=== PATIENT | female | born 1940 | race Caucasian/White ===

== ENCOUNTER → 2016-10-09 | Outpatient (CLI) | payer MEDICARE ==
--- NOTE | 2016-10-10 08:38 | BD ---
EXAMINATION TYPE: MG DEXA axial skeleton. DATE OF EXAM: 10/09/2016 9:30 AM COMPARISON: 2010 CLINICAL HISTORY: osteopenia Height: 5'1 Weight: 125 FRAX RISK QUESTIONS: Alcohol (3 or more units per day): no Family History (Parent hip fracture): no Glucocorticoids (More than 3mos): no (Ex: prednisone, prednisolone, methylprednisolone, dexamethasone, and hydrocortisone). History of Fracture in Adulthood: no Secondary Osteoporosis: 1. Type 1 Diabetes: no 2. Hyperthyroidism: no 3. Menopause before 45: no 4. Malnutrition: no 5. Chronic liver disease: no Rheumatoid Arthritis: no Current Tobacco Use: no RISK FACTORS HISTORY OF: Postmenopausal woman: MEDICATIONS: Thyroid Medications: Which medication: Synthroid How Lon years Osteoporosis Medications: Which medication: Fosamax How Long: > 7 years Additional Medications: blood pressure, cholesterol, anxiety depression, Additional History: osteopenia EXAM MEASUREMENTS: Bone mineral densitometry was performed using the [employer] System. Bone mineral density as measured about the Lumbar spine is: ----- L1-L4(G/cm2): 1.150 T Score Values are as follows: ----- L2: -1.6 ----- L3: 0.6 ----- L4: 0.5 ----- L1-L4:-0.6 Bone mineral density has: Decreased -0.9% since study of:06/04/2011 Bone mineral density about the R hip (g/cm2): 0.825 Bone mineral density about the L hip (g/cm2): 0.853 T Score values are as follows: -----R Neck: -1.5 -----L Neck: -1.3 -----R Intertrochanter: -2.0 -----L Intertrochanter: -1.9 Bone mineral density has: Decreased -1.0% since study of: 06/04/2011 IMPRESSION: Osteopenia (T Score between -2.5 and -1 as noted by T score values:L2, Akira Hips There is slightly increased risk of fracture and the patient may be considered for treatment. Re-Screen 1-2 years. NOTE: T-SCORE=SD OF THE YOUNG ADULT MEAN.
== END | disposition home or self-care (01) ==
LOC: RADBDWWP 09:09
PROVIDERS: ATTEND Family Medicine
DX: M85.852 Other specified disorders of bone density and structure, left thigh (principal); M85.851 Other specified disorders of bone density and structure, right thigh
CPT/HCPCS: 77080

== ENCOUNTER 2017-01-24 10:01 | Day surgery (SDC) | payer MEDICARE ==
[2017-01-21 15:02] VITALS: BMI 21.7
[~2017-01-24 10:01] MED LIST: LIDOCAINE 1% 20 ML VIAL (10MG/ML) FOR IV START INTRADERMA PRN
[2017-01-24 10:31] VITALS: TEMP 98.6
[2017-01-24] MEDS: LACTATED RINGERS 1,000 ML IV SCH ×2 (10:41→10:49)
[2017-01-24] MEDS ORDERED: PROPOFOL 10 MG/ML 20 ML VIAL IV ONE (10:51)
[2017-01-24] MEDS ORDERED: LIDOCAINE 1% INJ 10MG/ML (20 ML MDV) ONE (10:51)
--- NOTE | 2017-01-24 11:10 | P.PCN ---
Date of Procedure: 01/24/17 Preoperative Diagnosis: Postoperative Diagnosis: Procedure(s) Performed: BRIEF HISTORY: Patient is a 76-year-old pleasant white female, scheduled for an elective colonoscopy as a part of evaluation of prior history of colon polyps. Her last colonoscopy was in 2010 was noted to have a tubular adenoma. PROCEDURE PERFORMED: Colonoscopy. PREOPERATIVE DIAGNOSIS: History of colon polyps. IV sedation per Anesthesia. PROCEDURE: After informed consent was obtained, the patient, was brought into the endoscopy unit. IV sedation was administered by Anesthesia under continuous monitoring. Digital rectal examination was normal. Initially the Olympus CF- 160 flexible video colonoscope was then inserted in the rectum, gradually advanced into the cecum without any difficulty. Careful examination was performed as the scope was gradually being withdrawn. Ileocecal valve and the appendiceal orifice were visualized and appeared normal. Prep was excellent. Mucosa of the cecum, ascending colon, transverse colon, descending colon, sigmoid colon, and rectum appeared normal. Retroflexion was performed in the rectum and no lesions were seen. The patient tolerated the procedure well. IMPRESSION: Normal-appearing colon from rectum to cecum with no evidence of colorectal neoplasia. RECOMMENDATIONS: Findings of this examination were discussed with the patient as well as a family. She was advised to have a repeat surveillance colonoscopy in 5 years. Implants: Indications for Procedure: Operative Findings: Description of Procedure:
[2017-01-24 11:17] VITALS: BP 108/64; PULSE 66; RESP 16
== END 2017-01-24 11:50 | disposition home or self-care (01) ==
LOC: ORWHC2ENDO 10:01
PROVIDERS: ATTEND Internal Medicine Gastroenterology
DX: Z12.11 Encounter for screening for malignant neoplasm of colon (principal); E78.5 Hyperlipidemia, unspecified; E07.9 Disorder of thyroid, unspecified; M19.90 Unspecified osteoarthritis, unspecified site; F39 Unspecified mood [affective] disorder; Z86.010 Personal history of colon polyps; Z79.82 Long term (current) use of aspirin; Z79.83 Long term (current) use of bisphosphonates; Z79.899 Other long term (current) drug therapy; Z87.891 Personal history of nicotine dependence; Z85.3 Personal history of malignant neoplasm of breast
CPT/HCPCS: G0105; J2001; J2704

== ENCOUNTER → 2017-05-23 | Outpatient (CLI) | payer MEDICARE ==
--- NOTE | 2017-05-23 07:54 | MM ---
Reason for exam: additional evaluation requested from prior study. Last mammogram was performed 1 year and 1 month ago. History: Patient is postmenopausal, has history of breast cancer at age 57, and had previous chest radiation therapy at age 56. Family history of breast cancer in maternal grandmother at age 60 and premenopausal breast cancer in mother at age 50. Excisional biopsy of the right breast, 1997. Lumpectomy of the right breast, 1997. Chemotherapy, 1997. Radiation therapy of the right breast, 1997. Took estrogen for 5 years beginning at age 52. Took tamoxifen for 5 years. Physical Findings: Nurse did not find any significant physical abnormalities on exam. MG 3D Diag Mammo W/Cad KARISHMA Bilateral CC and MLO view(s) were taken. Prior study comparison: May 07, 2016, bilateral MG 3d diag mammo w/cad KARISHMA. April 08, 2015, bilateral MG 3d diag mammo w/cad KARISHMA. There are scattered fibroglandular densities. Post surgical changes in the right breast. No significant new findings when compared with previous films. These results were verbally communicated with the patient and result sheet given to the patient on 05/23/17. ASSESSMENT: Benign, BI-RAD 2 RECOMMENDATION: Follow-up diagnostic mammogram of both breasts in 1 year.
== END | disposition home or self-care (01) ==
LOC: RADMAMWWP 07:00
PROVIDERS: ATTEND Family Medicine
DX: Z08 Encounter for follow-up examination after completed treatment for malignant neoplasm (principal); Z85.3 Personal history of malignant neoplasm of breast
CPT/HCPCS: G0204; G0279

== ENCOUNTER → 2017-07-16 | Outpatient (CLI) | payer MEDICARE ==
--- NOTE | 2017-07-16 07:29 | US ---
EXAMINATION TYPE: US kidneys/renal and bladder DATE OF EXAM: 07/16/2017 COMPARISON: NONE CLINICAL HISTORY: N39.0 FREQUENT URINARY TRACT INFECTIONS. EXAM MEASUREMENTS: Right Kidney: 9.6 x 3.3 x 3.8 cm Left Kidney: 9.6 x 3.3 x 3.8 cm Post Void Residual Volume: 4.4 mL Right Kidney: No hydronephrosis or masses seen Left Kidney: No hydronephrosis or masses seen Bladder: wnl Bilateral Jets seen: Yes Normal Post Void Residual: Yes There is no evidence for hydronephrosis at this point in time. No nephrolithiasis is seen. No sushma s are identified. The urinary bladder is anechoic. Bilateral ureteral jets are seen. IMPRESSION: Unremarkable evaluation.
== END | disposition home or self-care (01) ==
LOC: RADUSWWP 06:52
PROVIDERS: ATTEND Urology
DX: N39.0 Urinary tract infection, site not specified (principal); Z92.21 Personal history of antineoplastic chemotherapy; Z92.3 Personal history of irradiation; Z85.3 Personal history of malignant neoplasm of breast; Z85.89 Personal history of malignant neoplasm of other organs and systems
CPT/HCPCS: 76770

== ENCOUNTER 2017-10-31 20:04 | Emergency (ER) | payer MEDICARE ==
[2017-10-31 20:12] VITALS: TEMP 97.7
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
--- NOTE | 2017-10-31 21:09 | XR ---
EXAMINATION TYPE: XR wrist complete LT DATE OF EXAM: 10/31/2017 CLINICAL HISTORY: Generalized left wrist pain after fall injury today. TECHNIQUE: Frontal, lateral, scaphoid, and oblique images of the left wrist are obtained. COMPARISON: None FINDINGS: Osseous structures are demineralized. There is no acute fracture/dislocation evident in the left wrist. There is moderate to severe joint space loss with moderate spurring at base of first met acarpal. The overlying soft tissue appears unremarkable. IMPRESSION: There is no acute fracture or dislocation in the left wrist.
[2017-10-31 21:29] VITALS: BP 171/84; PULSE 72; RESP 18
== END 2017-10-31 21:46 | disposition home or self-care (01) ==
LOC: EC 20:04
DX: M25.532 Pain in left wrist (principal); E78.5 Hyperlipidemia, unspecified; M19.90 Unspecified osteoarthritis, unspecified site; E07.9 Disorder of thyroid, unspecified; F32.9 Major depressive disorder, single episode, unspecified; F41.9 Anxiety disorder, unspecified; Z85.3 Personal history of malignant neoplasm of breast; Z79.82 Long term (current) use of aspirin; Z79.899 Other long term (current) drug therapy; Z98.890 Other specified postprocedural states; V19.9XXA Pedal cyclist (driver) (passenger) injured in unspecified traffic accident, initial encounter; Y92.410 Unspecified street and highway as the place of occurrence of the external cause
CPT/HCPCS: 99283

== ENCOUNTER → 2018-06-02 | Outpatient (CLI) | payer MEDICARE ==
--- NOTE | 2018-06-02 09:05 | MM ---
Reason for exam: additional evaluation requested from prior study. Last mammogram was performed 1 year ago. History: Patient is postmenopausal, has history of breast cancer at age 57, and had previous chest radiation therapy at age 56. Family history of breast cancer in maternal grandmother at age 60 and premenopausal breast cancer in mother at age 50. Excisional biopsy of the right breast, 1997. Lumpectomy of the right breast, 1997. Chemotherapy, 1997. Radiation therapy of the right breast, 1997. Took estrogen for 5 years beginning at age 52. Took tamoxifen for 5 years. Physical Findings: Nurse did not find any significant physical abnormalities on exam. MG 3D Diag Mammo W/Cad KARISHMA Bilateral CC and MLO view(s) were taken. Prior study comparison: May 23, 2017, bilateral MG 3d diag mammo w/cad KARISHMA. May 07, 2016, bilateral MG 3d diag mammo w/cad KARISHMA. There are scattered fibroglandular densities. Asymmetric breast tissue greater in the left breast. Post surgical changes in the right breast, stable. No significant new findings when compared with previous films. These results were verbally communicated with the patient and result sheet given to the patient on 06/02/18. ASSESSMENT: Benign, BI-RAD 2 RECOMMENDATION: Routine screening mammogram of both breasts in 1 year.
== END ==
LOC: RADMAMWWP 07:32
PROVIDERS: ATTEND Family Medicine
DX: Z08 Encounter for follow-up examination after completed treatment for malignant neoplasm (principal); Z85.3 Personal history of malignant neoplasm of breast
CPT/HCPCS: 77066; G0279; 77062

== ENCOUNTER → 2019-07-15 | Outpatient (CLI) | payer MEDICARE ==
--- NOTE | 2019-07-15 10:11 | BD ---
EXAMINATION TYPE: Axial Bone Density DATE OF EXAM: 07/15/2019 COMPARISON: NONE CLINICAL HISTORY: Height: 5 FT Weight: 117 FRAX RISK QUESTIONS: Alcohol (3 or more units per day): NO Family History (Parent hip fracture): NO Glucocorticoids (More than 3mos): NO (Ex: prednisone, prednisolone, methylprednisolone, dexamethasone, and hydrocortisone). History of Fracture in Adulthood: YES Secondary Osteoporosis: 1. Type 1 Diabetes: NO 2. Hyperthyroidism: NO 3. Menopause before 45: NO 4. Malnutrition: NO 5. Chronic liver disease: NO Rheumatoid Arthritis: NO Current Tobacco Use: NO RISK FACTORS HISTORY OF: History of Wrist Fracture: YES LEFT When: 2018 Active: YES Postmenopausal woman: AGE 52 Take estrogen and/or progesterone medications: DID TAKE FOR ABOUT FIVE YEARS NO LONGER TAKES MEDICATIONS: Thyroid Medications: YES Which medication: LEVOTHYROXINE How Long: APPROX 12 YEARS Osteoporosis Medications: YES Which medication: FOSAMAX How Lon YEARS Additional Medications: FOSAMAX, LEVOTHYROXINE, VIT D3, Additional History: BREAST CANCER AGE 57 CHEMO AND RADIATION EXAM MEASUREMENTS: Bone mineral densitometry was performed using the [employer] System. Bone mineral density as measured about the Lumbar spine is: ----- L1-L4(G/cm2): 1.194 T Score Values are as follows: ----- L2: -0.7 ----- L3: 1.3 ----- L4: 0.4 ----- L1-L4: 0.1 Bone mineral density has: INCREASED 8.3 % since study of: 2017 Bone mineral density about the R hip (g/cm2): 0.862 Bone mineral density about the L hip (g/cm2): 0.887 T Score values are as follows: -----R Neck: -1.3 -----L Neck: -1.1 -----R Total: -1.2 -----L Total: -0.9 Bone mineral density has: INCREASED 1.3 % since study of: 2017 IMPRESSION: Normal (Values between +1 and -1 indicate normal bone mass). Consider repeating this study in 5 year s or sooner if there is some new clinical indication. NOTE: T-SCORE=SD OF THE YOUNG ADULT MEAN.
--- NOTE | 2019-07-16 13:20 | MM ---
Reason for exam: screening (asymptomatic). Last mammogram was performed 1 year and 1 month ago. History: Patient is postmenopausal, has history of breast cancer at age 57, and had previous chest radiation therapy at age 56. Family history of breast cancer in maternal grandmother at age 60 and premenopausal breast cancer in mother at age 50. Excisional biopsy of the right breast, 1997. Lumpectomy of the right breast, 1997. Chemotherapy, 1997. Radiation therapy of the right breast, 1997. Took estrogen for 5 years beginning at age 52. Took tamoxifen for 5 years. Physical Findings: A clinical breast exam by your physician is recommended on an annual basis and results should be correlated with mammographic findings. MG 3D Screening Mammo W/Cad Bilateral CC and MLO view(s) were taken. Prior study comparison: June 02, 2018, bilateral MG 3d diag mammo w/cad KARISHMA. May 23, 2017, bilateral MG 3d diag mammo w/cad KARISHMA. There are scattered fibroglandular densities. No significant changes when compared with prior studies. ASSESSMENT: Benign, BI-RAD 2 RECOMMENDATION: Routine screening mammogram of both breasts in 1 year.
== END | disposition home or self-care (01) ==
LOC: RADMAMWWP 07:28
PROVIDERS: ATTEND Family Medicine
DX: Z12.31 Encounter for screening mammogram for malignant neoplasm of breast (principal); Z78.0 Asymptomatic menopausal state
CPT/HCPCS: 77063; 77067; 77080

== ENCOUNTER 2020-04-28 08:17 | Emergency (ER) | payer MEDICARE ==
[2020-04-28 08:43] VITALS: RESP 18
[2020-04-28] MEDS ORDERED: SODIUM CHLORIDE 0.9% 1,000 ML IV STA (08:54)
[2020-04-28] MEDS ORDERED: ALBUTEROL HFA INHALER INHALATION STA (08:56)
--- NOTE | 2020-04-28 08:58 | ED ---
General Adult HPI - General Chief complaint: Shortness of Breath Stated complaint: Sob Time Seen by Provider: 04/28/20 08:25 Source: patient, RN notes reviewed Mode of arrival: ambulatory Limitations: no limitations - History of Present Illness Initial comments: 79-year-old female presents to the emergency department for a chief complaint of hyperlipidemia, thyroid disorder, remote breast cancer presents to the emergency room for chief complaint of cough. Patient states she has had a cough for about a week now. States she feels she has to cough up phlegm however is unable to do splint. States that she has felt achy and fatigued throughout the week. Patient now feels slightly short of breath as well. 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 Patient states she feels how she did when she previously had pneumonia. She denies any fevers.Patient has no other complaints at this time including chest pain, abdominal pain, nausea or vomiting, headache, or visual changes. - Related Data Home Medications Medication Instructions Recorded Confirmed Alendronate Sodium [Fosamax] 70 mg PO WE 01/21/17 04/28/20 Cholecalciferol [Vitamin D3] 1,000 unit PO DAILY 01/21/17 04/28/20 Glucosam/Angelo-Msm1/C/Sanjiv/Bosw 1 tab PO DAILY 01/21/17 04/28/20 [Glucosamine-Chondroitin Tablet] Levothyroxine Sodium [Synthroid] 50 mcg PO DAILY 01/21/17 04/28/20 Sertraline [Zoloft] 200 mg PO DAILY 01/21/17 04/28/20 clonazePAM [KlonoPIN] 1.5 mg PO HS 01/21/17 04/28/20 Vitamin C (Unknown Strength) 1 tab PO DAILY 04/28/20 04/28/20 Previous Rx's Medication Instructions Recorded Albuterol Inhaler [Ventolin Hfa 2 puff INHALATION RT-QID PRN #1 04/28/20 Inhaler] inhaler Azithromycin [Zithromax Z-pack (6 250 mg PO DIRECTED #6 tab 04/28/20 tabs)] guaiFENesin [Mucinex] 600 mg PO Q12HR #14 tablet.er 04/28/20 methylPREDNISolone Dose Pack 4 mg PO DIRECTED #21 package 04/28/20 [Medrol Dose Pack] Allergies Allergy/AdvReac Type Severity Reaction Status Date / Time No Known Allergies Allergy Verified 04/28/20 10:39 Review of Systems ROS Statement: Those systems with pertinent positive or pertinent negative responses have been documented in the HPI. ROS Other: All systems not noted in ROS Statement are negative. Past Medical History Past Medical History: Cancer, Hyperlipidemia, Osteoarthritis (OA), Thyroid Disorder Additional Past Medical History / Comment(s): HX BREAST CA-1998 History of Any Multi-Drug Resistant Organisms: None Reported Past Surgical History: Adenoidectomy, Breast Surgery, Hysterectomy, Orthopedic Surgery, Tonsillectomy Additional Past Surgical History / Comment(s): PIN TO RT SHOULDER. RT BREAST LUMPECTOMY WITH AXILLARY NODE DISSECTION. BILAT CATARACTS REMOVED. COLONOSCOPY Past Anesthesia/Blood Transfusion Reactions: No Reported Reaction Past Psychological History: Anxiety, Depression Smoking Status: Former smoker Past Alcohol Use History: None Reported Past Drug Use History: None Reported - Past Family History Mother Family Medical History: Cancer General Exam Limitations: no limitations General appearance: alert, in no apparent distress Head exam: Present: atraumatic, normocephalic, normal inspection Eye exam: Present: normal appearance, PERRL, EOMI. Absent: scleral icterus, conjunctival injection, periorbital swelling ENT exam: Present: normal exam, mucous membranes moist Neck exam: Present: normal inspection, full ROM. Absent: tenderness, meningismus, lymphadenopathy Respiratory exam: Present: normal lung sounds bilaterally. Absent: respiratory distress, wheezes, rales, rhonchi, stridor Cardiovascular Exam: Present: regular rate, normal rhythm, normal heart sounds. Absent: systolic murmur, diastolic murmur, rubs, gallop, clicks GI/Abdominal exam: Present: soft, normal bowel sounds. Absent: distended, tenderness, guarding, rebound, rigid Neurological exam: Present: alert Course Vital Signs 04/28/20 04/28/20 08:19 10:18 Temperature 99.0 F Pulse Rate 89 Respiratory 18 Rate Blood Pressure 131/81 O2 Sat by Pulse 94 L 96 Oximetry EKG Findings - EKG Comments: EKG Findings:: Normal sinus rhythm, ventricular rate 83, OR total 150, QTC 472 Medical Decision Making - Medical Decision Making Vitals are stable. Patient initially 94% on room air. Normal heart rate. Afebrile. No worse 3 distress. Patient speaking in full sentences. CBC is unremarkable. Mild lymphocytosis as noted. CMP unremarkable. D-dimer within normal limits of 0.52. Chest x-ray shows a borderline heart with COPD and some strandy atelectasis or scarring. No definite acute process. Patient was ambulated and had a 97% ambulatory O2. At this time patient will be treated for possible acute bronchitis. I did recommend that if she has any worsening symptoms she should return here to the emergency room. Otherwise she will follow-up with primary care. - Lab Data Result diagrams: 04/28/20 08:29 04/28/20 08:29 Lab Results 04/28/20 04/28/20 04/28/20 Range/Units 08:29 08:29 08:29 WBC 6.5 (3.8-10.6) k/uL RBC 4.15 (3.80-5.40) m/uL Hgb 11.9 (11.4-16.0) gm/dL Hct 37.6 (34.0-46.0) % MCV 90.8 (80.0-100.0) fL MCH 28.8 (25.0-35.0) pg MCHC 31.7 (31.0-37.0) g/dL RDW 14.2 (11.5-15.5) % Plt Count 151 (150-450) k/uL Neutrophils % 86 % Lymphocytes % 9 % Monocytes % 3 % Eosinophils % 0 % Basophils % 0 % Neutrophils # 5.6 (1.3-7.7) k/uL Lymphocytes # 0.6 L (1.0-4.8) k/uL Monocytes # 0.2 (0-1.0) k/uL Eosinophils # 0.0 (0-0.7) k/uL Basophils # 0.0 (0-0.2) k/uL PT 9.4 (9.0-12.0) sec INR 0.9 (<1.2) APTT 25.7 (22.0-30.0) sec D-Dimer (<0.60) mg/L FEU Sodium 135 L (137-145) mmol/L Potassium 4.5 (3.5-5.1) mmol/L Chloride 103 (98-107) mmol/L Carbon Dioxide 25 (22-30) mmol/L Anion Gap 7 mmol/L BUN 16 (7-17) mg/dL Creatinine 0.89 (0.52-1.04) mg/dL Est GFR (CKD-EPI)AfAm 72 (>60 ml/min/1.73 sqM) Est GFR (CKD-EPI)NonAf 63 (>60 ml/min/1.73 sqM) Glucose 131 H (74-99) mg/dL Plasma Lactic Acid Del (0.7-2.0) mmol/L Calcium 8.6 (8.4-10.2) mg/dL Total Bilirubin 0.5 (0.2-1.3) mg/dL AST 38 H (14-36) U/L ALT 15 (4-34) U/L Alkaline Phosphatase 92 (38-126) U/L Troponin I (0.000-0.034) ng/mL Total Protein 7.1 (6.3-8.2) g/dL Albumin 4.1 (3.5-5.0) g/dL 04/28/20 04/28/20 04/28/20 Range/Units 08:29 08:29 08:29 WBC (3.8-10.6) k/uL RBC (3.80-5.40) m/uL Hgb (11.4-16.0) gm/dL Hct (34.0-46.0) % MCV (80.0-100.0) fL MCH (25.0-35.0) pg MCHC (31.0-37.0) g/dL RDW (11.5-15.5) % Plt Count (150-450) k/uL Neutrophils % % Lymphocytes % % Monocytes % % Eosinophils % % Basophils % % Neutrophils # (1.3-7.7) k/uL Lymphocytes # (1.0-4.8) k/uL Monocytes # (0-1.0) k/uL Eosinophils # (0-0.7) k/uL Basophils # (0-0.2) k/uL PT (9.0-12.0) sec INR (<1.2) APTT (22.0-30.0) sec D-Dimer 0.52 (<0.60) mg/L FEU Sodium (137-145) mmol/L Potassium (3.5-5.1) mmol/L Chloride (98-107) mmol/L Carbon Dioxide (22-30) mmol/L Anion Gap mmol/L BUN (7-17) mg/dL Creatinine (0.52-1.04) mg/dL Est GFR (CKD-EPI)AfAm (>60 ml/min/1.73 sqM) Est GFR (CKD-EPI)NonAf (>60 ml/min/1.73 sqM) Glucose (74-99) mg/dL Plasma Lactic Acid Del 1.1 (0.7-2.0) mmol/L Calcium (8.4-10.2) mg/dL Total Bilirubin (0.2-1.3) mg/dL AST (14-36) U/L ALT (4-34) U/L Alkaline Phosphatase (38-126) U/L Troponin I <0.012 (0.000-0.034) ng/mL Total Protein (6.3-8.2) g/dL Albumin (3.5-5.0) g/dL Disposition Clinical Impression: Cough Disposition: HOME SELF-CARE Condition: Good Instructions (If sedation given, give patient instructions): Acute Bronchitis (ED) Additional Instructions: please take medications as directed. Follow-up with your doctor in one to 2 days. Return to the emergency room for any worsening symptoms such as increased shortness of breath. Prescriptions: methylPREDNISolone Dose Pack [Medrol Dose Pack] 4 mg PO DIRECTED #21 package guaiFENesin [Mucinex] 600 mg PO Q12HR #14 tablet.er Albuterol Inhaler [Ventolin Hfa Inhaler] 2 puff INHALATION RT-QID PRN #1 inhaler PRN Reason: Shortness Of Breath Azithromycin [Zithromax Z-pack (6 tabs)] 250 mg PO DIRECTED #6 tab Is patient prescribed a controlled substance at d/c from ED?: No Referrals: Ramo Guerrero DO [Primary Care Provider] - 1-2 days Time of Disposition: 11:40
--- NOTE | 2020-04-28 09:35 | XR ---
EXAMINATION TYPE: XR chest 2V DATE OF EXAM: 04/28/2020 COMPARISON: 05/07/2016 HISTORY: 79-year-old female shortness of breath, difficulty breathing TECHNIQUE: PA and lateral views FINDINGS: Heart upper limits of normal in size. Aorta and pulmonary vasculature within normal limits. Mild hype rinflation. Some strandy opacity, likely atelectasis in lower lungs. Mild pectus excavatum. Surgical clips at the right axilla. Surgical katelyn at the right glenoid. IMPRESSION: Borderline heart size. COPD. Some strandy atelectasis or scarring in the lower lungs. No definite acu te process.
[2020-04-28 09:49] LABS: Basophils % (A) 0 %; Eosinophils % (A) 0 %; HCT 37.6 % (34.0-46.0); HGB 11.9 gm/dL (11.4-16.0); Lymphocytes # (A) 0.6 k/uL (1.0-4.8); Lymphocytes % (A) 9 %; MCH 28.8 pg (25.0-35.0); MCHC 31.7 g/dL (31.0-37.0); MCV 90.8 fL (80.0-100.0); Mean Platelet Volume 7.5; Monocytes # (A) 0.2 k/uL (0-1.0); Monocytes % (A) 3 %; Neutrophils # (A) 5.6 k/uL (1.3-7.7); Neutrophils % (A) 86 %; Platelet Count 151 k/uL (150-450); RBC 4.15 m/uL (3.80-5.40); RDW 14.2 % (11.5-15.5); WBC 6.5 k/uL (3.8-10.6)
[2020-04-28 10:02] LABS: Albumin 4.1 g/dL (3.5-5.0); Calcium 8.6 mg/dL (8.4-10.2); INR 0.9 (<1.2); Partial Thromboplastin Time 25.7 sec (22.0-30.0); Potassium 4.5 mmol/L (3.5-5.1); Prothrombin Time 9.4 sec (9.0-12.0); Total Bilirubin 0.5 mg/dL (0.2-1.3); Total Protein 7.1 g/dL (6.3-8.2)
[2020-04-28 11:57] VITALS: BP 132/72; PULSE 69; TEMP 98.4
== END 2020-04-28 11:57 | disposition home or self-care (01) ==
LOC: EC 08:17
DX: U07.1 COVID-19 (principal); D72.820 Lymphocytosis (symptomatic); J44.9 Chronic obstructive pulmonary disease, unspecified; E07.9 Disorder of thyroid, unspecified; F41.9 Anxiety disorder, unspecified; F32.9 Major depressive disorder, single episode, unspecified; Z79.899 Other long term (current) drug therapy; Z79.83 Long term (current) use of bisphosphonates; Z79.890 Hormone replacement therapy; Z87.891 Personal history of nicotine dependence; Z85.3 Personal history of malignant neoplasm of breast
CPT/HCPCS: 99285; 96360; 36415; 93005; 85379; 80053; 83605; 84484; 85025; 85610; 85730; 71046; U0003

== ENCOUNTER 2020-05-02 10:22 | Inpatient (IN) | payer MEDICARE ==
[2020-05-02] MEDS ORDERED: IPRATROPIUM-ALBUTEROL 3 ML NEB INHALATION STA (10:43)
--- NOTE | 2020-05-02 10:46 | ED ---
SOB HPI - General Chief Complaint: Shortness of Breath Stated Complaint: SOB Time Seen by Provider: 05/02/20 10:30 Source: patient, family, RN notes reviewed Mode of arrival: ambulatory Limitations: no limitations - History of Present Illness Initial Comments: this a 79-year-old female presents emergency Department with chief complaint of increasing shortness of breath. Patient was seen in emergency from it for days ago states symptoms have worsened. Patient was at PCPs office today and sent here to rule out pneumonia, possible hospitalization. Patient has been having shortness breath at rest and with exertion denies any leg pain, leg swelling no history of CHF, PE or DVT. Patient that she has a minimally productive cough no reported fever. No significant long history including COPD or asthma. Patient states she was placed on oxygen at her PCPs office because she was having low saturations. Patient denies any abdominal pain. - Related Data Home Medications Medication Instructions Recorded Confirmed Alendronate Sodium [Fosamax] 70 mg PO WE 01/21/17 05/02/20 Cholecalciferol [Vitamin D3] 1,000 unit PO DAILY 01/21/17 05/02/20 Glucosam/Angelo-Msm1/C/Sanjiv/Bosw 1 tab PO DAILY 01/21/17 05/02/20 [Glucosamine-Chondroitin Tablet] Levothyroxine Sodium [Synthroid] 50 mcg PO DAILY 01/21/17 05/02/20 Sertraline [Zoloft] 200 mg PO DAILY 01/21/17 05/02/20 clonazePAM [KlonoPIN] 1.5 mg PO HS 01/21/17 05/02/20 Vitamin C (Unknown Strength) 1 tab PO DAILY 04/28/20 05/02/20 Aspirin EC [Ecotrin Low Dose] 81 mg PO DAILY 05/02/20 05/02/20 Azithromycin [Zithromax Z-pack (6 See Taper PO DIRECTED 05/02/20 05/02/20 tabs)] Cyanocobalamin (Vitamin B-12) 1,000 mcg PO DAILY 05/02/20 05/02/20 [Vitamin B-12] methylPREDNISolone Dose Pack See Taper PO DIRECTED 05/02/20 05/02/20 [Medrol Dose Pack] Previous Rx's Medication Instructions Recorded Albuterol Inhaler [Ventolin Hfa 2 puff INHALATION RT-QID PRN #1 04/28/20 Inhaler] inhaler guaiFENesin [Mucinex] 600 mg PO Q12HR #14 tablet.er 04/28/20 Allergies Allergy/AdvReac Type Severity Reaction Status Date / Time No Known Allergies Allergy Verified 05/02/20 11:12 Review of Systems ROS Statement: Those systems with pertinent positive or pertinent negative responses have been documented in the HPI. ROS Other: All systems not noted in ROS Statement are negative. Past Medical History Past Medical History: Cancer, Hyperlipidemia, Osteoarthritis (OA), Thyroid Disorder Additional Past Medical History / Comment(s): HX BREAST CA-1998 History of Any Multi-Drug Resistant Organisms: None Reported Past Surgical History: Adenoidectomy, Breast Surgery, Hysterectomy, Orthopedic Surgery, Tonsillectomy Additional Past Surgical History / Comment(s): PIN TO RT SHOULDER. RT BREAST LUMPECTOMY WITH AXILLARY NODE DISSECTION. BILAT CATARACTS REMOVED. COLONOSCOPY Past Anesthesia/Blood Transfusion Reactions: No Reported Reaction Past Psychological History: Anxiety, Depression Smoking Status: Former smoker Past Alcohol Use History: None Reported Past Drug Use History: None Reported - Past Family History Mother Family Medical History: Cancer General Exam Limitations: no limitations General appearance: alert, in no apparent distress Head exam: Present: atraumatic, normocephalic, normal inspection Eye exam: Present: normal appearance, PERRL, EOMI. Absent: scleral icterus, conjunctival injection, periorbital swelling ENT exam: Present: normal exam, normal oropharynx, mucous membranes moist Neck exam: Present: normal inspection, full ROM. Absent: tenderness, meningismus, lymphadenopathy Respiratory exam: Present: decreased breath sounds. Absent: normal lung sounds bilaterally, respiratory distress, wheezes, rales, rhonchi, stridor Cardiovascular Exam: Present: regular rate, normal rhythm, normal heart sounds. Absent: systolic murmur, diastolic murmur, rubs, gallop, clicks GI/Abdominal exam: Present: soft, normal bowel sounds. Absent: distended, tenderness, guarding, rebound, rigid Neurological exam: Present: alert, oriented X3 Skin exam: Present: warm, dry, intact, normal color. Absent: rash Course Vital Signs 05/02/20 05/02/20 05/02/20 10:23 10:42 12:18 Temperature 98.8 F 97.9 F Pulse Rate 58 L 85 Respiratory 20 14 16 Rate Blood Pressure 122/69 127/69 O2 Sat by Pulse 92 L 96 Oximetry Medical Decision Making - Medical Decision Making chest x-ray shows evidence of pneumonia related to coronavirus testing. Patient will be admitted secondary to hypoxia. Patient becomes increasingly hypoxic with an ablation even on O2 supplement - Lab Data Result diagrams: 05/02/20 10:49 05/02/20 10:49 Lab Results 05/02/20 05/02/20 05/02/20 Range/Units 10:49 10:49 10:49 WBC 15.9 H (3.8-10.6) k/uL RBC 3.64 L (3.80-5.40) m/uL Hgb 10.8 L (11.4-16.0) gm/dL Hct 32.0 L (34.0-46.0) % MCV 87.9 (80.0-100.0) fL MCH 29.7 (25.0-35.0) pg MCHC 33.7 (31.0-37.0) g/dL RDW 13.9 (11.5-15.5) % Plt Count 206 (150-450) k/uL Neutrophils % 97 % Lymphocytes % 1 % Monocytes % 2 % Eosinophils % 0 % Basophils % 0 % Neutrophils # 15.3 H (1.3-7.7) k/uL Lymphocytes # 0.2 L (1.0-4.8) k/uL Monocytes # 0.3 (0-1.0) k/uL Eosinophils # 0.0 (0-0.7) k/uL Basophils # 0.0 (0-0.2) k/uL PT 9.7 (9.0-12.0) sec INR 0.9 (<1.2) APTT 25.2 (22.0-30.0) sec D-Dimer 0.59 (<0.60) mg/L FEU Sodium 129 L (137-145) mmol/L Potassium 3.8 (3.5-5.1) mmol/L Chloride 98 (98-107) mmol/L Carbon Dioxide 23 (22-30) mmol/L Anion Gap 8 mmol/L BUN 19 H (7-17) mg/dL Creatinine 0.82 (0.52-1.04) mg/dL Est GFR (CKD-EPI)AfAm 80 (>60 ml/min/1.73 sqM) Est GFR (CKD-EPI)NonAf 69 (>60 ml/min/1.73 sqM) Glucose 105 H (74-99) mg/dL Plasma Lactic Acid Del (0.7-2.0) mmol/L Calcium 8.3 L (8.4-10.2) mg/dL Magnesium 2.1 (1.6-2.3) mg/dL Total Bilirubin 0.6 (0.2-1.3) mg/dL AST 34 (14-36) U/L ALT 12 (4-34) U/L Alkaline Phosphatase 76 (38-126) U/L Troponin I (0.000-0.034) ng/mL Total Protein 6.3 (6.3-8.2) g/dL Albumin 3.3 L (3.5-5.0) g/dL Coronavirus (PCR) (Not Detectd) 05/02/20 05/02/20 05/02/20 Range/Units 10:49 10:49 10:49 WBC (3.8-10.6) k/uL RBC (3.80-5.40) m/uL Hgb (11.4-16.0) gm/dL Hct (34.0-46.0) % MCV (80.0-100.0) fL MCH (25.0-35.0) pg MCHC (31.0-37.0) g/dL RDW (11.5-15.5) % Plt Count (150-450) k/uL Neutrophils % % Lymphocytes % % Monocytes % % Eosinophils % % Basophils % % Neutrophils # (1.3-7.7) k/uL Lymphocytes # (1.0-4.8) k/uL Monocytes # (0-1.0) k/uL Eosinophils # (0-0.7) k/uL Basophils # (0-0.2) k/uL PT (9.0-12.0) sec INR (<1.2) APTT (22.0-30.0) sec D-Dimer (<0.60) mg/L FEU Sodium (137-145) mmol/L Potassium (3.5-5.1) mmol/L Chloride (98-107) mmol/L Carbon Dioxide (22-30) mmol/L Anion Gap mmol/L BUN (7-17) mg/dL Creatinine (0.52-1.04) mg/dL Est GFR (CKD-EPI)AfAm (>60 ml/min/1.73 sqM) Est GFR (CKD-EPI)NonAf (>60 ml/min/1.73 sqM) Glucose (74-99) mg/dL Plasma Lactic Acid Del 0.8 (0.7-2.0) mmol/L Calcium (8.4-10.2) mg/dL Magnesium (1.6-2.3) mg/dL Total Bilirubin (0.2-1.3) mg/dL AST (14-36) U/L ALT (4-34) U/L Alkaline Phosphatase (38-126) U/L Troponin I <0.012 (0.000-0.034) ng/mL Total Protein (6.3-8.2) g/dL Albumin (3.5-5.0) g/dL Coronavirus (PCR) Detected A (Not Detectd) - EKG Data -: EKG Interpreted by Tx EKG Comments: EKG performed at 11:05 normal sinus rhythm rate of 82 MO 176 QRS 78 QT/QTC 394/460 Disposition Clinical Impression: Hypoxia, COVID-19 Disposition: ADMITTED IP TO THIS HOSP Condition: Fair Referrals: Ramo Guerrero DO [Primary Care Provider] - 1-2 days
[2020-05-02 11:21] LABS: Basophils % (A) 0 %; Eosinophils % (A) 0 %; HGB 10.8 gm/dL (11.4-16.0); Lymphocytes # (A) 0.2 k/uL (1.0-4.8); Lymphocytes % (A) 1 %; MCH 29.7 pg (25.0-35.0); MCHC 33.7 g/dL (31.0-37.0); MCV 87.9 fL (80.0-100.0); Mean Platelet Volume 7.6; Monocytes # (A) 0.3 k/uL (0-1.0); Monocytes % (A) 2 %; Neutrophils # (A) 15.3 k/uL (1.3-7.7); Neutrophils % (A) 97 %; Platelet Count 206 k/uL (150-450); RBC 3.64 m/uL (3.80-5.40); RDW 13.9 % (11.5-15.5); WBC 15.9 k/uL (3.8-10.6)
[2020-05-02 11:24] LABS: Albumin 3.3 g/dL (3.5-5.0); Calcium 8.3 mg/dL (8.4-10.2); Magnesium 2.1 mg/dL (1.6-2.3); Potassium 3.8 mmol/L (3.5-5.1); Total Bilirubin 0.6 mg/dL (0.2-1.3); Total Protein 6.3 g/dL (6.3-8.2)
--- NOTE | 2020-05-02 11:41 | XR ---
EXAMINATION TYPE: XR chest 2V DATE OF EXAM: 05/02/2020 COMPARISON: 04/28/2020 HISTORY: Shortness of breath TECHNIQUE: Frontal and lateral views of the chest are obtained. FINDINGS: Scattered senescent parenchymal changes noted. Hyperinflation compatible with COPD. Patchy basilar densities may reflect developing pneumonia. Correlate clinically and progress studies are recommended. Heart size is stable. Mediastinal structures are stable and grossly unremarkable. No evidence for hilar prominence. Degenerative changes dorsal spine. IMPRESSION: 1. Patchy basilar densities may reflect developing pneumonia. Correlate clinically and progress studi es are recommended.
[2020-05-02] MEDS ORDERED: ALBUTEROL HFA INHALER INHALATION STA (11:59)
[2020-05-02 12:06] LABS: D-Dimer 0.59 mg/L FEU (<0.60); INR 0.9 (<1.2); Partial Thromboplastin Time 25.2 sec (22.0-30.0); Prothrombin Time 9.7 sec (9.0-12.0)
[2020-05-02] MEDS ORDERED: ACETAMINOPHEN TAB 325 MG TAB PO PRN (12:46)
[2020-05-02] MEDS ORDERED: NALOXONE 0.4 MG/ML 1 ML VIAL IV PRN (12:46)
[2020-05-02] MEDS: dexAMETHasone 2 MG TAB PO SCH ×2 (14:10→22:42)
[2020-05-02] MEDS: ZINC SULFATE 220 MG CAP PO SCH (14:10)
[2020-05-02] MEDS: CHOLECALCIFEROL 1,000 UNIT TAB PO SCH (14:10)
[2020-05-02] MEDS: ENOXAPARIN 40 MG/0.4 ML SYRINGE SQ SCH (14:11)
[2020-05-02] MEDS: ALBUTEROL HFA INHALER INHALATION PRN (17:32)
[2020-05-02] MEDS ORDERED: ALBUTEROL HFA INHALER INHALATION PRN (18:26)
[2020-05-02] MEDS: ASCORBIC ACID 500 MG TAB PO SCH (21:21)
[2020-05-02] MEDS: guaiFENesin 600 MG TABLET.ER PO SCH (21:21)
--- NOTE | 2020-05-02 21:57 | P.HPIM ---
History of Present Illness H&P Date: 05/02/20 Chief Complaint: Covid 19 infection, bilateral pneumonia, hypoxia, fever and chills 79-year-old female one of Dr. John patient with past medical history significant for breast cancer, hypothyroidism, hyperlipidemia and severe osteoarthritis who apparently has been sick for the last 2 and half weeks with mild fever or chills cough productive DrDante along with worsening dyspnea and her. Patient apparently was in demurs department this past and was diagnosed with bronchitis prescribed Z-Riley, Medrol Dosepak and Mucinex she ended up this morning at Dr. Guerrero office complaining of worsening symptom with severe hypoxia significant dyspnea with minimum exertion along with worsening cough fever and nausea with generalized fatigue and achiness and overall not feeling well. Ended up being sent to the emergency department where was seen and evaluated again patient testing today came back positive for Covid 19, white blood cell weren't significantly elevated at 15,000, also patient had mild hyponatremia. Her CK and troponin was negative chest x-ray showed patchy basilar density may reflect developed being pneumonia. Patient was started on IV antibiotics with Rocephin and azithromycin, started on anticoagulation with Lovenox along with zinc vitamin C vitamin E along with Decadron and consult pulmonary for possible needing an antiviral medication for the Covid 19. Review of Systems CONSTITUTIONAL: Well-developed no acute respiratory distress. EYES: No icterus sclerae, no conjunctivitis. EARS, NOSE, MOUTH, THROAT, and FACE: No sore throat, lymphadenopathy, carotid bruits or deformity. RESPIRATORY: Positive dyspnea and shortness of breath cough with mild wheezes. CARDIOVASCULAR: Positive mild tachycardia with PND and orthopnea. GASTROINTESTINAL: No Abd pain, nausea without vomiting no Diarrhea or constipation, No GI Bleed, no distention or masses. GENITOURINARY: Negative for Hematuria or UTI, no kidney stones. INTEGUMENT/BREAST: Negative for any muscular injury with mild osteoarthritis.. HEMATOLOGIC/LYMPHATIC: Negative for bleed or purpura. MUSCULOSKELTAL: Negative for Myalgia or arthralgia. NEURLOGICAL: No LOC, Sz or syncope, blurred vision dizziness or abnormality.. BEHAVIORAL/PSYCH: Negative. ENDOCRINE: Negative. Past Medical History Past Medical History: Cancer, Hyperlipidemia, Osteoarthritis (OA), Thyroid Disorder Additional Past Medical History / Comment(s): HX BREAST CA-1998 History of Any Multi-Drug Resistant Organisms: None Reported Past Surgical History: Adenoidectomy, Breast Surgery, Hysterectomy, Orthopedic Surgery, Tonsillectomy Additional Past Surgical History / Comment(s): PIN TO RT SHOULDER. RT BREAST LUMPECTOMY WITH AXILLARY NODE DISSECTION. BILAT CATARACTS REMOVED. COLONOSCOPY Past Anesthesia/Blood Transfusion Reactions: No Reported Reaction Past Psychological History: Anxiety, Depression Smoking Status: Former smoker Past Alcohol Use History: None Reported Past Drug Use History: None Reported - Past Family History Mother Family Medical History: Cancer Medications and Allergies Home Medications Medication Instructions Recorded Confirmed Type Alendronate Sodium [Fosamax] 70 mg PO WE 01/21/17 05/02/20 History Cholecalciferol [Vitamin D3] 1,000 unit PO DAILY 01/21/17 05/02/20 History Glucosam/Angelo-Msm1/C/Sanjiv/Bosw 1 tab PO DAILY 01/21/17 05/02/20 History [Glucosamine-Chondroitin Tablet] Levothyroxine Sodium [Synthroid] 50 mcg PO DAILY 01/21/17 05/02/20 History Sertraline [Zoloft] 200 mg PO DAILY 01/21/17 05/02/20 History clonazePAM [KlonoPIN] 1.5 mg PO HS 01/21/17 05/02/20 History Albuterol Inhaler [Ventolin Hfa 2 puff INHALATION RT-QID PRN #1 04/28/20 05/02/20 Rx Inhaler] inhaler Vitamin C (Unknown Strength) 1 tab PO DAILY 04/28/20 05/02/20 History guaiFENesin [Mucinex] 600 mg PO Q12HR #14 tablet.er 04/28/20 05/02/20 Rx Aspirin EC [Ecotrin Low Dose] 81 mg PO DAILY 05/02/20 05/02/20 History Azithromycin [Zithromax Z-pack (6 See Taper PO DIRECTED 05/02/20 05/02/20 History tabs)] Cyanocobalamin (Vitamin B-12) 1,000 mcg PO DAILY 05/02/20 05/02/20 History [Vitamin B-12] methylPREDNISolone Dose Pack See Taper PO DIRECTED 05/02/20 05/02/20 History [Medrol Dose Pack] Allergies Allergy/AdvReac Type Severity Reaction Status Date / Time No Known Allergies Allergy Verified 05/02/20 11:12 Physical Exam Vitals: Vital Signs Temp Pulse Resp BP Pulse Ox 05/02/20 18:23 98.5 F 88 95 H 131/73 94 L 05/02/20 15:47 98.3 F 83 14 124/64 96 05/02/20 14:14 98.1 F 86 16 115/62 95 05/02/20 12:18 97.9 F 85 16 127/69 96 05/02/20 10:42 14 05/02/20 10:23 98.8 F 58 L 20 122/69 92 L Intake and Output 05/02/20 05/02/20 05/02/20 06:59 14:59 22:59 Other: Weight 55.792 kg General Appearance: Alert, cooperative, no distress, appears stated age. Neck HEENT: Supple, no lymphadenopathy, no thyroid enlargement, no carotid bruits. Lungs: Decreased breath some bilaterally specially the bases positive rhonchi with crackles in the bases positive mild expiratory wheezes. Chest Wall: Chest wall normal expansion with deep inspiration no tenderness and no deformity was found on exam, no costochondral pain or discomfort. Heart: Regular rate and rhythm, S1, S2 normal, no murmur, rub or gallop. Back: Symmetric, no curvature, ROM normal, no CVA tenderness. Abdomen: Soft, non-tender, bowel sounds active all four quadrants, no masses, no organomegaly. Extremities: Extremities normal, atraumatic, no cyanosis or edema. Pulses: 2+ and symmetric. Skin: Skin color, texture, tugor normal, no rashes or lesions. Neurologic: Alert oriented x3 cranial nerves II through XII intact, no motor deficit, no abnormal balance or gait. Results CBC & Chem 7: 05/02/20 10:49 05/02/20 10:49 Labs: Abnormal Lab Results - Last 24 Hours (Table) 05/02/20 05/02/20 05/02/20 Range/Units 10:49 10:49 10:49 WBC 15.9 H (3.8-10.6) k/uL RBC 3.64 L (3.80-5.40) m/uL Hgb 10.8 L (11.4-16.0) gm/dL Hct 32.0 L (34.0-46.0) % Neutrophils # 15.3 H (1.3-7.7) k/uL Lymphocytes # 0.2 L (1.0-4.8) k/uL Sodium 129 L (137-145) mmol/L BUN 19 H (7-17) mg/dL Glucose 105 H (74-99) mg/dL Calcium 8.3 L (8.4-10.2) mg/dL Albumin 3.3 L (3.5-5.0) g/dL Coronavirus (PCR) Detected A (Not Detectd) Assessment and Plan Assessment: 1 severe dyspnea and shortness of breath: Combination of bilateral pneumonia along with Covid 19, patient was started on Decadron along with DuoNeb Lovenox and zinc with vitamin D. Continue current management for now and if more symptomatic patient can benefit from from Remdesivir. 2 Covid 19 infection: Most likely causing pneumonitis and to management continue supportive care with oxygen if needed high flow will be done as well continue updraft and will consult pulmonary continue Decadron. Continue anticoagulation as well. 3 hypothyroidism: Continue patient on levothyroxine 50 g daily. 4 severe rest like and severe insomnia: Has been on clonazepam 1.5 mg at bedtime. 5 severe osteoporosis: Patient has been on alternate along with calcium and vitamin D. 6 anticoagulation: Patient be on Lovenox 40 mg subcutaneous daily for now. 7 depression: Continue patient on Zoloft 200 mg daily. 8 hyponatremia: Sodium down to 129 which is typical for Covid 19 at this point. 9 DVT prophylaxis: Will continue Lovenox. 10 GI prophylaxis: Patient Benefit from Pepcid 20 mg daily. CODE STATUS: Full code. Admit patient to the inpatient service for more than 2 night stay.
[2020-05-02] MEDS: clonazePAM 0.5 MG TAB PO SCH (22:42)
[2020-05-03] MEDS: LEVOTHYROXINE 50 MCG TAB PO SCH (05:40)
[2020-05-03] MEDS: ALBUTEROL HFA INHALER INHALATION PRN ×4 (08:30→21:32)
[2020-05-03] MEDS ORDERED: NON FORMULARY DRUG (Glucosam/Chon-Msm1/C/Mang/Bosw [Glucosamine-Chondroitin Tablet] 1 EACH PO SCH (09:00)
[2020-05-03] MEDS: ASPIRIN 81 MG PO SCH (09:11)
[2020-05-03] MEDS: guaiFENesin 600 MG TABLET.ER PO SCH ×2 (09:12→21:15)
[2020-05-03] MEDS: ASCORBIC ACID 500 MG TAB PO SCH ×2 (09:12→21:15)
[2020-05-03] MEDS: dexAMETHasone 2 MG TAB PO SCH ×2 (09:12→21:15)
[2020-05-03] MEDS: CHOLECALCIFEROL 1,000 UNIT TAB PO SCH ×2 (09:12)
[2020-05-03] MEDS: CYANOCOBALAMIN 500 MCG TAB PO SCH (09:12)
[2020-05-03] MEDS: SERTRALINE 100 MG TAB PO SCH (09:12)
[2020-05-03] MEDS: ZINC SULFATE 220 MG CAP PO SCH (09:12)
[2020-05-03] MEDS: ENOXAPARIN 40 MG/0.4 ML SYRINGE SQ SCH (13:15)
[2020-05-03] MEDS: MAGNESIUM HYDROXIDE 2,400 MG/10 ML CUP PO PRN (13:15)
--- NOTE | 2020-05-03 13:34 | P.PN ---
Subjective Progress Note Date: 05/03/20 HISTORY OF PRESENT ILLNESS 79-year-old female one of Dr. John patient with past medical history sig nificant for breast cancer, hypothyroidism, hyperlipidemia and severe osteoarthritis who apparently has been sick for the last 2 and half weeks with mild fever or chills cough productive DrDante along with worsening dyspnea and her. Patient apparently was in demurs department this past and was diagnosed with bronchitis prescribed Z-Riley, Medrol Dosepak and Mucinex she ended up this morning at Dr. Guerrero office complaining of worsening symptom with severe hypoxia significant dyspnea with minimum exertion along with worsening cough fever and nausea with generalized fatigue and achiness and overall not feeling well. Ended up being sent to the emergency department where was seen and ev aluated again patient testing today came back positive for Covid 19, white blood cell weren't significantly elevated at 15,000, also patient had mild hyponatremia. Her CK and troponin was negative chest x-ray showed patchy basilar density may reflect developed being pneumonia. Patient was started on IV antibiotics with Rocephin and azithromycin, started on anticoagulation with Lovenox along with zinc vitamin C vitamin E along with Decadron and consult pulmonary for possible needing an antiviral medication for the Covid 19. 05/03: Patient has been afebrile, heart rate 69, blood pressure 137/68, pulse ox 94% on 4 L nasal cannula. Patient is still short of breath. She has bilateral crackles. More so on the right side. She states her is also tested for Covid 19 and report is pending. She is complaining of lack of appetite and insure will be added. Pulmonary consult in place. REVIEW OF SYSTEMS CONSTITUTIONAL: Well-developed no acute respiratory distress. EYES: No icterus sclerae, no conjunctivitis. EARS, NOSE, MOUTH, THROAT, and FACE: No sore throat, lymphadenopathy, carotid bruits or deformity. RESPIRATORY: Positive dyspnea and shortness of breath cough with mild wheezes. CARDIOVASCULAR: Positive mild tachycardia with PND and orthopnea. GASTROINTESTINAL: No Abd pain, nausea without vomiting no Diarrhea or constipation, No GI Bleed, no distention or masses. GENITOURINARY: Negative for Hematuria or UTI, no kidney stones. INTEGUMENT/BREAST: Negative for any muscular injury with mild osteoarthritis.. HEMATOLOGIC/LYMPHATIC: Negative for bleed or purpura. MUSCULOSKELTAL: Negative for Myalgia or arthralgia. NEURLOGICAL: No LOC, Sz or syncope, blurred vision dizziness or abnormality.. BEHAVIORAL/PSYCH: Negative. ENDOCRINE: Negative. PHYSICAL EXAMINATION General Appearance: Alert, cooperative, no distress, appears stated age. Neck HEENT: Supple, no lymphadenopathy, no thyroid enlargement, no carotid bruits. Lungs: Decreased breath bilaterally with bilateral crackles. Chest Wall: Chest wall normal expansion with deep inspiration no tenderness and no deformity was found on exam, no costochondral pain or discomfort. Heart: Regular rate and rhythm, S1, S2 normal, no murmur, rub or gallop. Back: Symmetric, no curvature, ROM normal, no CVA tenderness. Abdomen: Soft, non-tender, bowel sounds active all four quadrants, no masses, no organomegaly. Extremities: Extremities normal, atraumatic, no cyanosis or edema. Pulses: 2+ and symmetric. Skin: Skin color, texture, tugor normal, no rashes or lesions. Neurologic: Alert oriented x3 cranial nerves II through XII intact, no motor deficit, no abnormal balance or gait. Patient appears anxious ASSESSMENT AND PLAN 1 severe dyspnea and shortness of breath: Combination of bilateral pneumonia along with Covid 19, patient was started on Decadron along with DuoNeb Lovenox and zinc with vitamin D. Continue current management for now and if more symptomatic patient can benefit from from Remdesivir. Pulmonary consult in place 2 Covid 19 infection: Most likely causing pneumonitis and to management continue supportive care with oxygen if needed high flow will be done as well continue updraft and will consult pulmonary continue Decadron. Continue anticoagulation as well. 3 hypothyroidism: Continue patient on levothyroxine 50 g daily. 4 severe rest like and severe insomnia: Has been on clonazepam 1.5 mg at bedtime. 5 severe osteoporosis: Patient has been on alternate along with calcium and vitamin D. 6 anticoagulation: Patient be on Lovenox 40 mg subcutaneous daily for now. 7 depression: Continue patient on Zoloft 200 mg daily. 8 hyponatremia. 9 DVT prophylaxis: Will continue Lovenox. 10 GI prophylaxis: Patient Benefit from Pepcid 20 mg daily. CODE STATUS: Full code. DISCHARGE PLAN [ ]. Impression and plan of care have been directed as dictated by the signing physician. Ivone Vizcarra nurse practitioner acting as scribe for signing physician. Objective - Vital Signs Vital signs: Vital Signs Temp 98.3 F 05/03/20 07:00 Pulse 69 05/03/20 07:00 Resp 17 05/03/20 07:00 BP 137/68 05/03/20 07:00 Pulse Ox 94 L 05/03/20 07:00 Intake & Output 05/02/20 05/03/20 05/03/20 18:59 06:59 18:59 Weight 55.792 kg 55.792 kg Other: Voiding Method Toilet # Voids 1 - Labs CBC & Chem 7: 05/02/20 10:49 05/02/20 10:49 Labs: Abnormal Lab Results - Last 24 Hours (Table) 05/02/20 05/02/20 05/02/20 Range/Units 10:49 10:49 10:49 WBC 15.9 H (3.8-10.6) k/uL RBC 3.64 L (3.80-5.40) m/uL Hgb 10.8 L (11.4-16.0) gm/dL Hct 32.0 L (34.0-46.0) % Neutrophils # 15.3 H (1.3-7.7) k/uL Lymphocytes # 0.2 L (1.0-4.8) k/uL Sodium 129 L (137-145) mmol/L BUN 19 H (7-17) mg/dL Glucose 105 H (74-99) mg/dL Calcium 8.3 L (8.4-10.2) mg/dL Ferritin (10.0-291.0) ng/mL Albumin 3.3 L (3.5-5.0) g/dL Procalcitonin (0.02-0.09) ng/mL Coronavirus (PCR) Detected A (Not Detectd) 05/02/20 05/02/20 Range/Units 10:49 10:49 WBC (3.8-10.6) k/uL RBC (3.80-5.40) m/uL Hgb (11.4-16.0) gm/dL Hct (34.0-46.0) % Neutrophils # (1.3-7.7) k/uL Lymphocytes # (1.0-4.8) k/uL Sodium (137-145) mmol/L BUN (7-17) mg/dL Glucose (74-99) mg/dL Calcium (8.4-10.2) mg/dL Ferritin 482.0 H (10.0-291.0) ng/mL Albumin (3.5-5.0) g/dL Procalcitonin 0.32 H (0.02-0.09) ng/mL Coronavirus (PCR) (Not Detectd)
[2020-05-03 14:45] LABS: C Reactive Protein 9.7 mg/dL (0.0-0.8)
[2020-05-03] MEDS: clonazePAM 0.5 MG TAB PO SCH (21:15)
--- NOTE | 2020-05-04 00:01 | CONS ---
CONSULTATION PULMONARY/CRITICAL CARE CONSULTATION: DATE OF CONSULTATION: May 03, 2020 This is a 79-year-old female who sees Dr. Ramo Guerrero. She apparently presents to the emergency room on May 02 at 10:22 complaining of increasing shortness of breath. She apparently was seen in the emergency room a couple days prior. Since that time, her symptoms have actually worsened. She apparently was seen by her primary care physician and told to go to the emergency room. They wanted to rule out pneumonia. The patient's complaints include progressive and worsening shortness of breath, both on exertion and at rest. In addition, the patient has a bit of a productive cough. No fever or chills. No nausea, vomiting, diarrhea, or abdominal pain. No genitourinary complaints. Apparently her saturations were quite low in the primary care doctor's office. Oxygen was prescribed and she was sent to the emergency room to be evaluated. She was tested for COVID-19. She did test positive. In addition, her chest x-ray did show some patchy densities possibly related to developing pneumonia and for that reason, she was admitted. CURRENT MEDICATIONS: Current medications at home include alendronate, vitamin D3, glucosamine/chondroitin, Synthroid, Zoloft, Klonopin, vitamin C, aspirin, Zithromax in the form of a Z-Riley, vitamin B12 and a Medrol Dosepak. She is also on Mucinex and albuterol inhaler. ALLERGIES: Allergies are denied. MEDICAL HISTORY: Her medical history is reviewed. She has a history of breast cancer diagnosed in 1998. She has had breast surgery for that. In addition, she has a history of hypothyroidism, hyperlipidemia, and DJD. She also suffers from osteoporosis. SURGICAL HISTORY: Surgical history includes adenoidectomy, breast surgery, hysterectomy, tonsillectomy, right shoulder pinning, right breast surgery including a lumpectomy with axillary lymph node dissection, bilateral cataract surgery, and colonoscopy. SOCIAL HISTORY: Positive for previous tobacco use. Denies alcohol or illicit drug use. FAMILY HISTORY: Positive for mother with cancer. REVIEW OF SYSTEMS: CONSTITUTIONAL: Weakness. NEUROLOGIC: Negative. HEENT: Negative. CARDIOVASCULAR: Negative. PULMONARY: Shortness of breath, cough with occasional phlegm production. GI: Negative. : Negative. RHEUMATOLOGIC: Negative. IMMUNOLOGIC: Negative. ENDOCRINOLOGIC: Negative. DERMATOLOGIC: Negative. PHYSICAL EXAMINATION: VITAL SIGNS: Current vital signs are reviewed. Temperature is 98.5, heart rate 83, respiratory rate 18, blood pressure 116/66, mean 82 and 4 L saturation 92%. GENERAL: Appears in no acute distress. HEENT: Examination is grossly unremarkable. NECK: Supple. Full range of motion. No adenopathy. Neck veins are flat. CARDIOVASCULAR: Examination is regular rhythm and rate. Heart rate 83 beats per minute. S1, S2 normal. No S3, S4, or murmur. LUNGS: Reveal a few scattered rhonchi. No wheezes or crackles. Breath sounds equal. ABDOMEN: Soft. Bowel sounds are heard. EXTREMITIES: Are intact. No cyanosis, clubbing, or edema. SKIN: Without rash. NEUROLOGIC: Examination is brief but nonfocal. LABS: Labs are reviewed. White count 15.9, hemoglobin 10.8, hematocrit 32.0, platelet count 206,000. PT/INR, PTT and D-dimer are all normal. Sodium 129, potassium 3.8, chloride 98, CO2 of 23. Anion gap is 8. BUN and creatinine were 19 and 0.82. Glucose 105. Calcium 8.3. Ferritin 482. LDH 427. C-reactive protein 9.7. Total protein 6.3. Procalcitonin 0.32. COVID testing was positive. Microbiology is negative. Chest x-ray shows some patchy bibasilar infiltrates. MEDICATIONS: Current medications are reviewed. She is currently on Tylenol, albuterol inhaler, Fosamax, ascorbic acid, aspirin, vitamin D3, Klonopin, B12, Decadron, Lovenox, Mucinex, DuoNeb, Synthroid, milk of magnesia, Narcan, Zoloft, and zinc. ASSESSMENT: 1. COVID-19 pneumonia/pneumonitis with mild/moderate hypoxemia. 2. History of breast cancer, status post right breast lumpectomy with axillary lymph node dissection. 3. Hyperlipidemia. 4. Degenerative joint disease. 5. Hypothyroidism. 6. Multiple orthopedic procedures. PLAN: Currently, the patient appears to be relatively comfortable. We will continue to monitor closely. She is on appropriate medications including albuterol, vitamin C and D, zinc, and Decadron. A repeat chest x-ray will be done in the morning. Additional recommendations and suggestions are forthcoming. Should her condition worsen, consideration would be given to remdesivir. MMODL / IJN: [id number] /
[2020-05-04] MEDS: LEVOTHYROXINE 50 MCG TAB PO SCH (06:09)
[2020-05-04 06:19] LABS: HCT 34.7 % (34.0-46.0); HGB 11.5 gm/dL (11.4-16.0); MCH 29.5 pg (25.0-35.0); MCHC 33.1 g/dL (31.0-37.0); MCV 89.1 fL (80.0-100.0); Mean Platelet Volume 7.1; Platelet Count 328 k/uL (150-450); RBC 3.89 m/uL (3.80-5.40); WBC 15.4 k/uL (3.8-10.6)
--- NOTE | 2020-05-04 07:31 | XR ---
EXAMINATION TYPE: XR chest 1V portable DATE OF EXAM: 05/04/2020 Comparison: 05/02/2020 Clinical History: 79-year-old female COVID pneumonia Findings: Heart mildly enlarged. Fine interstitial density persists in the mid and lower lungs. Surgical clips within the right axilla. Impression: 1. Stable mild cardiomegaly. 2. Persistent fine interstitial densities/infiltrates in the mid and lower lungs.
[2020-05-04] MEDS: SERTRALINE 100 MG TAB PO SCH (08:20)
[2020-05-04] MEDS: CHOLECALCIFEROL 1,000 UNIT TAB PO SCH ×2 (08:20)
[2020-05-04] MEDS: ASPIRIN 81 MG PO SCH (08:20)
[2020-05-04] MEDS: ZINC SULFATE 220 MG CAP PO SCH (08:20)
[2020-05-04] MEDS: CYANOCOBALAMIN 500 MCG TAB PO SCH (08:20)
[2020-05-04] MEDS: ASCORBIC ACID 500 MG TAB PO SCH ×2 (08:20→21:00)
[2020-05-04] MEDS: guaiFENesin 600 MG TABLET.ER PO SCH ×2 (08:20→21:00)
[2020-05-04] MEDS: dexAMETHasone 2 MG TAB PO SCH ×2 (08:20→21:00)
[2020-05-04] MEDS: MAGNESIUM HYDROXIDE 2,400 MG/10 ML CUP PO PRN (08:23)
[2020-05-04] MEDS ORDERED: NON FORMULARY DRUG (Alendronate Sodium [Fosamax] 70 MG Tablet) PO SCH (09:00)
[2020-05-04] MEDS: SENNOSIDES-DOCUSATE SODIUM 1 EACH TAB PO SCH (09:22)
[2020-05-04 09:28] LABS: African American GFR (CKD) 71.5 (60.0-200.0); Albumin 3.5 g/dL (3.80-4.90); Albumin/Globulin Ratio 1.52 (1.60-3.17); Anion Gap 6.4 mmol/L (4.00-12.00); BUN/Creat Ratio 28.89 Ratio (12.00-20.00); Calcium 8.8 mg/dL (8.7-10.3); Carbon Dioxide 28.6 mmol/L (21.6-31.8); Globulin 2.3 g/dL (1.6-3.3); Non-African American GFR(CKD) 61.7 (60.0-200.0); Potassium 4.8 mmol/L (3.5-5.5); Total Bilirubin 0.3 mg/dL (0.2-1.2); Total Protein 5.8 g/dL (6.2-8.2)
[2020-05-04] MEDS: ALBUTEROL HFA INHALER INHALATION PRN ×3 (09:40→20:59)
--- NOTE | 2020-05-04 12:22 | P.PN ---
Subjective Progress Note Date: 05/04/20 HISTORY OF PRESENT ILLNESS 79-year-old female one of Dr. John patient with past medical history sig nificant for breast cancer, hypothyroidism, hyperlipidemia and severe osteoarthritis who apparently has been sick for the last 2 and half weeks with mild fever or chills cough productive Dr. along with worsening dyspnea and her. Patient apparently was in demurs department this past and was diagnosed with bronchitis prescribed Z-Riley, Medrol Dosepak and Mucinex she ended up this morning at Dr. Guerrero office complaining of worsening symptom with severe hypoxia significant dyspnea with minimum exertion along with worsening cough fever and nausea with generalized fatigue and achiness and overall not feeling well. Ended up being sent to the emergency department where was seen and ev aluated again patient testing today came back positive for Covid 19, white blood cell weren't significantly elevated at 15,000, also patient had mild hyponatremia. Her CK and troponin was negative chest x-ray showed patchy basilar density may reflect developed being pneumonia. Patient was started on IV antibiotics with Rocephin and azithromycin, started on anticoagulation with Lovenox along with zinc vitamin C vitamin E along with Decadron and consult pulmonary for possible needing an antiviral medication for the Covid 19. 05/03: Patient has been afebrile, heart rate 69, blood pressure 137/68, pulse ox 94% on 4 L nasal cannula. Patient is still short of breath. She has bilateral crackles. More so on the right side. She states her is also tested for Covid 19 and report is pending. She is complaining of lack of appetite and insure will be added. Pulmonary consult in place. 05/04: Patient continues to have shortness of breath and is on oxygen of 4 1/2 liters pulse ox 92%. Patient most likely will require home oxygen and will be assessed tomorrow. She has been afebrile, heart rate 70, blood pressure 146/84. WBC 15.4. Repeat chest x-ray is stable mild cardiomegaly. Persistent fine interstitial densities infiltrates in the mid and lower lungs. Patient is followed by pulmonary medicine. Patient continues to complain of constipation and no bowel movement in 5 days. She is on milk of magnesia and Senokot. Anticipate possible discharge by tomorrow. REVIEW OF SYSTEMS CONSTITUTIONAL: Well-developed no acute respiratory distress. Denies fever. EYES: No icterus sclerae, no conjunctivitis. EARS, NOSE, MOUTH, THROAT, and FACE: No sore throat, lymphadenopathy, carotid bruits or deformity. RESPIRATORY: Positive dyspnea and shortness of breath cough with mild wheezes. CARDIOVASCULAR: Positive mild tachycardia with PND and orthopnea. GASTROINTESTINAL: No Abd pain, nausea without vomiting no Diarrhea or co nstipation, No GI Bleed, no distention or masses. GENITOURINARY: Negative for Hematuria or UTI, no kidney stones. INTEGUMENT/BREAST: Negative for any muscular injury with mild osteoarthritis.. HEMATOLOGIC/LYMPHATIC: Negative for bleed or purpura. MUSCULOSKELTAL: Negative for Myalgia or arthralgia. NEURLOGICAL: No LOC, Sz or syncope, blurred vision dizziness or abnormality.. BEHAVIORAL/PSYCH: Negative. ENDOCRINE: Negative. PHYSICAL EXAMINATION General Appearance: Alert, cooperative, no distress, appears stated age. No acute distress. Neck HEENT: Supple, no lymphadenopathy, no thyroid enlargement, no carotid bruits. Lungs: Decreased breath bilaterally with bilateral crackles. Chest Wall: Chest wall normal expansion with deep inspiration no tenderness and no deformity was found on exam, no costochondral pain or discomfort. Heart: Regular rate and rhythm, S1, S2 normal, no murmur, rub or gallop. Back: Symmetric, no curvature, ROM normal, no CVA tenderness. Abdomen: Soft, non-tender, bowel sounds active all four quadrants, no masses, no organomegaly. Extremities: Extremities normal, atraumatic, no cyanosis or edema. Pulses: 2+ and symmetric. Skin: Skin color, texture, tugor normal, no rashes or lesions. Neurologic: Alert oriented x3 cranial nerves II through XII intact, no motor d eficit, no abnormal balance or gait. Patient appears anxious ASSESSMENT AND PLAN 1 severe dyspnea and shortness of breath: Combination of bilateral pneumonia along with Covid 19, patient was started on Decadron along with DuoNeb Lovenox and zinc with vitamin D. Continue current management for now and if more symptomatic patient can benefit from from Remdesivir. Pulmonary consult in place 2 Covid 19 infection: Most likely causing pneumonitis and to management continue supportive care with oxygen if needed high flow will be done as well continue updraft and will consult pulmonary continue Decadron. Continue anticoagulation as well. 3 hypothyroidism: Continue patient on levothyroxine 50 g daily. 4 severe rest like and severe insomnia: Has been on clonazepam 1.5 mg at bedtime. 5 severe osteoporosis: Patient has been on alternate along with calcium and vitamin D. 6 anticoagulation: Patient be on Lovenox 40 mg subcutaneous daily for now. 7 depression: Continue patient on Zoloft 200 mg daily. 8 hyponatremia. 9 DVT prophylaxis: Will continue Lovenox. 10 GI prophylaxis: Patient Benefit from Pepcid 20 mg daily. 11 acute hypoxic respiratory failure requiring home oxygen for half liters. Most likely, patient will require home oxygen. CODE STATUS: Full code. DISCHARGE PLAN Most likely return home in next 24 hours. Impression and plan of care have been directed as dictated by the signing physician. Ivone Vizcarra nurse practitioner acting as scribe for signing physician. Objective - Vital Signs Vital signs: Vital Signs Temp 97.4 F L 05/04/20 07:00 Pulse 70 05/04/20 07:00 Resp 18 05/04/20 07:00 BP 146/84 05/04/20 07:00 Pulse Ox 92 L 05/04/20 07:00 Intake & Output 05/03/20 05/04/20 05/04/20 18:59 06:59 18:59 Other: Voiding Method Toilet Toilet # Voids 2 2 - Labs CBC & Chem 7: 05/04/20 06:01 05/04/20 06:01 Labs: Abnormal Lab Results - Last 24 Hours (Table) 05/02/20 05/04/20 Range/Units 10:49 06:01 WBC 15.4 H (3.8-10.6) k/uL Lactate Dehydrogenase 427 H (120-246) U/L C-Reactive Protein 9.7 H (0.0-0.8) mg/dL
[2020-05-04] MEDS: ENOXAPARIN 40 MG/0.4 ML SYRINGE SQ SCH (14:43)
--- NOTE | 2020-05-04 16:00 | P.PN ---
Subjective Progress Note Date: 05/04/20 Principal diagnosis: The patient is seen today 05/04/2020 in follow-up on the regular medical floor. She was admitted 05/02/2020 with complaints of increasing shortness of breath cough and congestion. She was positive for coag 19 pneumonia. Presently she is doing well. She is sitting up in a chair at the bedside. Awake and alert in no acute distress. She is maintaining O2 saturation in the 90s on 4 L/m per nasal cannula. White count 15.4. Hemoglobin 11.5. Sodium 138. Potassium 4.8. Creatinine 0.9. She is continued on vitamin C, vitamin D, dexamethasone, Lovenox, zinc. Objective - Vital Signs Vital signs: Vital Signs Temp 97.9 F 05/04/20 15:00 Pulse 62 05/04/20 15:00 Resp 19 05/04/20 15:00 BP 135/79 05/04/20 15:00 Pulse Ox 90 L 05/04/20 15:00 Intake & Output 05/03/20 05/04/20 05/04/20 18:59 06:59 18:59 Other: Voiding Method Toilet Toilet Toilet # Voids 2 2 - Exam GENERAL EXAM: Alert, pleasant 79-year-old female patient, on 4 L nasal cannula, comfortable in no apparent distress. HEAD: Normocephalic. EYES: Normal reaction of pupils, equal size. NOSE: Clear with pink turbinates. THROAT: No erythema or exudates. NECK: No masses, no JVD. CHEST: No chest wall deformity. LUNGS: Equal air entry with basilar crackles CVS: S1 and S2 normal with no audible murmur, regular rhythm. ABDOMEN: No hepatosplenomegaly, normal bowel sounds, no guarding or rigidity. SPINE: No scoliosis or deformity SKIN: No rashes CENTRAL NERVOUS SYSTEM: No focal deficits, tone is normal in all 4 extremities. EXTREMITIES: There is no peripheral edema. No clubbing, no cyanosis. Peripheral pulses are intact. - Labs CBC & Chem 7: 05/04/20 06:01 05/04/20 06:01 Labs: Abnormal Lab Results - Last 24 Hours (Table) 05/04/20 05/04/20 Range/Units 06:01 06:01 WBC 15.4 H (3.8-10.6) k/uL BUN/Creatinine Ratio 28.89 H (12.00-20.00) Ratio Glucose 128 H (70-110) mg/dL Total Protein 5.8 L (6.2-8.2) g/dL Albumin 3.50 L (3.80-4.90) g/dL Albumin/Globulin Ratio 1.52 L (1.60-3.17) g/dL Assessment and Plan Assessment: 1 Acute hypoxemic respiratory failure secondary to CoVID 19 pneumonitis 2 History of breast cancer status post right lumpectomy with axillary lymph node dissection 3 Hyperlipidemia 4 Degenerative joint disease 5 Hypothyroidism 6 History of multiple orthopedic procedures Plan: The patient was seen and evaluated by Dr. Maxwell Currently stable from the pulmonary standpoint Chest x-ray and labs reviewed Continue the current treatment plan We'll continue to follow I, the cosigning physician, performed a history & physical examination of the patient. Lungs sounds basilar crackles. Maintaining good O2 saturations in the 90s on 4 L/m per nasal cannula. I discussed the assessment and plan of care with my nurse practitioner, Dione Fofana. I attest to the above note as dictated by her.
[2020-05-04] MEDS: clonazePAM 0.5 MG TAB PO SCH (21:00)
[2020-05-05] MEDS: LEVOTHYROXINE 50 MCG TAB PO SCH (05:37)
[2020-05-05] MEDS: ALBUTEROL HFA INHALER INHALATION PRN ×2 (08:01→11:01)
[2020-05-05] MEDS: ASCORBIC ACID 500 MG TAB PO SCH (08:35)
[2020-05-05] MEDS: guaiFENesin 600 MG TABLET.ER PO SCH (08:35)
[2020-05-05] MEDS: CHOLECALCIFEROL 1,000 UNIT TAB PO SCH ×2 (08:35→08:37)
[2020-05-05] MEDS: SENNOSIDES-DOCUSATE SODIUM 1 EACH TAB PO SCH (08:36)
[2020-05-05] MEDS: SERTRALINE 100 MG TAB PO SCH (08:36)
[2020-05-05] MEDS: ASPIRIN 81 MG PO SCH (08:36)
[2020-05-05] MEDS: CYANOCOBALAMIN 500 MCG TAB PO SCH (08:36)
[2020-05-05] MEDS: ZINC SULFATE 220 MG CAP PO SCH (08:37)
[2020-05-05] MEDS: dexAMETHasone 2 MG TAB PO SCH (08:37)
[2020-05-05 08:57] VITALS: BP 121/67; PULSE 69; RESP 17; TEMP 97.6
--- NOTE | 2020-05-05 09:48 | P.DS ---
Providers Date of admission: 05/02/20 13:03 Expected date of discharge: 05/05/20 Attending physician: Kyle Hollingsworth Consults: 05/02/20 13:03 Consult Physician Urgent Consulting Provider: Mitchel Maxwell Consult Reason/Comments: Covid, dyspnea Do you want consulting provider notified?: Yes [facility]: HISTORY OF PRESENT ILLNESS 79-year-old female one of Dr. John patient with past medical history significant for breast cancer, hypothyroidism, hyperlipidemia and severe osteoarthritis who apparently has been sick for the last 2 and half weeks with mild fever or chills cough productive Dr. along with worsening dyspnea and her. Patient apparently was in demurs department this past and was diagnosed with bronchitis prescribed Z-Riley, Medrol Dosepak and Mucinex she ended up this morning at Dr. Guerrero office complaining of worsening symptom with severe hypoxia significant dyspnea with minimum exertion along with worsening cough fever and nausea with generalized fatigue and achiness and overall not feeling well. Ended up being sent to the emergency department where was seen and evaluated again patient testing today came back positive for Covid 19, white blood cell weren't significantly elevated at 15,000, also patient had mild hyponatremia. Her CK and troponin was negative chest x-ray showed patchy basil ar density may reflect developed being pneumonia. Patient was started on IV antibiotics with Rocephin and azithromycin, started on anticoagulation with Lovenox along with zinc vitamin C vitamin E along with Decadron and consult pulmonary for possible needing an antiviral medication for the Covid 19. 05/03: Patient has been afebrile, heart rate 69, blood pressure 137/68, pulse ox 94% on 4 L nasal cannula. Patient is still short of breath. She has bilateral crackles. More so on the right side. She states her is also tested for Covid 19 and report is pending. She is complaining of lack of appetite and insure will be added. Pulmonary consult in place. 05/04: Patient continues to have shortness of breath and is on oxygen of 4 1/2 liters pulse ox 92%. Patient most likely will require home oxygen and will be assessed tomorrow. She has been afebrile, heart rate 70, blood pressure 146/84. WBC 15.4. Repeat chest x-ray is stable mild cardiomegaly. Persistent fine interstitial densities infiltrates in the mid and lower lungs. Patient is followed by pulmonary medicine. Patient continues to complain of constipation and no bowel movement in 5 days. She is on milk of magnesia and Senokot. Anticipate possible discharge by tomorrow. 05/05: Patient's breathing status continues in to improve. She is requiring oxygen with pulse ox of 87% on room air. Home oxygen will be arranged by the disease case manager rn. She has been afebrile, heart rate 69, blood pressure 121/97. Pulse ox 93% on 3 L nasal cannula. Patient will be discharged home today in stable condition. ASSESSMENT AND PLAN 1 severe dyspnea and shortness of breath: Combination of bilateral pneumonia along with Covid 19 pneumonia 2 Covid 19 infection causing pneumonitis 3 hypothyroidism 4 severe restless leg syndrome and severe insomnia 5 severe osteoporosis 6 anticoagulation 7 recurrent depression 8 hyponatremia. 9 chronic hypoxic respiratory failure requiring home oxygen. DISCHARGE PLAN home Impression and plan of care have been directed as dictated by the signing physician. Ivone Vizcarra nurse practitioner acting as scribe for signing physician. Patient Condition at Discharge: Good Plan - Discharge Summary Discharge Rx Participant: No New Discharge Prescriptions: New Dexamethasone [Decadron] 6 mg PO DAILY #5 tablet Zinc Sulfate [Orazinc] 220 mg PO DAILY cap Ascorbic Acid [Vitamin C] 500 mg PO BID tab Cholecalciferol [Vitamin D3 (25 Mcg = 1000 Iu)] 2,000 unit PO DAILY tab Continue Sertraline [Zoloft] 200 mg PO DAILY Cholecalciferol [Vitamin D3 (25 Mcg = 1000 Iu)] 1,000 unit PO DAILY clonazePAM [KlonoPIN] 1.5 mg PO HS Levothyroxine Sodium [Synthroid] 50 mcg PO DAILY Glucosam/Angelo-Msm1/C/Sanjiv/Bosw [Glucosamine-Chondroitin Tablet] 1 tab PO DAILY Alendronate Sodium [Fosamax] 70 mg PO WE Vitamin C (Unknown Strength) 1 tab PO DAILY guaiFENesin [Mucinex] 600 mg PO Q12HR #14 tablet.er Albuterol Inhaler [Ventolin Hfa Inhaler] 2 puff INHALATION RT-QID PRN #1 inhaler PRN Reason: Shortness Of Breath Cyanocobalamin (Vitamin B-12) [Vitamin B-12] 1,000 mcg PO DAILY Azithromycin [Zithromax Z-pack (6 tabs)] See Taper PO DIRECTED Aspirin EC [Ecotrin Low Dose] 81 mg PO DAILY Discontinued methylPREDNISolone Dose Pack [Medrol Dose Pack] See Taper PO DIRECTED Discharge Medication List Alendronate Sodium [Fosamax] 70 mg PO WE 01/21/17 [History] Cholecalciferol [Vitamin D3 (25 Mcg = 1000 Iu)] 1,000 unit PO DAILY 01/21/17 [History] Glucosam/Angelo-Msm1/C/Sanjiv/Bosw [Glucosamine-Chondroitin Tablet] 1 tab PO DAILY 01/21/17 [History] Levothyroxine Sodium [Synthroid] 50 mcg PO DAILY 01/21/17 [History] Sertraline [Zoloft] 200 mg PO DAILY 01/21/17 [History] clonazePAM [KlonoPIN] 1.5 mg PO HS 01/21/17 [History] Albuterol Inhaler [Ventolin Hfa Inhaler] 2 puff INHALATION RT-QID PRN #1 inhaler 04/28/20 [Rx] Vitamin C (Unknown Strength) 1 tab PO DAILY 04/28/20 [History] guaiFENesin [Mucinex] 600 mg PO Q12HR #14 tablet.er 04/28/20 [Rx] Aspirin EC [Ecotrin Low Dose] 81 mg PO DAILY 05/02/20 [History] Azithromycin [Zithromax Z-pack (6 tabs)] See Taper PO DIRECTED 05/02/20 [History] Cyanocobalamin (Vitamin B-12) [Vitamin B-12] 1,000 mcg PO DAILY 05/02/20 [History] Ascorbic Acid [Vitamin C] 500 mg PO BID tab 05/05/20 [Rx] Cholecalciferol [Vitamin D3 (25 Mcg = 1000 Iu)] 2,000 unit PO DAILY tab 05/05/20 [Rx] Dexamethasone [Decadron] 6 mg PO DAILY #5 tablet 05/05/20 [Rx] Zinc Sulfate [Orazinc] 220 mg PO DAILY cap 05/05/20 [Rx] Follow up Appointment(s)/Referral(s): Ramo Guerrero DO [Primary Care Provider] - 1 Week (Office will call you with available televisit options. Thank you.) Patient Instructions/Handouts: Pneumonia (DC) Discharge Disposition: HOME SELF-CARE
--- NOTE | 2020-05-05 15:21 | P.PN ---
Subjective Progress Note Date: 05/05/20 Principal diagnosis: The patient is seen today 05/04/2020 in follow-up on the regular medical floor. She was admitted 05/02/2020 with complaints of increasing shortness of breath cough and congestion. She was positive for coag 19 pneumonia. Presently she is doing well. She is sitting up in a chair at the bedside. Awake and alert in no acute distress. She is maintaining O2 saturation in the 90s on 4 L/m per nasal cannula. White count 15.4. Hemoglobin 11.5. Sodium 138. Potassium 4.8. Creatinine 0.9. She is continued on vitamin C, vitamin D, dexamethasone, Lovenox, zinc. The patient is seen today 05/05/2020 in follow-up on the regular medical floor. She sitting up in a chair at the bedside. Awake and alert in no acute distress. Currently maintaining O2 saturations in the 90s on 3 L/m per nasal cannula. She's been afebrile. Hemodynamically stable. She is continued on vitamin C, vitamin D, dexamethasone Lovenox and zinc. Objective - Vital Signs Vital signs: Vital Signs Temp 97.6 F 05/05/20 07:52 Pulse 69 05/05/20 07:52 Resp 17 05/05/20 07:52 BP 121/67 05/05/20 07:52 Pulse Ox 93 L 05/05/20 09:52 Intake & Output 05/04/20 05/05/20 05/05/20 18:59 06:59 18:59 Intake Total 1080 100 Balance 1080 100 Intake: Oral 1080 100 Other: Voiding Method Toilet Toilet # Voids 3 1 2 - Exam GENERAL EXAM: Alert, pleasant 79-year-old female patient, on 3 L nasal cannula, comfortable in no apparent distress. HEAD: Normocephalic. EYES: Normal reaction of pupils, equal size. NOSE: Clear with pink turbinates. THROAT: No erythema or exudates. NECK: No masses, no JVD. CHEST: No chest wall deformity. LUNGS: Equal air entry with basilar crackles CVS: S1 and S2 normal with no audible murmur, regular rhythm. ABDOMEN: No hepatosplenomegaly, normal bowel sounds, no guarding or rigidity. SPINE: No scoliosis or deformity SKIN: No rashes CENTRAL NERVOUS SYSTEM: No focal deficits, tone is normal in all 4 extremities. EXTREMITIES: There is no peripheral edema. No clubbing, no cyanosis. Peripheral pulses are intact. - Labs CBC & Chem 7: 05/04/20 06:01 05/04/20 06:01 Assessment and Plan Assessment: 1 Acute hypoxemic respiratory failure secondary to CoVID 19 pneumonitis, improved 2 History of breast cancer status post right lumpectomy with axillary lymph node dissection 3 Hyperlipidemia 4 Degenerative joint disease 5 Hypothyroidism 6 History of multiple orthopedic procedures Plan: The patient was seen and evaluated by Dr. Maxwell Currently stable from the pulmonary standpoint Cleared for discharge once cleared medically I, the cosigning physician, performed a history & physical examination of the patient. Lungs sounds basilar crackles. Maintaining good O2 saturations in the 90s on 3 L/m per nasal cannula. I discussed the assessment and plan of care with my nurse practitioner, Dione Fofana. I attest to the above note as dictated by her.
== END 2020-05-05 14:34 | disposition home or self-care (01) | DRG 177 ==
LOC: EC 10:22 → 6NMEDSUR 13:03 → 4SSUR 20:44
PROVIDERS: ADMIT Internal Medicine Geriatric Medicine; ATTEND Internal Medicine Geriatric Medicine
DX: U07.1 COVID-19 (principal); J12.89 Other viral pneumonia; J96.21 Acute and chronic respiratory failure with hypoxia; F33.9 Major depressive disorder, recurrent, unspecified; E87.1 Hypo-osmolality and hyponatremia; E03.9 Hypothyroidism, unspecified; E78.5 Hyperlipidemia, unspecified; F41.9 Anxiety disorder, unspecified; G25.81 Restless legs syndrome; G47.00 Insomnia, unspecified; M19.90 Unspecified osteoarthritis, unspecified site; K59.00 Constipation, unspecified; M81.0 Age-related osteoporosis without current pathological fracture; Z79.01 Long term (current) use of anticoagulants; Z79.82 Long term (current) use of aspirin; Z79.83 Long term (current) use of bisphosphonates; Z79.890 Hormone replacement therapy; Z79.899 Other long term (current) drug therapy; Z80.9 Family history of malignant neoplasm, unspecified; Z85.3 Personal history of malignant neoplasm of breast; Z87.891 Personal history of nicotine dependence; Z90.710 Acquired absence of both cervix and uterus; Z90.89 Acquired absence of other organs; Z98.42 Cataract extraction status, left eye; Z98.41 Cataract extraction status, right eye; Z98.890 Other specified postprocedural states
CPT/HCPCS: 36415; 71045; 71046; 80053; 82728; 83605; 83615; 83735; 84145; 84484; 85025; 85027; 85379; 85610; 85730; 86140; 87635; 93005; 94640; 99285

== ENCOUNTER 2020-05-09 05:48 | Inpatient (IN) | payer MEDICARE ==
[2020-05-09] MEDS ORDERED: ACETAMINOPHEN TAB 325 MG TAB PO STA (05:53)
--- NOTE | 2020-05-09 05:53 | ED ---
SOB HPI - General Stated Complaint: MAURO Time Seen by Provider: 05/09/20 05:52 - History of Present Illness Initial Comments: Luiza is a 79-year-old female who was admitted to our hospital 1 week ago for COVID 19, she was treated with steroids and azithromycin, she was discharged home with supplemental oxygen steroids, azithromycin, zinc, vitamin C. She's been compliant with her home medication regimen. She's been wearing her oxygen. She states that despite this she's felt progressively worsened throughout the night and couldn't sleep due to shortness of breath. Patient states that this morning she initially she couldn't get her breath despite wearing her oxygen mask at 4 L. EMS was called. EMS reports that upon their arrival to her home she was ashen nazario diaphoretic with an oxygen saturation of 71% - Related Data Home Medications Medication Instructions Recorded Confirmed Alendronate Sodium [Fosamax] 70 mg PO WE 01/21/17 05/09/20 Glucosam/Angelo-Msm1/C/Sanjiv/Bosw 1 tab PO DAILY 01/21/17 05/09/20 [Glucosamine-Chondroitin Tablet] Levothyroxine Sodium [Synthroid] 50 mcg PO DAILY 01/21/17 05/09/20 Sertraline [Zoloft] 200 mg PO DAILY 01/21/17 05/09/20 clonazePAM [KlonoPIN] 1.5 mg PO HS 01/21/17 05/09/20 Aspirin EC [Ecotrin Low Dose] 81 mg PO DAILY 05/02/20 05/09/20 Cyanocobalamin (Vitamin B-12) 1,000 mcg PO DAILY 05/02/20 05/09/20 [Vitamin B-12] Previous Rx's Medication Instructions Recorded Albuterol Inhaler [Ventolin Hfa 2 puff INHALATION RT-QID PRN #1 04/28/20 Inhaler] inhaler guaiFENesin [Mucinex] 600 mg PO Q12HR #14 tablet.er 04/28/20 Ascorbic Acid [Vitamin C] 500 mg PO BID tab 05/05/20 Cholecalciferol [Vitamin D3 (25 2,000 unit PO DAILY tab 05/05/20 Mcg = 1000 Iu)] Dexamethasone [Decadron] 6 mg PO DAILY #5 tablet 05/05/20 Zinc Sulfate [Orazinc] 220 mg PO DAILY cap 05/05/20 Allergies Allergy/AdvReac Type Severity Reaction Status Date / Time No Known Allergies Allergy Verified 05/09/20 06:55 Review of Systems ROS Statement: Those systems with pertinent positive or pertinent negative responses have been documented in the HPI. ROS Other: All systems not noted in ROS Statement are negative. Past Medical History Past Medical History: Cancer, Hyperlipidemia, Osteoarthritis (OA), Thyroid Disorder Additional Past Medical History / Comment(s): Breast cancer 1998, pacemaker?? Patient states her HR was in the 200s a long time ago and had a procedure done but cannot remember what it was History of Any Multi-Drug Resistant Organisms: None Reported Past Surgical History: Adenoidectomy, Breast Surgery, Hysterectomy, Orthopedic Surgery, Tonsillectomy Additional Past Surgical History / Comment(s): Right breast lumpectomy with axillary node dissection, bilateral cataracts removed, colonoscopy, pin to right shoulder Past Anesthesia/Blood Transfusion Reactions: No Reported Reaction Past Psychological History: Anxiety, Depression Smoking Status: Former smoker Past Alcohol Use History: None Reported Additional Past Alcohol Use History / Comment(s): Quit smoking 1979 Past Drug Use History: None Reported - Past Family History Mother Family Medical History: Cancer General Exam - General Exam Comments Initial Comments: Physical Exam GENERAL: Chronically ill appearing elderly female HENT: Normocephalic, Atraumatic. EYES: PERRL, EOMI PULMONARY: Tachypnea with increased work of breathing CARDIOVASCULAR: Tachycardic ABDOMEN: Soft, non-tender SKIN: Pale : Deferred NEUROLOGIC: Patient is alert and oriented x3. Moving all extremities spontaneously MUSCULOSKELETAL: No obvious injury PSYCHIATRIC: Appropriate situational anxiety Course Vital Signs 05/09/20 05/09/20 05/09/20 05:50 05:52 05:53 Temperature 99.2 F Pulse Rate 105 H 97 Respiratory 18 20 Rate Blood Pressure 168/89 O2 Sat by Pulse 97 Oximetry 05/09/20 05/09/20 05/09/20 06:08 06:50 07:01 Temperature Pulse Rate 98 108 H 110 H Respiratory 18 22 22 Rate Blood Pressure 147/95 124/80 124/71 O2 Sat by Pulse 98 97 97 Oximetry Medical Decision Making - Medical Decision Making the patient was seen and evaluated immediately upon arrival to the emergency department Patient's oxygenation has improved with a nonrebreather mask is now in the 90s Patient still has tachypnea and tachycardia A repeat COVID workup was initiated in the patient's deteriorating condition Reviewed the patient's medical record, during her previous admission she was not a candidate for Remdesivir, however considering her condition I do feel she is likely now a candidate and will require admission to the hospital oxygenation is improved on nonrebreather mask however I do feel she would benefit from BiPAP given her x-ray findings. Patient care was discussed with admitting physician Dr. Hollingsworth who agrees with plan for admission, continued supportive care with supplements, Decadron, BiPAP, consult pulmonology to discuss Remdesivir - Lab Data Result diagrams: 05/09/20 06:09 05/09/20 06:09 Lab Results 05/09/20 05/09/20 05/09/20 Range/Units 06:09 06:09 06:09 WBC 19.5 H (3.8-10.6) k/uL RBC 3.80 (3.80-5.40) m/uL Hgb 11.0 L (11.4-16.0) gm/dL Hct 33.0 L (34.0-46.0) % MCV 86.9 (80.0-100.0) fL MCH 28.9 (25.0-35.0) pg MCHC 33.3 (31.0-37.0) g/dL RDW 13.6 (11.5-15.5) % Plt Count 343 (150-450) k/uL MPV 6.8 Neutrophils % 96 % Lymphocytes % 1 % Monocytes % 2 % Eosinophils % 1 % Basophils % 1 % Neutrophils # 18.6 H (1.3-7.7) k/uL Lymphocytes # 0.3 L (1.0-4.8) k/uL Monocytes # 0.3 (0-1.0) k/uL Eosinophils # 0.1 (0-0.7) k/uL Basophils # 0.1 (0-0.2) k/uL Sodium 133 L (137-145) mmol/L Potassium 4.1 (3.5-5.1) mmol/L Chloride 101 (98-107) mmol/L Carbon Dioxide 26 (22-30) mmol/L Anion Gap 6 mmol/L BUN 23 H (7-17) mg/dL Creatinine 0.65 (0.52-1.04) mg/dL Est GFR (CKD-EPI)AfAm >90 (>60 ml/min/1.73 sqM) Est GFR (CKD-EPI)NonAf 86 (>60 ml/min/1.73 sqM) Glucose 100 H (74-99) mg/dL Plasma Lactic Acid Del 1.1 (0.7-2.0) mmol/L Calcium 8.7 (8.4-10.2) mg/dL Magnesium 2.1 (1.6-2.3) mg/dL Total Bilirubin 0.5 (0.2-1.3) mg/dL AST 36 (14-36) U/L ALT 14 (4-34) U/L Alkaline Phosphatase 80 (38-126) U/L Lactate Dehydrogenase 1116 H (313-618) U/L C-Reactive Protein 63.7 H (<10.0) mg/L Total Protein 5.9 L (6.3-8.2) g/dL Albumin 3.0 L (3.5-5.0) g/dL Coronavirus (PCR) (Not Detectd) 05/09/20 Range/Units 06:09 WBC (3.8-10.6) k/uL RBC (3.80-5.40) m/uL Hgb (11.4-16.0) gm/dL Hct (34.0-46.0) % MCV (80.0-100.0) fL MCH (25.0-35.0) pg MCHC (31.0-37.0) g/dL RDW (11.5-15.5) % Plt Count (150-450) k/uL MPV Neutrophils % % Lymphocytes % % Monocytes % % Eosinophils % % Basophils % % Neutrophils # (1.3-7.7) k/uL Lymphocytes # (1.0-4.8) k/uL Monocytes # (0-1.0) k/uL Eosinophils # (0-0.7) k/uL Basophils # (0-0.2) k/uL Sodium (137-145) mmol/L Potassium (3.5-5.1) mmol/L Chloride (98-107) mmol/L Carbon Dioxide (22-30) mmol/L Anion Gap mmol/L BUN (7-17) mg/dL Creatinine (0.52-1.04) mg/dL Est GFR (CKD-EPI)AfAm (>60 ml/min/1.73 sqM) Est GFR (CKD-EPI)NonAf (>60 ml/min/1.73 sqM) Glucose (74-99) mg/dL Plasma Lactic Acid Del (0.7-2.0) mmol/L Calcium (8.4-10.2) mg/dL Magnesium (1.6-2.3) mg/dL Total Bilirubin (0.2-1.3) mg/dL AST (14-36) U/L ALT (4-34) U/L Alkaline Phosphatase (38-126) U/L Lactate Dehydrogenase (313-618) U/L C-Reactive Protein (<10.0) mg/L Total Protein (6.3-8.2) g/dL Albumin (3.5-5.0) g/dL Coronavirus (PCR) Not Detected (Not Detectd) - EKG Data -: EKG Interpreted by Me EKG Comments: EKG was obtained due to complaint of shortness of breath, EKG was obtained at 5:52 AM, rate is 103 rhythm is sinus, [place] is 150, QRS [address] elevations or depressions no evidence of acute ischemia or infarction. Disposition Clinical Impression: COVID-19, Hypoxia Disposition: ADMITTED IP TO THIS HOSP Condition: Serious Referrals: Ramo Guerrero DO [Primary Care Provider] - 1-2 days
[2020-05-09] MEDS ORDERED: ALBUTEROL HFA INHALER INHALATION ONE (06:00)
[2020-05-09 06:30] LABS: Basophils # (A) 0.1 k/uL (0-0.2); Basophils % (A) 1 %; Eosinophils # (A) 0.1 k/uL (0-0.7); Eosinophils % (A) 1 %; Lymphocytes # (A) 0.3 k/uL (1.0-4.8); Lymphocytes % (A) 1 %; MCH 28.9 pg (25.0-35.0); MCHC 33.3 g/dL (31.0-37.0); MCV 86.9 fL (80.0-100.0); Mean Platelet Volume 6.8; Monocytes # (A) 0.3 k/uL (0-1.0); Monocytes % (A) 2 %; Neutrophils # (A) 18.6 k/uL (1.3-7.7); Neutrophils % (A) 96 %; Platelet Count 343 k/uL (150-450); RDW 13.6 % (11.5-15.5); WBC 19.5 k/uL (3.8-10.6)
[2020-05-09 06:42] LABS: ALT 14 U/L (4-34); AST 36 U/L (14-36); African American GFR (CKD) >90 (>60 ml/min/1.73 sqM); Alkaline Phosphatase 80 U/L (38-126); Anion Gap 6 mmol/L; Blood Urea Nitrogen 23 mg/dL (7-17); C Reactive Protein 63.7 mg/L (<10.0); Calcium 8.7 mg/dL (8.4-10.2); Carbon Dioxide 26 mmol/L (22-30); Chloride 101 mmol/L (98-107); Glucose 100 mg/dL (74-99); LDH 1116 U/L (313-618); Magnesium 2.1 mg/dL (1.6-2.3); Non-African American GFR(CKD) 86 (>60 ml/min/1.73 sqM); Potassium 4.1 mmol/L (3.5-5.1); Sodium 133 mmol/L (137-145); Total Bilirubin 0.5 mg/dL (0.2-1.3); Total Protein 5.9 g/dL (6.3-8.2)
[2020-05-09 06:57] LABS: SARS-CoV-2 RNA Rapid Abbott Not Detected (Not Detectd)
[2020-05-09] MEDS ORDERED: IBUPROFEN 400 MG TAB PO PRN (06:58)
[2020-05-09] MEDS ORDERED: NALOXONE 0.4 MG/ML 1 ML VIAL IV PRN (06:58)
[2020-05-09 07:01] LABS: INR 0.9 (<1.2); Partial Thromboplastin Time 20.2 sec (22.0-30.0); Prothrombin Time 9.9 sec (9.0-12.0)
--- NOTE | 2020-05-09 07:06 | XR ---
EXAMINATION TYPE: XR chest 1V portable DATE OF EXAM: 05/09/2020 COMPARISON: 05/04/2020 HISTORY: Cough TECHNIQUE: Single frontal view of the chest is obtained. FINDINGS: Heart is enlarged. Interstitial changes are again noted with subsegmental consolidation of both lung bases. Postsurgical change right axilla. No pneumothorax. Underlying COPD suspected. IMPRESSION: 1. Stable patchy bilateral infiltrates.
[2020-05-09 07:57] LABS: D-Dimer 34.33 mg/L FEU (<0.60)
[2020-05-09] MEDS: ASCORBIC ACID 500 MG TAB PO SCH ×2 (08:39→19:56)
[2020-05-09] MEDS: LEVOTHYROXINE 50 MCG TAB PO SCH ×2 (08:40→08:44)
[2020-05-09] MEDS: SERTRALINE 100 MG TAB PO SCH (08:40)
[2020-05-09] MEDS: ZINC SULFATE 220 MG CAP PO SCH (08:40)
[2020-05-09] MEDS: dexAMETHasone 2 MG TAB PO SCH (08:40)
[2020-05-09] MEDS: CHOLECALCIFEROL 1,000 UNIT TAB PO SCH (08:43)
[2020-05-09] MEDS: CYANOCOBALAMIN 500 MCG TAB PO SCH (08:44)
[2020-05-09] MEDS: ASPIRIN 81 MG PO SCH (08:45)
[2020-05-09] MEDS ORDERED: ENOXAPARIN 30 MG/0.3 ML SYRINGE SQ SCH (09:00)
[2020-05-09] MEDS ORDERED: AZITHROMYCIN 500 MG in SODIUM CHLORIDE 0.9% 250 ML IVPB SCH (11:45)
--- NOTE | 2020-05-09 11:49 | P.HPIM ---
History of Present Illness H&P Date: 05/09/20 HISTORY OF PRESENT ILLNESS This is a 79-year-old female patient of Dr. Guerrero with past medical history of breast cancer, hypothyroidism, hyperlipidemia, generalized osteoarthritis. She was recently hospitalized May 12 for fever, chills, cough with sputum production with worsening dyspnea was diagnosed with COVID-19 pneumonia. Patient was stabilized and discharged home on May 05 with azithromycin, steroids, home oxygen and vitamin supplements. Patient had significant shortness of breath when she woke up this morning and was wearing oxygen at 4 L. EMS was called and reported that she was ashen nazario, diaphoretic with a pulse ox of 71% upon arrival. Patient was brought into [facility] emergency center and found to be afebrile, heart rate 105, blood pressure 168/89, pulse ox 97% with nonrebreather. She continued tachypneic and tachycardic and patient was placed on BiPAP. Chest x-ray reveals stable patchy bilateral infiltrates. WBC 19.5, hemoglobin 11. Sodium 133, potassium 4.1, CO2 26, BUN 23 and creatinine 0.65. Blood sugar 100. Lactic acid 1.1. LDH 1116, C-reactive protein 63.7. Covid 19 not detected. Influenza B positive. Patient was continued on vitamin supplements, dexamethasone and started on Lovenox, admitted to the cardiac stepdown unit and consult requested with infectious disease and pulmonary medicine. DDimer elevated at 33 and CTA of the chest positive for tiny filling defect left lower lobe pulmonary artery. REVIEW OF SYSTEMS Constitutional: No fever, no chills, Reports sweats. No weight change. Reports weakness, Reports fatigue Reports lethargy. No daytime sleepiness. EENT: No headache. No blurred vision or double vision, no loss of vision. No loss of Hearing, no ringing in the ears, no dizziness. No nasal drainage or congestion. No epistaxis. No sore throat. Lungs: Reports shortness of breath, Reportscough, Reports sputum production. Reports wheezing. Cardiovascular: No chest pain, no lower extremity edema. No palpitations. No paroxysmal nocturnal dyspnea. No orthopnea. No lightheadedness or dizziness. No syncopal episodes. Abdominal: No abdominal pain. No nausea, vomiting. No diarrhea. No constipation. No bloody or tarry stools.. No loss of appetite. Genitourinary: No dysuria, increased frequency, urgency. No urinary retention. Musculoskeletal: No myalgias. No muscle weakness, no gait dysfunction, no frequent falls. No back pain. No neck pain. Integumentary: No wounds, no lesions. No rash or pruritus. No unusual bru ising. No change in hair or nails. Neurologic: No aphasia. No facial droop. No change in mentation. No head injury. No headache. No paralysis. No paresthesia. Psychiatric: No depression. No anxiety. No mood swings. Endocrine: No abnormal blood sugars. No weight change. No excessive sweating or thirst. No cold intolerance. PHYSICAL EXAMINATION Gen: This is a 79-year-old female. She is resting on the ears stretcher in mild distress. HEENT: Head is atraumatic, normocephalic. Pupils equal, round. Sclerae is anicteric. NECK: Supple. No JVD. No lymphadenopathy. No thyromegaly. LUNGS: Minimal bilateral crackles. No intercostal retractions. HEART: Regular rate and rhythm. No murmur. ABDOMEN: Soft. Bowel sounds are present. No masses. No tenderness. EXTREMITIES: No pedal edema. No calf tenderness. Dorsalis pedis +2 bilaterally. NEUROLOGICAL: Patient is awake, alert and oriented x3. Cranial nerves 2 through 12 are grossly intact. ASSESSMENT AND PLAN 1. Acute on chronic hypoxic respiratory failure secondary to COVID pneumonia, Influenza B and small left lower pulmonary embolism. Patient will be started on azithromycin and Rocephin until seen by pulmonary medicine and infectious disease. Continue oxygen therapy with BiPAP. Patient started on dexamethasone 6 mg daily, Lovenox 60 mg subcu twice daily, vitamin supplements with vitamin C, vitamin D, zinc, Tamifllu. Patient may require antiviral medication. 2. Hypothyroidism. Continue levothyroxine. 3. Severe osteoporosis. Fosamax on hold. 4. Anticoagulation with Lovenox. 5. GI prophylaxis. Pepcid. 6. Recurrent depression. Continue Zoloft 200 mg daily. Patient will be admitted to the hospital for a minimum of 2 night stay. DISCHARGE PLAN To be determined. Impression and plan of care have been directed as dictated by the signing physician. Ivone Vizcarra nurse practitioner acting as scribe for signing physician. Past Medical History Past Medical History: Cancer, Hyperlipidemia, Osteoarthritis (OA), Thyroid Disorder Additional Past Medical History / Comment(s): Breast cancer 1998, pacemaker?? Patient states her HR was in the 200s a long time ago and had a procedure done but cannot remember what it was History of Any Multi-Drug Resistant Organisms: None Reported Past Surgical History: Adenoidectomy, Breast Surgery, Hysterectomy, Orthopedic Surgery, Tonsillectomy Additional Past Surgical History / Comment(s): Right breast lumpectomy with axillary node dissection, bilateral cataracts removed, colonoscopy, pin to right shoulder Past Anesthesia/Blood Transfusion Reactions: No Reported Reaction Past Psychological History: Anxiety, Depression Smoking Status: Former smoker Past Alcohol Use History: None Reported Additional Past Alcohol Use History / Comment(s): Quit smoking 1979 Past Drug Use History: None Reported - Past Family History Mother Family Medical History: Cancer Medications and Allergies Home Medications Medication Instructions Recorded Confirmed Type Alendronate Sodium [Fosamax] 70 mg PO WE 01/21/17 05/09/20 History Glucosam/Angelo-Msm1/C/Sanjiv/Bosw 1 tab PO DAILY 01/21/17 05/09/20 History [Glucosamine-Chondroitin Tablet] Levothyroxine Sodium [Synthroid] 50 mcg PO DAILY 01/21/17 05/09/20 History Sertraline [Zoloft] 200 mg PO DAILY 01/21/17 05/09/20 History clonazePAM [KlonoPIN] 1.5 mg PO HS 01/21/17 05/09/20 History Albuterol Inhaler [Ventolin Hfa 2 puff INHALATION RT-QID PRN #1 04/28/2005/09 Rx Inhaler] inhaler guaiFENesin [Mucinex] 600 mg PO Q12HR #14 tablet.er 04/28/20 05/09/20 Rx Aspirin EC [Ecotrin Low Dose] 81 mg PO DAILY 05/02/20 05/09/20 History Cyanocobalamin (Vitamin B-12) 1,000 mcg PO DAILY 05/02/20 05/09/20 History [Vitamin B-12] Ascorbic Acid [Vitamin C] 500 mg PO BID tab 05/05/20 05/09/20 Rx Cholecalciferol [Vitamin D3 (25 2,000 unit PO DAILY tab 05/05/20 05/09/20 Rx Mcg = 1000 Iu)] Dexamethasone [Decadron] 6 mg PO DAILY #5 tablet 05/05/20 05/09/20 Rx Zinc Sulfate [Orazinc] 220 mg PO DAILY cap 05/05/20 05/09/20 Rx Allergies Allergy/AdvReac Type Severity Reaction Status Date / Time No Known Allergies Allergy Verified 05/09/20 06:55 Physical Exam Vitals: Vital Signs Temp Pulse Resp BP Pulse Ox 05/09/20 07:52 88 16 130/67 99 05/09/20 07:01 110 H 22 124/71 97 05/09/20 06:50 108 H 22 124/80 97 05/09/20 06:08 98 18 147/95 98 05/09/20 05:53 97 05/09/20 05:52 20 05/09/20 05:50 99.2 F 105 H 18 168/89 97 Intake and Output 05/08/20 05/09/20 05/09/20 22:59 06:59 14:59 Other: Weight 55.792 kg Results CBC & Chem 7: 05/09/20 06:09 05/09/20 06:09 Labs: Abnormal Lab Results - Last 24 Hours (Table) 05/09/20 05/09/20 05/09/20 Range/Units 06:09 06:09 06:09 WBC 19.5 H (3.8-10.6) k/uL Hgb 11.0 L (11.4-16.0) gm/dL Hct 33.0 L (34.0-46.0) % Neutrophils # 18.6 H (1.3-7.7) k/uL Lymphocytes # 0.3 L (1.0-4.8) k/uL APTT 20.2 L (22.0-30.0) sec D-Dimer 34.33 H (<0.60) mg/L FEU Sodium 133 L (137-145) mmol/L BUN 23 H (7-17) mg/dL Glucose 100 H (74-99) mg/dL Lactate Dehydrogenase 1116 H (313-618) U/L C-Reactive Protein 63.7 H (<10.0) mg/L Total Protein 5.9 L (6.3-8.2) g/dL Albumin 3.0 L (3.5-5.0) g/dL Influenza Type B (PCR) (Not Detectd) 05/09/20 Range/Units 06:09 WBC (3.8-10.6) k/uL Hgb (11.4-16.0) gm/dL Hct (34.0-46.0) % Neutrophils # (1.3-7.7) k/uL Lymphocytes # (1.0-4.8) k/uL APTT (22.0-30.0) sec D-Dimer (<0.60) mg/L FEU Sodium (137-145) mmol/L BUN (7-17) mg/dL Glucose (74-99) mg/dL Lactate Dehydrogenase (313-618) U/L C-Reactive Protein (<10.0) mg/L Total Protein (6.3-8.2) g/dL Albumin (3.5-5.0) g/dL Influenza Type B (PCR) Detected H (Not Detectd)
--- NOTE | 2020-05-09 15:30 | CT ---
EXAMINATION TYPE: CT angio chest DATE OF EXAM: 05/09/2020 COMPARISON: None HISTORY: Dyspnea, hypoxia, elevated d-dimer CONTRAST: CT chest with contrast and 3D reconstruction with MIP imaging is performed with IV Contrast, patient injected with 100 mL of Isovue 370. Contrast-enhanced CT of the chest was performed through the course of the pulmonary arteries with amara g and mediastinal window settings submitted. 3D reconstruction with MIP imaging was also performed. PULMONARY ARTERIES: There is a tiny filling defect noted within a left lower lobe pulmonary arterial branch seen best on image 76 of 153. No additional filling defects are seen. The findings are felt to reflect tiny pulmonary embolism. LUNGS: Diffuse bilateral left greater than right mixed alveolar and groundglass infiltrates felt to r eflect Covid 19 pneumonia until proven otherwise. No evidence for atelectasis. No pulmonary nodule or mass is detected. No pleural effusion. MEDIASTINUM: Thoracic aorta is of normal caliber,however, evaluation is limited given timing of the contrast bolus. If there is concern for thoracic aortic pathology consider PARISH. Correlate clinicall y . The heart is not enlarged. No evidence for mediastinal mass. No mediastinal lymph nodes greater than 1cm. HILAR STRUCTURES: No evidence for mass. No hilar lymph nodes greater than 1 cm. UPPER ABDOMEN: No significant abnormality is seen. IMPRESSION: 1. Tiny filling defect left lower lobe pulmonary artery compatible with small pulmonary embolism. 2.Diffuse bilateral left greater than right mixed alveolar and groundglass infiltrates felt to reflec t Covid 19 pneumonia until proven otherwise.
[2020-05-09] MEDS ORDERED: ENOXAPARIN 30 MG/0.3 ML SYRINGE SQ STA (16:11)
[2020-05-09 18:01] LABS: Ferritin 484.4 ng/mL (10.0-291.0)
[2020-05-09] MEDS: OSELTAMIVIR 75 MG CAP PO SCH (19:56)
[2020-05-09] MEDS: clonazePAM 0.5 MG TAB PO SCH (19:56)
[2020-05-09] MEDS: ENOXAPARIN 60 MG/0.6 ML SYRINGE SQ SCH (19:57)
--- NOTE | 2020-05-09 20:18 | P.CNPUL ---
History of Present Illness Consult date: 05/09/20 Reason for consult: dyspnea, hypoxemia, pneumonia History of present illness: Luiza is a 79-year-old female who was admitted to our hospital 1 week ago for COVID 19, she was treated with steroids and azithromycin, she was discharged home with supplemental oxygen steroids, azithromycin, zinc, vitamin C. She's been compliant with her home medication regimen. She's been wearing her oxygen. She states that despite this she's felt progressively worsened throughout the night and couldn't sleep due to shortness of breath. Patient states that this morning she initially she couldn't get her breath despite wearing her oxygen mask at 4 L. EMS was called. EMS reports that upon their arrival to her home she was ashen nazario diaphoretic with an oxygen saturation of 71%the patient was initially placed on on the percent nonrebreather facemask. Subsequently she was switched to a BiPAP and the current pressures are 10/5 with an FiO2 of 70%. Chest x-ray showed diffuse bilateral pulmonary infiltrates. Repeat coronavirus 19 testing came back negative. Nevertheless the patient 2 positive tests that were done on 06/28/2019 and 05/02/2020 and both of them were positive. Furthermore, the patient checked positive for influenza B.a CAT scan of the chest was done in the emergency department and it showed diffuse bilateral groundglass pulmonary infiltrates left more than right. There was also a tiny subsegmental pulmonaryembolism and the left lower lobe pulmonary artery branch. The patient was started on Lovenox therapeutic dose 1 mg per KG twice a day. Currently she is BiPAP dependent. FiO2 has been drop down to 70%. The patient will be started on treatment COVID 19 pneumonia and influenza. The patient was given empiric antibiotic coverage with a combination of Rocephin and Zithromax. She is quite lethargic and weak. She easily saturates once off the BiPAP. Review of Systems All systems: negative Constitutional: Reports fatigue, Reports lethargy, Reports weakness Eyes: denies as per HPI, denies blurred vision, denies bulging eye, denies decreased vision, denies diplopia, denies discharge, denies dry eye, denies irritation, denies itching, denies pain, denies photophobia, denies loss of peripheral vision, denies loss of vision, denies tunnel vision/blind spots Ears: deny: decreased hearing, ear discharge, earache, tinnitus Ears, nose, mouth and throat: Reports ant. neck pain Breasts: absent: as per HPI, change in shape, gynecomastia, masses, nipple discharge, pain, skin changes, swelling Cardiovascular: Reports decreased exercise tolerance, Reports dyspnea on exertion Respiratory: Reports cough, Reports dyspnea Gastrointestinal: Reports as per HPI Genitourinary: Reports as per HPI Menstruation: Reports as per HPI Musculoskeletal: Reports as per HPI Musculoskeletal: absent: ankle pain, ankle stiffness, ankle swelling, as per HPI, elbow pain, elbow stiffness, elbow swelling, foot pain, foot stiffness, foot swelling, hand pain, hand stiffness, hand swelling, hip pain, hip stiffness, hip swelling, knee pain, knee stiffness, knee swelling, shoulder pain, shoulder stiffness, shoulder swelling, wrist pain, wrist stiffness, wrist swelling Integumentary: Reports as per HPI Psychiatric: Reports as per HPI Endocrine: Reports as per HPI, Reports fatigue Hematologic/Lymphatic: Reports as per HPI Allergic/Immunologic: Reports as per HPI Past Medical History Past Medical History: Cancer, Hyperlipidemia, Osteoarthritis (OA), Thyroid Disorder Additional Past Medical History / Comment(s): Breast cancer 1998, COVID 19 infection on 04/28/2020 History of Any Multi-Drug Resistant Organisms: None Reported Past Surgical History: Adenoidectomy, Breast Surgery, Hysterectomy, Orthopedic Surgery, Tonsillectomy Additional Past Surgical History / Comment(s): Right breast lumpectomy with axillary node dissection, bilateral cataracts removed, colonoscopy, pin to right shoulder Past Anesthesia/Blood Transfusion Reactions: No Reported Reaction Past Psychological History: Anxiety, Depression Smoking Status: Former smoker Past Alcohol Use History: None Reported Additional Past Alcohol Use History / Comment(s): Quit smoking 1979 Past Drug Use History: None Reported - Past Family History Mother Family Medical History: Cancer Medications and Allergies Home Medications Medication Instructions Recorded Confirmed Type Alendronate Sodium [Fosamax] 70 mg PO WE 01/21/17 05/09/20 History Glucosam/Angelo-Msm1/C/Sanjiv/Bosw 1 tab PO DAILY 01/21/17 05/09/20 History [Glucosamine-Chondroitin Tablet] Levothyroxine Sodium [Synthroid] 50 mcg PO DAILY 01/21/17 05/09/20 History Sertraline [Zoloft] 200 mg PO DAILY 01/21/17 05/09/20 History clonazePAM [KlonoPIN] 1.5 mg PO HS 01/21/17 05/09/20 History Albuterol Inhaler [Ventolin Hfa 2 puff INHALATION RT-QID PRN #1 04/28/20 05/09/20 Rx Inhaler] inhaler guaiFENesin [Mucinex] 600 mg PO Q12HR #14 tablet.er 04/28/20 05/09/20 Rx Aspirin EC [Ecotrin Low Dose] 81 mg PO DAILY 05/02/20 05/09/20 History Cyanocobalamin (Vitamin B-12) 1,000 mcg PO DAILY 05/02/20 05/09/20 History [Vitamin B-12] Ascorbic Acid [Vitamin C] 500 mg PO BID tab 05/05/20 05/09/20 Rx Cholecalciferol [Vitamin D3 (25 2,000 unit PO DAILY tab 05/05/20 05/09/20 Rx Mcg = 1000 Iu)] Dexamethasone [Decadron] 6 mg PO DAILY #5 tablet 05/05/20 05/09/20 Rx Zinc Sulfate [Orazinc] 220 mg PO DAILY cap 05/05/20 05/09/20 Rx Allergies Allergy/AdvReac Type Severity Reaction Status Date / Time No Known Allergies Allergy Verified 05/09/20 06:55 Physical Exam Vitals: Vital Signs Temp Pulse Resp BP Pulse Ox 05/09/20 10:58 75 16 110/71 100 05/09/20 08:52 85 16 110/67 99 05/09/20 07:52 88 16 130/67 99 05/09/20 07:01 110 H 22 124/71 97 05/09/20 06:50 108 H 22 124/80 97 05/09/20 06:08 98 18 147/95 98 05/09/20 05:53 97 05/09/20 05:52 20 05/09/20 05:50 99.2 F 105 H 18 168/89 97 Intake and Output 05/08/20 05/09/20 05/09/20 22:59 06:59 14:59 Other: Weight 55.792 kg the patient is somnolent and sleepy yet BiPAP dependent and she is in [id number]-sa-rebsuvek degree of respiratory distress, successful the BiPAP machine with a full facemask. Not using his muscles of breathing. Head exam was generally normal. There was no scleral icterus or corneal arcus. Mucous membranes were moist. Neck was supple and without jugular venous distension, thyromegaly, or carotid bruits. Carotids were easily palpable bilaterally. There was no adenopathy. Lungs sounds are diminished and the patient is crackles bilaterally worse on the left Cardiac exam revealed the PMI to be normally situated and sized. The rhythm was regular and no extrasystoles were noted during several minutes of auscultation. The first and second heart sounds were normal and physiologic splitting of the second heart sound was noted. There were no murmurs, rubs, clicks, or gallops. Abdominal exam revealed normal bowel sounds. The abdomen was soft, non-tender, and without masses, organomegaly, or appreciable enlargement of the abdominal aorta. Examination of the extremities revealed easily palpable radial, femoral and pedal pulses. There was no cyanosis, clubbing or edema. Examination of the skin revealed no evidence of significant rashes, suspicious appearing nevi or other concerning lesions. Results - Laboratory Findings CBC and BMP: 05/09/20 06:09 05/09/20 06:09 PT/INR, D-dimer PT 9.9 sec (9.0-12.0) 05/09/20 06:09 INR 0.9 (<1.2) 05/09/20 06:09 D-Dimer 34.33 mg/L FEU (<0.60) H 05/09/20 06:09 Abnormal lab findings: Abnormal Labs 05/09/20 05/09/20 05/09/20 06:09 06:09 06:09 WBC 19.5 H Hgb 11.0 L Hct 33.0 L Neutrophils # 18.6 H Lymphocytes # 0.3 L APTT 20.2 L D-Dimer 34.33 H Sodium 133 L BUN 23 H Glucose 100 H Lactate Dehydrogenase 1116 H C-Reactive Protein 63.7 H Total Protein 5.9 L Albumin 3.0 L Influenza Type B (PCR) 05/09/20 06:09 WBC Hgb Hct Neutrophils # Lymphocytes # APTT D-Dimer Sodium BUN Glucose Lactate Dehydrogenase C-Reactive Protein Total Protein Albumin Influenza Type B (PCR) Detected H - Diagnostic Findings Chest x-ray: image reviewed CT scan - chest: image reviewed Assessment and Plan Plan: 1 acute bilateral viral pneumonia initially with Covid 19 and subsequently the patient was diagnosed having influenza B. The chest x-ray findings are typical of interstitial pneumonia suggestive of bilateral pneumonia. I think there may be a component of Covid 19 infection despite the fact that the patient has been infected back in 04/28/2020. The patient also checked positive for influenza B. 2 pulmonary embolism, very tiny, subsegmental in the left lower lobe pulmonary artery branch 3 acute hypoxic respiratory failure. Acute hypoxic respiratory failure is attributed to the bilateral pneumonia rather than the pulmonary embolism. 4 history of breast cancer 5 hypothyroidism 6 osteoporosis 7 chronic anxiety/depression Plan Continue BiPAP for respiratory support and alternate with high flow oxygen Keep the patient on Decadron 6 mg by mouth daily I think she is out of the window for Remdesivir treatment. I'm going to discuss this further with pharmacy and consider treating her with Remdesivir Continue the supplements for coronavirus Covid 19 infection including vitamin C, vitamin D, melatonin Pepcid and oral zinc Started patient on Tamiflu 75 mg by mouth twice a day Lovenox therapeutic doses for left lower lobe pulmonary artery branch pulmonary embolism Monitor inflammatory markers We' empiric antibiotic coverage with Rocephin and Zithromax will there is no clear indication for any bacterial pneumonia Check a Legionella urine antigen I will continue to follow
[2020-05-09] MEDS ORDERED: REMDESIVIR 200 MG in SODIUM CHLORIDE 0.9% 250 ML IVPB ONE (21:00)
--- NOTE | 2020-05-10 00:23 | CONS ---
CONSULTATION DATE OF SERVICE: 05/09/2020 REASON FOR CONSULTATION: COVID-19 pneumonia. HISTORY OF PRESENT ILLNESS: The patient is a 79-year-old female who was recently admitted to this facility from May 02 to where the patient was treated for COVID-19 pneumonia. She was treated with Lovenox, dexamethasone and zinc. Subsequently, discharged home on supplemental oxygen, steroid and Zithromax. The patient has been taking her medications regularly. However, for the last day or two, the patient is progressively getting worse mostly with increasing shortness of breath and unable to take a deep breath. The patient also has a cough which is moderate intensity but not bringing up any sputum. Denies having any nausea, no vomiting. No abdominal pain or any worsening diarrhea. The patient called EMS. On arrival of the EMS, the patient was noticed to be diaphoretic with sats of 71%. Subsequently the patient has been brought into the ER. On arrival to the ER, the patient did have a low-grade fever of 99.2. The patient was hypoxic, has been placed on a BiPAP. The patient did have white count of 19.5 with mild lymphopenia with a D-dimer of 34.33. LDH 1116, CRP 63.7. Procalcitonin is normal. Influenza B came back positive. The patient did have a chest x-ray, stable patchy bilateral infiltrate. The patient also had a CT angiogram of the chest, which shows evidence of filling defect left lower lobe and diffuse bilateral left greater than right ground glass infiltrate. The patient has been admitted to the hospital. The patient was started on Tamiflu, remdesivir, Rocephin, Zithromax. Infectious Disease was consulted for further management. REVIEW OF SYSTEMS: Positive points have been mentioned in HPI. Rest of systems are negative. PAST MEDICAL HISTORY: Breast cancer, hypertension, osteoarthritis, hypothyroidism. PAST SURGICAL HISTORY: Adenoidectomy, hysterectomy, tonsillectomy and right breast lumpectomy. SOCIAL HISTORY: Remote history of smoking, quit back in 1979. No drinking or drug use. FAMILY HISTORY: Mother history of cancer. ALLERGIES: No known drug allergies. MEDICATIONS: Medications include the patient is currently on Tylenol, vitamin C, aspirin, Klonopin, dexamethasone, Lovenox, Pepcid, Motrin, Synthroid, remdesivir, zinc sulfate, Tamiflu, Rocephin and Zithromax. PHYSICAL EXAMINATION: Blood pressure 167/76, pulse of 71, temperature is 98.4. She is 95% on BiPAP. General description is an elderly female lying in bed in no distress. No tachypnea or accessory muscle respiration use. HEENT: Examination shows slight pallor. No scleral icterus. Oral mucous membranes dry. NECK: Trachea central. No thyromegaly. LUNGS: Unlabored breathing, decreased intensity of breath sounds. No wheeze. HEART: S1, S2. Regular rate and rhythm. ABDOMEN: Soft, no tenderness. No guarding or rigidity. EXTREMITIES: No edema of feet. SKIN EXAMINATION: No rash or mass palpable. NEUROLOGIC: The patient is awake, alert, oriented x3. Mood and affect normal. LABS: Hemoglobin 11, white count 19.5. D-dimer 34.33. Ferritin, LDH, CRP elevated. Procalcitonin is normal. DIAGNOSTIC IMPRESSION AND PLAN: Patient admitted to the hospital with hypoxemia, worsening shortness of breath and cough which is likely multifactorial in this patient who did have acute COVID-19 pneumonia with concern for underlying influenza type B clinically not behaving as a secondary bacterial pneumonia, especially for the normal procalcitonin and complicated factor of pulmonary embolism left lower lobe. PLAN: 1. The patient to continue with remdesivir, Lovenox, dexamethasone, zinc sulfate. 2. Tamiflu 75 mg p.o. twice a day for 5 days. 3. Discontinue Rocephin and Zithromax as no evidence of secondary bacterial pneumonia. 4. Droplet isolation and respiratory support. 5. We will follow on clinical condition and culture to further adjust medication if needed. Thank you for this consultation. Will follow this patient along with you. MMODL / IJN: [id number] /
[2020-05-10] MEDS: ENOXAPARIN 60 MG/0.6 ML SYRINGE SQ SCH ×2 (08:49→20:25)
[2020-05-10] MEDS: ZINC SULFATE 220 MG CAP PO SCH (08:49)
[2020-05-10] MEDS: SERTRALINE 100 MG TAB PO SCH (08:49)
[2020-05-10] MEDS: ASCORBIC ACID 500 MG TAB PO SCH ×2 (08:49→20:25)
[2020-05-10] MEDS: OSELTAMIVIR 75 MG CAP PO SCH (08:49)
[2020-05-10] MEDS: CHOLECALCIFEROL 1,000 UNIT TAB PO SCH (08:49)
[2020-05-10] MEDS: ASPIRIN 81 MG PO SCH (08:49)
[2020-05-10] MEDS: dexAMETHasone 2 MG TAB PO SCH (08:50)
[2020-05-10] MEDS: FAMOTIDINE 20 MG TAB PO SCH (08:50)
[2020-05-10] MEDS: CYANOCOBALAMIN 500 MCG TAB PO SCH (08:50)
--- NOTE | 2020-05-10 09:56 | P.PN ---
Subjective Progress Note Date: 05/10/20 HISTORY OF PRESENT ILLNESS This is a 79-year-old female patient of Dr. Guerrero with past medical history of breast cancer, hypothyroidism, hyperlipidemia, generalized osteoarthritis. She was recently hospitalized May 12 for fever, chills, cough with sputum production with worsening dyspnea was diagnosed with COVID-19 pneumonia. Patient was stabilized and discharged home on May 05 with azithromycin, steroids, home oxygen and vitamin supplements. Patient had significant shortness of breath when she woke up this morning and was wearing oxygen at 4 L. EMS was called and reported that she was ashen nazario, diaphoretic with a pulse ox of 71% upon arrival. Patient was brought into [facility] emergency center and found to be afebrile, heart rate 105, blood pressure 168/89, pulse ox 97% with nonrebreather. She continued tachypneic and tachycardic and patient was placed on BiPAP. Chest x-ray reveals stable patchy bilateral infiltrates. WBC 19.5, hemoglobin 11. Sodium 133, potassium 4.1, CO2 26, BUN 23 and creatinine 0.65. Blood sugar 100. Lactic acid 1.1. LDH 1116, C-reactive protein 63.7. Covid 19 not detected. Influenza B positive. Patient was continued on vitamin supplements, dexamethasone and started on Lovenox, Kati flu, admitted to the cardiac stepdown unit and consult requested with infectious disease and pulmonary medicine. DDimer elevated at 33 and CTA of the chest positive for tiny filling defect left lower lobe pulmonary artery. 05/10: Patient continues to have significant shortness of breath cough and chest tightness. She is on BiPAP and unable to eat or drink. She continues to feel weak and tired. Temperature max 100.0, heart rate 95, blood pressure 125/68, pulse ox 91% on BiPAP with FiO2 of 80. Patient has been seen by pulmonary medicine and started on Remdesivir. The patient's has been contacted via phone and updated regarding patient's current condition and treatment plan. REVIEW OF SYSTEMS Constitutional: No fever, no chills, no sweats. No weight change. Reports weakness, Reports fatigue Reports lethargy. No daytime sleepiness. EENT: No headache. No blurred vision or double vision, no loss of vision. No loss of Hearing, no ringing in the ears, no dizziness. No nasal drainage or congestion. No epistaxis. No sore throat. Lungs: Reports shortness of breath, Reports cough, Reports sputum production. Reports wheezing. Cardiovascular: No chest pain, no lower extremity edema. No palpitations. No paroxysmal nocturnal dyspnea. No orthopnea. No lightheadedness or dizziness. No syncopal episodes. Abdominal: No abdominal pain. No nausea, vomiting. No diarrhea. No constipation. No bloody or tarry stools.. No loss of appetite. Genitourinary: No dysuria, increased frequency, urgency. No urinary retention. Musculoskeletal: No myalgias. No muscle weakness, no gait dysfunction, no frequent falls. No back pain. No neck pain. Integumentary: No wounds, no lesions. No rash or pruritus. No unusual bruising. No change in hair or nails. Neurologic: No aphasia. No facial droop. No change in mentation. No head injury. No headache. No paralysis. No paresthesia. Psychiatric: No depression. No anxiety. No mood swings. Endocrine: No abnormal blood sugars. No weight change. No excessive sweating or thirst. No cold intolerance. PHYSICAL EXAMINATION Gen: This is a 79-year-old female. She is resting in bed in mild distress on BiPAP. HEENT: Head is atraumatic, normocephalic. Pupils equal, round. Sclerae is anicteric. NECK: Supple. No JVD. No lymphadenopathy. No thyromegaly. LUNGS: Bilateral crackles with decreased air exchange. Mild intercostal retractions. HEART: Regular rate and rhythm. No murmur. ABDOMEN: Soft. Bowel sounds are present. No masses. No tenderness. EXTREMITIES: No pedal edema. No calf tenderness. Dorsalis pedis +2 bilaterally. NEUROLOGICAL: Patient is awake, alert and oriented x3. Cranial nerves 2 through 12 are grossly intact. ASSESSMENT AND PLAN 1. Acute on chronic hypoxic respiratory failure secondary to COVID pneumonia, Influenza B and small left lower pulmonary embolism. Patient will be started on azithromycin and Rocephin. Continue oxygen therapy with BiPAP. Patient started on dexamethasone 6 mg daily, Lovenox 60 mg subcu twice daily, vitamin supplements with vitamin C, vitamin D, zinc, Tamifllu. Patient started on Remdesivir 2/5 doses. Consults with pulmonary medicine and infectious disease appreciated. 2. Hypothyroidism. Continue levothyroxine. 3. Severe osteoporosis. Fosamax on hold. 4. Anticoagulation with Lovenox. 5. GI prophylaxis. Pepcid. 6. Recurrent depression. Continue Zoloft 200 mg daily. DISCHARGE PLAN May require subacute rehab Impression and plan of care have been directed as dictated by the signing physician. Ivone Vizcarra nurse practitioner acting as scribe for signing physician. Objective - Vital Signs Vital signs: Vital Signs Temp 97.2 F L 05/10/20 00:00 Pulse 71 05/10/20 04:10 Resp 24 05/10/20 04:10 BP 178/86 05/10/20 04:10 Pulse Ox 93 L 05/10/20 05:18 Intake & Output 05/09/20 05/10/20 05/10/20 18:59 06:59 18:59 Intake Total 250 Output Total 570 300 Balance -320 -300 Weight 55.792 kg 55.5 kg Intake: Intake, IV Titration 250 Amount Remdesivir (Eua) 200 mg 250 In Sodium Chloride 0.9% 250 ml @ 250 mls/hr IVPB ONCE ONE Rx#:[id number] Output: Urine 570 300 Other: # Voids 1 - Labs CBC & Chem 7: 05/09/20 06:09 05/09/20 06:09 Labs: Abnormal Lab Results - Last 24 Hours (Table) 05/09/20 Range/Units 06:09 Ferritin 484.4 H (10.0-291.0) ng/mL Microbiology - Last 24 Hours (Table) 05/09/20 06:09 Blood Culture - Preliminary Blood No Growth after 24 hours
[2020-05-10 15:47] LABS: Ferritin 650.6 ng/mL (10.0-291.0)
--- NOTE | 2020-05-10 18:47 | P.PN ---
Subjective Progress Note Date: 05/10/20 Principal diagnosis: Dyspnea, hypoxemia, pneumonia Luiza is a 79-year-old female who was admitted to our hospital 1 week ago for COVID 19, she was treated with steroids and azithromycin, she was discharged home with supplemental oxygen steroids, azithromycin, zinc, vitamin C. She's been compliant with her home medication regimen. She's been wearing her oxygen. She states that despite this she's felt progressively worsened throughout the night and couldn't sleep due to shortness of breath. Patient states that this morning she initially she couldn't get her breath despite wearing her oxygen mask at 4 L. EMS was called. EMS reports that upon their arrival to her home she was ashen nazario diaphoretic with an oxygen saturation of 71%the patient was initially placed on on the percent nonrebreather facemask. Subsequently she was switched to a BiPAP and the current pressures are 10/5 with an FiO2 of 70%. Chest x-ray showed diffuse bilateral pulmonary infiltrates. Repeat coronavirus 19 testing came back negative. Nevertheless the patient 2 positive tests that were done on 06/28/2019 and 05/02/2020 and both of them were positive. Furthermore, the patient checked positive for influenza B.a CAT scan of the chest was done in the emergency department and it showed diffuse bilateral groundglass pulmonary infiltrates left more than right. There was also a tiny subsegmental pulmonaryembolism and the left lower lobe pulmonary artery branch. The patient was started on Lovenox therapeutic dose 1 mg per KG twice a day. Currently she is BiPAP dependent. FiO2 has been drop down to 70%. The patient will be started on treatment COVID 19 pneumonia and influenza. The patient was given empiric antibiotic coverage with a combination of Rocephin and Zithromax. She is quite lethargic and weak. She easily saturates once off the BiPAP. On 05/10/2020 patient seen in follow-up on selective care unit, she remains on BiPAP, FiO2 is at 80%, short of breath, tachypnea, pulse ox is 91%, low-grade fever this morning, with a temp of 100F. No complaints of chest discomfort or palpitations. Still requiring high FiO2. she was started on Remdesivir, Tamiflu for coronavirus and influenza B. Follow-up inflammatory markers have increased, with LDH up to 1763, CRP is relatively stable, down slightly to 55, Legionella urine antigen came back negative. Follow-up coronavirus PCR came back negative, and of note patient tested positive twice on 04/28 2020 and 05/02/2020 for coronavirus. Her chest x-ray on admission showed stable patchy bilateral infiltrates. And her CTA chest showed tiny left lower lobe pulmonary artery pulmonary embolism, and diffuse bilateral left greater than right mixed alveolar groundglass infiltrates reflective of Covid 19 pneumonitis Objective - Vital Signs Vital signs: Vital Signs Temp 97.8 F 05/10/20 15:37 Pulse 94 05/10/20 15:37 Resp 18 05/10/20 15:38 BP 133/68 05/10/20 15:37 Pulse Ox 91 L 05/10/20 15:37 Intake & Output 05/09/20 05/10/20 05/10/20 18:59 06:59 18:59 Intake Total 250 450 Output Total 570 300 Balance -320 150 Weight 55.792 kg 55.5 kg Intake: Intake, IV Titration 250 Amount Remdesivir (Eua) 200 mg 250 In Sodium Chloride 0.9% 250 ml @ 250 mls/hr IVPB ONCE ONE Rx#:[id number] Oral 450 Output: Urine 570 300 Other: # Voids 1 - Exam GENERAL EXAM: Alert, very pleasant, 79-year-old white female on BiPAP support, with pressures of 10 and 5, and FiO2 of 80%, with a pulse ox of 91% comfortable in no apparent distress. HEAD: Normocephalic/atraumatic. EYES: Normal reaction of pupils, equal size. Conjunctiva pink, sclera white. NOSE: Clear with pink turbinates. THROAT: No erythema or exudates. NECK: No masses, no JVD, no thyroid enlargement, no adenopathy. CHEST: No chest wall deformity. Symmetrical expansion. LUNGS: Equal air entry with diffuse crackles, but no wheeze, rhonchi or dullness. CVS: Regular rate and rhythm, normal S1 and S2, no gallops, no murmurs, no rubs ABDOMEN: Soft, nontender. No hepatosplenomegaly, normal bowel sounds, no guarding or rigidity. EXTREMITIES: No clubbing, no edema, no cyanosis, 2+ pulses and upper and lower extremities. MUSCULOSKELETAL: Muscle strength and tone normal. SPINE: No scoliosis or deformity SKIN: No rashes CENTRAL NERVOUS SYSTEM: Alert and oriented -3. No focal deficits, tone is normal in all 4 extremities. PSYCHIATRIC: Alert and oriented -3. Appropriate affect. Intact judgment and insight. - Labs CBC & Chem 7: 05/09/20 06:09 05/09/20 06:09 Labs: Abnormal Lab Results - Last 24 Hours (Table) 05/10/20 05/10/20 Range/Units 11:14 11:14 Fibrinogen 613 H (200-500) mg/dL Ferritin 650.6 H (10.0-291.0) ng/mL Lactate Dehydrogenase 1763 H (313-618) U/L C-Reactive Protein 55.0 H (<10.0) mg/L Microbiology - Last 24 Hours (Table) 05/09/20 06:09 Blood Culture - Preliminary Blood No Growth after 24 hours Assessment and Plan Plan: Assessment: 1 acute bilateral viral pneumonia initially with Covid 19 and subsequently the patient was diagnosed having influenza B. The chest x-ray findings are typical of interstitial pneumonia suggestive of bilateral pneumonia. I think there may be a component of Covid 19 infection despite the fact that the patient has been infected back in 04/28/2020. The patient also checked positive for influenza B. 2 pulmonary embolism, very tiny, subsegmental in the left lower lobe pulmonary artery branch 3 acute hypoxic respiratory failure. Acute hypoxic respiratory failure is attributed to the bilateral pneumonia rather than the pulmonary embolism. 4 history of breast cancer 5 hypothyroidism 6 osteoporosis 7 chronic anxiety/depression 8 acute hypoxic respiratory failure related to 19 pneumonitis in addition to influenza B infection, requiring BiPAP support, and high FiO2 Plan: Continue current medical treatments including Remdesivir, Tamiflu, Decadron, continue Lovenox, vitamin C, vitamin D, melatonin, Pepcid and oral zinc. Inflammatory markers for today have been noted. Antibiotics have been d iscontinued, Legionella urine antigen came back negative, and monitoring febrile pattern, oxygenation pattern, continue monitoring vital signs. Follow-up chest x-ray in the morning I performed a history & physical examination of the patient and discussed their management with my nurse practitioner, Mallory Wayne. I reviewed the nurse practitioner's note and agree with the documented findings and plan of care. Lung sounds are positive for diminished breath sounds The findings and the impression was discussed with the patient. I attest to the documentation by the nurse practitioner. Time with Patient: Less than 30
[2020-05-10] MEDS: clonazePAM 0.5 MG TAB PO SCH (20:25)
[2020-05-10] MEDS: OSELTAMIVIR 60 MG/10 ML ORAL SYRINGE PO SCH (20:25)
[2020-05-10] MEDS: REMDESIVIR 100 MG in SODIUM CHLORIDE 0.9% 250 ML IVPB SCH (20:32)
--- NOTE | 2020-05-10 22:27 | PN ---
PROGRESS NOTE DATE OF SERVICE: 05/10/2020 REASON FOR FOLLOWUP: Pneumonia. INTERVAL HISTORY: Patient is currently afebrile. Still complaining of shortness of breath and BiPAP dependent. The patient denies having any chest pain. Minimal cough. No nausea, no vomiting. No abdominal pain or diarrhea. PHYSICAL EXAMINATION: Blood pressure 133/68 with a pulse of 94, temperature 97.8. She is 91% on BiPAP. General description is an elderly female lying in bed in no distress. Respiratory system: Unlabored breathing, decreased intensity of the breath sounds. No wheeze. Heart S1, S2. Regular rate and rhythm. ABDOMEN: Soft, no tenderness. LAB: LDH is elevated as well ferritin and CRP. Though salazar PCR came back negative. DIAGNOSTIC IMPRESSION/PLAN: The patient admitted to the hospital with shortness of breath, hypoxemia in this patient who did have a CT angiogram of the chest with evidence of pulmonary embolism and diffuse bilateral high clinical suspicious for Covid 19 but the test came back negative. The patient is currently on Remdesivir, dexamethasone, Lovenox to continue along with Tamiflu and we will monitor clinical course closely. Continue supportive care. MMODL / IJN: [id number] /
[2020-05-11 02:01] LABS: Calcium 8.6 mg/dL (8.4-10.2); Magnesium 2.3 mg/dL (1.6-2.3)
[2020-05-11] MEDS: LEVOTHYROXINE 50 MCG TAB PO SCH (06:20)
--- NOTE | 2020-05-11 07:21 | XR ---
EXAMINATION TYPE: XR chest 1V portable DATE OF EXAM: 05/11/2020 HISTORY: Shortness of breath. COMPARISON: 05/09/2020 TECHNIQUE: Single view of the chest is submitted. FINDINGS: Demonstrated are scattered senescent parenchymal change. Right perihilar and basilar pneumonia and mild interval progression is suggested. The heart is stable. Hilar and mediastinal structures are within normal limits. Degenerative changes are seen of the dorsal spine. IMPRESSION: 1. Right perihilar and basilar pneumonia and mild interval progression is suggested.
[2020-05-11 08:17] LABS: HCT 31.7 % (34.0-46.0); HGB 10.2 gm/dL (11.4-16.0); MCH 29.1 pg (25.0-35.0); MCHC 32.3 g/dL (31.0-37.0); MCV 90.2 fL (80.0-100.0); Mean Platelet Volume 6.9; Platelet Count 332 k/uL (150-450); RBC 3.51 m/uL (3.80-5.40); RDW 13.8 % (11.5-15.5); WBC 19.4 k/uL (3.8-10.6)
[2020-05-11 08:35] LABS: ALT 12 U/L (4-34); AST 39 U/L (14-36); African American GFR (CKD) >90 (>60 ml/min/1.73 sqM); Albumin 2.6 g/dL (3.5-5.0); Alkaline Phosphatase 86 U/L (38-126); Anion Gap 9 mmol/L; Blood Urea Nitrogen 29 mg/dL (7-17); Calcium 8.3 mg/dL (8.4-10.2); Carbon Dioxide 21 mmol/L (22-30); Chloride 106 mmol/L (98-107); Glucose 80 mg/dL (74-99); Non-African American GFR(CKD) 85 (>60 ml/min/1.73 sqM); Potassium 3.7 mmol/L (3.5-5.1); Sodium 136 mmol/L (137-145); Total Bilirubin 0.6 mg/dL (0.2-1.3); Total Protein 5.4 g/dL (6.3-8.2)
[2020-05-11] MEDS: FAMOTIDINE 20 MG TAB PO SCH (08:37)
[2020-05-11] MEDS: CHOLECALCIFEROL 1,000 UNIT TAB PO SCH (08:38)
[2020-05-11] MEDS: CYANOCOBALAMIN 500 MCG TAB PO SCH (08:38)
[2020-05-11] MEDS: ACETAMINOPHEN TAB 325 MG TAB PO PRN (08:38)
[2020-05-11] MEDS: ASCORBIC ACID 500 MG TAB PO SCH ×2 (08:38→22:30)
[2020-05-11] MEDS: SERTRALINE 100 MG TAB PO SCH (08:38)
[2020-05-11] MEDS: ASPIRIN 81 MG PO SCH (08:38)
[2020-05-11] MEDS: ZINC SULFATE 220 MG CAP PO SCH (08:39)
[2020-05-11] MEDS: dexAMETHasone 2 MG TAB PO SCH (08:39)
[2020-05-11] MEDS: OSELTAMIVIR 60 MG/10 ML ORAL SYRINGE PO SCH ×2 (08:39→22:30)
[2020-05-11] MEDS: ENOXAPARIN 60 MG/0.6 ML SYRINGE SQ SCH ×2 (08:40→22:30)
--- NOTE | 2020-05-11 10:21 | P.PN ---
Subjective Progress Note Date: 05/11/20 HISTORY OF PRESENT ILLNESS This is a 79-year-old female patient of Dr. Guerrero with past medical history of breast cancer, hypothyroidism, hyperlipidemia, generalized osteoarthritis. She was recently hospitalized May 12 for fever, chills, cough with sputum production with worsening dyspnea was diagnosed with COVID-19 pneumonia. Patient was stabilized and discharged home on May 05 with azithromycin, steroids, home oxygen and vitamin supplements. Patient had significant shortness of breath when she woke up this morning and was wearing oxygen at 4 L. EMS was called and reported that she was ashen nazario, diaphoretic with a pulse ox of 71% upon arrival. Patient was brought into [facility] emergency center and found to be afebrile, heart rate 105, blood pressure 168/89, pulse ox 97% with nonrebreather. She continued tachypneic and tachycardic and patient was placed on BiPAP. Chest x-ray reveals stable patchy bilateral infiltrates. WBC 19.5, hemoglobin 11. Sodium 133, potassium 4.1, CO2 26, BUN 23 and creatinine 0.65. Blood sugar 100. Lactic acid 1.1. LDH 1116, C-reactive protein 63.7. Covid 19 not detected. Influenza B positive. Patient was continued on vitamin supplements, dexamethasone and started on Lovenox, Kati flu, admitted to the cardiac stepdown unit and consult requested with infectious disease and pulmonary medicine. DDimer elevated at 33 and CTA of the chest positive for tiny filling defect left lower lobe pulmonary artery. 05/10: Patient continues to have significant shortness of breath cough and chest tightness. She is on BiPAP and unable to eat or drink. She continues to feel weak and tired. Temperature max 100.0, heart rate 95, blood pressure 125/68, pulse ox 91% on BiPAP with FiO2 of 80. Patient has been seen by pulmonary medicine and started on Remdesivir. The patient's has been contacted via phone and updated regarding patient's current condition and treatment plan. 05/11: Patient is currently on day 3/5 of Remdesivir. Her pulse ox is running about 89% on BiPAP of 85% FiO2. Legionella was negative. She has been afebrile, heart rate 86, blood pressure 150/68. Navarro catheter will be placed as patient is too dyspneic to use bedpan or commode. Repeat blood work reveals WBC 19.4, hemoglobin 10.2. Sodium 136, potassium 3.7, creatinine 0.68. Patient is followed by infectious disease and pulmonary medicine. REVIEW OF SYSTEMS Constitutional: No fever, no chills, no sweats. No weight change. Reports weakness, Reports fatigue Reports lethargy. No daytime sleepiness. EENT: No headache. No blurred vision or double vision, no loss of vision. No loss of Hearing, no ringing in the ears, no dizziness. No nasal drainage or congestion. No epistaxis. No sore throat. Lungs: Reports shortness of breath, Reports cough, Reports sputum production. Reports wheezing. Reports dyspnea with exertion. Cardiovascular: No chest pain, no lower extremity edema. No palpitations. No paroxysmal nocturnal dyspnea. No orthopnea. No lightheadedness or dizziness. No syncopal episodes. Abdominal: No abdominal pain. No nausea, vomiting. No diarrhea. No constipation. No bloody or tarry stools.. No loss of appetite. Genitourinary: No dysuria, increased frequency, urgency. No urinary retention. Musculoskeletal: No myalgias. No muscle weakness, no gait dysfunction, no frequent falls. No back pain. No neck pain. Integumentary: No wounds, no lesions. No rash or pruritus. No unusual bruising. No change in hair or nails. Neurologic: No aphasia. No facial droop. No change in mentation. No head injury. No headache. No paralysis. No paresthesia. Psychiatric: No depression. No anxiety. No mood swings. Endocrine: No abnormal blood sugars. No weight change. No excessive sweating or thirst. No cold intolerance. PHYSICAL EXAMINATION Gen: This is a 79-year-old female. She is resting in bed in mild to moderate distress on BiPAP. HEENT: Head is atraumatic, normocephalic. Pupils equal, round. Sclerae is anicteric. NECK: Supple. No JVD. No lymphadenopathy. No thyromegaly. LUNGS: Bilateral crackles with decreased air exchange. Mild to moderate intercostal retractions. HEART: Regular rate and rhythm. No murmur. ABDOMEN: Soft. Bowel sounds are present. No masses. No tenderness. EXTREMITIES: No pedal edema. No calf tenderness. Dorsalis pedis +2 bilaterally . NEUROLOGICAL: Patient is awake, alert and oriented x3. Cranial nerves 2 through 12 are grossly intact. ASSESSMENT AND PLAN 1. Acute on chronic hypoxic respiratory failure secondary to COVID pneumonia, Influenza B and small left lower pulmonary embolism. Patient will be started on azithromycin and Rocephin. Continue oxygen therapy with BiPAP. Patient started on dexamethasone 6 mg daily, Lovenox 60 mg subcu twice daily, vitamin supplements with vitamin C, vitamin D, zinc, Tamifllu. Patient started on Remdesivir 3/5 doses. Consults with pulmonary medicine and infectious disease appreciated. Continue isolation. 2. Hypothyroidism. Continue levothyroxine. 3. Severe osteoporosis. Fosamax on hold. 4. Anticoagulation with Lovenox. 5. GI prophylaxis. Pepcid. 6. Recurrent depression. Continue Zoloft 200 mg daily. DISCHARGE PLAN May require subacute rehab Impression and plan of care have been directed as dictated by the signing physician. Ivone Vizcarra nurse practitioner acting as scribe for signing physician. Objective - Vital Signs Vital signs: Vital Signs Temp 98 F 05/10/20 19:45 Pulse 86 05/11/20 03:40 Resp 24 05/11/20 03:40 BP 150/68 05/11/20 03:40 Pulse Ox 92 L 05/11/20 03:40 Intake & Output 05/10/20 05/11/20 05/11/20 18:59 06:59 18:59 Intake Total 450 50 Output Total 300 Balance 150 50 Weight 54 kg Intake: Oral 450 50 Output: Urine 300 Other: Voiding Method Bedside Commode # Voids 1 - Labs CBC & Chem 7: 05/11/20 07:50 05/11/20 07:50 Labs: Abnormal Lab Results - Last 24 Hours (Table) 05/10/20 05/10/20 05/11/20 Range/Units 11:14 11:14 01:17 WBC (3.8-10.6) k/uL RBC (3.80-5.40) m/uL Hgb (11.4-16.0) gm/dL Hct (34.0-46.0) % Fibrinogen 613 H (200-500) mg/dL Sodium 136 L (137-145) mmol/L Carbon Dioxide (22-30) mmol/L BUN 29 H (7-17) mg/dL Calcium (8.4-10.2) mg/dL Ferritin 650.6 H (10.0-291.0) ng/mL AST (14-36) U/L Lactate Dehydrogenase 1763 H (313-618) U/L C-Reactive Protein 55.0 H (<10.0) mg/L Total Protein (6.3-8.2) g/dL Albumin (3.5-5.0) g/dL 05/11/20 05/11/20 Range/Units 07:50 07:50 WBC 19.4 H (3.8-10.6) k/uL RBC 3.51 L (3.80-5.40) m/uL Hgb 10.2 L (11.4-16.0) gm/dL Hct 31.7 L (34.0-46.0) % Fibrinogen (200-500) mg/dL Sodium 136 L (137-145) mmol/L Carbon Dioxide 21 L (22-30) mmol/L BUN 29 H (7-17) mg/dL Calcium 8.3 L (8.4-10.2) mg/dL Ferritin (10.0-291.0) ng/mL AST 39 H (14-36) U/L Lactate Dehydrogenase (313-618) U/L C-Reactive Protein (<10.0) mg/L Total Protein 5.4 L (6.3-8.2) g/dL Albumin 2.6 L (3.5-5.0) g/dL Microbiology - Last 24 Hours (Table) 05/09/20 06:09 Blood Culture - Preliminary Blood No Growth after 48 hours
[2020-05-11] MEDS: SODIUM CHLORIDE 0.9% 1,000 ML IV SCH (12:07)
--- NOTE | 2020-05-11 16:11 | P.PN ---
Subjective Progress Note Date: 05/11/20 Principal diagnosis: Acute bilateral viral pneumonia Luiza is a 79-year-old female who was admitted to our hospital 1 week ago for COVID 19, she was treated with steroids and azithromycin, she was discharged home with supplemental oxygen steroids, azithromycin, zinc, vitamin C. She's been compliant with her home medication regimen. She's been wearing her oxygen. She states that despite this she's felt progressively worsened throughout the night and couldn't sleep due to shortness of breath. Patient states that this morning she initially she couldn't get her breath despite wearing her oxygen mask at 4 L. EMS was called. EMS reports that upon their arrival to her home she was ashen nazario diaphoretic with an oxygen saturation of 71%the patient was initially placed on on the percent nonrebreather facemask. Subsequently she was switched to a BiPAP and the current pressures are 10/5 with an FiO2 of 70%. Chest x-ray showed diffuse bilateral pulmonary infiltrates. Repeat coronavirus 19 testing came back negative. Nevertheless the patient 2 positive tests that were done on 06/28/2019 and 05/02/2020 and both of them were positive. Furthermore, the patient checked positive for influenza B.a CAT scan of the chest was done in the emergency department and it showed diffuse bilateral groundglass pulmonary infiltrates left more than right. There was also a tiny subsegmental pulmonaryembolism and the left lower lobe pulmonary artery branch. The patient was started on Lovenox therapeutic dose 1 mg per KG twice a day. Currently she is BiPAP dependent. FiO2 has been drop down to 70%. The patient will be started on treatment COVID 19 pneumonia and influenza. The patient was given empiric antibiotic coverage with a combination of Rocephin and Zithromax. She is quite lethargic and weak. She easily saturates once off the BiPAP. On 05/10/2020 patient seen in follow-up on selective care unit, she remains on BiPAP, FiO2 is at 80%, short of breath, tachypnea, pulse ox is 91%, low-grade fever this morning, with a temp of 100F. No complaints of chest discomfort or palpitations. Still requiring high FiO2. she was started on Remdesivir, Tamiflu for coronavirus and influenza B. Follow-up inflammatory markers have increased, with LDH up to 1763, CRP is relatively stable, down slightly to 55, Legionella urine antigen came back negative. Follow-up coronavirus PCR came back negative, and of note patient tested positive twice on 04/28 2020 and 05/02/2020 for coronavirus. Her chest x-ray on admission showed stable patchy bilateral infiltrates. And her CTA chest showed tiny left lower lobe pulmonary artery pulmonary embolism, and diffuse bilateral left greater than right mixed alveolar groundglass infiltrates reflective of Covid 19 pneumonitis The patient is seen today 05/11/2020 in follow-up on the selective care unit. She is currently resting fairly comfortably in bed. She has been on BiPAP 03/29 at 85% FiO2 alternating with 15 L high flow nasal cannula. Chest x-ray reveals right perihilar and basilar pneumonia with mild interval progression. She is on day #3 of Remdesivir. She is also on Tamiflu. Continued on Lovenox, dexametha sone, vitamin C, vitamin D, zinc, melatonin, Pepcid. Objective - Vital Signs Vital signs: Vital Signs Temp 98.7 F 05/11/20 11:35 Pulse 89 05/11/20 11:35 Resp 20 05/11/20 11:35 BP 137/67 05/11/20 11:35 Pulse Ox 92 L 05/11/20 11:35 Intake & Output 05/10/20 05/11/20 05/11/20 18:59 06:59 18:59 Intake Total 450 175 Output Total 300 130 Balance 150 45 Weight 54 kg Intake: Oral 450 175 Output: Urine 300 130 Other: Voiding Method Bedside Commode Indwelling Catheter # Voids 1 - Exam GENERAL EXAM: Alert, very pleasant, 79-year-old white female on BiPAP support, with pressures of 10 and 6, and FiO2 of 85%, with a pulse ox of 92% comfortable in no apparent distress. HEAD: Normocephalic/atraumatic. EYES: Normal reaction of pupils, equal size. Conjunctiva pink, sclera white. NOSE: Clear with pink turbinates. THROAT: No erythema or exudates. NECK: No masses, no JVD, no thyroid enlargement, no adenopathy. CHEST: No chest wall deformity. Symmetrical expansion. LUNGS: Equal air entry with diffuse crackles, but no wheeze, rhonchi or dullness. CVS: Regular rate and rhythm, normal S1 and S2, no gallops, no murmurs, no rubs ABDOMEN: Soft, nontender. No hepatosplenomegaly, normal bowel sounds, no guarding or rigidity. EXTREMITIES: No clubbing, no edema, no cyanosis, 2+ pulses and upper and lower extremities. MUSCULOSKELETAL: Muscle strength and tone normal. SPINE: No scoliosis or deformity SKIN: No rashes CENTRAL NERVOUS SYSTEM: No focal deficits, tone is normal in all 4 extremities. PSYCHIATRIC: Alert and oriented -3. Appropriate affect. Intact judgment and insight. - Labs CBC & Chem 7: 05/11/20 07:50 05/11/20 07:50 Labs: Abnormal Lab Results - Last 24 Hours (Table) 05/10/20 05/11/20 05/11/20 Range/Units 11:14 01:17 07:50 WBC 19.4 H (3.8-10.6) k/uL RBC 3.51 L (3.80-5.40) m/uL Hgb 10.2 L (11.4-16.0) gm/dL Hct 31.7 L (34.0-46.0) % Sodium 136 L (137-145) mmol/L Carbon Dioxide (22-30) mmol/L BUN 29 H (7-17) mg/dL Calcium (8.4-10.2) mg/dL Ferritin 650.6 H (10.0-291.0) ng/mL AST (14-36) U/L Total Protein (6.3-8.2) g/dL Albumin (3.5-5.0) g/dL 05/11/20 Range/Units 07:50 WBC (3.8-10.6) k/uL RBC (3.80-5.40) m/uL Hgb (11.4-16.0) gm/dL Hct (34.0-46.0) % Sodium 136 L (137-145) mmol/L Carbon Dioxide 21 L (22-30) mmol/L BUN 29 H (7-17) mg/dL Calcium 8.3 L (8.4-10.2) mg/dL Ferritin (10.0-291.0) ng/mL AST 39 H (14-36) U/L Total Protein 5.4 L (6.3-8.2) g/dL Albumin 2.6 L (3.5-5.0) g/dL Microbiology - Last 24 Hours (Table) 05/09/20 06:09 Blood Culture - Preliminary Blood No Growth after 48 hours Assessment and Plan Assessment: 1 acute bilateral viral pneumonia initially with Covid 19 and subsequently the patient was diagnosed having influenza B. The chest x-ray findings are typical of interstitial pneumonia suggestive of bilateral pneumonia. There may be a component of Covid 19 infection despite the fact that the patient has been infected back in 04/28/2020. The patient also checked positive for influenza B. 2 pulmonary embolism, very tiny, subsegmental in the left lower lobe pulmonary artery branch 3 acute hypoxic respiratory failure. Acute hypoxic respiratory failure is a ttributed to the bilateral pneumonia rather than the pulmonary embolism. 4 history of breast cancer 5 hypothyroidism 6 osteoporosis 7 chronic anxiety/depression 8 acute hypoxic respiratory failure related to CoVID 19 pneumonitis in addition to influenza B infection, requiring BiPAP support, and high FiO2 Plan: The patient was seen and evaluated by Dr. Crowe Chest x-ray and labs reviewed Day 3 of Remdesivir Dose 2 of 8 of Tamiflu Continued on Lovenox, Decadron, Pepcid, vitamin C, vitamin D, zinc, melatonin Repeat chest x-ray, inflammatory markers in the a.m. We will continue to follow I, the cosigning physician, performed a history & physical examination of the pa tient. Lungs sounds with bilateral scattered rhonchi. Maintaining good O2 saturations in the 90s on 15 L high flow nasal cannula. I discussed the assessment and plan of care with my nurse practitioner, Dione Fofana. I attest to the above note as dictated by her.
[2020-05-11] MEDS: REMDESIVIR 100 MG in SODIUM CHLORIDE 0.9% 250 ML IVPB SCH (22:30)
[2020-05-11] MEDS: clonazePAM 0.5 MG TAB PO SCH (22:30)
--- NOTE | 2020-05-11 22:53 | PN ---
PROGRESS NOTE DATE OF SERVICE: 05/11/2020 REASON FOR FOLLOWUP: 1. Acute influenza B. 2. Possible COVID. INTERVAL HISTORY: The patient is currently afebrile. The patient is BiPAP dependent. The patient denies having any chest pain. Complaining of shortness of breath. No cough, no sputum production. No nausea, no vomiting. No abdominal pain. No diarrhea. PHYSICAL EXAMINATION: Blood pressure 122/66, with a pulse of 87, temperature 98.6. She is 95% on BiPAP. General description is an elderly female lying in bed in no distress. RESPIRATORY SYSTEM: Unlabored breathing, decreased breath sounds in the base, with no wheeze. HEART: S1, S2. Regular rate and rhythm. ABDOMEN: Soft, no tenderness. LABS: Hemoglobin is 10.8, white count 19.4, BUN of 29, creatinine 0.68. DIAGNOSTIC IMPRESSION AND PLAN: Patient admitted to the hospital with shortness of breath, hypoxemia, in this patient who did have influenza B positive. CT angiogram shows ground-glass opacity though salazar virus has been negative. The patient did have mild progression on chest x-ray. Covered with Tamiflu, Remdesivir, steroids, Lovenox, to continue along with respiratory support. Monitor clinical course closely. MMODL / IJN: [id number] /
[2020-05-12] MEDS: SODIUM CHLORIDE 0.9% 1,000 ML IV SCH ×2 (07:12→17:59)
[2020-05-12] MEDS: LEVOTHYROXINE 50 MCG TAB PO SCH (07:12)
[2020-05-12] MEDS: ACETAMINOPHEN TAB 325 MG TAB PO PRN (08:27)
[2020-05-12] MEDS: CHOLECALCIFEROL 1,000 UNIT TAB PO SCH (08:27)
[2020-05-12] MEDS: FAMOTIDINE 20 MG TAB PO SCH (08:27)
[2020-05-12] MEDS: OSELTAMIVIR 60 MG/10 ML ORAL SYRINGE PO SCH ×2 (08:27→22:05)
[2020-05-12] MEDS: SERTRALINE 100 MG TAB PO SCH (08:27)
[2020-05-12] MEDS: ASPIRIN 81 MG PO SCH (08:27)
[2020-05-12] MEDS: ZINC SULFATE 220 MG CAP PO SCH (08:28)
[2020-05-12] MEDS: ASCORBIC ACID 500 MG TAB PO SCH ×2 (08:28→22:05)
[2020-05-12] MEDS: CYANOCOBALAMIN 500 MCG TAB PO SCH (08:28)
[2020-05-12] MEDS: dexAMETHasone 2 MG TAB PO SCH (08:33)
[2020-05-12] MEDS: ALPRAZolam 0.25 MG TAB PO PRN ×2 (09:48→22:05)
--- NOTE | 2020-05-12 10:00 | P.PN ---
Subjective Progress Note Date: 05/12/20 HISTORY OF PRESENT ILLNESS This is a 79-year-old female patient of Dr. Guerrero with past medical history of breast cancer, hypothyroidism, hyperlipidemia, generalized osteoarthritis. She was recently hospitalized May 12 for fever, chills, cough with sputum production with worsening dyspnea was diagnosed with COVID-19 pneumonia. Patient was stabilized and discharged home on May 05 with azithromycin, steroids, home oxygen and vitamin supplements. Patient had significant shortness of breath when she woke up this morning and was wearing oxygen at 4 L. EMS was called and reported that she was ashen nazario, diaphoretic with a pulse ox of 71% upon arrival. Patient was brought into [facility] emergency center and found to be afebrile, heart rate 105, blood pressure 168/89, pulse ox 97% with nonrebreather. She continued tachypneic and tachycardic and patient was placed on BiPAP. Chest x-ray reveals stable patchy bilateral infiltrates. WBC 19.5, hemoglobin 11. Sodium 133, potassium 4.1, CO2 26, BUN 23 and creatinine 0.65. Blood sugar 100. Lactic acid 1.1. LDH 1116, C-reactive protein 63.7. Covid 19 not detected. Influenza B positive. Patient was continued on vitamin supplements, dexamethasone and started on Lovenox, Kati flu, admitted to the cardiac stepdown unit and consult requested with infectious disease and pulmonary medicine. DDimer elevated at 33 and CTA of the chest positive for tiny filling defect left lower lobe pulmonary artery. 05/10: Patient continues to have significant shortness of breath cough and chest tightness. She is on BiPAP and unable to eat or drink. She continues to feel weak and tired. Temperature max 100.0, heart rate 95, blood pressure 125/68, pulse ox 91% on BiPAP with FiO2 of 80. Patient has been seen by pulmonary medicine and started on Remdesivir. The patient's has been contacted via phone and updated regarding patient's current condition and treatment plan. 05/11: Patient is currently on day 3/5 of Remdesivir. Her pulse ox is running about 89% on BiPAP of 85% FiO2. Legionella was negative. Temperature max 101, heart rate 86, blood pressure 150/68. Navarro catheter will be placed as patient is too dyspneic to use bedpan or commode. Repeat blood work reveals WBC 19.4, hemoglobin 10.2. Sodium 136, potassium 3.7, creatinine 0.68. Patient is followed by infectious disease and pulmonary medicine. 05/12: Patient is currently on day 4/ of Remdesivir. She continues to have significant shortness of breath which is worse from yesterday. She is on 85% FiO2 BiPAP pulse ox a 90%. When she moved over to 15 L, pulse ox dropped down to 78%. She continues complaining of shortness of breath. She has been anxious during the night and Xanax ordered. Patient is unable to take any new oral nutrition at this point. Navarro catheter was placed yesterday. Patient has been afebrile for 24 hour period. Heart rate 104, respiratory rate 26, blood pressure 175/81. Updated pulmonary medicine regarding possible need for intubation. REVIEW OF SYSTEMS Constitutional: No fever, no chills, no sweats. No weight change. Reports weakness, Reports fatigue Reports lethargy. Reports daytime sleepiness. EENT: No headache. No blurred vision or double vision, no loss of vision. No loss of Hearing, no ringing in the ears, no dizziness. No nasal drainage or congestion. No epistaxis. No sore throat. Lungs: Reports worsening shortness of breath, Reports cough, Reports sputum production. Reports wheezing. Reports dyspnea with exertion. Cardiovascular: No chest pain, no lower extremity edema. No palpitations. No paroxysmal nocturnal dyspnea. No orthopnea. No lightheadedness or dizziness. No syncopal episodes. Abdominal: No abdominal pain. No nausea, vomiting. No diarrhea. No constipation. No bloody or tarry stools.. No loss of appetite. Genitourinary: No dysuria, increased frequency, urgency. No urinary retention. Musculoskeletal: No myalgias. No muscle weakness, no gait dysfunction, no frequent falls. No back pain. No neck pain. Integumentary: No wounds, no lesions. No rash or pruritus. No unusual bruising. No change in hair or nails. Neurologic: No aphasia. No facial droop. No change in mentation. No head injury. No headache. No paralysis. No paresthesia. Psychiatric: No depression. No anxiety. No mood swings. Endocrine: No abnormal blood sugars. No weight change. No excessive sweating or thirst. No cold intolerance. PHYSICAL EXAMINATION Gen: This is a 79-year-old female. She is resting in bed in moderate distress on BiPAP. HEENT: Head is atraumatic, normocephalic. Pupils equal, round. Sclerae is anicteric. NECK: Supple. No JVD. No lymphadenopathy. No thyromegaly. LUNGS: Bilateral crackles with decreased air exchange. Moderate intercostal retractions. HEART: Regular rate and rhythm. No murmur. ABDOMEN: Soft. Bowel sounds are present. No masses. No tenderness. EXTREMITIES: No pedal edema. No calf tenderness. Dorsalis pedis +2 bilaterally. NEUROLOGICAL: Patient is awake, alert and oriented x3. Cranial nerves 2 through 12 are grossly intact. ASSESSMENT AND PLAN 1. Acute on chronic hypoxic respiratory failure secondary to COVID pneumonia, Influenza B and small left lower pulmonary embolism. Patient will be started on azithromycin and Rocephin. Continue oxygen therapy with BiPAP. Patient started on dexamethasone 6 mg daily, Lovenox 60 mg subcu twice daily, vitamin supplements with vitamin C, vitamin D, zinc, Tamifllu. Patient started on Remdesivir 4/5 doses. Consults with pulmonary medicine and infectious disease appreciated. Continue isolation. Patient may require intubation. 2. Hypothyroidism. Continue levothyroxine. 3. Severe osteoporosis. Fosamax on hold. 4. Anticoagulation with Lovenox. 5. GI prophylaxis. Pepcid. 6. Recurrent depression. Continue Zoloft 200 mg daily. 7. Situational anxiety. Xanax 0.5 mg twice daily as needed added. DISCHARGE PLAN May require subacute rehab Impression and plan of care have been directed as dictated by the signing physician. Ivone Vizcarra nurse practitioner acting as scribe for signing physician. Objective - Vital Signs Vital signs: Vital Signs Temp 99.6 F 05/12/20 08:00 Pulse 104 H 05/12/20 08:00 Resp 26 H 05/12/20 08:00 BP 175/81 05/12/20 08:00 Pulse Ox 90 L 05/12/20 08:00 Intake & Output 05/11/20 05/12/20 05/12/20 18:59 06:59 18:59 Intake Total 225 Output Total 130 0 Balance 95 0 Weight 40 kg Intake: Oral 225 Output: Urine 130 0 Other: Voiding Method Indwelling Catheter Indwelling Catheter - Labs CBC & Chem 7: 05/11/20 07:50 05/11/20 07:50 Labs: Abnormal Lab Results - Last 24 Hours (Table) 05/11/20 Range/Units 07:50 Sodium 136 L (137-145) mmol/L Carbon Dioxide 21 L (22-30) mmol/L BUN 29 H (7-17) mg/dL Calcium 8.3 L (8.4-10.2) mg/dL AST 39 H (14-36) U/L Total Protein 5.4 L (6.3-8.2) g/dL Albumin 2.6 L (3.5-5.0) g/dL Microbiology - Last 24 Hours (Table) 05/09/20 06:09 Blood Culture - Preliminary Blood No Growth after 72 hours
[2020-05-12] MEDS ORDERED: FLUTICASONE 50MCG/SPRAY NASAL 16GM EA NOSTRIL PRN (10:18)
[2020-05-12] MEDS: ENOXAPARIN 60 MG/0.6 ML SYRINGE SQ SCH ×2 (11:05→22:06)
[2020-05-12] MEDS: methylPREDNISolone SOD SUCCI 125 MG/2 ML VIAL IV SCH ×2 (12:14→18:00)
[2020-05-12 12:32] LABS: ABG Base Excess -1.5 mmol/L; ABG HCO3 23 mmol/L (21-25); ABG Oxygen Saturation 93.3 % (94-97); ABG PCO2 36 mmHg (35-45); ABG PH 7.42 (7.35-7.45); ABG PO2 71 mmHg (83-108); ABG TCO2 24 mmol/L (19-24); Allen Test Performed? Yes
--- NOTE | 2020-05-12 14:19 | XR ---
EXAMINATION TYPE: XR chest 1V portable DATE OF EXAM: 05/12/2020 COMPARISON: Chest x-ray 05/11/2020 HISTORY: Covid pneumonia shortness of breath TECHNIQUE: Single frontal view of the chest is obtained. FINDINGS: Bilateral airspace disease persists. Surgical clips present in the right axilla, postop ch lili noted to the right glenoid. No pneumothorax or sizable effusion. Cardiac mediastinal silhouette is stable. IMPRESSION: Findings consistent with bilateral pneumonia.
--- NOTE | 2020-05-12 15:46 | P.PN ---
Subjective Progress Note Date: 05/12/20 Principal diagnosis: Acute bilateral viral pneumonia Luiza is a 79-year-old female who was admitted to our hospital 1 week ago for COVID 19, she was treated with steroids and azithromycin, she was discharged home with supplemental oxygen steroids, azithromycin, zinc, vitamin C. She's been compliant with her home medication regimen. She's been wearing her oxygen. She states that despite this she's felt progressively worsened throughout the night and couldn't sleep due to shortness of breath. Patient states that this morning she initially she couldn't get her breath despite wearing her oxygen mask at 4 L. EMS was called. EMS reports that upon their arrival to her home she was ashen nazario diaphoretic with an oxygen saturation of 71%the patient was initially placed on on the percent nonrebreather facemask. Subsequently she was switched to a BiPAP and the current pressures are 10/5 with an FiO2 of 70%. Chest x-ray showed diffuse bilateral pulmonary infiltrates. Repeat coronavirus 19 testing came back negative. Nevertheless the patient 2 positive tests that were done on 06/28/2019 and 05/02/2020 and both of them were positive. Furthermore, the patient checked positive for influenza B.a CAT scan of the chest was done in the emergency department and it showed diffuse bilateral groundglass pulmonary infiltrates left more than right. There was also a tiny subsegmental pulmonaryembolism and the left lower lobe pulmonary artery branch. The patient was started on Lovenox therapeutic dose 1 mg per KG twice a day. Currently she is BiPAP dependent. FiO2 has been drop down to 70%. The patient will be started on treatment COVID 19 pneumonia and influenza. The patient was given empiric antibiotic coverage with a combination of Rocephin and Zithromax. She is quite lethargic and weak. She easily saturates once off the BiPAP. On 05/10/2020 patient seen in follow-up on selective care unit, she remains on BiPAP, FiO2 is at 80%, short of breath, tachypnea, pulse ox is 91%, low-grade fever this morning, with a temp of 100F. No complaints of chest discomfort or palpitations. Still requiring high FiO2. she was started on Remdesivir, Tamiflu for coronavirus and influenza B. Follow-up inflammatory markers have increased, with LDH up to 1763, CRP is relatively stable, down slightly to 55, Legionella urine antigen came back negative. Follow-up coronavirus PCR came back negative, and of note patient tested positive twice on 04/28 2020 and 05/02/2020 for coronavirus. Her chest x-ray on admission showed stable patchy bilateral infiltrates. And her CTA chest showed tiny left lower lobe pulmonary artery pulmonary embolism, and diffuse bilateral left greater than right mixed alveolar groundglass infiltrates reflective of Covid 19 pneumonitis The patient is seen today 05/11/2020 in follow-up on the selective care unit. She is currently resting fairly comfortably in bed. She has been on BiPAP 10/6 at 85% FiO2 alternating with 15 L high flow nasal cannula. Chest x-ray reveals right perihilar and basilar pneumonia with mild interval progression. She is on day #3 of Remdesivir. She is also on Tamiflu. Continued on Lovenox, dexametha sone, vitamin C, vitamin D, zinc, melatonin, Pepcid. The patient is seen today 05/12/2020 in follow-up on the selective care unit. She remains on BiPAP 10/6 and 85% FiO2. She is alert and answering questions appropriately. She is still maintaining O2 saturations in the 90s. Chest x-ray reveals findings consistent with bilateral pneumonia. Arterial blood gases on 85% FiO2 revealed a PaO2 of 71, pCO2 36, pH 7.42. This is day #4 of Remdesivir. She remains on Tamiflu. Initiated on IV Solu-Medrol. Continue vitamin C, vitamin D, Lovenox 60 mg every 12 hours, Pepcid, zinc. 0.9 normal saline at 75 ML's per hour. Objective - Vital Signs Vital signs: Vital Signs Temp 100.3 F H 05/12/20 11:06 Pulse 91 05/12/20 11:06 Resp 26 H 05/12/20 11:06 BP 132/66 05/12/20 11:06 Pulse Ox 91 L 05/12/20 11:06 Intake & Output 05/11/20 05/12/20 05/12/20 18:59 06:59 18:59 Intake Total 225 125 Output Total 130 0 850 Balance 95 0 -725 Weight 40 kg 38.5 kg Intake: Oral 225 125 Output: Urine 130 0 850 Other: Voiding Method Indwelling Catheter Indwelling Catheter Indwelling Catheter # Voids 1 # Bowel Movements 1 - Exam GENERAL EXAM: Alert, very pleasant, 79-year-old female patient on BiPAP support, with pressures of 10 and 6, and FiO2 of 85%, remains in mild respiratory distress. HEAD: Normocephalic/atraumatic. EYES: Normal reaction of pupils, equal size. Conjunctiva pink, sclera white. NOSE: Clear with pink turbinates. THROAT: No erythema or exudates. NECK: No masses, no JVD, no thyroid enlargement, no adenopathy. CHEST: No chest wall deformity. Symmetrical expansion. LUNGS: Equal air entry with diffuse rhonchi. CVS: Regular rate and rhythm, normal S1 and S2, no gallops, no murmurs, no rubs ABDOMEN: Soft, nontender. No hepatosplenomegaly, normal bowel sounds, no guarding or rigidity. EXTREMITIES: No clubbing, no edema, no cyanosis, 2+ pulses and upper and lower extremities. MUSCULOSKELETAL: Muscle strength and tone normal. SPINE: No scoliosis or deformity SKIN: No rashes CENTRAL NERVOUS SYSTEM: No focal deficits, tone is normal in all 4 extremities. PSYCHIATRIC: Alert and oriented -3. Appropriate affect. Intact judgment and insight. - Labs CBC & Chem 7: 05/11/20 07:50 05/11/20 07:50 Labs: Abnormal Lab Results - Last 24 Hours (Table) 05/12/20 Range/Units 12:30 ABG pO2 71 L (83-108) mmHg ABG O2 Saturation 93.3 L (94-97) % Microbiology - Last 24 Hours (Table) 05/09/20 06:09 Blood Culture - Preliminary Blood No Growth after 72 hours Assessment and Plan Assessment: 1 acute bilateral viral pneumonia initially with Covid 19 and subsequently the patient was diagnosed having influenza B. The chest x-ray findings are typical of interstitial pneumonia suggestive of bilateral pneumonia. There may be a component of Covid 19 infection despite the fact that the patient has been infected back in 04/28/2020. The patient also checked positive for influenza B. 2 pulmonary embolism, very tiny, subsegmental in the left lower lobe pulmonary artery branch 3 acute hypoxic respiratory failure. Acute hypoxic respiratory failure is attributed to the bilateral pneumonia rather than the pulmonary embolism. 4 history of breast cancer 5 hypothyroidism 6 osteoporosis 7 chronic anxiety/depression 8 acute hypoxic respiratory failure related to CoVID 19 pneumonitis in addition to influenza B infection, requiring BiPAP support, and high FiO2 Plan: The patient was seen and evaluated by Dr. Crowe Chest x-ray, ABGs and labs reviewed Plan to transfer the patient to the intensive care unit for closer monitoring No plans for intubation at this time. Continue BiPAP support Day 4 of Remdesivir Dose 4 of 8 of Tamiflu Continued on Lovenox, Decadron, Pepcid, vitamin C, vitamin D, zinc, melatonin We will continue to follow I, the cosigning physician, performed a history & physical examination of the patient. Lungs sounds with bilateral scattered rhonchi. Maintaining good O2 saturations in the 90s on BiPAP 10/6 and 85% FiO2. I discussed the assessment and plan of care with my nurse practitioner, Dione Fofana. I attest to the above note as dictated by her.
[2020-05-12] MEDS: FAMOTIDINE 20 MG/2 ML VIAL IV SCH (22:05)
[2020-05-12] MEDS: clonazePAM 0.5 MG TAB PO SCH (22:05)
[2020-05-12] MEDS: REMDESIVIR 100 MG in SODIUM CHLORIDE 0.9% 250 ML IVPB SCH (22:06)
--- NOTE | 2020-05-12 22:53 | PN ---
PROGRESS NOTE DATE OF SERVICE: 05/12/2020 REASON FOR FOLLOWUP: Influenza B and possible COVID infection. INTERVAL HISTORY: The patient did have a low-grade fever of 100.2 this morning. The patient has been afebrile since then. The patient remains BiPAP-dependent. The patient denies having any chest pain or cough. No vomiting. No abdominal pain or diarrhea. PHYSICAL EXAMINATION: Blood pressure 133/68 with a pulse 89, temperature 98.4. She is 94% on BiPAP. General description is an elderly female up in the bed in no distress. RESPIRATORY SYSTEM: Unlabored breathing with decreased intensity of breath sounds. No wheeze. HEART: S1, S2. Regular rate and rhythm. ABDOMEN: Soft. No tenderness. LABS: No new labs have been obtained today except ABG. Blood culture has been negative. The patient did have a chest x-ray with findings consistent with pneumonia. DIAGNOSTIC IMPRESSION AND PLAN: Patient admitted to hospital with acute respiratory failure with evidence of pneumonia. is positive for likely influenza negative. Urine negative. The patient is currently on along with respiratory support; to continue while monitoring clinical course closely. MMODL / IJN: [id number] /
[2020-05-13] MEDS: methylPREDNISolone SOD SUCCI 125 MG/2 ML VIAL IV SCH ×4 (00:03→18:06)
[2020-05-13] MEDS: SODIUM CHLORIDE 0.9% 1,000 ML IV SCH ×2 (03:54→06:48)
[2020-05-13] MEDS: LEVOTHYROXINE 50 MCG TAB PO SCH (06:42)
[2020-05-13] MEDS: CYANOCOBALAMIN 500 MCG TAB PO SCH (09:12)
[2020-05-13] MEDS: CHOLECALCIFEROL 1,000 UNIT TAB PO SCH (09:12)
[2020-05-13] MEDS: ASCORBIC ACID 500 MG TAB PO SCH ×2 (09:12→21:56)
[2020-05-13] MEDS: ALPRAZolam 0.25 MG TAB PO PRN (09:12)
[2020-05-13] MEDS: ASPIRIN 81 MG PO SCH (09:12)
[2020-05-13] MEDS: SERTRALINE 100 MG TAB PO SCH (09:13)
[2020-05-13] MEDS: ENOXAPARIN 60 MG/0.6 ML SYRINGE SQ SCH (09:13)
[2020-05-13] MEDS: OSELTAMIVIR 60 MG/10 ML ORAL SYRINGE PO SCH ×2 (09:15→22:08)
[2020-05-13] MEDS: FAMOTIDINE 20 MG/2 ML VIAL IV SCH ×2 (09:15→21:57)
[2020-05-13] MEDS: ZINC SULFATE 220 MG CAP PO SCH (09:16)
[2020-05-13 09:22] LABS: HCT 34.2 % (34.0-46.0); MCH 28.8 pg (25.0-35.0); MCHC 32.1 g/dL (31.0-37.0); MCV 89.7 fL (80.0-100.0); Mean Platelet Volume 7.6; Platelet Count 404 k/uL (150-450); RBC 3.81 m/uL (3.80-5.40); WBC 20.5 k/uL (3.8-10.6)
[2020-05-13 09:38] LABS: ALT 12 U/L (4-34); AST 30 U/L (14-36); African American GFR (CKD) >90 (>60 ml/min/1.73 sqM); Albumin 2.8 g/dL (3.5-5.0); Alkaline Phosphatase 129 U/L (38-126); Anion Gap 1 mmol/L; Blood Urea Nitrogen 33 mg/dL (7-17); Calcium 8.5 mg/dL (8.4-10.2); Carbon Dioxide 28 mmol/L (22-30); Chloride 112 mmol/L (98-107); Glucose 146 mg/dL (74-99); Non-African American GFR(CKD) 88 (>60 ml/min/1.73 sqM); Potassium 4.1 mmol/L (3.5-5.1); Sodium 141 mmol/L (137-145); Total Bilirubin 0.4 mg/dL (0.2-1.3); Total Protein 5.8 g/dL (6.3-8.2)
--- NOTE | 2020-05-13 11:13 | P.PN ---
Subjective Progress Note Date: 05/13/20 HISTORY OF PRESENT ILLNESS This is a 79-year-old female patient of Dr. Guerrero with past medical history of breast cancer, hypothyroidism, hyperlipidemia, generalized osteoarthritis. She was recently hospitalized May 12 for fever, chills, cough with sputum production with worsening dyspnea was diagnosed with COVID-19 pneumonia. Patient was stabilized and discharged home on May 05 with azithromycin, steroids, home oxygen and vitamin supplements. Patient had significant shortness of breath when she woke up this morning and was wearing oxygen at 4 L. EMS was called and reported that she was ashen nazario, diaphoretic with a pulse ox of 71% upon arrival. Patient was brought into [facility] emergency center and found to be afebrile, heart rate 105, blood pressure 168/89, pulse ox 97% with nonrebreather. She continued tachypneic and tachycardic and patient was placed on BiPAP. Chest x-ray reveals stable patchy bilateral infiltrates. WBC 19.5, hemoglobin 11. Sodium 133, potassium 4.1, CO2 26, BUN 23 and creatinine 0.65. Blood sugar 100. Lactic acid 1.1. LDH 1116, C-reactive protein 63.7. Covid 19 not detected. Influenza B positive. Patient was continued on vitamin supplements, dexamethasone and started on Lovenox, Kati flu, admitted to the cardiac stepdown unit and consult requested with infectious disease and pulmonary medicine. DDimer elevated at 33 and CTA of the chest positive for tiny filling defect left lower lobe pulmonary artery. 05/10: Patient continues to have significant shortness of breath cough and chest tightness. She is on BiPAP and unable to eat or drink. She continues to feel weak and tired. Temperature max 100.0, heart rate 95, blood pressure 125/68, pulse ox 91% on BiPAP with FiO2 of 80. Patient has been seen by pulmonary medicine and started on Remdesivir. The patient's has been contacted via phone and updated regarding patient's current condition and treatment plan. 05/11: Patient is currently on day 3/5 of Remdesivir. Her pulse ox is running about 89% on BiPAP of 85% FiO2. Legionella was negative. Temperature max 101, heart rate 86, blood pressure 150/68. Navarro catheter will be placed as patient is too dyspneic to use bedpan or commode. Repeat blood work reveals WBC 19.4, hemoglobin 10.2. Sodium 136, potassium 3.7, creatinine 0.68. Patient is followed by infectious disease and pulmonary medicine. 05/12: Patient is currently on day 4/5 of Remdesivir. She continues to have significant shortness of breath which is worse from yesterday. She is on 85% FiO2 BiPAP pulse ox a 90%. When she moved over to 15 L, pulse ox dropped down to 78%. She continues complaining of shortness of breath. She has been anxious during the night and Xanax ordered. Patient is unable to take any new oral nutrition at this point. Navarro catheter was placed yesterday. Patient has been afebrile for 24 hour period. Heart rate 104, respiratory rate 26, blood pressure 175/81. Updated pulmonary medicine regarding possible need for intubation. 05/13: Patient's respiratory status did improve yesterday afternoon and she did not require transfer to the intensive care unit. Patient may be slightly better today from yesterday morning but did decline from yesterday afternoon. She is currently pulse ox seen in the 80s with BiPAP of 85% FiO2. She has been off onto 15 L high flow nasal cannula to eat and has been able to take in a small amount of food yesterday and Ensure. She will complete her course of Remdesivir this evening. Tamiflu course will also be completed this evening. Temperature max 100.3 yesterday at noon. Heart rate 91, blood pressure 174/85. Repeat blood work reveals WBC 20.5, hemoglobin 11. Chloride 112, BUN 33 and creatinine 0.61. Blood sugar 146. Alkaline phosphatase 129. REVIEW OF SYSTEMS Constitutional: No fever, no chills, no sweats. No weight change. Reports weakness, Reports fatigue Reports lethargy. Reports daytime sleepiness. EENT: No headache. No blurred vision or double vision, no loss of vision. No loss of Hearing, no ringing in the ears, no dizziness. No nasal drainage or congestion. No epistaxis. No sore throat. Lungs: Reports worsening shortness of breath, Reports cough, Reports sputum production. Reports wheezing. Reports dyspnea with exertion. Cardiovascular: No chest pain, no lower extremity edema. No palpitations. No paroxysmal nocturnal dyspnea. No orthopnea. No lightheadedness or dizziness. No syncopal episodes. Abdominal: No abdominal pain. No nausea, vomiting. No diarrhea. No con stipation. No bloody or tarry stools.. No loss of appetite. Genitourinary: No dysuria, increased frequency, urgency. No urinary retention. Musculoskeletal: No myalgias. No muscle weakness, no gait dysfunction, no frequent falls. No back pain. No neck pain. Integumentary: No wounds, no lesions. No rash or pruritus. No unusual bruising. No change in hair or nails. Neurologic: No aphasia. No facial droop. No change in mentation. No head injury. No headache. No paralysis. No paresthesia. Psychiatric: No depression. No anxiety. No mood swings. Endocrine: No abnormal blood sugars. PHYSICAL EXAMINATION Gen: This is a 79-year-old female. She is resting in bed in moderate distress on BiPAP. HEENT: Head is atraumatic, normocephalic. Pupils equal, round. Sclerae is anicteric. Oral mucous membranes are dry. NECK: Supple. No JVD. No lymphadenopathy. No thyromegaly. LUNGS: Bilateral crackles with decreased air exchange. Moderate intercostal retractions. HEART: Regular rate and rhythm. No murmur. ABDOMEN: Soft. Bowel sounds are present. No masses. No tenderness. EXTREMITIES: No pedal edema. No calf tenderness. Dorsalis pedis +2 bilaterally. NEUROLOGICAL: Patient is awake, alert and oriented x3. Cranial nerves 2 through 12 are grossly intact. ASSESSMENT AND PLAN 1. Acute on chronic hypoxic respiratory failure secondary to COVID pneumonia, Influenza B and small left lower pulmonary embolism. Patient will be started on azithromycin and Rocephin. Continue oxygen therapy with BiPAP. Patient started on dexamethasone 6 mg daily transitioned to Solu-Medrol, Lovenox 60 mg subcu twice daily, vitamin supplements with vitamin C, vitamin D, zinc, Tamifllu will be completed today. Patient on Remdesivir 5/5 doses. Consults with pulmonary medicine and infectious disease appreciated. Continue isolation. Patient may require intubation. 2. Hypothyroidism. Continue levothyroxine. 3. Severe osteoporosis. Fosamax on hold. 4. Anticoagulation with Lovenox. 5. GI prophylaxis. Pepcid. 6. Recurrent depression. Continue Zoloft 200 mg daily. 7. Situational anxiety. Xanax 0.5 mg twice daily as needed added. DISCHARGE PLAN May require subacute rehab Impression and plan of care have been directed as dictated by the signing physician. Ivone Vizcarra nurse practitioner acting as scribe for signing physician. Objective - Vital Signs Vital signs: Vital Signs Temp 98.4 F 05/13/20 08:00 Pulse 91 05/13/20 08:00 Resp 20 05/13/20 08:00 BP 174/85 05/13/20 08:00 Pulse Ox 85 L 05/13/20 08:00 Intake & Output 05/12/20 05/13/20 05/13/20 18:59 06:59 18:59 Intake Total 125 Output Total 850 150 Balance -725 -150 Weight 38.5 kg 43.5 kg Intake: Oral 125 Output: Urine 850 150 Other: Voiding Method Indwelling Catheter Indwelling Catheter # Voids 1 # Bowel Movements 1 - Labs CBC & Chem 7: 05/13/20 08:22 05/13/20 08:22 Labs: Abnormal Lab Results - Last 24 Hours (Table) 05/12/20 Range/Units 12:30 ABG pO2 71 L (83-108) mmHg ABG O2 Saturation 93.3 L (94-97) % Microbiology - Last 24 Hours (Table) 05/09/20 06:09 Blood Culture - Preliminary Blood No Growth after 96 hours
[2020-05-13 13:44] LABS: Glucose,Whole Blood 141 mg/dL (75-99)
--- NOTE | 2020-05-13 15:15 | P.PN ---
Subjective Progress Note Date: 05/13/20 On 05/13/2020, the patient is still quite hypoxic and she is on a BiPAP at a pressure of 10/6 cm of water with an FiO2 of 100%. The blood gases that was done yesterday on an 85% FiO2 showed a pH of 7.42 with a pCO2 of 36 and pO2 of 71. The chest x-ray from today bilateral pulmonary infiltrates consistent with pneumonia. This is consistent with viral pneumonia. On today's evaluation, based on limitation and oxygenation, I increased the BiPAP to a pressure of 14/8 cm of water and FiO2 at 100% and the patient will be transferred to the intensive care unit. I contacted the . The patient is not sure if she wants intubation yet. She was a bit hesitant in her decisions. At one point she said she did not want any intubation mechanical ventilation. This is to be confirmed again at a later stage. Meanwhile, the patient was cycles of 20.5. Renal function is stable. The patient on Tamiflu. The patient is on IV Solu- Medrol 60 mg every 6 hours. The patient was also started on Remdesivir per protocol treating the salazar virus COVID related pneumonia. She is also on Lovenox 60 mg subcu every 12 hours, as the patient's d-dimer was quite elevated at 34.3. This is a therapeutic dose of Lovenox. Objective - Vital Signs Vital signs: Vital Signs Temp 98.5 F 05/13/20 12:00 Pulse 85 05/13/20 12:00 Resp 20 05/13/20 12:00 BP 165/81 05/13/20 12:00 Pulse Ox 93 L 05/13/20 12:00 Intake & Output 05/12/20 05/13/20 05/13/20 18:59 06:59 18:59 Intake Total 125 450 Output Total 850 150 Balance -725 -150 450 Weight 38.5 kg 43.5 kg Intake: Intake, IV Titration 450 Amount Sodium Chloride 0.9% 1, 450 000 ml @ 75 mls/hr IV . [id number] [facility] Rx#:[id number] Oral 125 Output: Urine 850 150 Other: Voiding Method Indwelling Catheter Indwelling Catheter Indwelling Catheter # Voids 1 # Bowel Movements 1 1 - Exam GENERAL EXAM: Alert, very pleasant, 79-year-old female patient on BiPAP support, with pressures of 14/8 cm of water with an FiO2 of 100%. The patient is having difficulties with her speech. She is tachypneic. She is very much BiPAP dependent and she is unable to come off the BiPAP due to worsening respiratory distress and oxygen desaturation. HEAD: Normocephalic/atraumatic. EYES: Normal reaction of pupils, equal size. Conjunctiva pink, sclera white. NOSE: Clear with pink turbinates. THROAT: No erythema or exudates. NECK: No masses, no JVD, no thyroid enlargement, no adenopathy. CHEST: No chest wall deformity. Symmetrical expansion. LUNGS: Equal air entry with diffuse rhonchi. And the patient has faint crackles in lung bases bilaterally. CVS: Regular rate and rhythm, normal S1 and S2, no gallops, no murmurs, no rubs ABDOMEN: Soft, nontender. No hepatosplenomegaly, normal bowel sounds, no guarding or rigidity. EXTREMITIES: No clubbing, no edema, no cyanosis, 2+ pulses and upper and lower extremities. MUSCULOSKELETAL: Muscle strength and tone normal. SPINE: No scoliosis or deformity SKIN: No rashes CENTRAL NERVOUS SYSTEM: No focal deficits, tone is normal in all 4 extremities. Patient follows simple commands without any major limitation and she is moving all 4 extremities. PSYCHIATRIC: The patient is lethargic yet arousable and she is awake and alert. She is communicating.. Appropriate affect. Intact judgment and insight. - Labs CBC & Chem 7: 05/13/20 08:22 05/13/20 08:22 Labs: Abnormal Lab Results - Last 24 Hours (Table) 05/13/20 05/13/20 05/13/20 Range/Units 08:22 08:22 13:42 WBC 20.5 H (3.8-10.6) k/uL Hgb 11.0 L (11.4-16.0) gm/dL Chloride 112 H (98-107) mmol/L BUN 33 H (7-17) mg/dL Glucose 146 H (74-99) mg/dL POC Glucose (mg/dL) 141 H (75-99) mg/dL Alkaline Phosphatase 129 H (38-126) U/L Total Protein 5.8 L (6.3-8.2) g/dL Albumin 2.8 L (3.5-5.0) g/dL Microbiology - Last 24 Hours (Table) 05/09/20 06:09 Blood Culture - Preliminary Blood No Growth after 96 hours Assessment and Plan Plan: 1 acute bilateral viral pneumonia initially with Covid 19 and subsequently the patient was diagnosed having influenza B. The chest x-ray findings are typical of interstitial pneumonia suggestive of bilateral pneumonia. There may be a component of Covid 19 infection despite the fact that the patient has been infected back in 04/28/2020. The patient also checked positive for influenza B. For now, the patient is being treated for both. The patient is on Tamiflu. The patient is also on IV Solu Medrol and Remdesivir and she is on her day 5 of treatment. She is also on a combination of zinc, melatonin, and Pepcid. The patient is receiving therapeutic dose of Lovenox 1 mg subcu every 12 hours. The dose needs to be modified as the patient currently carries a body weight of 43 kg. 2 pulmonary embolism, very tiny, subsegmental in the left lower lobe pulmonary artery branch 3 acute hypoxic respiratory failure. Acute hypoxic respiratory failure is attributed to the bilateral pneumonia 4 history of breast cancer 5 hypothyroidism 6 osteoporosis 7 chronic anxiety/depression 8 acute hypoxic respiratory failure related to CoVID 19 pneumonitis in addition to influenza B infection, requiring BiPAP suppor 9 elevated d-dimer secondary to above Plan The patient is already [place] to the intensive care unit Continue BiPAP and attempt weaning of FiO2. Keep the current settings of 14/8 cm of water Continued IV Solu-Medrol and Remdesivir Continue Tamiflu. Continue rest of the supportive care. I discussed the possibility of intubation mechanical ventilation with the patient. During my discussion, she always that she did not want any form of intubation mechanical ventilation. Later on, she would've changed her mind as reported by nursing staff. I'm going to confirm her CODE STATUS again and establish a CODE STATUS with the patient. Her condition is critical. High likelihood that the patient will failed BiPAP treatment as the patient is still short of breath hypoxic and tachypneic and has a high work of breathing even while in the BiPAP. Chest x-ray was reviewed. Adjust the Lovenox dose to 40 mg subcu every 12 hours. We'll continue to follow . Condition is critical. Outcome is poor based on the above-mentioned comorbidities.
[2020-05-13] MEDS: cloNIDine HCL 0.2 MG TAB PO PRN (21:57)
[2020-05-13] MEDS: clonazePAM 0.5 MG TAB PO SCH (21:57)
[2020-05-13] MEDS: REMDESIVIR 100 MG in SODIUM CHLORIDE 0.9% 250 ML IVPB SCH (21:58)
[2020-05-13] MEDS: ENOXAPARIN 40 MG/0.4 ML SYRINGE SQ SCH (21:58)
--- NOTE | 2020-05-13 22:54 | PN ---
PROGRESS NOTE DATE OF SERVICE: 05/13/2020 REASON FOR FOLLOWUP: 1. Influenza B. 2. Possible COVID-19 infection. INTERVAL HISTORY: The patient has been transferred down to ICU as the patient is requiring more FiO2. The patient has had no fever in the last 24 hours the patient denies having any worsening shortness of breath or chest pain. No abdominal pain or diarrhea. PHYSICAL EXAMINATION: Blood pressure 169/93 with a pulse of 72, temperature 98.5. She is 94% on BiPAP. General description is an elderly female lying in bed in no distress. RESPIRATORY SYSTEM: Unlabored breathing with decreased intensity of breath sounds. No wheeze. HEART: S1, S2. Regular rate and rhythm. ABDOMEN: Soft. No tenderness. LABS: Hemoglobin is 11, white count 20.5, BUN of , creatinine 0.61. Blood culture negative. No sputum collected. Chest x-ray last done yesterday with evidence of bilateral pneumonia; no change. DIAGNOSTIC IMPRESSION AND PLAN: Patient with acute respiratory failure which is multifactorial in this patient who did have a component of pneumonia. She did have influenza B positive and also concern about COVID. The patient is covered with remdesivir, dexamethasone and Lovenox in addition to the Tamiflu; to continue along with respiratory support. Monitor clinical course closely. MMODL / IJN: [id number] /
[2020-05-14] MEDS: methylPREDNISolone SOD SUCCI 125 MG/2 ML VIAL IV SCH ×5 (00:12→23:59)
[2020-05-14 04:50] LABS: Basophils % (A) 0 %; Eosinophils % (A) 0 %; HCT 30.8 % (34.0-46.0); Lymphocytes # (A) 0.2 k/uL (1.0-4.8); Lymphocytes % (A) 2 %; MCH 29.1 pg (25.0-35.0); MCHC 32.4 g/dL (31.0-37.0); MCV 89.7 fL (80.0-100.0); Mean Platelet Volume 7.2; Monocytes # (A) 0.4 k/uL (0-1.0); Monocytes % (A) 3 %; Neutrophils # (A) 12.3 k/uL (1.3-7.7); Neutrophils % (A) 95 %; Platelet Count 357 k/uL (150-450); RBC 3.44 m/uL (3.80-5.40); RDW 13.9 % (11.5-15.5); WBC 12.9 k/uL (3.8-10.6)
[2020-05-14 05:07] LABS: ALT 12 U/L (4-34); AST 24 U/L (14-36); African American GFR (CKD) >90 (>60 ml/min/1.73 sqM); Albumin 2.3 g/dL (3.5-5.0); Alkaline Phosphatase 88 U/L (38-126); Anion Gap 2 mmol/L; Blood Urea Nitrogen 35 mg/dL (7-17); Calcium 8.1 mg/dL (8.4-10.2); Carbon Dioxide 27 mmol/L (22-30); Chloride 111 mmol/L (98-107); Glucose 155 mg/dL (74-99); Non-African American GFR(CKD) >90 (>60 ml/min/1.73 sqM); Sodium 140 mmol/L (137-145); Total Bilirubin 0.2 mg/dL (0.2-1.3); Total Protein 5.1 g/dL (6.3-8.2)
[2020-05-14] MEDS: SODIUM CHLORIDE 0.9% 1,000 ML IV SCH ×2 (05:55→18:47)
[2020-05-14] MEDS: LEVOTHYROXINE 50 MCG TAB PO SCH (05:57)
--- NOTE | 2020-05-14 07:39 | XR ---
EXAMINATION TYPE: XR chest 1V DATE OF EXAM: 05/14/2020 HISTORY: Shortness of breath. COMPARISON: None. TECHNIQUE: Single view of the chest is submitted. FINDINGS: Demonstrated are scattered senescent parenchymal change. Persistent airspace infiltrates throughout both lung lee. Density overlies the right upper lung fi eld with lucency at the periphery. This may be external to the patient pneumothorax is difficult to e xclude. Repeat examination is recommended as the patient is quite rotated. The heart is stable. Hilar and mediastinal structures are within normal limits. Degenerative changes are seen of the dorsal spine. IMPRESSION: 1. Persistent airspace infiltrates throughout both lung lee. Density overlies the right upper amara g field with lucency at the periphery. While this may be external to the patient pneumothorax is diff icult to exclude. Repeat examination is recommended as a patient is quite rotated. A Red level critical message alert has been initiated for Kyle Hollingsworth MD via the [facility] System on 05/14/2020 7:37 AM. This message alert has been sent to Kyle Hollingsworth MD via the preferences provided by the clinician for the receipt of Radiology Critical Findings. Message ID [id number].
[2020-05-14 09:31] LABS: C Reactive Protein 36.8 mg/L (<10.0)
[2020-05-14] MEDS: FAMOTIDINE 20 MG/2 ML VIAL IV SCH ×2 (09:38→21:36)
[2020-05-14] MEDS: ASCORBIC ACID 500 MG TAB PO SCH ×2 (09:38→21:36)
[2020-05-14] MEDS: CHOLECALCIFEROL 1,000 UNIT TAB PO SCH (09:38)
[2020-05-14] MEDS: ASPIRIN 81 MG PO SCH (09:38)
[2020-05-14] MEDS: SERTRALINE 100 MG TAB PO SCH (09:38)
[2020-05-14] MEDS: ENOXAPARIN 40 MG/0.4 ML SYRINGE SQ SCH (09:38)
[2020-05-14] MEDS: CYANOCOBALAMIN 500 MCG TAB PO SCH (09:39)
[2020-05-14] MEDS: ZINC SULFATE 220 MG CAP PO SCH (09:43)
[2020-05-14] MEDS: ALPRAZolam 0.25 MG TAB PO PRN ×2 (10:10→21:36)
[2020-05-14] MEDS: OSELTAMIVIR 60 MG/10 ML ORAL SYRINGE PO SCH (10:16)
--- NOTE | 2020-05-14 10:37 | P.PN ---
Subjective Progress Note Date: 05/14/20 HISTORY OF PRESENT ILLNESS This is a 79-year-old female patient of Dr. Guerrero with past medical history of breast cancer, hypothyroidism, hyperlipidemia, generalized osteoarthritis. She was recently hospitalized May 12 for fever, chills, cough with sputum production with worsening dyspnea was diagnosed with COVID-19 pneumonia. Patient was stabilized and discharged home on May 05 with azithromycin, steroids, home oxygen and vitamin supplements. Patient had significant shortness of breath when she woke up this morning and was wearing oxygen at 4 L. EMS was called and reported that she was ashen nazario, diaphoretic with a pulse ox of 71% upon arrival. Patient was brought into [facility] emergency center and found to be afebrile, heart rate 105, blood pressure 168/89, pulse ox 97% with nonrebreather. She continued tachypneic and tachycardic and patient was placed on BiPAP. Chest x-ray reveals stable patchy bilateral infiltrates. WBC 19.5, hemoglobin 11. Sodium 133, potassium 4.1, CO2 26, BUN 23 and creatinine 0.65. Blood sugar 100. Lactic acid 1.1. LDH 1116, C-reactive protein 63.7. Covid 19 not detected. Influenza B positive. Patient was continued on vitamin supplements, dexamethasone and started on Lovenox, Kati flu, admitted to the cardiac stepdown unit and consult requested with infectious disease and pulmonary medicine. DDimer elevated at 33 and CTA of the chest positive for tiny filling defect left lower lobe pulmonary artery. 05/10: Patient continues to have significant shortness of breath cough and chest tightness. She is on BiPAP and unable to eat or drink. She continues to feel weak and tired. Temperature max 100.0, heart rate 95, blood pressure 125/68, pulse ox 91% on BiPAP with FiO2 of 80. Patient has been seen by pulmonary medicine and started on Remdesivir. The patient's has been contacted via phone and updated regarding patient's current condition and treatment plan. 05/11: Patient is currently on day 3/5 of Remdesivir. Her pulse ox is running about 89% on BiPAP of 85% FiO2. Legionella was negative. Temperature max 101, heart rate 86, blood pressure 150/68. Navarro catheter will be placed as patient is too dyspneic to use bedpan or commode. Repeat blood work reveals WBC 19.4, hemoglobin 10.2. Sodium 136, potassium 3.7, creatinine 0.68. Patient is followed by infectious disease and pulmonary medicine. 05/12: Patient is currently on day 4/5 of Remdesivir. She continues to have significant shortness of breath which is worse from yesterday. She is on 85% FiO2 BiPAP pulse ox a 90%. When she moved over to 15 L, pulse ox dropped down to 78%. She continues complaining of shortness of breath. She has been anxious during the night and Xanax ordered. Patient is unable to take any new oral nutrition at this point. Navarro catheter was placed yesterday. Patient has been afebrile for 24 hour period. Heart rate 104, respiratory rate 26, blood pressure 175/81. Updated pulmonary medicine regarding possible need for intubation. 05/13: Patient's respiratory status did improve yesterday afternoon and she did not require transfer to the intensive care unit. Patient may be slightly better today from yesterday morning but did decline from yesterday afternoon. She is currently pulse ox seen in the 80s with BiPAP of 85% FiO2. She has been off onto 15 L high flow nasal cannula to eat and has been able to take in a small amount of food yesterday and Ensure. She will complete her course of Remdesivir this evening. Tamiflu course will also be completed this evening. Temperature max 100.3 yesterday at noon. Heart rate 91, blood pressure 174/85. Repeat blood work reveals WBC 20.5, hemoglobin 11. Chloride 112, BUN 33 and creatinine 0.61. Blood sugar 146. Alkaline phosphatase 129. 05/14: Yesterday afternoon, patient was transferred to the intensive care unit and is agreeable to short-term intubation if necessary. She has not required vasopressors. Patient has been afebrile. Heart rate 64, blood pressure 132/69, pulse ox 93% on 80% BiPAP. Leukocytosis is down to 12.9, hemoglobin 10. D- dimer isn't improved at 2.83. Creatinine 0.53. Other inflammatory markers have shown improvement with LDH at 1416, C-reactive protein 36.8. Patient has completed course of Remdesivir and Tamiflu. She remains on Lovenox, Solu-Medrol and vitamin supplementations. REVIEW OF SYSTEMS Unable to obtain PHYSICAL EXAMINATION Limited contact with patient due to ICU Covid restrictions. Gen: This is a 79-year-old female. She is resting in bed in moderate distress on BiPAP in the intensive care unit. HEENT: Head is atraumatic, normocephalic. NEUROLOGICAL: Patient is awake. ASSESSMENT AND PLAN 1. Acute on chronic hypoxic respiratory failure secondary to COVID pneumonia, Influenza B and small left lower pulmonary embolism. Continue oxygen therapy with BiPAP and patient is willing to be intubated for short period if necessary. Solu-Medrol, Lovenox 40 mg subcu twice daily, vitamin supplements with vitamin C, vitamin D, zinc, Tamifllu completed. Remdesivir completed. Consults with pulmonary medicine and infectious disease appreciated. Continue isolation. Patient may require intubation. 2. Hypothyroidism. Continue levothyroxine. 3. Severe osteoporosis. Fosamax on hold. 4. Anticoagulation with Lovenox. 5. GI prophylaxis. Pepcid. 6. Recurrent depression. Continue Zoloft 200 mg daily. 7. Situational anxiety. Xanax 0.5 mg twice daily as needed added. DISCHARGE PLAN May require subacute rehab Impression and plan of care have been directed as dictated by the signing physician. Ivone Vizcarra nurse practitioner acting as scribe for signing physician. Objective - Vital Signs Vital signs: Vital Signs Temp 97.6 F 05/14/20 08:00 Pulse 64 05/14/20 08:00 Resp 18 05/14/20 08:00 BP 132/69 05/14/20 08:00 Pulse Ox 93 L 05/14/20 08:00 Intake & Output 05/13/20 05/14/20 05/14/20 18:59 06:59 18:59 Intake Total 675 1150 150 Output Total 425 745 55 Balance 250 405 95 Weight 56.8 kg Intake: IV 225 1150 150 Remdesivir (Eua) 100 mg 250 In Sodium Chloride 0.9% 250 ml @ 250 mls/hr IVPB Q24H [facility] Rx#:[id number] Sodium Chloride 0.9% 1, 225 900 150 000 ml @ 75 mls/hr IV . [id number] [facility] Rx#:[id number] Intake, IV Titration 450 Amount Sodium Chloride 0.9% 1, 450 000 ml @ 75 mls/hr IV . [id number] [facility] Rx#:[id number] Output: Urine 425 745 55 Other: Voiding Method Indwelling Catheter Indwelling Catheter # Bowel Movements 1 - Labs CBC & Chem 7: 05/14/20 04:22 05/14/20 04:22 Labs: Abnormal Lab Results - Last 24 Hours (Table) 05/13/20 05/14/20 05/14/20 Range/Units 13:42 04:22 04:22 WBC 12.9 H (3.8-10.6) k/uL RBC 3.44 L (3.80-5.40) m/uL Hgb 10.0 L (11.4-16.0) gm/dL Hct 30.8 L (34.0-46.0) % Neutrophils # 12.3 H (1.3-7.7) k/uL Lymphocytes # 0.2 L (1.0-4.8) k/uL D-Dimer (<0.60) mg/L FEU Chloride 111 H (98-107) mmol/L BUN 35 H (7-17) mg/dL Glucose 155 H (74-99) mg/dL POC Glucose (mg/dL) 141 H (75-99) mg/dL Calcium 8.1 L (8.4-10.2) mg/dL Lactate Dehydrogenase (313-618) U/L C-Reactive Protein (<10.0) mg/L Total Protein 5.1 L (6.3-8.2) g/dL Albumin 2.3 L (3.5-5.0) g/dL 05/14/20 05/14/20 Range/Units 08:50 08:50 WBC (3.8-10.6) k/uL RBC (3.80-5.40) m/uL Hgb (11.4-16.0) gm/dL Hct (34.0-46.0) % Neutrophils # (1.3-7.7) k/uL Lymphocytes # (1.0-4.8) k/uL D-Dimer 2.83 H (<0.60) mg/L FEU Chloride (98-107) mmol/L BUN (7-17) mg/dL Glucose (74-99) mg/dL POC Glucose (mg/dL) (75-99) mg/dL Calcium (8.4-10.2) mg/dL Lactate Dehydrogenase 1416 H (313-618) U/L C-Reactive Protein 36.8 H (<10.0) mg/L Total Protein (6.3-8.2) g/dL Albumin (3.5-5.0) g/dL Microbiology - Last 24 Hours (Table) 05/09/20 06:09 Blood Culture - Preliminary Blood No Growth after 120 hours
--- NOTE | 2020-05-14 15:21 | P.PN ---
Subjective Progress Note Date: 05/14/20 On 05/14/2020, the patient is being seen in the intensive care unit. The patient has been transferred to the intensive care unit yesterday because of acute hypoxic respiratory failure with progressive worsening shortness of breath and progressive worsening in her oxygenation. Note that the patient missed on a BiPAP and currently things of 14/8 cm of water with an FiO2 of 100%. Note that this patient initially had an acute Covid 19 related pneumonia that was diagnosed on 04/28/2020 and the patient was hospitalized and subsequently discharged home after being treated. At the time of discharge was given oral Decadron. She came back to the hospital on 05/09/2020 with worsening shortness of breath and hypoxemia and the patient tested negative for Covid 19 and the patient tested positive for influenza B. Despite all this, I give the patient the benefit of the doubt and treated the patient with Decadron and Remdesivir and I also had a Tamiflu. Subsequently, switched this patient to IV Solu- Medrol. At this point in time, the patient is in the intensive care unit. On today's evaluation her white cell count is at 12.9 with a hemoglobin of 10.0. D-dimer is at 2.83 and the patient remains on therapeutic dose of Lovenox 60 mg subcu every 12 hours. Note that the Electrodes are being utilized at the patient also showed a subsegmental pulmonary embolism in the left lower lobe pulmonary artery branch. As mentioned earlier, the subsegmental pulmonary embolism is not the culprit is not contributing to her respiratory failure and respiratory failure essentially related to the viral pneumonia. Most recent LDH is 1416 with a CRP level of 36 anti-inflammatory markers improved compared to earlier values. Legionella urine antigen was negative. She is afebrile. A repeat chest x-ray was done todayAntegrade the suspicion for a right-sided pneumothorax. I thought this was a skin fold and I repeated the chest x-ray which essentially showed diffuse bilateral pulmonary infiltrates worse on the left without evidence of any pneumothorax. I had a lengthy discussion with the patient. Based on our discussion today, the patient consented for a short-term intubation. She is not on any form of long-term mechanical ventilation in the event her breathing further decompensates. As such, overall CODE STATUS is full at this point in time. Objective - Vital Signs Vital signs: Vital Signs Temp 97.6 F 05/14/20 15:00 Pulse 61 05/14/20 15:00 Resp 17 05/14/20 15:00 BP 164/86 05/14/20 15:00 Pulse Ox 92 L 05/14/20 15:00 Intake & Output 05/13/20 05/14/20 05/14/20 18:59 06:59 18:59 Intake Total 675 1150 1071 Output Total 425 745 545 Balance 250 405 526 Weight 56.8 kg Intake: IV 225 1150 675 Remdesivir (Eua) 100 mg 250 In Sodium Chloride 0.9% 250 ml @ 250 mls/hr IVPB Q24H [facility] Rx#:[id number] Sodium Chloride 0.9% 1, 225 900 675 000 ml @ 75 mls/hr IV . [id number] [facility] Rx#:[id number] Intake, IV Titration 450 Amount Sodium Chloride 0.9% 1, 450 000 ml @ 75 mls/hr IV . [id number] [facility] Rx#:[id number] Blood Product 396 Ffp Pher Conval Covid19 198 Acda 1 Unit [id number] Output: Urine 425 745 545 Other: Voiding Method Indwelling Catheter Indwelling Catheter Indwelling Catheter # Bowel Movements 1 - Exam GENERAL EXAM: Alert, very pleasant, 79-year-old female patient on BiPAP support, with pressures of 14/8 cm of water with an FiO2 of 100%. The patient is having difficulties with her speech. She is less short of breath and tachypnea compared to yesterday.. She is very much BiPAP dependent and she is unable to wean off the BiPAP at this point in time HEAD: Normocephalic/atraumatic. EYES: Normal reaction of pupils, equal size. Conjunctiva pink, sclera white. NOSE: Clear with pink turbinates. THROAT: No erythema or exudates. NECK: No masses, no JVD, no thyroid enlargement, no adenopathy. CHEST: No chest wall deformity. Symmetrical expansion. LUNGS: Equal air entry with diffuse rhonchi. And the patient has faint crackles in lung bases bilaterally. CVS: Regular rate and rhythm, normal S1 and S2, no gallops, no murmurs, no rubs ABDOMEN: Soft, nontender. No hepatosplenomegaly, normal bowel sounds, no guarding or rigidity. EXTREMITIES: No clubbing, no edema, no cyanosis, 2+ pulses and upper and lower extremities. MUSCULOSKELETAL: Muscle strength and tone normal. SPINE: No scoliosis or deformity SKIN: No rashes CENTRAL NERVOUS SYSTEM: No focal deficits, tone is normal in all 4 extremities. Patient follows simple commands without any major limitation and she is moving all 4 extremities. PSYCHIATRIC: The patient is lethargic yet arousable and she is awake and alert. She is communicating.. Appropriate affect. Intact judgment and insight. - Labs CBC & Chem 7: 05/14/20 04:22 05/14/20 04:22 Labs: Abnormal Lab Results - Last 24 Hours (Table) 05/14/20 05/14/20 05/14/20 Range/Units 04:22 04:22 08:50 WBC 12.9 H (3.8-10.6) k/uL RBC 3.44 L (3.80-5.40) m/uL Hgb 10.0 L (11.4-16.0) gm/dL Hct 30.8 L (34.0-46.0) % Neutrophils # 12.3 H (1.3-7.7) k/uL Lymphocytes # 0.2 L (1.0-4.8) k/uL D-Dimer (<0.60) mg/L FEU Chloride 111 H (98-107) mmol/L BUN 35 H (7-17) mg/dL Glucose 155 H (74-99) mg/dL Calcium 8.1 L (8.4-10.2) mg/dL Lactate Dehydrogenase 1416 H (313-618) U/L C-Reactive Protein 36.8 H (<10.0) mg/L Total Protein 5.1 L (6.3-8.2) g/dL Albumin 2.3 L (3.5-5.0) g/dL 05/14/20 Range/Units 08:50 WBC (3.8-10.6) k/uL RBC (3.80-5.40) m/uL Hgb (11.4-16.0) gm/dL Hct (34.0-46.0) % Neutrophils # (1.3-7.7) k/uL Lymphocytes # (1.0-4.8) k/uL D-Dimer 2.83 H (<0.60) mg/L FEU Chloride (98-107) mmol/L BUN (7-17) mg/dL Glucose (74-99) mg/dL Calcium (8.4-10.2) mg/dL Lactate Dehydrogenase (313-618) U/L C-Reactive Protein (<10.0) mg/L Total Protein (6.3-8.2) g/dL Albumin (3.5-5.0) g/dL Microbiology - Last 24 Hours (Table) 05/09/20 06:09 Blood Culture - Preliminary Blood No Growth after 120 hours Assessment and Plan Plan: 1 acute bilateral viral pneumonia initially with Covid 19 and subsequently the patient was diagnosed having influenza B. The chest x-ray findings are typical of interstitial pneumonia suggestive of bilateral pneumonia. There may be a component of Covid 19 infection despite the fact that the patient has been infected back in 04/28/2020. The patient also checked positive for influenza B. For now, the patient is being treated for both. The patient is on Tamiflu. The patient was on Decadron and subsequently switched to IV Solu Medrol and completed Remdesivir . The patient was also given a dose of convalescent plasma. She is also on a combination of zinc, melatonin, and Pepcid. The patient is receiving therapeutic dose of Lovenox 1 mg subcu every 12 hours. The dose needs to be modified as the patient currently carries a body weight of 43 kg. 2 pulmonary embolism, very tiny, subsegmental in the left lower lobe pulmonary artery branch, not a significant contribution factor to respiratory failure. The patient is being treated with Lovenox. D-dimer remains elevated. 3 acute hypoxic respiratory failure. Acute hypoxic respiratory failure is attributed to the bilateral pneumonia , currently on BiPAP for respiratory support 4 history of breast cancer 5 hypothyroidism 6 osteoporosis 7 chronic anxiety/depression 8 acute hypoxic respiratory failure related to CoVID 19 pneumonitis in addition to influenza B infection, requiring BiPAP support 9 elevated d-dimer secondary to above Plan The patient is currently in the intensive care unit. The patient continues to be on BiPAP for respiratory support. Continue BiPAP and attempt weaning of FiO2. On today's evaluation weaning the FiO2 down to 80% and I instructed the respiratory therapist to further wean it down along his saturation remains above 90%. Keep the current settings of 14/8 cm of water Continued IV Solu-Medrol and Remdesivir treatment has been completed Complete a total of 5 day course of Tamiflu. Continue rest of the supportive care. I discussed the possibility of intubation mechanical ventilation with the patient. Basim now discussion, the patient was consenting for intubation mechanical ventilation as long as this was a short- term treatment. For now, CODE STATUS is full. I'm going to give her another dose of convalescent plasma. We'll try to wean down the FiO2 further treatment and a saturation above 90%. Condition is critical. We'll continue to follow make further recommendations based on her progress. Otherwise the contacted the and informed him on the above-mentioned changes. We'll continue to follow. Condition is critical at this point in time.
[2020-05-14] MEDS: hydrALAZINE HCL 20 MG/ML 1 ML VIAL IVP PRN (17:35)
--- NOTE | 2020-05-14 17:47 | XR ---
EXAMINATION TYPE: XR chest 1V portable DATE OF EXAM: 05/14/2020 COMPARISON: Earlier same day. HISTORY: Follow-up shortness of breath. TECHNIQUE: Single frontal view of the chest is obtained. FINDINGS: There is unchanged moderate left greater than right patchy opacities predominantly in the mid to lower lungs. No significant pleural effusion, or pneumothorax seen. The cardiac silhouette si ze is within normal limits. The osseous structures are intact. IMPRESSION: No significant interval change. No pneumothorax.
[2020-05-14] MEDS: cloNIDine HCL 0.2 MG TAB PO PRN (18:46)
[2020-05-14] MEDS: clonazePAM 0.5 MG TAB PO SCH (21:36)
[2020-05-14] MEDS: MELATONIN 3 MG TABLET PO PRN (21:36)
[2020-05-14] MEDS: ENOXAPARIN 60 MG/0.6 ML SYRINGE SQ SCH (21:41)
[2020-05-14] MEDS ORDERED: SODIUM CHLORIDE 0.65% NASAL SPRAY 44 ML BTL NASAL PRN (21:59)
--- NOTE | 2020-05-14 23:00 | PN ---
PROGRESS NOTE DATE OF SERVICE: 05/14/2020 REASON FOR FOLLOW UP: 1. Influenza B. 2. Covid 19 infection. INTERVAL HISTORY: Patient is currently afebrile. The patient is still BiPAP dependent and . The patient denies any worsening shortness of breath. Minimal cough. No nausea, vomiting, abdominal pain or diarrhea. PHYSICAL EXAMINATION: Blood pressure 165/89 with a pulse of 80, temperature 98.8. She is 98% on 90% BiPAP. General description is an elderly female lying in bed in no distress. Respiratory system: Unlabored breathing, decreased intensity of breath sounds. No wheeze. HEART: S1, S2. Regular rate and rhythm. Abdomen: Soft. No tenderness. LABS: Hemoglobin is 10 with white count down to 12.29, D-dimer down to 2.83, LDH down to 1416, CRP down to 36.8. DIAGNOSTIC IMPRESSION AND PLAN: Patient with acute respiratory failure which is multifactorial in this patient who did have evidence of influenza B and concern for Covid 19. Patient completed Remdesivir, Tamiflu. Currently on Solu-Medrol, Lovenox and zinc sulfate to continue along with respiratory support and monitor clinical course closely. MMODL / IJN: [id number] /
[2020-05-15 05:00] LABS: Basophils % (A) 0 %; Eosinophils # (A) 0.1 k/uL (0-0.7); Eosinophils % (A) 0 %; HCT 31.4 % (34.0-46.0); HGB 10.1 gm/dL (11.4-16.0); Lymphocytes # (A) 0.2 k/uL (1.0-4.8); Lymphocytes % (A) 1 %; MCH 28.6 pg (25.0-35.0); MCHC 32.2 g/dL (31.0-37.0); MCV 88.7 fL (80.0-100.0); Monocytes # (A) 0.5 k/uL (0-1.0); Monocytes % (A) 3 %; Neutrophils # (A) 13.8 k/uL (1.3-7.7); Neutrophils % (A) 95 %; Platelet Count 375 k/uL (150-450); RBC 3.54 m/uL (3.80-5.40); RDW 13.9 % (11.5-15.5); WBC 14.6 k/uL (3.8-10.6)
[2020-05-15 05:06] LABS: ALT 16 U/L (4-34); AST 32 U/L (14-36); African American GFR (CKD) >90 (>60 ml/min/1.73 sqM); Albumin 2.5 g/dL (3.5-5.0); Alkaline Phosphatase 91 U/L (38-126); Anion Gap 3 mmol/L; Blood Urea Nitrogen 32 mg/dL (7-17); Carbon Dioxide 28 mmol/L (22-30); Chloride 108 mmol/L (98-107); Glucose 136 mg/dL (74-99); Non-African American GFR(CKD) >90 (>60 ml/min/1.73 sqM); Potassium 3.7 mmol/L (3.5-5.1); Sodium 139 mmol/L (137-145); Total Bilirubin 0.4 mg/dL (0.2-1.3); Total Protein 5.3 g/dL (6.3-8.2)
[2020-05-15] MEDS: methylPREDNISolone SOD SUCCI 125 MG/2 ML VIAL IV SCH ×3 (05:35→18:00)
[2020-05-15] MEDS: POTASSIUM CHLORIDE 10 MEQ in WATER FOR INJECTION 1 100ML.BAG IVPB SCH ×2 (05:35→06:45)
[2020-05-15] MEDS: LEVOTHYROXINE 50 MCG TAB PO SCH (05:35)
[2020-05-15] MEDS: cloNIDine HCL 0.2 MG TAB PO PRN (06:59)
[2020-05-15] MEDS: ALPRAZolam 0.25 MG TAB PO PRN (07:04)
--- NOTE | 2020-05-15 07:18 | XR ---
EXAMINATION TYPE: XR chest 1V DATE OF EXAM: 05/15/2020 COMPARISON: 05/14/2020 HISTORY: Shortness of breath TECHNIQUE: Single frontal view of the chest is obtained. FINDINGS: Bilateral patchy airspace disease is stable. Underlying COPD suspected with no sizable tho rax. Diffuse osteopenia. Surgical clips in the axilla. Heart size stable. Atherosclerotic change aort a. IMPRESSION: Stable bilateral patchy infiltrate
[2020-05-15] MEDS: FAMOTIDINE 20 MG/2 ML VIAL IV SCH ×2 (08:26→20:43)
[2020-05-15] MEDS: ASPIRIN 81 MG PO SCH (08:26)
[2020-05-15] MEDS: CYANOCOBALAMIN 500 MCG TAB PO SCH (08:26)
[2020-05-15] MEDS: SODIUM CHLORIDE 0.9% 1,000 ML IV SCH ×2 (08:27→21:41)
[2020-05-15] MEDS: SERTRALINE 100 MG TAB PO SCH (08:27)
[2020-05-15] MEDS: ASCORBIC ACID 500 MG TAB PO SCH ×2 (08:27→20:43)
[2020-05-15] MEDS: ZINC SULFATE 220 MG CAP PO SCH (08:27)
[2020-05-15] MEDS: CHOLECALCIFEROL 1,000 UNIT TAB PO SCH (08:27)
[2020-05-15] MEDS: ENOXAPARIN 60 MG/0.6 ML SYRINGE SQ SCH ×2 (08:27→20:44)
--- NOTE | 2020-05-15 11:01 | P.PN ---
Subjective Progress Note Date: 05/15/20 HISTORY OF PRESENT ILLNESS This is a 79-year-old female patient of Dr. Guerrero with past medical history of breast cancer, hypothyroidism, hyperlipidemia, generalized osteoarthritis. She was recently hospitalized May 12 for fever, chills, cough with sputum production with worsening dyspnea was diagnosed with COVID-19 pneumonia. Patient was stabilized and discharged home on May 05 with azithromycin, steroids, home oxygen and vitamin supplements. Patient had significant shortness of breath when she woke up this morning and was wearing oxygen at 4 L. EMS was called and reported that she was ashen nazario, diaphoretic with a pulse ox of 71% upon arrival. Patient was brought into [facility] and found to be afebrile, heart rate 105, blood pressure 168/89, pulse ox 97% with nonrebreather. She continued tachypneic and tachycardic and patient was placed on BiPAP. Chest x-ray reveals stable patchy bilateral infiltrates. WBC 19.5, hemoglobin 11. Sodium 133, potassium 4.1, CO2 26, BUN 23 and creatinine 0.65. Blood sugar 100. Lactic acid 1.1. LDH 1116, C-reactive protein 63.7. Covid 19 not detected. Influenza B positive. Patient was continued on vitamin supplements, dexamethasone and started on Lovenox, Kati flu, admitted to the cardiac stepdown unit and consult requested with infectious disease and pulmonary medicine. DDimer elevated at 33 and CTA of the chest positive for tiny filling defect left lower lobe pulmonary artery. 05/10: Patient continues to have significant shortness of breath cough and chest tightness. She is on BiPAP and unable to eat or drink. She continues to feel weak and tired. Temperature max 100.0, heart rate 95, blood pressure 125/68, pulse ox 91% on BiPAP with FiO2 of 80. Patient has been seen by pulmonary medicine and started on Remdesivir. The patient's has been contacted via phone and updated regarding patient's current condition and treatment plan. 05/11: Patient is currently on day 3/5 of Remdesivir. Her pulse ox is running about 89% on BiPAP of 85% FiO2. Legionella was negative. Temperature max 101, heart rate 86, blood pressure 150/68. Navarro catheter will be placed as patient is too dyspneic to use bedpan or commode. Repeat blood work reveals WBC 19.4, hemoglobin 10.2. Sodium 136, potassium 3.7, creatinine 0.68. Patient is followed by infectious disease and pulmonary medicine. 05/12: Patient is currently on day 4/5 of Remdesivir. She continues to have significant shortness of breath which is worse from yesterday. She is on 85% FiO2 BiPAP pulse ox a 90%. When she moved over to 15 L, pulse ox dropped down to 78%. She continues complaining of shortness of breath. She has been anxious during the night and Xanax ordered. Patient is unable to take any new oral nutrition at this point. Navarro catheter was placed yesterday. Patient has been afebrile for 24 hour period. Heart rate 104, respiratory rate 26, blood pressure 175/81. Updated pulmonary medicine regarding possible need for intubation. 05/13: Patient's respiratory status did improve yesterday afternoon and she did not require transfer to the intensive care unit. Patient may be slightly better today from yesterday morning but did decline from yesterday afternoon. She is currently pulse ox seen in the 80s with BiPAP of 85% FiO2. She has been off onto 15 L high flow nasal cannula to eat and has been able to take in a small amount of food yesterday and Ensure. She will complete her course of Remdesivir this evening. Tamiflu course will also be completed this evening. Temperature max 100.3 yesterday at noon. Heart rate 91, blood pressure 174/85. Repeat blood work reveals WBC 20.5, hemoglobin 11. Chloride 112, BUN 33 and creatinine 0.61. Blood sugar 146. Alkaline phosphatase 129. 05/14: Yesterday afternoon, patient was transferred to the intensive care unit and is agreeable to short-term intubation if necessary. She has not required vasopressors. Patient has been afebrile. Heart rate 64, blood pressure 132/69, pulse ox 93% on 80% BiPAP. Leukocytosis is down to 12.9, hemoglobin 10. D- dimer isn't improved at 2.83. Creatinine 0.53. Other inflammatory markers have shown improvement with LDH at 1416, C-reactive protein 36.8. Patient has completed course of Remdesivir and Tamiflu. She remains on Lovenox, Solu-Medrol and vitamin supplementations. 05/15: Patient remains in the intensive care unit on BiPAP pulse ox seen 89-90% on 80% FiO2. Repeat chest x-ray reveals stable bilateral patchy infiltrate. She has completed course of Remdesivir and course of Tamiflu. She has been afebrile, heart rate 64, blood pressure 151/79. WBC 14.6, hemoglobin 10.1. Creatinine 0.51. Blood sugar 136. Albumin 2.5. Patient has been without food for greater than 6 days. Discussed nutrition options with Dr. Crowe he will address with rounds today. Physical exam deferred to Dr. Crowe. REVIEW OF SYSTEMS Unable to obtain PHYSICAL EXAMINATION Limited contact with patient due to ICU Covid restrictions. Gen: This is a 79-year-old female. She is resting in bed in mild distress on BiPAP in the intensive care unit. HEENT: Head is atraumatic, normocephalic. NEUROLOGICAL: Patient is awake. ASSESSMENT AND PLAN 1. Acute on chronic hypoxic respiratory failure secondary to COVID pneumonia, Influenza B and small left lower pulmonary embolism. Continue oxygen therapy with BiPAP and patient is willing to be intubated for short period if necessary. Solu-Medrol, Lovenox 60 mg subcu twice daily, vitamin supplements with vitamin C, vitamin D, zinc, Tamifllu completed. Remdesivir completed. Consults with pulmonary medicine and infectious disease appreciated. Continue isolation. Patient may require intubation. 2. Hypothyroidism. Continue levothyroxine. 3. Severe osteoporosis. Fosamax on hold. 4. Anticoagulation with Lovenox. 5. GI prophylaxis. Pepcid. 6. Recurrent depression. Continue Zoloft 200 mg daily. 7. Situational anxiety. Xanax 0.5 mg twice daily as needed added. 8. History of breast cancer. DISCHARGE PLAN May require subacute rehab Impression and plan of care have been directed as dictated by the signing physician. Ivone Vizcarra nurse practitioner acting as scribe for signing physician. Objective - Vital Signs Vital signs: Vital Signs Temp 98.1 F 05/15/20 04:00 Pulse 90 05/15/20 07:00 Resp 22 05/15/20 07:00 BP 174/100 05/15/20 07:00 Pulse Ox 88 L 05/15/20 07:00 Intake & Output 05/14/20 05/15/20 05/15/20 18:59 06:59 18:59 Intake Total 1296 900 75 Output Total 815 844 55 Balance 481 56 20 Weight 56.8 kg Intake: IV 900 900 75 Sodium Chloride 0.9% 1, 900 900 75 000 ml @ 75 mls/hr IV . [id number] [facility] Rx#:[id number] Blood Product 396 Ffp Pher Conval Covid19 198 Acda 1 Unit [id number] Output: Urine 815 844 55 Other: Voiding Method Indwelling Catheter Indwelling Catheter - Labs CBC & Chem 7: 05/15/20 04:21 05/15/20 04:21 Labs: Abnormal Lab Results - Last 24 Hours (Table) 05/14/20 05/14/20 05/15/20 Range/Units 08:50 08:50 04:21 WBC 14.6 H (3.8-10.6) k/uL RBC 3.54 L (3.80-5.40) m/uL Hgb 10.1 L (11.4-16.0) gm/dL Hct 31.4 L (34.0-46.0) % Neutrophils # 13.8 H (1.3-7.7) k/uL Lymphocytes # 0.2 L (1.0-4.8) k/uL D-Dimer 2.83 H (<0.60) mg/L FEU Chloride (98-107) mmol/L BUN (7-17) mg/dL Creatinine (0.52-1.04) mg/dL Glucose (74-99) mg/dL Calcium (8.4-10.2) mg/dL Lactate Dehydrogenase 1416 H (313-618) U/L C-Reactive Protein 36.8 H (<10.0) mg/L Total Protein (6.3-8.2) g/dL Albumin (3.5-5.0) g/dL 05/15/20 Range/Units 04:21 WBC (3.8-10.6) k/uL RBC (3.80-5.40) m/uL Hgb (11.4-16.0) gm/dL Hct (34.0-46.0) % Neutrophils # (1.3-7.7) k/uL Lymphocytes # (1.0-4.8) k/uL D-Dimer (<0.60) mg/L FEU Chloride 108 H (98-107) mmol/L BUN 32 H (7-17) mg/dL Creatinine 0.51 L (0.52-1.04) mg/dL Glucose 136 H (74-99) mg/dL Calcium 8.0 L (8.4-10.2) mg/dL Lactate Dehydrogenase (313-618) U/L C-Reactive Protein (<10.0) mg/L Total Protein 5.3 L (6.3-8.2) g/dL Albumin 2.5 L (3.5-5.0) g/dL Microbiology - Last 24 Hours (Table) 05/09/20 06:09 Blood Culture - Final Blood No Growth after 144 hours
[2020-05-15] MEDS: hydrALAZINE HCL 20 MG/ML 1 ML VIAL IVP PRN ×2 (11:26→21:41)
[2020-05-15] MEDS: ALPRAZolam 0.25 MG TAB PO SCH ×3 (12:25→20:43)
--- NOTE | 2020-05-15 14:57 | P.PN ---
Subjective Progress Note Date: 05/15/20 On 05/14/2020, the patient is being seen in the intensive care unit. The patient has been transferred to the intensive care unit yesterday because of acute hypoxic respiratory failure with progressive worsening shortness of breath and progressive worsening in her oxygenation. Note that the patient missed on a BiPAP and currently things of 14/8 cm of water with an FiO2 of 100%. Note that this patient initially had an acute Covid 19 related pneumonia that was diagnosed on 04/28/2020 and the patient was hospitalized and subsequently discharged home after being treated. At the time of discharge was given oral Decadron. She came back to the hospital on 05/09/2020 with worsening shortness of breath and hypoxemia and the patient tested negative for Covid 19 and the patient tested positive for influenza B. Despite all this, I give the patient the benefit of the doubt and treated the patient with Decadron and Remdesivir and I also had a Tamiflu. Subsequently, switched this patient to IV Solu- Medrol. At this point in time, the patient is in the intensive care unit. On today's evaluation her white cell count is at 12.9 with a hemoglobin of 10.0. D-dimer is at 2.83 and the patient remains on therapeutic dose of Lovenox 60 mg subcu every 12 hours. Note that the Electrodes are being utilized at the patient also showed a subsegmental pulmonary embolism in the left lower lobe pulmonary artery branch. As mentioned earlier, the subsegmental pulmonary embolism is not the culprit is not contributing to her respiratory failure and respiratory failure essentially related to the viral pneumonia. Most recent LDH is 1416 with a CRP level of 36 anti-inflammatory markers improved compared to earlier values. Legionella urine antigen was negative. She is afebrile. A repeat chest x-ray was done todayAntegrade the suspicion for a right-sided pneumothorax. I thought this was a skin fold and I repeated the chest x-ray which essentially showed diffuse bilateral pulmonary infiltrates worse on the left without evidence of any pneumothorax. I had a lengthy discussion with the patient. Based on our discussion today, the patient consented for a short-term intubation. She is not on any form of long-term mechanical ventilation in the event her breathing further decompensates. As such, overall CODE STATUS is full at this point in time. 05/15/2020, the patient remains in the intensive care unit in regards to her acute respiratory failure. The patient remains very much BiPAP dependent. She remains on a pressure of 14/8 cm of water. FiO2 has been weaned down to 80%. Despite unchanged BiPAP setting, the patient claims that she is breathing slightly better compared to yesterday. She is urinating a tidal volume of about 500 on a mechanical ventilator. Her minute ventilation is in the order of 10 L per minute. Note that she is on IV fluids and the site of 75 mL an hour. She has received IV Solu-Medrol, completed Remdesivir, completed Tamiflu, and she also received 2 units of convalescent plasma. Chest x-ray from today is showing stable bilateral patchy pulmonary infiltrates, unchanged compared to yesterday. Her white cell count is at 14.6 with a hemoglobin of 10.1. She continues to have lymphopenia. The patient's LDH level is at 1416 from yesterday. Her CRP was 36.8 this will be repeated tomorrow. In function is stable. The rest of the electrodes are all stable. She is weak. She is able to take some sips of juice and shakes while being on the BiPAP. Unable to go to regular feeding at this point in time. As mentioned earlier, she has a full CODE STATUS. The patient made it clear to me that she did not want any form of long-term mechanical ventilation should she go into respiratory failure requiring intubation mechanical ventilation. She is still on anticoagulation the patient is on Lovenox therapeutic dose of 60 mg subcu every 12 hours. IV fluids are running at rate of 75 mL an hour. Objective - Vital Signs Vital signs: Vital Signs Temp 98.2 F 05/15/20 12:00 Pulse 77 05/15/20 14:00 Resp 23 05/15/20 14:00 BP 141/80 05/15/20 14:00 Pulse Ox 88 L 05/15/20 14:00 Intake & Output 05/14/20 05/15/20 05/15/20 18:59 06:59 18:59 Intake Total 1296 900 700 Output Total 815 844 575 Balance 481 56 125 Weight 56.8 kg Intake: IV 900 900 600 Sodium Chloride 0.9% 1, 900 900 600 000 ml @ 75 mls/hr IV . [id number] [facility] Rx#:[id number] Oral 100 Blood Product 396 Ffp Pher Conval Covid19 198 Acda 1 Unit [id number] Output: Urine 815 844 575 Other: Voiding Method Indwelling Catheter Indwelling Catheter Indwelling Catheter - Exam GENERAL EXAM: Alert, very pleasant, 79-year-old female patient on BiPAP support, with pressures of 14/8 cm of water with an FiO2 of 80 %. The patient is having difficulties with her speech. She is less short of breath and tachypnea compared to yesterday.. She is very much BiPAP dependent and she is unable to wean off the BiPAP at this point in time HEAD: Normocephalic/atraumatic. EYES: Normal reaction of pupils, equal size. Conjunctiva pink, sclera white. NOSE: Clear with pink turbinates. THROAT: No erythema or exudates. NECK: No masses, no JVD, no thyroid enlargement, no adenopathy. CHEST: No chest wall deformity. Symmetrical expansion. LUNGS: Equal air entry with diffuse rhonchi. And the patient has faint crackles in lung bases bilaterally. CVS: Regular rate and rhythm, normal S1 and S2, no gallops, no murmurs, no rubs ABDOMEN: Soft, nontender. No hepatosplenomegaly, normal bowel sounds, no guarding or rigidity. EXTREMITIES: No clubbing, no edema, no cyanosis, 2+ pulses and upper and lower extremities. MUSCULOSKELETAL: Muscle strength and tone normal. SPINE: No scoliosis or deformity SKIN: No rashes CENTRAL NERVOUS SYSTEM: No focal deficits, tone is normal in all 4 extremities. Patient follows simple commands without any major limitation and she is moving all 4 extremities. PSYCHIATRIC: The patient is lethargic yet arousable and she is awake and alert. She is communicating.. Appropriate affect. Intact judgment and insight. - Labs CBC & Chem 7: 05/15/20 04:21 05/15/20 04:21 Labs: Abnormal Lab Results - Last 24 Hours (Table) 05/15/20 05/15/20 Range/Units 04:21 04:21 WBC 14.6 H (3.8-10.6) k/uL RBC 3.54 L (3.80-5.40) m/uL Hgb 10.1 L (11.4-16.0) gm/dL Hct 31.4 L (34.0-46.0) % Neutrophils # 13.8 H (1.3-7.7) k/uL Lymphocytes # 0.2 L (1.0-4.8) k/uL Chloride 108 H (98-107) mmol/L BUN 32 H (7-17) mg/dL Creatinine 0.51 L (0.52-1.04) mg/dL Glucose 136 H (74-99) mg/dL Calcium 8.0 L (8.4-10.2) mg/dL Total Protein 5.3 L (6.3-8.2) g/dL Albumin 2.5 L (3.5-5.0) g/dL Microbiology - Last 24 Hours (Table) 05/09/20 06:09 Blood Culture - Final Blood No Growth after 144 hours Assessment and Plan Plan: 1 acute bilateral viral pneumonia initially with Covid 19 and subsequently the patient was diagnosed having influenza B. The chest x-ray findings are typical of interstitial pneumonia suggestive of bilateral pneumonia. There may be a component of Covid 19 infection despite the fact that the patient has been infected back in 04/28/2020. The patient also checked positive for influenza B. For now, the patient is being treated for both. The patient is on Tamiflu. The patient was on Decadron and subsequently switched to IV Solu Medrol and completed Remdesivir . The patient was also given a dose of convalescent plasma. She is also on a combination of zinc, melatonin, and Pepcid. [facility] is receiving therapeutic dose of Lovenox 1 mg subcu every 12 hours. The dose needs to be modified as the patient currently carries a body weight of 43 kg. On today's evaluation on 05/15/2020, the patient's condition essentially unchanged. She continues to BiPAP dependent. We were contemplating of intubating this patient. Nevertheless, the patient stated that she was feeling better compared to yesterday. She was on FiO2 of 80% while being on a BiPAP at a pressure of 14/8 cm of water with a stable chest x-ray findings. 2 pulmonary embolism, very tiny, subsegmental in the left lower lobe pulmonary artery branch, not a significant contribution factor to respiratory failure. The patient is being treated with Lovenox. D-dimer remains elevated. 3 acute hypoxic respiratory failure. Acute hypoxic respiratory failure is attributed to the bilateral pneumonia , currently on BiPAP for respiratory support 4 history of breast cancer 5 hypothyroidism 6 osteoporosis 7 chronic anxiety/depression 8 acute hypoxic respiratory failure related to CoVID 19 pneumonitis in addition to influenza B infection, requiring BiPAP support 9 elevated d-dimer secondary to above, and I'm going to repeat the acute inflammatory markers in a.m. Plan The patient is currently in the intensive care unit. The patient continues to be on BiPAP for respiratory support. We'll try to wean down the FiO2 as long as saturation remains above 90%. Continue BiPAP and attempt weaning of FiO2. Continued IV Solu-Medrol and Remdesivir treatment has been completed Complete a total of 5 day course of Tamiflu. The patient received a unit of convalescent plasma. Continue rest of the supportive care. Possible intubation. Condition decompensates. Otherwise we'll continue supportive care with the BiPAP at this point in time pH is awake and alert. She tells me that she is clinically feeling better compared to yesterday. We'll monitor her progress here in the ICU. Condition is critical for now. This evaluation was done and more than 30 minutes. The family will be updated on her condition. Time with Patient: Greater than 30
[2020-05-15] MEDS: MELATONIN 3 MG TABLET PO PRN (20:43)
[2020-05-15] MEDS: clonazePAM 0.5 MG TAB PO SCH (20:43)
--- NOTE | 2020-05-15 23:48 | PN ---
PROGRESS NOTE DATE OF SERVICE: 05/15/2020 REASON FOR FOLLOWUP: 1. Acute influenza B. 2. Possible COVID. INTERVAL HISTORY: The patient is currently afebrile. The patient remains to be BiPAP dependent. The patient denies having any chest pain. Minimal cough. No nausea, no vomiting. No abdominal pain or diarrhea. PHYSICAL EXAMINATION: Blood pressure is 147/75with a pulse of 66, temperature 97.8. She is 91% on 100% BiPAP. General description is an elderly female lying in bed in no distress. RESPIRATORY SYSTEM: Unlabored breathing, decreased breath sounds at the bases. No wheeze. HEART: S1, S2. Regular rate and rhythm. ABDOMEN: Soft, no tenderness. LABS: Hemoglobin is 10.1, white count 14.6, BUN of 32, creatinine 0.51. DIAGNOSTIC IMPRESSION AND PLAN: The patient with acute influenza B and also concern for COVID in this patient who remains to be BiPAP dependent. The patient has completed her Tamiflu and remdesivir therapy. Currently being treated with Lovenox, Solu-Medrol and zinc sulfate. Clinically no evidence of any secondary bacterial infection has systemic antibiotic and continue supportive care. MMODL / IJN: [id number] /
[2020-05-16] MEDS: methylPREDNISolone SOD SUCCI 125 MG/2 ML VIAL IV SCH ×4 (00:24→17:12)
[2020-05-16] MEDS: ALPRAZolam 0.5 MG TAB PO PRN ×3 (00:58→08:52)
[2020-05-16] MEDS: LEVOTHYROXINE 50 MCG TAB PO SCH (06:01)
[2020-05-16 06:10] LABS: Basophils % (A) 0 %; Eosinophils # (A) 0.3 k/uL (0-0.7); Eosinophils % (A) 2 %; HCT 33.8 % (34.0-46.0); HGB 10.8 gm/dL (11.4-16.0); Lymphocytes # (A) 0.2 k/uL (1.0-4.8); Lymphocytes % (A) 1 %; MCH 28.3 pg (25.0-35.0); MCHC 31.8 g/dL (31.0-37.0); MCV 88.9 fL (80.0-100.0); Mean Platelet Volume 6.8; Monocytes # (A) 0.2 k/uL (0-1.0); Monocytes % (A) 1 %; Neutrophils # (A) 15.4 k/uL (1.3-7.7); Neutrophils % (A) 96 %; Platelet Count 351 k/uL (150-450); RBC 3.81 m/uL (3.80-5.40); RDW 14.3 % (11.5-15.5); WBC 16.1 k/uL (3.8-10.6)
[2020-05-16 06:20] LABS: ALT 20 U/L (4-34); AST 35 U/L (14-36); African American GFR (CKD) >90 (>60 ml/min/1.73 sqM); Albumin 2.4 g/dL (3.5-5.0); Alkaline Phosphatase 101 U/L (38-126); Anion Gap 2 mmol/L; Blood Urea Nitrogen 28 mg/dL (7-17); C Reactive Protein 37.3 mg/L (<10.0); Calcium 7.9 mg/dL (8.4-10.2); Carbon Dioxide 25 mmol/L (22-30); Chloride 108 mmol/L (98-107); Glucose 127 mg/dL (74-99); Non-African American GFR(CKD) >90 (>60 ml/min/1.73 sqM); Sodium 135 mmol/L (137-145); Total Bilirubin 0.4 mg/dL (0.2-1.3); Total Protein 5.1 g/dL (6.3-8.2)
[2020-05-16 06:38] LABS: Potassium 3.7 mmol/L (3.5-5.1)
[2020-05-16] MEDS ORDERED: PROPOFOL 10 MG/ML 20 ML VIAL IV ONE (06:46)
[2020-05-16] MEDS ORDERED: MIDAZOLAM 1 MG/ML 5 ML VIAL ONE (06:46)
[2020-05-16] MEDS ORDERED: SUCCINYLCHOLINE CHLORIDE VIAL 200 MG/10 ML VIAL IV ONE (06:46)
[2020-05-16] MEDS ORDERED: POTASSIUM BICARBONATE/CIT AC 20 MEQ TABLET.EFF PO ONE (08:00)
[2020-05-16] MEDS: SODIUM CHLORIDE 0.9% 1,000 ML IV SCH (08:50)
[2020-05-16] MEDS: hydrALAZINE HCL 20 MG/ML 1 ML VIAL IVP PRN (08:50)
[2020-05-16] MEDS: CHOLECALCIFEROL 1,000 UNIT TAB PO SCH (08:52)
[2020-05-16] MEDS: ASCORBIC ACID 500 MG TAB PO SCH ×2 (08:52→20:09)
[2020-05-16] MEDS: ASPIRIN 81 MG PO SCH (08:52)
[2020-05-16] MEDS: ENOXAPARIN 60 MG/0.6 ML SYRINGE SQ SCH ×2 (08:52→20:09)
[2020-05-16] MEDS: CYANOCOBALAMIN 500 MCG TAB PO SCH (08:53)
[2020-05-16] MEDS: ZINC SULFATE 220 MG CAP PO SCH (08:53)
[2020-05-16] MEDS: FAMOTIDINE 20 MG/2 ML VIAL IV SCH (08:58)
[2020-05-16] MEDS: SERTRALINE 100 MG TAB PO SCH (08:58)
--- NOTE | 2020-05-16 09:05 | XR ---
EXAMINATION TYPE: XR chest 1V portable DATE OF EXAM: 05/16/2020 COMPARISON: 05/15/2020 INDICATION: Shortness of breath TECHNIQUE: Single frontal view of the chest is obtained. FINDINGS: The heart size is probably prominent. The pulmonary vasculature is normal. Patchy infiltrates are present through the left lung and at the right base. Correlate for atypical pn eumonia. Multiple surgical clips are in the right axillary region. Em are within the right gleno id. IMPRESSION: 1. Patchy bilateral lung infiltrates. Continued follow-up is recommended.
[2020-05-16] MEDS: LORazepam 2 MG/ML INJ IV PRN ×2 (09:52→16:54)
[2020-05-16] MEDS: METOPROLOL TARTRATE 25 MG TAB PO SCH ×2 (11:19→20:09)
--- NOTE | 2020-05-16 13:23 | P.PN ---
Subjective Progress Note Date: 05/16/20 HISTORY OF PRESENT ILLNESS This is a 79-year-old female patient of Dr. Guerrero with past medical history of breast cancer, hypothyroidism, hyperlipidemia, generalized osteoarthritis. She was recently hospitalized May 12 for fever, chills, cough with sputum production with worsening dyspnea was diagnosed with COVID-19 pneumonia. Patient was stabilized and discharged home on May 05 with azithromycin, steroids, home oxygen and vitamin supplements. Patient had significant shortness of breath when she woke up this morning and was wearing oxygen at 4 L. EMS was called and reported that she was ashen nazario, diaphoretic with a pulse ox of 71% upon arrival. Patient was brought into [facility] emergency center and found to be afebrile, heart rate 105, blood pressure 168/89, pulse ox 97% with nonrebreather. She continued tachypneic and tachycardic and patient was placed on BiPAP. Chest x-ray reveals stable patchy bilateral infiltrates. WBC 19.5, hemoglobin 11. Sodium 133, potassium 4.1, CO2 26, BUN 23 and creatinine 0.65. Blood sugar 100. Lactic acid 1.1. LDH 1116, C-reactive protein 63.7. Covid 19 not detected. Influenza B positive. Patient was continued on vitamin supplements, dexamethasone and started on Lovenox, Kati flu, admitted to the cardiac stepdown unit and consult requested with infectious disease and pulmonary medicine. DDimer elevated at 33 and CTA of the chest positive for tiny filling defect left lower lobe pulmonary artery. 05/10: Patient continues to have significant shortness of breath cough and chest tightness. She is on BiPAP and unable to eat or drink. She continues to feel weak and tired. Temperature max 100.0, heart rate 95, blood pressure 125/68, pulse ox 91% on BiPAP with FiO2 of 80. Patient has been seen by pulmonary medicine and started on Remdesivir. The patient's has been contacted via phone and updated regarding patient's current condition and treatment plan. 05/11: Patient is currently on day 3/5 of Remdesivir. Her pulse ox is running about 89% on BiPAP of 85% FiO2. Legionella was negative. Temperature max 101, heart rate 86, blood pressure 150/68. Navarro catheter will be placed as patient is too dyspneic to use bedpan or commode. Repeat blood work reveals WBC 19.4, hemoglobin 10.2. Sodium 136, potassium 3.7, creatinine 0.68. Patient is followed by infectious disease and pulmonary medicine. 05/12: Patient is currently on day 4/5 of Remdesivir. She continues to have significant shortness of breath which is worse from yesterday. She is on 85% FiO2 BiPAP pulse ox a 90%. When she moved over to 15 L, pulse ox dropped down to 78%. She continues complaining of shortness of breath. She has been anxious during the night and Xanax ordered. Patient is unable to take any new oral nutrition at this point. Navarro catheter was placed yesterday. Patient has been afebrile for 24 hour period. Heart rate 104, respiratory rate 26, blood pressure 175/81. Updated pulmonary medicine regarding possible need for intubation. 05/13: Patient's respiratory status did improve yesterday afternoon and she did not require transfer to the intensive care unit. Patient may be slightly better today from yesterday morning but did decline from yesterday afternoon. She is currently pulse ox seen in the 80s with BiPAP of 85% FiO2. She has been off onto 15 L high flow nasal cannula to eat and has been able to take in a small amount of food yesterday and Ensure. She will complete her course of Remdesivir this evening. Tamiflu course will also be completed this evening. Temperature max 100.3 yesterday at noon. Heart rate 91, blood pressure 174/85. Repeat blood work reveals WBC 20.5, hemoglobin 11. Chloride 112, BUN 33 and creatinine 0.61. Blood sugar 146. Alkaline phosphatase 129. 05/14: Yesterday afternoon, patient was transferred to the intensive care unit and is agreeable to short-term intubation if necessary. She has not required vasopressors. Patient has been afebrile. Heart rate 64, blood pressure 132/69, pulse ox 93% on 80% BiPAP. Leukocytosis is down to 12.9, hemoglobin 10. D- dimer isn't improved at 2.83. Creatinine 0.53. Other inflammatory markers have shown improvement with LDH at 1416, C-reactive protein 36.8. Patient has completed course of Remdesivir and Tamiflu. She remains on Lovenox, Solu-Medrol and vitamin supplementations. 05/15: Patient remains in the intensive care unit on BiPAP pulse ox seen 89-90% on 80% FiO2. Repeat chest x-ray reveals stable bilateral patchy infiltrate. She has completed course of Remdesivir and course of Tamiflu. She has been afebrile, heart rate 64, blood pressure 151/79. WBC 14.6, hemoglobin 10.1. Creatinine 0.51. Blood sugar 136. Albumin 2.5. Patient has been without food for greater than 6 days. Discussed nutrition options with Dr. Crowe he will address with rounds today. Physical exam deferred to Dr. Crowe. 05/16: Patient remains in the intensive care unit. She remains on 100% BiPAP pulse oxing 91%. She's been afebrile, heart rate in the low 100s, blood pressure 162/88. Repeat blood work reveals WBC 16.1, hemoglobin 10.8. D-dimer is 2.88. Sodium 135, potassium 3.7, chloride 108, CO2 25, BUN 28 and creatinine 0.47. CRP 37.3. Repeat chest x-ray reveals patchy bilateral lung infiltrates. Patient continues to be followed by [facility] and infectious disease. Patient is eating only about 25% of her meals. She is followed by case management for discharge planning. Patient states that Xanax is not helping and will be changed to lorazepam 0.5 mg IV every 6 hours as needed. REVIEW OF SYSTEMS Constitutional: No fever, no chills, no sweats. No weight change. Reports weakness, Reports fatigue Reports lethargy. Reports daytime sleepiness. EENT: No headache. No blurred vision or double vision, no loss of vision. No loss of Hearing, no ringing in the ears, no dizziness. No nasal drainage or co ngestion. No epistaxis. No sore throat. Lungs: Reports continued shortness of breath, Reports cough, Reports sputum production. Reports wheezing. Reports dyspnea with exertion. Cardiovascular: No chest pain, no lower extremity edema. No palpitations. No paroxysmal nocturnal dyspnea. No orthopnea. No lightheadedness or dizziness. No syncopal episodes. Abdominal: No abdominal pain. No nausea, vomiting. No diarrhea. No constipation. No bloody or tarry stools.. No loss of appetite. Genitourinary: No dysuria, increased frequency, urgency. No urinary retention. Musculoskeletal: No myalgias. No muscle weakness, no gait dysfunction, no frequent falls. No back pain. No neck pain. Integumentary: No wounds, no lesions. No rash or pruritus. No unusual bruising. No change in hair or nails. Neurologic: No aphasia. No facial droop. No change in mentation. No head injury. No headache. No paralysis. No paresthesia. Psychiatric: No depression. No anxiety. No mood swings. Endocrine: No abnormal blood sugars. PHYSICAL EXAMINATION Gen: This is a 79-year-old female. She is resting in bed in minimal distress on BiPAP. HEENT: Head is atraumatic, normocephalic. Pupils equal, round. Sclerae is anicteric. Oral mucous membranes are dry. NECK: Supple. No JVD. No lymphadenopathy. No thyromegaly. LUNGS: Bilateral crackles with decreased air exchange. Minimal intercostal retractions. HEART: Regular rate and rhythm. No murmur. ABDOMEN: Soft. Bowel sounds are present. No masses. No tenderness. EXTREMITIES: No pedal edema. No calf tenderness. Dorsalis pedis +2 bilaterally. NEUROLOGICAL: Patient is awake, alert and oriented x3. Cranial nerves 2 through 12 are grossly intact. ASSESSMENT AND PLAN 1. Acute on chronic hypoxic respiratory failure secondary to COVID pneumonia, Influenza B and small left lower pulmonary embolism. Continue oxygen therapy with BiPAP and patient is willing to be intubated for short period if necessary. Solu-Medrol 60 mg IV every 6 hours, Lovenox 60 mg subcu twice daily, vitamin supplements with vitamin C, vitamin D, zinc, Tamifllu completed. Remdesivir completed. Consults with pulmonary medicine and infectious disease appreciated. Patient may require intubation. 2. Hypothyroidism. Continue levothyroxine 50 g daily. 3. Severe osteoporosis. Fosamax on hold. 4. Anticoagulation with Lovenox. 5. GI prophylaxis. Pepcid. 6. Recurrent depression. Continue Zoloft 200 mg daily. 7. Situational anxiety. Xanax 0.5 mg twice daily as needed added. 8. History of breast cancer. DISCHARGE PLAN May require subacute rehab. Patient is followed by case management. Impression and plan of care have been directed as dictated by the signing physician. Ivone Vizcarra nurse practitioner acting as scribe for signing physician. Objective - Vital Signs Vital signs: Vital Signs Temp 97.8 F 05/16/20 04:00 Pulse 92 05/16/20 07:00 Resp 24 05/16/20 07:00 BP 140/74 05/16/20 07:00 Pulse Ox 92 L 05/16/20 07:00 Intake & Output 05/15/20 05/16/20 05/16/20 18:59 06:59 18:59 Intake Total 1050 900 75 Output Total 880 515 30 Balance 170 385 45 Weight 59.1 kg Intake: IV 900 900 75 Sodium Chloride 0.9% 1, 900 900 75 000 ml @ 75 mls/hr IV . [id number] [facility] Rx#:[id number] Oral 150 Output: Urine 880 515 30 Other: Voiding Method Indwelling Catheter Indwelling Catheter - Labs CBC & Chem 7: 05/16/20 05:44 05/16/20 05:44 Labs: Abnormal Lab Results - Last 24 Hours (Table) 05/16/20 05/16/20 05/16/20 Range/Units 05:44 05:44 05:44 WBC 16.1 H (3.8-10.6) k/uL Hgb 10.8 L (11.4-16.0) gm/dL Hct 33.8 L (34.0-46.0) % Neutrophils # 15.4 H (1.3-7.7) k/uL Lymphocytes # 0.2 L (1.0-4.8) k/uL D-Dimer 2.88 H (<0.60) mg/L FEU Sodium 135 L (137-145) mmol/L Chloride 108 H (98-107) mmol/L BUN 28 H (7-17) mg/dL Creatinine 0.47 L (0.52-1.04) mg/dL Glucose 127 H (74-99) mg/dL Calcium 7.9 L (8.4-10.2) mg/dL CK-MB (CK-2) (0.0-2.4) ng/mL C-Reactive Protein 37.3 H (<10.0) mg/L Total Protein 5.1 L (6.3-8.2) g/dL Albumin 2.4 L (3.5-5.0) g/dL 05/16/20 Range/Units 05:44 WBC (3.8-10.6) k/uL Hgb (11.4-16.0) gm/dL Hct (34.0-46.0) % Neutrophils # (1.3-7.7) k/uL Lymphocytes # (1.0-4.8) k/uL D-Dimer (<0.60) mg/L FEU Sodium (137-145) mmol/L Chloride (98-107) mmol/L BUN (7-17) mg/dL Creatinine (0.52-1.04) mg/dL Glucose (74-99) mg/dL Calcium (8.4-10.2) mg/dL CK-MB (CK-2) 3.1 H (0.0-2.4) ng/mL C-Reactive Protein (<10.0) mg/L Total Protein (6.3-8.2) g/dL Albumin (3.5-5.0) g/dL Microbiology - Last 24 Hours (Table) 05/09/20 06:09 Blood Culture - Final Blood No Growth after 144 hours
--- NOTE | 2020-05-16 15:43 | P.PN ---
Subjective Progress Note Date: 05/16/20 Principal diagnosis: Acute hypoxic respiratory failure secondary to covid 19 pneumonitis. On 05/14/2020, the patient is being seen in the intensive care unit. The patient has been transferred to the intensive care unit yesterday because of acute hypoxic respiratory failure with progressive worsening shortness of breath and progressive worsening in her oxygenation. Note that the patient missed on a BiPAP and currently things of 14/8 cm of water with an FiO2 of 100%. Note that this patient initially had an acute Covid 19 related pneumonia that was diagnosed on 04/28/2020 and the patient was hospitalized and subsequently discharged home after being treated. At the time of discharge was given oral Decadron. She came back to the hospital on 05/09/2020 with worsening shortness of breath and hypoxemia and the patient tested negative for Covid 19 and the patient tested positive for influenza B. Despite all this, I give the patient the benefit of the doubt and treated the patient with Decadron and Remdesivir and I also had a Tamiflu. Subsequently, switched this patient to IV Solu- Medrol. At this point in time, the patient is in the intensive care unit. On today's evaluation her white cell count is at 12.9 with a hemoglobin of 10.0. D-dimer is at 2.83 and the patient remains on therapeutic dose of Lovenox 60 mg subcu every 12 hours. Note that the Electrodes are being utilized at the patient also showed a subsegmental pulmonary embolism in the left lower lobe pulmonary artery branch. As mentioned earlier, the subsegmental pulmonary embolism is not the culprit is not contributing to her respiratory failure and respiratory failure essentially related to the viral pneumonia. Most recent LDH is 1416 with a CRP level of 36 anti-inflammatory markers improved compared to earlier values. Legionella urine antigen was negative. She is afebrile. A repeat chest x-ray was done todayAntegrade the suspicion for a right-sided pneumothorax. I thought this was a skin fold and I repeated the chest x-ray which essentially showed diffuse bilateral pulmonary infiltrates worse on the left without evidence of any pneumothorax. I had a lengthy discussion with the patient. Based on our discussion today, the patient consented for a short-term intubation. She is not on any form of long-term mechanical ventilation in the event her breathing further decompensates. As such, overall CODE STATUS is full at this point in time. 05/15/2020, the patient remains in the intensive care unit in regards to her acute respiratory failure. The patient remains very much BiPAP dependent. She remains on a pressure of 14/8 cm of water. FiO2 has been weaned down to 80%. Despite unchanged BiPAP setting, the patient claims that she is breathing slightly better compared to yesterday. She is urinating a tidal volume of about 500 on a mechanical ventilator. Her minute ventilation is in the order of 10 L per minute. Note that she is on IV fluids and the site of 75 mL an hour. She has received IV Solu-Medrol, completed Remdesivir, completed Tamiflu, and she al so received 2 units of convalescent plasma. Chest x-ray from today is showing stable bilateral patchy pulmonary infiltrates, unchanged compared to yesterday. Her white cell count is at 14.6 with a hemoglobin of 10.1. She continues to have lymphopenia. The patient's LDH level is at 1416 from yesterday. Her CRP was 36.8 this will be repeated tomorrow. In function is stable. The rest of the electrodes are all stable. She is weak. She is able to take some sips of juice and shakes while being on the BiPAP. Unable to go to regular feeding at this point in time. As mentioned earlier, she has a full CODE STATUS. The patient made it clear to me that she did not want any form of long-term mechanical ventilation should she go into respiratory failure requiring intubation mechanical ventilation. She is still on anticoagulation the patient is on Lovenox therapeutic dose of 60 mg subcu every 12 hours. IV fluids are running at rate of 75 mL an hour. Reevaluated today on 05/16/20, patient remains in the ICU, presently on BiPAP with IPAP of 14 EPAP of 8 she is on the percent FiO2, and O2 saturation is very marginal at best, 90%. Patient did receive convalescent plasma, remdesivir and received Solu-Medrol. Patient was admitted initially on 05/09 and has been in the ICU since 05/13. Her pulmonary status is marginal at best. Patient also completed a course of Tamiflu. Chest x-ray continues to show bilateral interstitial infiltrates. WBC count is 16.1 hemoglobin is 10.8. D-dimer is 2.88 left lites are normal renal profile is normal Objective - Vital Signs Vital signs: Vital Signs Temp 97.4 F L 05/16/20 12:00 Pulse 77 05/16/20 14:00 Resp 17 05/16/20 14:00 BP 131/73 05/16/20 14:00 Pulse Ox 95 05/16/20 14:00 Intake & Output 05/15/20 05/16/20 05/16/20 18:59 06:59 18:59 Intake Total 1050 900 450 Output Total 880 515 205 Balance 170 385 245 Weight 59.1 kg 59.1 kg Intake: IV 900 900 450 Sodium Chloride 0.9% 1, 900 900 450 000 ml @ 75 mls/hr IV . [id number] NI Rx#:[id number] Oral 150 Output: Urine 880 515 205 Other: Voiding Method Indwelling Catheter Indwelling Catheter Indwelling Catheter - Exam GENERAL EXAM: Revealed a 79-year-old female on BiPAP, slightly anxious, tachypn eic and tachycardic. HEAD: Normocephalic/atraumatic. ENT: PERRLA, EOMI, neck is, no neck masses, no JVD, no stridor.. CHEST: No chest wall deformity. Symmetrical expansion. LUNGS: Crackles and rhonchi noted bilaterally. CVS: Regular rate and rhythm, normal S1 and S2, no gallops, no murmurs, no rubs ABDOMEN: Soft, nontender. No hepatosplenomegaly, normal bowel sounds, no guarding or rigidity. EXTREMITIES: No clubbing, no edema, no cyanosis, 2+ pulses and upper and lower extremities. MUSCULOSKELETAL: Muscle strength and tone normal. SPINE: No scoliosis or deformity SKIN: No rashes CENTRAL NERVOUS SYSTEM: Alert and oriented 3, no gross focal deficits. PSYCHIATRIC: Anxious mood, normal affect, normal mental status exam - Labs CBC & Chem 7: 05/16/20 05:44 05/16/20 05:44 Labs: Abnormal Lab Results - Last 24 Hours (Table) 05/16/20 05/16/20 05/16/20 Range/Units 05:44 05:44 05:44 WBC 16.1 H (3.8-10.6) k/uL Hgb 10.8 L (11.4-16.0) gm/dL Hct 33.8 L (34.0-46.0) % Neutrophils # 15.4 H (1.3-7.7) k/uL Lymphocytes # 0.2 L (1.0-4.8) k/uL D-Dimer 2.88 H (<0.60) mg/L FEU Sodium 135 L (137-145) mmol/L Chloride 108 H (98-107) mmol/L BUN 28 H (7-17) mg/dL Creatinine 0.47 L (0.52-1.04) mg/dL Glucose 127 H (74-99) mg/dL Calcium 7.9 L (8.4-10.2) mg/dL CK-MB (CK-2) (0.0-2.4) ng/mL C-Reactive Protein 37.3 H (<10.0) mg/L Total Protein 5.1 L (6.3-8.2) g/dL Albumin 2.4 L (3.5-5.0) g/dL 05/16/20 Range/Units 05:44 WBC (3.8-10.6) k/uL Hgb (11.4-16.0) gm/dL Hct (34.0-46.0) % Neutrophils # (1.3-7.7) k/uL Lymphocytes # (1.0-4.8) k/uL D-Dimer (<0.60) mg/L FEU Sodium (137-145) mmol/L Chloride (98-107) mmol/L BUN (7-17) mg/dL Creatinine (0.52-1.04) mg/dL Glucose (74-99) mg/dL Calcium (8.4-10.2) mg/dL CK-MB (CK-2) 3.1 H (0.0-2.4) ng/mL C-Reactive Protein (<10.0) mg/L Total Protein (6.3-8.2) g/dL Albumin (3.5-5.0) g/dL Assessment and Plan Assessment: Impression: Acute hypoxic respiratory failure. Secondary to Covid 19 pneumonitis. Acute pulmonary embolism, subsegmental in the left lower lobe with elevated d- dimer History of breast cancer. Generalized anxiety disorder. Influenza B infection Elevated d-dimer Recommendation: Continue to monitor in the ICU. Continue BiPAP, however I have a feeling that the patient may require eventually intubation and mechanical ventilation. Continue IV Solu-Medrol. Completed treatment with remdesivir Continue anticoagulation therapy. Continue supportive care measures. Patient may require intubation if her condition gets bit worse than this. Patient remains critically ill, Critical care time is over 30 minutes. We'll continue to follow. Time with Patient: Greater than 30
[2020-05-16] MEDS: clonazePAM 0.5 MG TAB PO SCH (20:09)
[2020-05-16] MEDS ORDERED: FAMOTIDINE 20 MG TAB PO SCH (21:00)
[2020-05-16 21:49] LABS: ABG Base Excess 0.7 mmol/L; ABG HCO3 24 mmol/L (21-25); ABG PCO2 34 mmHg (35-45); ABG PH 7.47 (7.35-7.45); ABG TCO2 26 mmol/L (19-24)
[2020-05-16 21:52] LABS: ABG PO2 52 mmHg (83-108); Allen Test Performed? no
[2020-05-16] MEDS ORDERED: propofoL 100 ML IV ONE (22:06)
[2020-05-16] MEDS ORDERED: ATROPINE SULFATE 0.1 MG/ML 10ML SYRINGE ONE (22:28)
--- NOTE | 2020-05-16 22:29 | PN ---
PROGRESS NOTE DATE OF SERVICE: 05/16/2020 REASON FOR FOLLOWUP: Influenza B and COVID-19 infection. INTERVAL HISTORY: The patient is currently afebrile. The patient remains BiPAP-dependent, currently on 100%. She mentioned feeling slightly better. No chest pain. Minimal cough. No abdominal pain or diarrhea. PHYSICAL EXAMINATION: Blood pressure 152/89 with a pulse of 70, temperature 96.3. She is 93% on 100% FiO2. General description is an elderly female lying in bed in no distress. RESPIRATORY SYSTEM: Unlabored breathing with decreased intensity of breath sounds. No wheeze. HEART: S1, S2. Regular rate and rhythm. ABDOMEN: Soft. No tenderness. LABS: Hemoglobin is 10.8, white count 16.1. BUN of 28, creatinine 0.47. Blood culture has been negative. Sputum obtained. Chest x-ray with patchy bilateral lung infiltrate. DIAGNOSTIC IMPRESSION AND PLAN: Patient with acute respiratory failure which is multifactorial in this patient who did have influenza B positive. There is also concern about COVID. This patient completed Tamiflu and remdesivir therapy. Patient is currently on Lovenox, Solu-Medrol; will have to continue. Mild elevated white count is more likely steroid effect. No evidence of any secondary bacterial infection. Continue with supportive care. MMODL / IJN: [id number] /
--- NOTE | 2020-05-16 22:54 | XR ---
EXAMINATION TYPE: XR chest 1V portable DATE OF EXAM: 05/16/2020 COMPARISON: Today HISTORY: Respiratory failure TECHNIQUE: Single view FINDINGS: Endotracheal tube is 4 cm from the alanna. There is diffuse pulmonary edema. There is some coalescent density left lower lobe. There is nasogastric tube in the stomach. There are chest leads. IMPRESSION: There is pulmonary edema. Cardiomegaly. This could relate to RDS or congestive heart fail ure. Chest appears slightly improved in the right lower lobe and unchanged in the left lung compared to the exam this morning.
[2020-05-16 23:30] LABS: ABG Base Excess -0.9 mmol/L; ABG HCO3 23 mmol/L (21-25); ABG Oxygen Saturation 93.9 % (94-97); ABG PCO2 35 mmHg (35-45); ABG PH 7.43 (7.35-7.45); ABG PO2 69 mmHg (83-108); ABG TCO2 25 mmol/L (19-24); Allen Test Performed? Yes
[2020-05-16] MEDS ORDERED: FUROSEMIDE 10 MG/ML 2 ML VIAL IV ONE (23:37)
[2020-05-17] MEDS: CHLORHEXIDINE GLUCONATE 15 ML CUP MUCOUS MEM SCH ×3 (00:01→20:23)
[2020-05-17] MEDS: SODIUM CHLORIDE 0.9% 1,000 ML IV SCH ×2 (03:58→16:15)
[2020-05-17 04:32] LABS: Basophils % (A) 0 %; Eosinophils # (A) 0.1 k/uL (0-0.7); Eosinophils % (A) 1 %; HCT 31.5 % (34.0-46.0); Lymphocytes # (A) 0.1 k/uL (1.0-4.8); Lymphocytes % (A) 1 %; MCH 28.1 pg (25.0-35.0); MCHC 31.6 g/dL (31.0-37.0); MCV 88.9 fL (80.0-100.0); Monocytes # (A) 0.3 k/uL (0-1.0); Monocytes % (A) 2 %; Neutrophils # (A) 14.3 k/uL (1.3-7.7); Neutrophils % (A) 96 %; Platelet Count 302 k/uL (150-450); RBC 3.55 m/uL (3.80-5.40); RDW 14.2 % (11.5-15.5)
[2020-05-17 04:52] LABS: ALT 18 U/L (4-34); AST 33 U/L (14-36); African American GFR (CKD) >90 (>60 ml/min/1.73 sqM); Albumin 2.3 g/dL (3.5-5.0); Alkaline Phosphatase 96 U/L (38-126); Anion Gap 4 mmol/L; Blood Urea Nitrogen 27 mg/dL (7-17); C Reactive Protein 45.5 mg/L (<10.0); Calcium 7.6 mg/dL (8.4-10.2); Carbon Dioxide 24 mmol/L (22-30); Chloride 108 mmol/L (98-107); Glucose 118 mg/dL (74-99); Non-African American GFR(CKD) >90 (>60 ml/min/1.73 sqM); Potassium 3.5 mmol/L (3.5-5.1); Sodium 136 mmol/L (137-145); Total Bilirubin 0.4 mg/dL (0.2-1.3)
[2020-05-17 05:36] LABS: ABG Base Excess 1.9 mmol/L; ABG HCO3 26 mmol/L (21-25); ABG Oxygen Saturation 89.1 % (94-97); ABG PCO2 40 mmHg (35-45); ABG PH 7.43 (7.35-7.45); ABG TCO2 27 mmol/L (19-24); Allen Test Performed? Yes
[2020-05-17 05:38] LABS: ABG PO2 58 mmHg (83-108)
[2020-05-17] MEDS: methylPREDNISolone SOD SUCCI 125 MG/2 ML VIAL IV SCH ×5 (05:50→23:28)
[2020-05-17] MEDS: POTASSIUM CHLORIDE 10 MEQ in WATER FOR INJECTION 1 100ML.BAG IVPB SCH ×4 (05:50→11:19)
[2020-05-17] MEDS: LEVOTHYROXINE 50 MCG TAB PO SCH (05:50)
[2020-05-17] MEDS: CHOLECALCIFEROL 1,000 UNIT TAB PO SCH (08:51)
[2020-05-17] MEDS: SERTRALINE 100 MG TAB PO SCH (08:51)
[2020-05-17] MEDS: CYANOCOBALAMIN 500 MCG TAB PO SCH (08:51)
[2020-05-17] MEDS: ASPIRIN 81 MG PO SCH (08:51)
[2020-05-17] MEDS: METOPROLOL TARTRATE 25 MG TAB PO SCH ×2 (08:52→20:23)
[2020-05-17] MEDS: ZINC SULFATE 220 MG CAP PO SCH (08:52)
[2020-05-17] MEDS: ENOXAPARIN 60 MG/0.6 ML SYRINGE SQ SCH ×2 (08:52→20:24)
[2020-05-17] MEDS: PANTOPRAZOLE 40 MG/10 ML VIAL IVP SCH ×2 (08:52→20:23)
[2020-05-17] MEDS: ASCORBIC ACID 500 MG TAB PO SCH ×2 (08:52→20:24)
--- NOTE | 2020-05-17 09:16 | XR ---
EXAMINATION TYPE: XR chest 1V portable DATE OF EXAM: 05/17/2020 Comparison: 05/16/2020 Clinical History: 79-year-old female Shortness of breath Findings: ET tube is satisfactory. NG tube courses below the diaphragm. Heart mildly enlarged. Interstitial and patchy confluent airspace opacity mid and lower lungs. Small effusion suggested. Overall unchanged. Surgical clips right axilla. Impression: Mild cardiomegaly and diffuse interstitial opacities mid and lower lungs. Small effusions. Correlate for interstitial pulmonary edema, overall unchanged.
--- NOTE | 2020-05-17 10:06 | P.PN ---
Subjective Progress Note Date: 05/17/20 HISTORY OF PRESENT ILLNESS This is a 79-year-old female patient of Dr. Guerrero with past medical history of breast cancer, hypothyroidism, hyperlipidemia, generalized osteoarthritis. She was recently hospitalized May 12 for fever, chills, cough with sputum production with worsening dyspnea was diagnosed with COVID-19 pneumonia. Patient was stabilized and discharged home on May 05 with azithromycin, steroids, home oxygen and vitamin supplements. Patient had significant shortness of breath when she woke up this morning and was wearing oxygen at 4 L. EMS was called and reported that she was ashen nazario, diaphoretic with a pulse ox of 71% upon arrival. Patient was brought into [facility] emergency center and found to be afebrile, heart rate 105, blood pressure 168/89, pulse ox 97% with nonrebreather. She continued tachypneic and tachycardic and patient was placed on BiPAP. Chest x-ray reveals stable patchy bilateral infiltrates. WBC 19.5, hemoglobin 11. Sodium 133, potassium 4.1, CO2 26, BUN 23 and creatinine 0.65. Blood sugar 100. Lactic acid 1.1. LDH 1116, C-reactive protein 63.7. Covid 19 not detected. Influenza B positive. Patient was continued on vitamin supplements, dexamethasone and started on Lovenox, Kati flu, admitted to the cardiac stepdown unit and consult requested with infectious disease and pulmonary medicine. DDimer elevated at 33 and CTA of the chest positive for tiny filling defect left lower lobe pulmonary artery. 05/10: Patient continues to have significant shortness of breath cough and chest tightness. She is on BiPAP and unable to eat or drink. She continues to feel weak and tired. Temperature max 100.0, heart rate 95, blood pressure 125/68, pulse ox 91% on BiPAP with FiO2 of 80. Patient has been seen by pulmonary medicine and started on Remdesivir. The patient's has been contacted via phone and updated regarding patient's current condition and treatment plan. 05/11: Patient is currently on day 3/5 of Remdesivir. Her pulse ox is running about 89% on BiPAP of 85% FiO2. Legionella was negative. Temperature max 101, heart rate 86, blood pressure 150/68. Navarro catheter will be placed as patient is too dyspneic to use bedpan or commode. Repeat blood work reveals WBC 19.4, hemoglobin 10.2. Sodium 136, potassium 3.7, creatinine 0.68. Patient is followed by infectious disease and pulmonary medicine. 05/12: Patient is currently on day 4/5 of Remdesivir. She continues to have significant shortness of breath which is worse from yesterday. She is on 85% FiO2 BiPAP pulse ox a 90%. When she moved over to 15 L, pulse ox dropped down to 78%. She continues complaining of shortness of breath. She has been anxious during the night and Xanax ordered. Patient is unable to take any new oral nutrition at this point. Navarro catheter was placed yesterday. Patient has been afebrile for 24 hour period. Heart rate 104, respiratory rate 26, blood pressure 175/81. Updated pulmonary medicine regarding possible need for intubation. 05/13: Patient's respiratory status did improve yesterday afternoon and she did not require transfer to the intensive care unit. Patient may be slightly better today from yesterday morning but did decline from yesterday afternoon. She is currently pulse ox seen in the 80s with BiPAP of 85% FiO2. She has been off onto 15 L high flow nasal cannula to eat and has been able to take in a small amount of food yesterday and Ensure. She will complete her course of Remdesivir this evening. Tamiflu course will also be completed this evening. Temperature max 100.3 yesterday at noon. Heart rate 91, blood pressure 174/85. Repeat blood work reveals WBC 20.5, hemoglobin 11. Chloride 112, BUN 33 and creatinine 0.61. Blood sugar 146. Alkaline phosphatase 129. 05/14: Yesterday afternoon, patient was transferred to the intensive care unit and is agreeable to short-term intubation if necessary. She has not required vasopressors. Patient has been afebrile. Heart rate 64, blood pressure 132/69, pulse ox 93% on 80% BiPAP. Leukocytosis is down to 12.9, hemoglobin 10. D- dimer isn't improved at 2.83. Creatinine 0.53. Other inflammatory markers have shown improvement with LDH at 1416, C-reactive protein 36.8. Patient has completed course of Remdesivir and Tamiflu. She remains on Lovenox, Solu-Medrol and vitamin supplementations. 05/15: Patient remains in the intensive care unit on BiPAP pulse ox seen 89-90% on 80% FiO2. Repeat chest x-ray reveals stable bilateral patchy infiltrate. She has completed course of Remdesivir and course of Tamiflu. She has been afebrile, heart rate 64, blood pressure 151/79. WBC 14.6, hemoglobin 10.1. Creatinine 0.51. Blood sugar 136. Albumin 2.5. Patient has been without food for greater than 6 days. Discussed nutrition options with Dr. Crowe he will address with rounds today. Physical exam deferred to Dr. Crowe. 05/16: Patient remains in the intensive care unit. She remains on 100% BiPAP pulse oxing 91%. She's been afebrile, heart rate in the low 100s, blood pressure 162/88. Repeat blood work reveals WBC 16.1, hemoglobin 10.8. D-dimer is 2.88. Sodium 135, potassium 3.7, chloride 108, CO2 25, BUN 28 and creatinine 0.47. CRP 37.3. Repeat chest x-ray reveals patchy bilateral lung infiltrates. Patient continues to be followed by [facility] and infectious disease. Patient is eating only about 25% of her meals. She is followed by case management for discharge planning. Patient states that Xanax is not helping and will be changed to lorazepam 0.5 mg IV every 6 hours as needed. 05/17: Patient was intubated last night currently on mechanical ventilation with tidal volume 400, FiO2 100, PEEP of 14. Pulse ox is 90-91%. Chest x-ray this morning reveals mild cardiomegaly and diffuse interstitial opacities mid and lower lungs. Small effusions. Correlate for interstitial pulmonary edema. She has been afebrile, heart rate 76, blood pressure 132/68. Patient has not required vasopressors. Patient is on max propofol. Oral tube feeding to be started today. Repeat lab work reveals WBC 15, hemoglobin 10. Sodium 136, potassium 3.5, chloride 108, CO2 24, BUN 27 and creatinine 0.51. Stool for occult blood positive. REVIEW OF SYSTEMS Unable to obtain due to intubation. PHYSICAL EXAMINATION Gen: This is a 79-year-old female. She is resting in bed in no distr ess, intubated and on mechanical ventilation. Patient is opening eyes and moving fingers. HEENT: Head is atraumatic, normocephalic. Pupils equal, round. Sclerae is anicteric. Oral mucous membranes are dry. NECK: Supple. No JVD. No lymphadenopathy. No thyromegaly. LUNGS: Bilateral crackles with decreased air exchange. Minimal intercostal retractions. HEART: Regular rate and rhythm. No murmur. ABDOMEN: Soft. Bowel sounds are present. No masses. No tenderness. EXTREMITIES: No pedal edema. No calf tenderness. Dorsalis pedis +2 bilaterally. NEUROLOGICAL: Patient is awake, but on sedation. ASSESSMENT AND PLAN 1. Acute on chronic hypoxic respiratory failure secondary to COVID pneumonia, Influenza B and small left lower pulmonary embolism. Patient required int ubation and mechanical ventilation. Solu-Medrol 60 mg IV every 6 hours, Lovenox 60 mg subcu twice daily, vitamin supplements with vitamin C, vitamin D, zinc, Tamifllu completed. Remdesivir completed. Consults with pulmonary medicine and infectious disease appreciated. 2. Hypothyroidism. Continue levothyroxine 50 g daily. 3. Severe osteoporosis. Fosamax on hold. 4. Anticoagulation with Lovenox. 5. GI prophylaxis. Pepcid. 6. Recurrent depression. Continue Zoloft 200 mg daily. 7. Situational anxiety. Xanax 0.5 mg twice daily as needed added. 8. History of breast cancer. 9. Stool positive for occult blood. Monitor hemoglobin and patient status closely. Prognosis guarded. DISCHARGE PLAN May require subacute rehab. Patient is followed by case management. Impression and plan of care have been directed as dictated by the signing physician. Ivone Vizcarra nurse practitioner acting as scribe for signing physician. Objective - Vital Signs Vital signs: Vital Signs Temp 97.6 F 05/17/20 04:00 Pulse 76 05/17/20 07:00 Resp 25 H 05/17/20 07:00 BP 132/68 05/17/20 07:00 Pulse Ox 92 L 05/17/20 07:00 Intake & Output 05/16/20 05/17/20 05/17/20 18:59 06:59 18:59 Intake Total 975 880.880 75 Output Total 455 1025 30 Balance 520 -144.120 45 Weight 59.1 kg 55 kg Intake: IV 975 825 75 Sodium Chloride 0.9% 1, 975 825 75 000 ml @ 75 mls/hr IV . [id number] NI Rx#:[id number] Intake, IV Titration 55.880 Amount propofoL 1,000 mg In 55.880 Empty Bag 1 bag @ Titrate IV .Q0M NI Rx#: [id number] Output: Gastric Drainage 50 Urine 455 975 30 Other: Voiding Method Indwelling Catheter Indwelling Catheter # Bowel Movements 1 - Labs CBC & Chem 7: 05/17/20 03:51 05/17/20 03:51 Labs: Abnormal Lab Results - Last 24 Hours (Table) 05/16/20 05/16/20 05/17/20 Range/Units 21:41 23:24 03:51 WBC 15.0 H (3.8-10.6) k/uL RBC 3.55 L (3.80-5.40) m/uL Hgb 10.0 L (11.4-16.0) gm/dL Hct 31.5 L (34.0-46.0) % Neutrophils # 14.3 H (1.3-7.7) k/uL Lymphocytes # 0.1 L (1.0-4.8) k/uL ABG pH 7.47 H (7.35-7.45) ABG pCO2 34 L (35-45) mmHg ABG pO2 52 L* 69 L (83-108) mmHg ABG HCO3 (21-25) mmol/L ABG Total CO2 26 H 25 H (19-24) mmol/L ABG O2 Saturation 87.0 L 93.9 L (94-97) % Sodium (137-145) mmol/L Chloride (98-107) mmol/L BUN (7-17) mg/dL Creatinine (0.52-1.04) mg/dL Glucose (74-99) mg/dL Calcium (8.4-10.2) mg/dL CK-MB (CK-2) (0.0-2.4) ng/mL C-Reactive Protein (<10.0) mg/L Total Protein (6.3-8.2) g/dL Albumin (3.5-5.0) g/dL 05/17/20 05/17/20 05/17/20 Range/Units 03:51 03:51 05:17 WBC (3.8-10.6) k/uL RBC (3.80-5.40) m/uL Hgb (11.4-16.0) gm/dL Hct (34.0-46.0) % Neutrophils # (1.3-7.7) k/uL Lymphocytes # (1.0-4.8) k/uL ABG pH (7.35-7.45) ABG pCO2 (35-45) mmHg ABG pO2 58 L* (83-108) mmHg ABG HCO3 26 H (21-25) mmol/L ABG Total CO2 27 H (19-24) mmol/L ABG O2 Saturation 89.1 L (94-97) % Sodium 136 L (137-145) mmol/L Chloride 108 H (98-107) mmol/L BUN 27 H (7-17) mg/dL Creatinine 0.51 L (0.52-1.04) mg/dL Glucose 118 H (74-99) mg/dL Calcium 7.6 L (8.4-10.2) mg/dL CK-MB (CK-2) 4.4 H (0.0-2.4) ng/mL C-Reactive Protein 45.5 H (<10.0) mg/L Total Protein 5.0 L (6.3-8.2) g/dL Albumin 2.3 L (3.5-5.0) g/dL
[2020-05-17] MEDS ORDERED: CISATRACURIUM 2 MG/ML 5 ML VIAL IV ONE (10:28)
--- NOTE | 2020-05-17 11:36 | XR ---
EXAMINATION TYPE: XR chest 1V portable DATE OF EXAM: 05/17/2020 Comparison: Earlier today Clinical History: 79-year-old female central line placement Findings: ET tube is satisfactory. NG tube courses below the diaphragm. Heart borderline enlarged. Patchy airsp ric opacities mid and lower lungs relatively similar. Possible trace left effusion. Right IJ CVC with tip in the upper right atrium. Impression: 1. Right IJ CVC tip in the upper atrium. 2. Patchy mid and lower lung airspace disease relatively similar.
--- NOTE | 2020-05-17 11:39 | XR ---
EXAMINATION TYPE: XR chest 1V portable DATE OF EXAM: 05/17/2020 Comparison: Earlier today Clinical History: 79-year-old female with high peak airway pressure Findings: ET tube is satisfactory. NG tube courses below the diaphragm but the sidehole is at the level of the GE junction. Right IJ CVC tip in the upper right atrium. Surgical clips in the right axilla. Heart quynh rderline enlarged. Patchy infiltrates mid and lower lungs, left greater than right, relatively simila r. No sizable effusion. No pneumothorax. Impression: Exam remains stable. Note the NG tube sidehole at the GE junction. Advance into the stomach.
--- NOTE | 2020-05-17 12:09 | PCN ---
PROCEDURE NOTE PLACEMENT OF THE LEFT RADIAL ARTERIAL LINE: PREOPERATIVE DIAGNOSIS: Acute hypoxic respiratory failure. POSTOPERATIVE DIAGNOSIS: Acute hypoxic respiratory failure. ANESTHESIA USED: None deployed. PROCEDURE: Patient was placed in a supine position, the left wrist was prepared in a sterile fashion. The drapes were applied. The left radial artery was palpated, cannulated, and a guidewire was placed. A Cook catheter was inserted over the guidewire, the guidewire was removed. Good blood flow, good waveform noted. No evidence of any immediate complication. Line was secured using 3.0 silk sutures. MMODL / IJN: [id number] /
--- NOTE | 2020-05-17 12:09 | PCN ---
PROCEDURE NOTE PLACEMENT OF THE RIGHT IJ TRIPLE-LUMEN CATHETER: PREOPERATIVE DIAGNOSIS: Acute hypoxic respiratory failure. POSTOPERATIVE DIAGNOSIS: Acute hypoxic respiratory failure. ANESTHESIA USED: 2 mL of 1% lidocaine. PROCEDURE: The patient was placed in the supine position, the area of the right cervical region was prepared in a sterile fashion and drapes were applied. The area behind the posterior belly of the sternocleidomastoid was locally anesthetized. Then using the posterior approach, the right internal jugular vein was easily cannulated, a guidewire was placed, the area around the guidewire was dilated. Then a triple-lumen catheter was inserted over the guidewire, and the guidewire was removed. Good blood flow was noted. There was no evidence of any immediate complications, line was secured with 3.0 silk sutures. Chest x-ray showed adequate placement of the line. MMALLIE / FRANSISCON: [id number] /
--- NOTE | 2020-05-17 13:02 | P.PN ---
Subjective Progress Note Date: 05/17/20 Principal diagnosis: Acute hypoxic respiratory failure secondary to covid 19 pneumonitis. On 05/14/2020, the patient is being seen in the intensive care unit. The patient has been transferred to the intensive care unit yesterday because of acute hypoxic respiratory failure with progressive worsening shortness of breath and progressive worsening in her oxygenation. Note that the patient missed on a BiPAP and currently things of 14/8 cm of water with an FiO2 of 100%. Note that this patient initially had an acute Covid 19 related pneumonia that was diagnosed on 04/28/2020 and the patient was hospitalized and subsequently discharged home after being treated. At the time of discharge was given oral Decadron. She came back to the hospital on 05/09/2020 with worsening shortness of breath and hypoxemia and the patient tested negative for Covid 19 and the patient tested positive for influenza B. Despite all this, I give the patient the benefit of the doubt and treated the patient with Decadron and Remdesivir and I also had a Tamiflu. Subsequently, switched this patient to IV Solu- Medrol. At this point in time, the patient is in the intensive care unit. On today's evaluation her white cell count is at 12.9 with a hemoglobin of 10.0. D-dimer is at 2.83 and the patient remains on therapeutic dose of Lovenox 60 mg subcu every 12 hours. Note that the Electrodes are being utilized at the patient also showed a subsegmental pulmonary embolism in the left lower lobe pulmonary artery branch. As mentioned earlier, the subsegmental pulmonary embolism is not the culprit is not contributing to her respiratory failure and respiratory failure essentially related to the viral pneumonia. Most recent LDH is 1416 with a CRP level of 36 anti-inflammatory markers improved compared to earlier values. Legionella urine antigen was negative. She is afebrile. A repeat chest x-ray was done todayAntegrade the suspicion for a right-sided pneumothorax. I thought this was a skin fold and I repeated the chest x-ray which essentially showed diffuse bilateral pulmonary infiltrates worse on the left without evidence of any pneumothorax. I had a lengthy discussion with the patient. Based on our discussion today, the patient consented for a short-term intubation. She is not on any form of long-term mechanical ventilation in the event her breathing further decompensates. As such, overall CODE STATUS is full at this point in time. 05/15/2020, the patient remains in the intensive care unit in regards to her acute respiratory failure. The patient remains very much BiPAP dependent. She remains on a pressure of 14/8 cm of water. FiO2 has been weaned down to 80%. Despite unchanged BiPAP setting, the patient claims that she is breathing slightly better compared to yesterday. She is urinating a tidal volume of about 500 on a mechanical ventilator. Her minute ventilation is in the order of 10 L per minute. Note that she is on IV fluids and the site of 75 mL an hour. She has received IV Solu-Medrol, completed Remdesivir, completed Tamiflu, and she al so received 2 units of convalescent plasma. Chest x-ray from today is showing stable bilateral patchy pulmonary infiltrates, unchanged compared to yesterday. Her white cell count is at 14.6 with a hemoglobin of 10.1. She continues to have lymphopenia. The patient's LDH level is at 1416 from yesterday. Her CRP was 36.8 this will be repeated tomorrow. In function is stable. The rest of the electrodes are all stable. She is weak. She is able to take some sips of juice and shakes while being on the BiPAP. Unable to go to regular feeding at this point in time. As mentioned earlier, she has a full CODE STATUS. The patient made it clear to me that she did not want any form of long-term mechanical ventilation should she go into respiratory failure requiring intubation mechanical ventilation. She is still on anticoagulation the patient is on Lovenox therapeutic dose of 60 mg subcu every 12 hours. IV fluids are running at rate of 75 mL an hour. Reevaluated today on 05/16/20, patient remains in the ICU, presently on BiPAP with IPAP of 14 EPAP of 8 she is on the percent FiO2, and O2 saturation is very marginal at best, 90%. Patient did receive convalescent plasma, remdesivir and received Solu-Medrol. Patient was admitted initially on 05/09 and has been in the ICU since 05/13. Her pulmonary status is marginal at best. Patient also completed a course of Tamiflu. Chest x-ray continues to show bilateral interstitial infiltrates. WBC count is 16.1 hemoglobin is 10.8. D-dimer is 2.88 left lites are normal renal profile is normal Reevaluated today on 05/17/20. Patient had a deterioration in her clinical status last night, and she was barely oxygenating. ABG on high FiO2 of 100% on BiPAP, showed a pO2 of only 62 pCO2 of 34 pH of 7.47, and the patient was noted to be more tachypneic. Hence I recommended intubating the patient. And she had a follow-up ABG this morning on 100% FiO2 with of PEEP 12, showed a pO2 of 58 pCO2 of 40 0 pH of 7.43. patient is now on mechanical ventilation, and her ventilator settings are assist control rate of 26, tidal volume is 350, PEEP was cut down to 10 from 16 as the patient could not tolerate high PEEP, noted to do worse, with significantly elevated peak airway pressure and significantly elevated plateau pressures. Hence the to using lower tidal volumes, higher rates, and was able to cut down on her peak airway pressure, and her plateau pressures. ABG is pending. This morning ABG showed a pO2 of 58 pCO2 of 40 pH of 7.43. Patient is now on propofol at 60 g per acute per minute IV fluid at 75 mL per hour, enteral feeding to be started today. Lines including a right IJ central line placed, and left radial arterial line was also placed. Chest x-ray continues to show patchy infiltrates mid and lower lungs left greater than right. Electrolytes are normal renal profile is normal. WBC count is 15 hemoglobin is 10. Objective - Vital Signs Vital signs: Vital Signs Temp 98.5 F 05/17/20 08:00 Pulse 79 05/17/20 11:00 Resp 23 05/17/20 11:00 BP 121/66 05/17/20 11:00 Pulse Ox 95 05/17/20 11:00 Intake & Output 05/16/20 05/17/20 05/17/20 18:59 06:59 18:59 Intake Total 975 880.880 723.05 Output Total 455 1025 175 Balance 520 -144.120 548.05 Weight 59.1 kg 55 kg 55 kg Intake: IV 975 825 650 Potassium Chloride 10 meq 200 In Water For Injection 1 100ml.bag @ 100 mls/hr IVPB Q1HR [facility] Rx#: [id number] Sodium Chloride 0.9% 1, 975 825 450 000 ml @ 75 mls/hr IV . [id number] [facility] Rx#:[id number] Intake, IV Titration 55.880 73.05 Amount propofoL 1,000 mg In 55.880 73.05 Empty Bag 1 bag @ Titrate IV .Q0M [facility] Rx#: [id number] Output: Gastric Drainage 50 Urine 455 975 175 Other: Voiding Method Indwelling Catheter Indwelling Catheter # Bowel Movements 1 ABP, PAP, CO, CI - Last Documented Arterial Blood Pressure 118/56 - Exam GENERAL EXAM: Revealed a 79-year-old female on mechanical ventilation, sedated, comfortable, in no distress. HEAD: Normocephalic/atraumatic. ENT: PERRLA, EOMI, neck is, no neck masses, no JVD, no stridor.. CHEST: No chest wall deformity. Symmetrical expansion. LUNGS: Crackles and rhonchi noted bilaterally. CVS: Regular rate and rhythm, normal S1 and S2, no gallops, no murmurs, no rubs ABDOMEN: Soft, nontender. No hepatosplenomegaly, normal bowel sounds, no guarding or rigidity. EXTREMITIES: No clubbing, no edema, no cyanosis, 2+ pulses and upper and lower extremities SKIN: No rashes CENTRAL NERVOUS SYSTEM: Sedated, could not be assessed, patient is on propofol. PSYCHIATRIC: Unable to assess - Labs CBC & Chem 7: 05/17/20 03:51 05/17/20 03:51 Labs: Abnormal Lab Results - Last 24 Hours (Table) 05/16/20 05/16/20 05/17/20 Range/Units 21:41 23:24 03:51 WBC 15.0 H (3.8-10.6) k/uL RBC 3.55 L (3.80-5.40) m/uL Hgb 10.0 L (11.4-16.0) gm/dL Hct 31.5 L (34.0-46.0) % Neutrophils # 14.3 H (1.3-7.7) k/uL Lymphocytes # 0.1 L (1.0-4.8) k/uL ABG pH 7.47 H (7.35-7.45) ABG pCO2 34 L (35-45) mmHg ABG pO2 52 L* 69 L (83-108) mmHg ABG HCO3 (21-25) mmol/L ABG Total CO2 26 H 25 H (19-24) mmol/L ABG O2 Saturation 87.0 L 93.9 L (94-97) % Sodium (137-145) mmol/L Chloride (98-107) mmol/L BUN (7-17) mg/dL Creatinine (0.52-1.04) mg/dL Glucose (74-99) mg/dL Calcium (8.4-10.2) mg/dL CK-MB (CK-2) (0.0-2.4) ng/mL C-Reactive Protein (<10.0) mg/L Total Protein (6.3-8.2) g/dL Albumin (3.5-5.0) g/dL 05/17/20 05/17/20 05/17/20 Range/Units 03:51 03:51 05:17 WBC (3.8-10.6) k/uL RBC (3.80-5.40) m/uL Hgb (11.4-16.0) gm/dL Hct (34.0-46.0) % Neutrophils # (1.3-7.7) k/uL Lymphocytes # (1.0-4.8) k/uL ABG pH (7.35-7.45) ABG pCO2 (35-45) mmHg ABG pO2 58 L* (83-108) mmHg ABG HCO3 26 H (21-25) mmol/L ABG Total CO2 27 H (19-24) mmol/L ABG O2 Saturation 89.1 L (94-97) % Sodium 136 L (137-145) mmol/L Chloride 108 H (98-107) mmol/L BUN 27 H (7-17) mg/dL Creatinine 0.51 L (0.52-1.04) mg/dL Glucose 118 H (74-99) mg/dL Calcium 7.6 L (8.4-10.2) mg/dL CK-MB (CK-2) 4.4 H (0.0-2.4) ng/mL C-Reactive Protein 45.5 H (<10.0) mg/L Total Protein 5.0 L (6.3-8.2) g/dL Albumin 2.3 L (3.5-5.0) g/dL Assessment and Plan Assessment: Impression: Acute hypoxic respiratory failure. Secondary to Covid 19 pneumonitis. Patient required intubation on 05/16/20, and she remains now on mechanical ventilation. Acute pulmonary embolism, subsegmental in the left lower lobe with elevated d- dimer History of breast cancer. Generalized anxiety disorder. Influenza B infection Elevated d-dimer Recommendation: Continue to monitor in the ICU. Continue ventilatory support. Continue IV Solu-Medrol. Completed treatment with remdesivir , and received convalescent plasma times one. Continue anticoagulation therapy. Continue supportive care measures. Updated her today on her condition, and explained to him that the [place] ent is critically ill, and mortality is rather high in someone her age on mechanical ventilation with Covid 19 pneumonitis.. Patient remains critically ill, Critical care time is over 34 minutes. Not including the time spent on procedures. We'll continue to follow. Time with Patient: Greater than 30
[2020-05-17] MEDS ORDERED: SODIUM CHLORIDE 0.9% 1,000 ML IV ONE ×2 (13:30→21:28)
[2020-05-17] MEDS: clonazePAM 0.5 MG TAB PO SCH (20:23)
--- NOTE | 2020-05-17 22:00 | PN ---
PROGRESS NOTE DATE OF SERVICE: 05/17/2020 REASON FOR FOLLOWUP: Pneumonia. INTERVAL HISTORY: The patient is currently afebrile. The patient did go into respiratory distress and ended up getting intubated. The patient is currently hemodynamically stable. FiO2 is currently 90%. No significant purulent secretions through the ET or any diarrhea reported. PHYSICAL EXAMINATION: Blood pressure 100/50 with a pulse of 64, temperature 98. She is 97% on 90% FiO2. General description is an elderly female intubated on the vent. RESPIRATORY SYSTEM: Unlabored breathing with decreased breath sounds at the base. No wheeze. HEART: S1, S2. Regular rate and rhythm. ABDOMEN: Soft. No tenderness. LABS: Hemoglobin is 10, white count 15. BUN of 27, creatinine 0.51. DIAGNOSTIC IMPRESSION AND PLAN: Patient with acute respiratory failure which is multifactorial in this patient treated with influenza and COVID-19, now with worsening respiratory status, ended up getting intubated. We will obtain sputum cultures, empirically add Zosyn while waiting for the cultures to finalize. Continue to stabilize and continue supportive care. MMODL / IJN: [id number] /
[2020-05-17] MEDS: PIPERACILLIN-TAZOBACTAM 3.375 GM in SODIUM CHLORIDE 0.9% 100 ML IVPB SCH (23:27)
[2020-05-17] MEDS: LORazepam 2 MG/ML INJ IV PRN (23:28)
[2020-05-17 23:39] LABS: Glucose,Whole Blood 112 mg/dL (75-99)
[2020-05-18] MEDS: INSULIN ASPART (NovoLOG) 100 UNIT/ML VIAL SQ SCH ×4 (03:31→18:05)
[2020-05-18] MEDS: SODIUM CHLORIDE 0.9% 1,000 ML IV SCH ×2 (03:41→16:09)
[2020-05-18 05:31] LABS: D-Dimer 1.17 mg/L FEU (<0.60)
[2020-05-18 05:41] LABS: C Reactive Protein 27.9 mg/L (<10.0)
[2020-05-18 05:41] LABS: ABG Base Excess -4.3 mmol/L; ABG HCO3 21 mmol/L (21-25); ABG Oxygen Saturation 92.2 % (94-97); ABG PCO2 39 mmHg (35-45); ABG PH 7.35 (7.35-7.45); ABG PO2 70 mmHg (83-108); ABG TCO2 23 mmol/L (19-24)
[2020-05-18] MEDS: LEVOTHYROXINE 50 MCG TAB PO SCH (05:45)
[2020-05-18] MEDS: methylPREDNISolone SOD SUCCI 125 MG/2 ML VIAL IV SCH ×3 (05:45→17:58)
[2020-05-18 05:59] LABS: Basophils # (A) 0.1 k/uL (0-0.2); Basophils % (A) 0 %; Eosinophils % (A) 0 %; HCT 31.7 % (34.0-46.0); HGB 10.1 gm/dL (11.4-16.0); Lymphocytes # (A) 0.1 k/uL (1.0-4.8); Lymphocytes % (A) 1 %; MCH 28.7 pg (25.0-35.0); MCHC 31.9 g/dL (31.0-37.0); MCV 89.9 fL (80.0-100.0); Mean Platelet Volume 7.1; Monocytes # (A) 0.4 k/uL (0-1.0); Monocytes % (A) 3 %; Neutrophils # (A) 15.3 k/uL (1.3-7.7); Neutrophils % (A) 96 %; Platelet Count 303 k/uL (150-450); RBC 3.53 m/uL (3.80-5.40); RDW 14.5 % (11.5-15.5); WBC 15.9 k/uL (3.8-10.6)
[2020-05-18 06:03] LABS: Glucose,Whole Blood 123 mg/dL (75-99)
[2020-05-18 06:04] LABS: ALT 15 U/L (4-34); AST 23 U/L (14-36); African American GFR (CKD) >90 (>60 ml/min/1.73 sqM); Alkaline Phosphatase 86 U/L (38-126); Anion Gap 1 mmol/L; Blood Urea Nitrogen 29 mg/dL (7-17); Calcium 7.3 mg/dL (8.4-10.2); Carbon Dioxide 23 mmol/L (22-30); Chloride 112 mmol/L (98-107); Glucose 122 mg/dL (74-99); Non-African American GFR(CKD) 89 (>60 ml/min/1.73 sqM); Potassium 3.7 mmol/L (3.5-5.1); Sodium 136 mmol/L (137-145); Total Bilirubin 0.3 mg/dL (0.2-1.3); Total Protein 4.5 g/dL (6.3-8.2)
[2020-05-18] MEDS ORDERED: Potassium Replacement Protocol 1 EACH MISC MISCELLANE PRN (06:37)
[2020-05-18] MEDS ORDERED: POTASSIUM BICARBONATE/CIT AC 20 MEQ TABLET.EFF NG-TUBE SCH (07:00)
--- NOTE | 2020-05-18 07:00 | XR ---
EXAMINATION TYPE: XR chest 1V portable DATE OF EXAM: 05/18/2020 COMPARISON: 05/17/2020 HISTORY: SOB, Follow Up FINDINGS: Indwelling tubes and catheters are unchanged. Perihilar and basilar infiltrates remain unchanged. Stable appearance of the cardio-mediastinal structures at this time. IMPRESSION: 1. Stable portable chest. Clinical correlation and follow up until resolution is recommended.
[2020-05-18] MEDS: PIPERACILLIN-TAZOBACTAM 3.375 GM in SODIUM CHLORIDE 0.9% 100 ML IVPB SCH ×2 (07:24→16:08)
[2020-05-18] MEDS: PANTOPRAZOLE 40 MG/10 ML VIAL IVP SCH ×2 (08:02→20:05)
[2020-05-18] MEDS: CHOLECALCIFEROL 1,000 UNIT TAB PO SCH (08:03)
[2020-05-18] MEDS: METOPROLOL TARTRATE 25 MG TAB PO SCH ×2 (08:03→20:06)
[2020-05-18] MEDS: CYANOCOBALAMIN 500 MCG TAB PO SCH (08:03)
[2020-05-18] MEDS: ASCORBIC ACID 500 MG TAB PO SCH ×2 (08:03→20:06)
[2020-05-18] MEDS: ZINC SULFATE 220 MG CAP PO SCH (08:03)
[2020-05-18] MEDS: ASPIRIN 81 MG PO SCH (08:03)
[2020-05-18] MEDS: CHLORHEXIDINE GLUCONATE 15 ML CUP MUCOUS MEM SCH ×2 (08:03→20:06)
[2020-05-18] MEDS: SERTRALINE 100 MG TAB PO SCH (08:19)
[2020-05-18] MEDS: ENOXAPARIN 60 MG/0.6 ML SYRINGE SQ SCH ×2 (08:19→20:35)
[2020-05-18] MEDS ORDERED: SODIUM CHLORIDE 0.9% 1,000 ML IV ONE ×2 (10:29→21:44)
[2020-05-18 11:45] LABS: Glucose,Whole Blood 124 mg/dL (75-99)
--- NOTE | 2020-05-18 14:32 | P.PN ---
Subjective Progress Note Date: 05/18/20 HISTORY OF PRESENT ILLNESS This is a 79-year-old female patient of Dr. Guerrero with past medical history of breast cancer, hypothyroidism, hyperlipidemia, generalized osteoarthritis. She was recently hospitalized May 12 for fever, chills, cough with sputum production with worsening dyspnea was diagnosed with COVID-19 pneumonia. Patient was stabilized and discharged home on May 05 with azithromycin, steroids, home oxygen and vitamin supplements. Patient had significant shortness of breath when she woke up this morning and was wearing oxygen at 4 L. EMS was called and reported that she was ashen nazario, diaphoretic with a pulse ox of 71% upon arrival. Patient was brought into [facility] emergency center and found to be afebrile, heart rate 105, blood pressure 168/89, pulse ox 97% with nonrebreather. She continued tachypneic and tachycardic and patient was placed on BiPAP. Chest x-ray reveals stable patchy bilateral infiltrates. WBC 19.5, hemoglobin 11. Sodium 133, potassium 4.1, CO2 26, BUN 23 and creatinine 0.65. Blood sugar 100. Lactic acid 1.1. LDH 1116, C-reactive protein 63.7. Covid 19 not detected. Influenza B positive. Patient was continued on vitamin supplements, dexamethasone and started on Lovenox, Kati flu, admitted to the cardiac stepdown unit and consult requested with infectious disease and pulmonary medicine. DDimer elevated at 33 and CTA of the chest positive for tiny filling defect left lower lobe pulmonary artery. 05/10: Patient continues to have significant shortness of breath cough and chest tightness. She is on BiPAP and unable to eat or drink. She continues to feel weak and tired. Temperature max 100.0, heart rate 95, blood pressure 125/68, pulse ox 91% on BiPAP with FiO2 of 80. Patient has been seen by pulmonary medicine and started on Remdesivir. The patient's has been contacted via phone and updated regarding patient's current condition and treatment plan. 05/11: Patient is currently on day 3/5 of Remdesivir. Her pulse ox is running about 89% on BiPAP of 85% FiO2. Legionella was negative. Temperature max 101, heart rate 86, blood pressure 150/68. Navarro catheter will be placed as patient is too dyspneic to use bedpan or commode. Repeat blood work reveals WBC 19.4, hemoglobin 10.2. Sodium 136, potassium 3.7, creatinine 0.68. Patient is followed by infectious disease and pulmonary medicine. 05/12: Patient is currently on day 4/5 of Remdesivir. She continues to have significant shortness of breath which is worse from yesterday. She is on 85% FiO2 BiPAP pulse ox a 90%. When she moved over to 15 L, pulse ox dropped down to 78%. She continues complaining of shortness of breath. She has been anxious during the night and Xanax ordered. Patient is unable to take any new oral nutrition at this point. Navarro catheter was placed yesterday. Patient has been afebrile for 24 hour period. Heart rate 104, respiratory rate 26, blood pressure 175/81. Updated pulmonary medicine regarding possible need for intubation. 05/13: Patient's respiratory status did improve yesterday afternoon and she did not require transfer to the intensive care unit. Patient may be slightly better today from yesterday morning but did decline from yesterday afternoon. She is currently pulse ox seen in the 80s with BiPAP of 85% FiO2. She has been off onto 15 L high flow nasal cannula to eat and has been able to take in a small amount of food yesterday and Ensure. She will complete her course of Remdesivir this evening. Tamiflu course will also be completed this evening. Temperature max 100.3 yesterday at noon. Heart rate 91, blood pressure 174/85. Repeat blood work reveals WBC 20.5, hemoglobin 11. Chloride 112, BUN 33 and creatinine 0.61. Blood sugar 146. Alkaline phosphatase 129. 05/14: Yesterday afternoon, patient was transferred to the intensive care unit and is agreeable to short-term intubation if necessary. She has not required vasopressors. Patient has been afebrile. Heart rate 64, blood pressure 132/69, pulse ox 93% on 80% BiPAP. Leukocytosis is down to 12.9, hemoglobin 10. D- dimer isn't improved at 2.83. Creatinine 0.53. Other inflammatory markers have shown improvement with LDH at 1416, C-reactive protein 36.8. Patient has completed course of Remdesivir and Tamiflu. She remains on Lovenox, Solu-Medrol and vitamin supplementations. 05/15: Patient remains in the intensive care unit on BiPAP pulse ox seen 89-90% on 80% FiO2. Repeat chest x-ray reveals stable bilateral patchy infiltrate. She has completed course of Remdesivir and course of Tamiflu. She has been afebrile, heart rate 64, blood pressure 151/79. WBC 14.6, hemoglobin 10.1. Creatinine 0.51. Blood sugar 136. Albumin 2.5. Patient has been without food for greater than 6 days. Discussed nutrition options with Dr. Crowe he will address with rounds today. Physical exam deferred to Dr. Crowe. 05/16: Patient remains in the intensive care unit. She remains on 100% BiPAP pulse oxing 91%. She's been afebrile, heart rate in the low 100s, blood pressure 162/88. Repeat blood work reveals WBC 16.1, hemoglobin 10.8. D-dimer is 2.88. Sodium 135, potassium 3.7, chloride 108, CO2 25, BUN 28 and creatinine 0.47. CRP 37.3. Repeat chest x-ray reveals patchy bilateral lung infiltrates. Patient continues to be followed by [facility] and infectious disease. Patient is eating only about 25% of her meals. She is followed by case management for discharge planning. Patient states that Xanax is not helping and will be changed to lorazepam 0.5 mg IV every 6 hours as needed. 05/17: Patient was intubated last night currently on mechanical ventilation with tidal volume 400, FiO2 100, PEEP of 14. Pulse ox is 90-91%. Chest x-ray this morning reveals mild cardiomegaly and diffuse interstitial opacities mid and lower lungs. Small effusions. Correlate for interstitial pulmonary edema. She has been afebrile, heart rate 76, blood pressure 132/68. Patient has not required vasopressors. Patient is on max propofol. Oral tube feeding to be started today. Repeat lab work reveals WBC 15, hemoglobin 10. Sodium 136, potassium 3.5, chloride 108, CO2 24, BUN 27 and creatinine 0.51. Stool for occult blood positive. 05/18: Patient remains in the intensive care unit with pulse ox in the low 90s, remains intubated and on mechanical ventilation with tidal volume 350, FiO2 65, PEEP 12. She has been afebrile, heart rate 64, blood pressure 105/59. Patient has been starting on tube feedings currently at goal. Repeat lab work reveals Mattie BC 15.9, hemoglobin 10.1. Fibrinogen 504, d-dimer 1.17. Sodium 136, potassium 3.7, chloride 112, CO2 23, BUN 29 and creatinine 0.59. Blood sugars in the low 100s. Ferritin 570. C-reactive protein 27.9. REVIEW OF SYSTEMS Unable to obtain due to intubation. PHYSICAL EXAMINATION Gen: This is a 79-year-old female. She is resting in bed in no distress, intubated and on mechanical ventilation. HEENT: Head is atraumatic, normocephalic. Pupils equal, round. Sclerae is anicteric. Oral ET and gastric tube. NECK: Supple. No JVD. No lymphadenopathy. No thyromegaly. LUNGS: Bilateral crackles with decreased air exchange. No intercostal retractions. HEART: Regular rate and rhythm. No murmur. ABDOMEN: Soft. Bowel sounds are present. No masses. No tenderness. EXTREMITIES: No pedal edema. No calf tenderness. Dorsalis pedis +2 bilaterally. NEUROLOGICAL: Patient is on sedation. ASSESSMENT AND PLAN 1. Acute on chronic hypoxic respiratory failure secondary to COVID pneumonia, Influenza B and small left lower pulmonary embolism. Patient required intubation and mechanical ventilation. Solu-Medrol 60 mg IV every 6 hours, Lovenox 60 mg subcu twice daily, vitamin supplements with vitamin C, vitamin D, zinc, Tamifllu completed. Remdesivir completed. Consults with pulmonary medi cine and infectious disease appreciated. 2. Hypothyroidism. Continue levothyroxine 50 g daily. 3. Severe osteoporosis. Fosamax on hold. 4. Anticoagulation with Lovenox. 5. GI prophylaxis. Pepcid. 6. Recurrent depression. Continue Zoloft 200 mg daily. 7. Situational anxiety. Xanax 0.5 mg twice daily as needed added. 8. History of breast cancer. 9. Stool positive for occult blood. Monitor hemoglobin and patient status closely. Prognosis guarded. DISCHARGE PLAN May require subacute rehab. Patient is followed by case management. Impression and plan of care have been directed as dictated by the signing physician. Ivone Vizcarra nurse practitioner acting as scribe for signing physician. Objective - Vital Signs Vital signs: Vital Signs Temp 98.6 F 05/18/20 08:00 Pulse 74 05/18/20 09:00 Resp 26 H 05/18/20 09:00 BP 121/64 05/18/20 09:00 Pulse Ox 92 L 05/18/20 09:00 Intake & Output 05/17/20 05/18/20 05/18/20 18:59 06:59 18:59 Intake Total 2269.55 2427.997 554 Output Total 610 397 96 Balance 1659.55 2030.997 458 Weight 55 kg 59.1 kg Intake: IV 2091.5 2072 343 Piperacillin-Tazobactam 3 100 100 .375 gm In Sodium Chloride 0.9% 100 ml @ 25 mls/hr IVPB Q8HR [facility] Rx# :[id number] Potassium Chloride 10 meq 330 In Water For Injection 1 100ml.bag @ 100 mls/hr IVPB Q1HR [facility] Rx#: [id number] Pressure Bags 0.9 sodium 31.5 72 18 chloride Sodium Chloride 0.9% 1, 730 900 225 000 ml @ 75 mls/hr IV . [id number] [facility] Rx#:[id number] Sodium Chloride 0.9% 1, 1000 1000 000 ml @ 999 mls/hr IV . Q1H1M [facility] Rx#:[id number] Intake, IV Titration 173.05 141.997 Amount propofoL 1,000 mg In 173.05 141.997 Empty Bag 1 bag @ Titrate IV .Q0M [facility] Rx#: [id number] Oral 60 Tube Feeding 5 124 51 Other 90 100 Output: Gastric Drainage 150 Urine 460 397 96 Other: Voiding Method Indwelling Catheter Indwelling Catheter Indwelling Catheter # Voids 1 # Bowel Movements 0 ABP, PAP, CO, CI - Last Documented Arterial Blood Pressure 125/74 - Labs CBC & Chem 7: 05/18/20 04:48 05/18/20 09:00 Labs: Abnormal Lab Results - Last 24 Hours (Table) 05/17/20 05/18/20 05/18/20 Range/Units 23:36 04:48 04:48 WBC (3.8-10.6) k/uL RBC (3.80-5.40) m/uL Hgb (11.4-16.0) gm/dL Hct (34.0-46.0) % Neutrophils # (1.3-7.7) k/uL Lymphocytes # (1.0-4.8) k/uL Fibrinogen 504 H (200-500) mg/dL D-Dimer 1.17 H (<0.60) mg/L FEU ABG pO2 (83-108) mmHg ABG O2 Saturation (94-97) % Sodium (137-145) mmol/L Chloride (98-107) mmol/L BUN (7-17) mg/dL Glucose (74-99) mg/dL POC Glucose (mg/dL) 112 H (75-99) mg/dL Calcium (8.4-10.2) mg/dL Ferritin 570.0 H (10.0-291.0) ng/mL C-Reactive Protein 27.9 H (<10.0) mg/L Total Protein (6.3-8.2) g/dL Albumin (3.5-5.0) g/dL 05/18/20 05/18/20 05/18/20 Range/Units 04:48 04:48 05:35 WBC 15.9 H (3.8-10.6) k/uL RBC 3.53 L (3.80-5.40) m/uL Hgb 10.1 L (11.4-16.0) gm/dL Hct 31.7 L (34.0-46.0) % Neutrophils # 15.3 H (1.3-7.7) k/uL Lymphocytes # 0.1 L (1.0-4.8) k/uL Fibrinogen (200-500) mg/dL D-Dimer (<0.60) mg/L FEU ABG pO2 70 L (83-108) mmHg ABG O2 Saturation 92.2 L (94-97) % Sodium 136 L (137-145) mmol/L Chloride 112 H (98-107) mmol/L BUN 29 H (7-17) mg/dL Glucose 122 H (74-99) mg/dL POC Glucose (mg/dL) (75-99) mg/dL Calcium 7.3 L (8.4-10.2) mg/dL Ferritin (10.0-291.0) ng/mL C-Reactive Protein (<10.0) mg/L Total Protein 4.5 L (6.3-8.2) g/dL Albumin 2.0 L (3.5-5.0) g/dL 11/25/20 Range/Units 06:01 WBC (3.8-10.6) k/uL RBC (3.80-5.40) m/uL Hgb (11.4-16.0) gm/dL Hct (34.0-46.0) % Neutrophils # (1.3-7.7) k/uL Lymphocytes # (1.0-4.8) k/uL Fibrinogen (200-500) mg/dL D-Dimer (<0.60) mg/L FEU ABG pO2 (83-108) mmHg ABG O2 Saturation (94-97) % Sodium (137-145) mmol/L Chloride (98-107) mmol/L BUN (7-17) mg/dL Glucose (74-99) mg/dL POC Glucose (mg/dL) 123 H (75-99) mg/dL Calcium (8.4-10.2) mg/dL Ferritin (10.0-291.0) ng/mL C-Reactive Protein (<10.0) mg/L Total Protein (6.3-8.2) g/dL Albumin (3.5-5.0) g/dL
--- NOTE | 2020-05-18 15:31 | P.PN ---
Subjective Progress Note Date: 05/18/20 Principal diagnosis: Acute hypoxic respiratory failure secondary to covid 19 pneumonitis. On 05/14/2020, the patient is being seen in the intensive care unit. The patient has been transferred to the intensive care unit yesterday because of acute hypoxic respiratory failure with progressive worsening shortness of breath and progressive worsening in her oxygenation. Note that the patient missed on a BiPAP and currently things of 14/8 cm of water with an FiO2 of 100%. Note that this patient initially had an acute Covid 19 related pneumonia that was diagnosed on 04/28/2020 and the patient was hospitalized and subsequently discharged home after being treated. At the time of discharge was given oral Decadron. She came back to the hospital on 05/09/2020 with worsening shortness of breath and hypoxemia and the patient tested negative for Covid 19 and the patient tested positive for influenza B. Despite all this, I give the patient the benefit of the doubt and treated the patient with Decadron and Remdesivir and I also had a Tamiflu. Subsequently, switched this patient to IV Solu- Medrol. At this point in time, the patient is in the intensive care unit. On today's evaluation her white cell count is at 12.9 with a hemoglobin of 10.0. D-dimer is at 2.83 and the patient remains on therapeutic dose of Lovenox 60 mg subcu every 12 hours. Note that the Electrodes are being utilized at the patient also showed a subsegmental pulmonary embolism in the left lower lobe pulmonary artery branch. As mentioned earlier, the subsegmental pulmonary embolism is not the culprit is not contributing to her respiratory failure and respiratory failure essentially related to the viral pneumonia. Most recent LDH is 1416 with a CRP level of 36 anti-inflammatory markers improved compared to earlier values. Legionella urine antigen was negative. She is afebrile. A repeat chest x-ray was done todayAntegrade the suspicion for a right-sided pneumothorax. I thought this was a skin fold and I repeated the chest x-ray which essentially showed diffuse bilateral pulmonary infiltrates worse on the left without evidence of any pneumothorax. I had a lengthy discussion with the patient. Based on our discussion today, the patient consented for a short-term intubation. She is not on any form of long-term mechanical ventilation in the event her breathing further decompensates. As such, overall CODE STATUS is full at this point in time. 05/15/2020, the patient remains in the intensive care unit in regards to her acute respiratory failure. The patient remains very much BiPAP dependent. She remains on a pressure of 14/8 cm of water. FiO2 has been weaned down to 80%. Despite unchanged BiPAP setting, the patient claims that she is breathing slightly better compared to yesterday. She is urinating a tidal volume of about 500 on a mechanical ventilator. Her minute ventilation is in the order of 10 L per minute. Note that she is on IV fluids and the site of 75 mL an hour. She has received IV Solu-Medrol, completed Remdesivir, completed Tamiflu, and she al so received 2 units of convalescent plasma. Chest x-ray from today is showing stable bilateral patchy pulmonary infiltrates, unchanged compared to yesterday. Her white cell count is at 14.6 with a hemoglobin of 10.1. She continues to have lymphopenia. The patient's LDH level is at 1416 from yesterday. Her CRP was 36.8 this will be repeated tomorrow. In function is stable. The rest of the electrodes are all stable. She is weak. She is able to take some sips of juice and shakes while being on the BiPAP. Unable to go to regular feeding at this point in time. As mentioned earlier, she has a full CODE STATUS. The patient made it clear to me that she did not want any form of long-term mechanical ventilation should she go into respiratory failure requiring intubation mechanical ventilation. She is still on anticoagulation the patient is on Lovenox therapeutic dose of 60 mg subcu every 12 hours. IV fluids are running at rate of 75 mL an hour. Reevaluated today on 05/16/20, patient remains in the ICU, presently on BiPAP with IPAP of 14 EPAP of 8 she is on the percent FiO2, and O2 saturation is very marginal at best, 90%. Patient did receive convalescent plasma, remdesivir and received Solu-Medrol. Patient was admitted initially on 05/09 and has been in the ICU since 05/13. Her pulmonary status is marginal at best. Patient also completed a course of Tamiflu. Chest x-ray continues to show bilateral interstitial infiltrates. WBC count is 16.1 hemoglobin is 10.8. D-dimer is 2.88 left lites are normal renal profile is normal Reevaluated today on 05/17/20. Patient had a deterioration in her clinical status last night, and she was barely oxygenating. ABG on high FiO2 of 100% on BiPAP, showed a pO2 of only 62 pCO2 of 34 pH of 7.47, and the patient was noted to be more tachypneic. Hence I recommended intubating the patient. And she had a follow-up ABG this morning on 100% FiO2 with of PEEP 12, showed a pO2 of 58 pCO2 of 40 0 pH of 7.43. patient is now on mechanical ventilation, and her ventilator settings are assist control rate of 26, tidal volume is 350, PEEP was cut down to 10 from 16 as the patient could not tolerate high PEEP, noted to do worse, with significantly elevated peak airway pressure and significantly elevated plateau pressures. Hence the to using lower tidal volumes, higher rates, and was able to cut down on her peak airway pressure, and her plateau pressures. ABG is pending. This morning ABG showed a pO2 of 58 pCO2 of 40 pH of 7.43. Patient is now on propofol at 60 g per acute per minute IV fluid at 75 mL per hour, enteral feeding to be started today. Lines including a right IJ central line placed, and left radial arterial line was also placed. Chest x-ray continues to show patchy infiltrates mid and lower lungs left greater than right. Electrolytes are normal renal profile is normal. WBC count is 15 hemoglobin is 10. Reevaluated today on 05/18/20, patient remains in the ICU, intubated and mechanically ventilated. Her ventilator settings are assist control rate of 30 tidal volume of 350 FiO2 is 70%. PEEP of 10. ABG showed a pO2 of 70 pCO2 of 39 pH of 7.35. Patient is on propofol at 48 mcg/kg/m, IV fluid at 75 mL/h, patient is on enteral feeding, I did increase the PEEP up to 12, hoping to cut down on the FiO2 from 70% to 60% if possible. Patient had very poor tolerance to high PEEP, we will address that accordingly. Zosyn was added mostly because of elevated pro calcitonin level. Electrolytes and renal profile are normal. D- dimer is 1.17. C-reactive protein is 27.9. Seems to be trending down. Objective - Vital Signs Vital signs: Vital Signs Temp 97.9 F 05/18/20 12:00 Pulse 65 05/18/20 14:00 Resp 26 H 05/18/20 14:00 BP 97/56 05/18/20 13:00 Pulse Ox 92 L 05/18/20 14:00 Intake & Output 05/17/20 05/18/20 05/18/20 18:59 06:59 18:59 Intake Total 2269.55 2427.997 2098.673 Output Total 610 397 381 Balance 1659.55 2030.997 1717.673 Weight 55 kg 59.1 kg Intake: IV 2091.5 2072 1670 Piperacillin-Tazobactam 3 100 100 .375 gm In Sodium Chloride 0.9% 100 ml @ 25 mls/hr IVPB Q8HR NI Rx# :[id number] Potassium Chloride 10 meq 330 In Water For Injection 1 100ml.bag @ 100 mls/hr IVPB Q1HR [facility] Rx#: [id number] Pressure Bags 0.9 sodium 31.5 72 45 chloride Sodium Chloride 0.9% 1, 730 900 525 000 ml @ 75 mls/hr IV . [id number] NI Rx#:[id number] Sodium Chloride 0.9% 1, 1000 1000 000 ml @ 999 mls/hr IV . Q1H1M ONE Rx#:[id number] Sodium Chloride 0.9% 1, 1000 000 ml @ 999 mls/hr IV . Q1H1M ONE Rx#:[id number] Intake, IV Titration 173.05 141.997 85.673 Amount propofoL 1,000 mg In 173.05 141.997 85.673 Empty Bag 1 bag @ Titrate IV .Q0M [facility] Rx#: [id number] Oral 60 Tube Feeding 5 124 153 Other 90 130 Output: Gastric Drainage 150 Urine 460 397 381 Other: Voiding Method Indwelling Catheter Indwelling Catheter Indwelling Catheter # Voids 1 # Bowel Movements 0 ABP, PAP, CO, CI - Last Documented Arterial Blood Pressure 95/44 - Exam GENERAL EXAM: Revealed a 79-year-old female on mechanical ventilation, sedated, comfortable, in no distress. HEAD: Normocephalic/atraumatic. ENT: PERRLA, EOMI, neck is, no neck masses, no JVD, no stridor.. CHEST: No chest wall deformity. Symmetrical expansion. LUNGS: Crackles and rhonchi noted bilaterally. CVS: Regular rate and rhythm, normal S1 and S2, no gallops, no murmurs, no rubs ABDOMEN: Soft, nontender. No hepatosplenomegaly, normal bowel sounds, no guarding or rigidity. EXTREMITIES: No clubbing, no edema, no cyanosis, 2+ pulses and upper and lower extremities SKIN: No rashes CENTRAL NERVOUS SYSTEM: Sedated, could not be assessed, patient is on propofol. PSYCHIATRIC: Unable to assess - Labs CBC & Chem 7: 05/18/20 04:48 05/18/20 09:00 Labs: Abnormal Lab Results - Last 24 Hours (Table) 05/17/20 05/18/20 05/18/20 Range/Units 23:36 04:48 04:48 WBC (3.8-10.6) k/uL RBC (3.80-5.40) m/uL Hgb (11.4-16.0) gm/dL Hct (34.0-46.0) % Neutrophils # (1.3-7.7) k/uL Lymphocytes # (1.0-4.8) k/uL Fibrinogen 504 H (200-500) mg/dL D-Dimer 1.17 H (<0.60) mg/L FEU ABG pO2 (83-108) mmHg ABG O2 Saturation (94-97) % Sodium (137-145) mmol/L Chloride (98-107) mmol/L BUN (7-17) mg/dL Glucose (74-99) mg/dL POC Glucose (mg/dL) 112 H (75-99) mg/dL Calcium (8.4-10.2) mg/dL Ferritin 570.0 H (10.0-291.0) ng/mL C-Reactive Protein 27.9 H (<10.0) mg/L Total Protein (6.3-8.2) g/dL Albumin (3.5-5.0) g/dL 05/18/20 05/18/20 05/18/20 Range/Units 04:48 04:48 05:35 WBC 15.9 H (3.8-10.6) k/uL RBC 3.53 L (3.80-5.40) m/uL Hgb 10.1 L (11.4-16.0) gm/dL Hct 31.7 L (34.0-46.0) % Neutrophils # 15.3 H (1.3-7.7) k/uL Lymphocytes # 0.1 L (1.0-4.8) k/uL Fibrinogen (200-500) mg/dL D-Dimer (<0.60) mg/L FEU ABG pO2 70 L (83-108) mmHg ABG O2 Saturation 92.2 L (94-97) % Sodium 136 L (137-145) mmol/L Chloride 112 H (98-107) mmol/L BUN 29 H (7-17) mg/dL Glucose 122 H (74-99) mg/dL POC Glucose (mg/dL) (75-99) mg/dL Calcium 7.3 L (8.4-10.2) mg/dL Ferritin (10.0-291.0) ng/mL C-Reactive Protein (<10.0) mg/L Total Protein 4.5 L (6.3-8.2) g/dL Albumin 2.0 L (3.5-5.0) g/dL 05/18/20 05/18/20 Range/Units 06:01 11:43 WBC (3.8-10.6) k/uL RBC (3.80-5.40) m/uL Hgb (11.4-16.0) gm/dL Hct (34.0-46.0) % Neutrophils # (1.3-7.7) k/uL Lymphocytes # (1.0-4.8) k/uL Fibrinogen (200-500) mg/dL D-Dimer (<0.60) mg/L FEU ABG pO2 (83-108) mmHg ABG O2 Saturation (94-97) % Sodium (137-145) mmol/L Chloride (98-107) mmol/L BUN (7-17) mg/dL Glucose (74-99) mg/dL POC Glucose (mg/dL) 123 H 124 H (75-99) mg/dL Calcium (8.4-10.2) mg/dL Ferritin (10.0-291.0) ng/mL C-Reactive Protein (<10.0) mg/L Total Protein (6.3-8.2) g/dL Albumin (3.5-5.0) g/dL Assessment and Plan Assessment: Impression: Acute hypoxic respiratory failure. Secondary to Covid 19 pneumonitis. Patient required intubation on 05/16/20, and she remains now on mechanical ventilation. Presently on FiO2 of 70%, and PEEP remains at 12. Acute pulmonary embolism, subsegmental in the left lower lobe with elevated d- dimer History of breast cancer. Generalized anxiety disorder. Influenza B infection Elevated d-dimer Recommendation: Continue ventilatory support. Added Zosyn empirically. Continue nutritional support. Continue GI and DVT prophylaxis. Continue IV Solu-Medrol. Completed treatment with remdesivir , and received convalescent plasma times one. Continue anticoagulation therapy. Continue supportive care measures. Continue the Covid 19 cocktail. We'll continue to follow. Critical care time is over 30 minutes. Time with Patient: Greater than 30
[2020-05-18 18:04] LABS: Glucose,Whole Blood 152 mg/dL (75-99)
[2020-05-18] MEDS: clonazePAM 0.5 MG TAB PO SCH (20:06)
[2020-05-18] MEDS: NOREPINEPHRINE 8 MG in SODIUM CHLORIDE 0.9% 250 ML IV SCH (22:55)
--- NOTE | 2020-05-18 23:51 | PN ---
PROGRESS NOTE DATE OF SERVICE: 05/18/2020 REASON FOR FOLLOWUP: Pneumonia. INTERVAL HISTORY: The patient is currently afebrile. The patient is hemodynamically stable, not on pressor support. FiO2 is currently 55%. No significant purulent secretions through the ET or any diarrhea per the nursing staff. PHYSICAL EXAMINATION: Blood pressure is 110/57, pulse of 71, temperature 98. She is 95% on 95% FiO2. General description is an elderly female intubated on the vent. Respiratory system: Unlabored breathing. Diminished breath sounds per the nursing staff. Heart S1, S2. Regular rate and rhythm. EXTREMITIES: No edema of the feet. LABS: Hemoglobin is 10, white count 15.9, BUN of 29, creatinine 0.59. Blood culture has been negative. The patient's chest x-ray with stable portable chest. DIAGNOSTIC IMPRESSION AND PLAN: Patient with acute respiratory failure which is multifactorial in this patient who had treatment for influenza and Covid. However with worsening respiratory status, concern for possible nosocomial pneumonia. Patient is covered with Zosyn. We will treat her on antibiotics and continue supportive care. MMODL / IJN: [id number] /
[2020-05-19 00:18] LABS: Glucose,Whole Blood 142 mg/dL (75-99)
[2020-05-19] MEDS: PIPERACILLIN-TAZOBACTAM 3.375 GM in SODIUM CHLORIDE 0.9% 100 ML IVPB SCH ×4 (00:25→23:57)
[2020-05-19] MEDS: methylPREDNISolone SOD SUCCI 125 MG/2 ML VIAL IV SCH ×5 (00:25→23:56)
[2020-05-19] MEDS: INSULIN ASPART (NovoLOG) 100 UNIT/ML VIAL SQ SCH ×4 (00:25→18:54)
[2020-05-19 05:03] LABS: Basophils % (A) 0 %; Eosinophils # (A) 0.1 k/uL (0-0.7); Eosinophils % (A) 0 %; HCT 29.5 % (34.0-46.0); HGB 9.3 gm/dL (11.4-16.0); Hypochromasia Slight; Lymphocytes # (A) 0.2 k/uL (1.0-4.8); Lymphocytes % (A) 1 %; MCH 28.7 pg (25.0-35.0); MCHC 31.6 g/dL (31.0-37.0); MCV 90.9 fL (80.0-100.0); Mean Platelet Volume 7.2; Monocytes # (A) 0.6 k/uL (0-1.0); Monocytes % (A) 3 %; Neutrophils # (A) 19.7 k/uL (1.3-7.7); Neutrophils % (A) 95 %; Platelet Count 357 k/uL (150-450); RBC 3.25 m/uL (3.80-5.40); WBC 20.6 k/uL (3.8-10.6)
[2020-05-19 05:12] LABS: ABG Base Excess -4.4 mmol/L; ABG HCO3 22 mmol/L (21-25); ABG Oxygen Saturation 91.7 % (94-97); ABG PCO2 43 mmHg (35-45); ABG PH 7.32 (7.35-7.45); ABG PO2 67 mmHg (83-108); ABG TCO2 23 mmol/L (19-24)
[2020-05-19 05:26] LABS: D-Dimer 0.99 mg/L FEU (<0.60)
[2020-05-19 05:29] LABS: Allen Test Performed? no
[2020-05-19] MEDS: SODIUM CHLORIDE 0.9% 1,000 ML IV SCH ×2 (05:34→18:46)
[2020-05-19 05:36] LABS: ALT 11 U/L (4-34); AST 19 U/L (14-36); African American GFR (CKD) >90 (>60 ml/min/1.73 sqM); Albumin 1.9 g/dL (3.5-5.0); Alkaline Phosphatase 83 U/L (38-126); Anion Gap 1 mmol/L; Blood Urea Nitrogen 27 mg/dL (7-17); C Reactive Protein 24.8 mg/L (<10.0); Calcium 7.4 mg/dL (8.4-10.2); Carbon Dioxide 23 mmol/L (22-30); Chloride 114 mmol/L (98-107); Creatine Kinase <20 U/L (30-135); Glucose 123 mg/dL (74-99); Non-African American GFR(CKD) 86 (>60 ml/min/1.73 sqM); Sodium 138 mmol/L (137-145); Total Bilirubin 0.2 mg/dL (0.2-1.3); Total Protein 4.2 g/dL (6.3-8.2)
[2020-05-19 06:24] LABS: Glucose,Whole Blood 142 mg/dL (75-99)
[2020-05-19] MEDS: LEVOTHYROXINE 50 MCG TAB PO SCH (06:31)
--- NOTE | 2020-05-19 07:19 | XR ---
EXAMINATION TYPE: XR chest 1V portable DATE OF EXAM: 05/19/2020 COMPARISON: NONE HISTORY: SOB, Follow Up FINDINGS: Indwelling tubes and catheters are unchanged. No change in perihilar and basilar infiltrates. Stable appearance of the cardio-mediastinal structures at this time. Pleural effusion unchanged. IMPRESSION: 1. Stable portable chest. Clinical correlation and follow up until resolution is recommended.
[2020-05-19 10:00] LABS: Ferritin 440.8 ng/mL (10.0-291.0)
[2020-05-19] MEDS: METOPROLOL TARTRATE 25 MG TAB PO SCH ×2 (10:16→20:21)
[2020-05-19] MEDS: ZINC SULFATE 220 MG CAP PO SCH (10:29)
[2020-05-19] MEDS: SERTRALINE 100 MG TAB PO SCH (10:29)
[2020-05-19] MEDS: ASCORBIC ACID 500 MG TAB PO SCH ×2 (10:30→20:21)
[2020-05-19] MEDS: CHOLECALCIFEROL 1,000 UNIT TAB PO SCH (10:30)
[2020-05-19] MEDS: ASPIRIN 81 MG PO SCH (10:30)
[2020-05-19] MEDS: CHLORHEXIDINE GLUCONATE 15 ML CUP MUCOUS MEM SCH ×2 (10:30→20:21)
[2020-05-19] MEDS: ENOXAPARIN 60 MG/0.6 ML SYRINGE SQ SCH ×2 (10:30→20:34)
[2020-05-19] MEDS: PANTOPRAZOLE 40 MG/10 ML VIAL IVP SCH ×2 (10:30→20:21)
[2020-05-19] MEDS: CYANOCOBALAMIN 500 MCG TAB PO SCH (10:31)
[2020-05-19 13:00] LABS: Glucose,Whole Blood 124 mg/dL (75-99)
--- NOTE | 2020-05-19 15:05 | P.PN ---
Subjective Progress Note Date: 05/19/20 Principal diagnosis: Acute hypoxic respiratory failure secondary to covid 19 pneumonitis. On 05/14/2020, the patient is being seen in the intensive care unit. The patient has been transferred to the intensive care unit yesterday because of acute hypoxic respiratory failure with progressive worsening shortness of breath and progressive worsening in her oxygenation. Note that the patient missed on a BiPAP and currently things of 14/8 cm of water with an FiO2 of 100%. Note that this patient initially had an acute Covid 19 related pneumonia that was diagnosed on 04/28/2020 and the patient was hospitalized and subsequently discharged home after being treated. At the time of discharge was given oral Decadron. She came back to the hospital on 05/09/2020 with worsening shortness of breath and hypoxemia and the patient tested negative for Covid 19 and the patient tested positive for influenza B. Despite all this, I give the patient the benefit of the doubt and treated the patient with Decadron and Remdesivir and I also had a Tamiflu. Subsequently, switched this patient to IV Solu- Medrol. At this point in time, the patient is in the intensive care unit. On today's evaluation her white cell count is at 12.9 with a hemoglobin of 10.0. D-dimer is at 2.83 and the patient remains on therapeutic dose of Lovenox 60 mg subcu every 12 hours. Note that the Electrodes are being utilized at the patient also showed a subsegmental pulmonary embolism in the left lower lobe pulmonary artery branch. As mentioned earlier, the subsegmental pulmonary embolism is not the culprit is not contributing to her respiratory failure and respiratory failure essentially related to the viral pneumonia. Most recent LDH is 1416 with a CRP level of 36 anti-inflammatory markers improved compared to earlier values. Legionella urine antigen was negative. She is afebrile. A repeat chest x-ray was done todayAntegrade the suspicion for a right-sided pneumothorax. I thought this was a skin fold and I repeated the chest x-ray which essentially showed diffuse bilateral pulmonary infiltrates worse on the left without evidence of any pneumothorax. I had a lengthy discussion with the patient. Based on our discussion today, the patient consented for a short-term intubation. She is not on any form of long-term mechanical ventilation in the event her breathing further decompensates. As such, overall CODE STATUS is full at this point in time. 05/15/2020, the patient remains in the intensive care unit in regards to her acute respiratory failure. The patient remains very much BiPAP dependent. She remains on a pressure of 14/8 cm of water. FiO2 has been weaned down to 80%. Despite unchanged BiPAP setting, the patient claims that she is breathing slightly better compared to yesterday. She is urinating a tidal volume of about 500 on a mechanical ventilator. Her minute ventilation is in the order of 10 L per minute. Note that she is on IV fluids and the site of 75 mL an hour. She has received IV Solu-Medrol, completed Remdesivir, completed Tamiflu, and she al so received 2 units of convalescent plasma. Chest x-ray from today is showing stable bilateral patchy pulmonary infiltrates, unchanged compared to yesterday. Her white cell count is at 14.6 with a hemoglobin of 10.1. She continues to have lymphopenia. The patient's LDH level is at 1416 from yesterday. Her CRP was 36.8 this will be repeated tomorrow. In function is stable. The rest of the electrodes are all stable. She is weak. She is able to take some sips of juice and shakes while being on the BiPAP. Unable to go to regular feeding at this point in time. As mentioned earlier, she has a full CODE STATUS. The patient made it clear to me that she did not want any form of long-term mechanical ventilation should she go into respiratory failure requiring intubation mechanical ventilation. She is still on anticoagulation the patient is on Lovenox therapeutic dose of 60 mg subcu every 12 hours. IV fluids are running at rate of 75 mL an hour. Reevaluated today on 05/16/20, patient remains in the ICU, presently on BiPAP with IPAP of 14 EPAP of 8 she is on the percent FiO2, and O2 saturation is very marginal at best, 90%. Patient did receive convalescent plasma, remdesivir and received Solu-Medrol. Patient was admitted initially on 05/09 and has been in the ICU since 05/13. Her pulmonary status is marginal at best. Patient also completed a course of Tamiflu. Chest x-ray continues to show bilateral interstitial infiltrates. WBC count is 16.1 hemoglobin is 10.8. D-dimer is 2.88 left lites are normal renal profile is normal Reevaluated today on 05/17/20. Patient had a deterioration in her clinical status last night, and she was barely oxygenating. ABG on high FiO2 of 100% on BiPAP, showed a pO2 of only 62 pCO2 of 34 pH of 7.47, and the patient was noted to be more tachypneic. Hence I recommended intubating the patient. And she had a follow-up ABG this morning on 100% FiO2 with of PEEP 12, showed a pO2 of 58 pCO2 of 40 0 pH of 7.43. patient is now on mechanical ventilation, and her ventilator settings are assist control rate of 26, tidal volume is 350, PEEP was cut down to 10 from 16 as the patient could not tolerate high PEEP, noted to do worse, with significantly elevated peak airway pressure and significantly elevated plateau pressures. Hence the to using lower tidal volumes, higher rates, and was able to cut down on her peak airway pressure, and her plateau pressures. ABG is pending. This morning ABG showed a pO2 of 58 pCO2 of 40 pH of 7.43. Patient is now on propofol at 60 g per acute per minute IV fluid at 75 mL per hour, enteral feeding to be started today. Lines including a right IJ central line placed, and left radial arterial line was also placed. Chest x-ray continues to show patchy infiltrates mid and lower lungs left greater than right. Electrolytes are normal renal profile is normal. WBC count is 15 hemoglobin is 10. Reevaluated today on 05/18/20, patient remains in the ICU, intubated and mechanically ventilated. Her ventilator settings are assist control rate of 30 tidal volume of 350 FiO2 is 70%. PEEP of 10. ABG showed a pO2 of 70 pCO2 of 39 pH of 7.35. Patient is on propofol at 48 mcg/kg/m, IV fluid at 75 mL/h, patient is on enteral feeding, I did increase the PEEP up to 12, hoping to cut down on the FiO2 from 70% to 60% if possible. Patient had very poor tolerance to high PEEP, we will address that accordingly. Zosyn was added mostly because of elevated pro calcitonin level. Electrolytes and renal profile are normal. D- dimer is 1.17. C-reactive protein is 27.9. Seems to be trending down. Reevaluated today on 05/19/20, patient remains intubated and mechanically ventilated, her ventilator settings are assist control rate of 30 tidal volume is 350 FiO2 is 60% and PEEP is 12. ABG showed a pO2 of 67 pCO2 of 43 pH of 7.32. Hence I recommended no change in her ventilator settings based on the ABG. Patient is off norepinephrine, maintained on propofol at 60 mcg/kg/m, she is also on enteral feeding, remains on Solu-Medrol and on Zosyn. No major change noted in the last 24 hours, patient is not quite ready for any weaning trials. Chest x-ray continues to show diffuse interstitial infiltrates/ARDS WBC count today is 20.6, hemoglobin is 9.3. D-dimer 0.99. Basic metabolic profile is normal renal profile is normal. C-reactive protein is down to 24.8, Objective - Vital Signs Vital signs: Vital Signs Temp 98.6 F 05/19/20 12:15 Pulse 73 05/19/20 14:30 Resp 30 H 05/19/20 14:30 BP 88/46 05/19/20 14:15 Pulse Ox 95 05/19/20 14:30 Intake & Output 05/18/20 05/19/20 05/19/20 18:59 06:59 18:59 Intake Total 2809.595 2750.021 957.521 Output Total 606 671 515 Balance 2203.595 2079.021 442.521 Weight 61.3 kg Intake: IV 2175 2072 567 Piperacillin-Tazobactam 3 200 100 .375 gm In Sodium Chloride 0.9% 100 ml @ 25 mls/hr IVPB Q8HR NI Rx# :[id number] Pressure Bags 0.9 sodium 75 72 42 chloride Sodium Chloride 0.9% 1, 900 900 525 000 ml @ 75 mls/hr IV . [id number] NI Rx#:[id number] Sodium Chloride 0.9% 1, 1000 1000 000 ml @ 999 mls/hr IV . Q1H1M ONE Rx#:[id number] Intake, IV Titration 176.595 294.021 108.521 Amount Norepinephrine 8 mg In 17.784 8.521 Sodium Chloride 0.9% 250 ml @ 0.05 MCG/KG/MIN 5. 718 mls/hr IV .Q24H NI Rx#:[id number] propofoL 1,000 mg In 176.595 276.237 100 Empty Bag 1 bag @ Titrate IV .Q0M NI Rx#: [id number] Oral 60 60 Tube Feeding 238 204 102 Other 160 180 120 Output: Urine 606 671 515 Other: Voiding Method Indwelling Catheter Indwelling Catheter Indwelling Catheter # Voids 1 # Bowel Movements 0 0 0 ABP, PAP, CO, CI - Last Documented Arterial Blood Pressure 81/39 - Exam GENERAL EXAM: Revealed a 79-year-old female on mechanical ventilation, sedated, comfortable, in no distress. HEAD: Normocephalic/atraumatic. ENT: PERRLA, EOMI, neck is, no neck masses, no JVD, no stridor.. CHEST: No chest wall deformity. Symmetrical expansion. LUNGS: Crackles and rhonchi noted bilaterally. CVS: Regular rate and rhythm, normal S1 and S2, no gallops, no murmurs, no rubs ABDOMEN: Soft, nontender. No hepatosplenomegaly, normal bowel sounds, no guarding or rigidity. EXTREMITIES: No clubbing, no edema, no cyanosis, 2+ pulses and upper and lower extremities SKIN: No rashes CENTRAL NERVOUS SYSTEM: Sedated, could not be assessed, patient is on propofol. PSYCHIATRIC: Unable to assess - Labs CBC & Chem 7: 05/19/20 04:15 05/19/20 04:15 Labs: Abnormal Lab Results - Last 24 Hours (Table) 05/18/20 05/19/20 05/19/20 Range/Units 18:03 00:14 04:15 WBC 20.6 H (3.8-10.6) k/uL RBC 3.25 L (3.80-5.40) m/uL Hgb 9.3 L (11.4-16.0) gm/dL Hct 29.5 L (34.0-46.0) % Neutrophils # 19.7 H (1.3-7.7) k/uL Lymphocytes # 0.2 L (1.0-4.8) k/uL D-Dimer (<0.60) mg/L FEU ABG pH (7.35-7.45) ABG pO2 (83-108) mmHg ABG O2 Saturation (94-97) % Chloride (98-107) mmol/L BUN (7-17) mg/dL Glucose (74-99) mg/dL POC Glucose (mg/dL) 152 H 142 H (75-99) mg/dL Calcium (8.4-10.2) mg/dL Magnesium (1.6-2.3) mg/dL Ferritin (10.0-291.0) ng/mL Creatine Kinase (30-135) U/L C-Reactive Protein (<10.0) mg/L Total Protein (6.3-8.2) g/dL Albumin (3.5-5.0) g/dL 05/19/20 05/19/20 05/19/20 Range/Units 04:15 04:15 05:11 WBC (3.8-10.6) k/uL RBC (3.80-5.40) m/uL Hgb (11.4-16.0) gm/dL Hct (34.0-46.0) % Neutrophils # (1.3-7.7) k/uL Lymphocytes # (1.0-4.8) k/uL D-Dimer 0.99 H (<0.60) mg/L FEU ABG pH 7.32 L (7.35-7.45) ABG pO2 67 L (83-108) mmHg ABG O2 Saturation 91.7 L (94-97) % Chloride 114 H (98-107) mmol/L BUN 27 H (7-17) mg/dL Glucose 123 H (74-99) mg/dL POC Glucose (mg/dL) (75-99) mg/dL Calcium 7.4 L (8.4-10.2) mg/dL Magnesium (1.6-2.3) mg/dL Ferritin 440.8 H (10.0-291.0) ng/mL Creatine Kinase <20 L (30-135) U/L C-Reactive Protein 24.8 H (<10.0) mg/L Total Protein 4.2 L (6.3-8.2) g/dL Albumin 1.9 L (3.5-5.0) g/dL 05/19/20 05/19/20 05/19/20 Range/Units 06:23 12:56 13:40 WBC (3.8-10.6) k/uL RBC (3.80-5.40) m/uL Hgb (11.4-16.0) gm/dL Hct (34.0-46.0) % Neutrophils # (1.3-7.7) k/uL Lymphocytes # (1.0-4.8) k/uL D-Dimer (<0.60) mg/L FEU ABG pH (7.35-7.45) ABG pO2 (83-108) mmHg ABG O2 Saturation (94-97) % Chloride (98-107) mmol/L BUN (7-17) mg/dL Glucose (74-99) mg/dL POC Glucose (mg/dL) 142 H 124 H (75-99) mg/dL Calcium (8.4-10.2) mg/dL Magnesium 2.4 H (1.6-2.3) mg/dL Ferritin (10.0-291.0) ng/mL Creatine Kinase (30-135) U/L C-Reactive Protein (<10.0) mg/L Total Protein (6.3-8.2) g/dL Albumin (3.5-5.0) g/dL Assessment and Plan Assessment: Impression: Acute hypoxic respiratory failure. Secondary to Covid 19 pneumonitis. Patient required intubation on 05/16/20, and she remains now on mechanical ventilation. Presently on FiO2 of 60%, and PEEP remains at 12. Acute pulmonary embolism, subsegmental in the left lower lobe with elevated d- dimer History of breast cancer. Generalized anxiety disorder. Influenza B infection Elevated d-dimer Recommendation: Continue ventilatory support. Added Zosyn empirically. Continue Lovenox/therapeutic dose. 60 mg subcu every 12 hours. Continue nutritional support. Continue GI and DVT prophylaxis. Continue IV Solu-Medrol. Completed treatment with remdesivir , and received convalescent plasma times one. Continue anticoagulation therapy. Continue supportive care measures. Continue the Covid 19 cocktail. We'll continue to follow. Critical care time is over 30 minutes. Time with Patient: Greater than 30
--- NOTE | 2020-05-19 15:19 | P.PN ---
Subjective Progress Note Date: 05/19/20 HISTORY OF PRESENT ILLNESS This is a 79-year-old female patient of Dr. Guerrero with past medical history of breast cancer, hypothyroidism, hyperlipidemia, generalized o steoarthritis. She was recently hospitalized May 12 for fever, chills, cough with sputum production with worsening dyspnea was diagnosed with COVID-19 pneumonia. Patient was stabilized and discharged home on May 05 with azithromycin, steroids, home oxygen and vitamin supplements. Patient had significant shortness of breath when she woke up this morning and was wearing oxygen at 4 L. EMS was called and reported that she was ashen nazario, diaphoretic with a pulse ox of 71% upon arrival. Patient was brought into [facility] emergency center and found to be afebrile, heart rate 105, blood pressure 168/89, pulse ox 97% with nonrebreather. She continued tachypneic and tachycardic and patient was placed on BiPAP. Chest x-ray reveals stable patchy bilateral infiltrates. WBC 19.5, hemoglobin 11. Sodium 133, potassium 4.1, CO2 26, BUN 23 and creatinine 0.65. Blood sugar 100. Lactic acid 1.1. LDH 1116, C-reactive protein 63.7. Covid 19 not detected. Influenza B positive. Patient was continued on vitamin supplements, dexamethasone and started on Lovenox, Tamiflu, admitted to the cardiac stepdown unit and consult requested with infectious disease and pulmonary medicine. DDimer elevated at 33 and CTA of the chest positive for tiny filling defect left lower lobe pulmonary artery. 05/10: Patient continues to have significant shortness of breath cough and chest tightness. She is on BiPAP and unable to eat or drink. She continues to feel weak and tired. Temperature max 100.0, heart rate 95, blood pressure 125/68, pulse ox 91% on BiPAP with FiO2 of 80. Patient has been seen by pulmonary medicine and started on Remdesivir. The patient's has been contacted via phone and updated regarding patient's current condition and treatment plan. 05/11: Patient is currently on day 3/5 of Remdesivir. Her pulse ox is running a bout 89% on BiPAP of 85% FiO2. Legionella was negative. Temperature max 101, heart rate 86, blood pressure 150/68. Navarro catheter will be placed as patient is too dyspneic to use bedpan or commode. Repeat blood work reveals WBC 19.4, hemoglobin 10.2. Sodium 136, potassium 3.7, creatinine 0.68. Patient is followed by infectious disease and pulmonary medicine. 05/12: Patient is currently on day 4/5 of Remdesivir. She continues to have significant shortness of breath which is worse from yesterday. She is on 85% FiO2 BiPAP pulse ox a 90%. When she moved over to 15 L, pulse ox dropped down to 78%. She continues complaining of shortness of breath. She has been anxious during the night and Xanax ordered. Patient is unable to take any new oral nutrition at this point. Navarro catheter was placed yesterday. Patient has been afebrile for 24 hour period. Heart rate 104, respiratory rate 26, blood pressure 175/81. Updated pulmonary medicine regarding possible need for intubation. 05/13: Patient's respiratory status did improve yesterday afternoon and she did not require transfer to the intensive care unit. Patient may be slightly better today from yesterday morning but did decline from yesterday afternoon. She is currently pulse ox seen in the 80s with BiPAP of 85% FiO2. She has been off onto 15 L high flow nasal cannula to eat and has been able to take in a small amount of food yesterday and Ensure. She will complete her course of Remdesivir this evening. Tamiflu course will also be completed this evening. Temperature max 100.3 yesterday at noon. Heart rate 91, blood pressure 174/85. Repeat blood work reveals WBC 20.5, hemoglobin 11. Chloride 112, BUN 33 and creatinine 0.61. Blood sugar 146. Alkaline phosphatase 129. 05/14: Yesterday afternoon, patient was transferred to the intensive care unit and is agreeable to short-term intubation if necessary. She has not required vasopressors. Patient has been afebrile. Heart rate 64, blood pressure 132/69, pulse ox 93% on 80% BiPAP. Leukocytosis is down to 12.9, hemoglobin 10. D- dimer isn't improved at 2.83. Creatinine 0.53. Other inflammatory markers have shown improvement with LDH at 1416, C-reactive protein 36.8. Patient has completed course of Remdesivir and Tamiflu. She remains on Lovenox, Solu-Medrol and vitamin supplementations. 05/15: Patient remains in the intensive care unit on BiPAP pulse ox seen 89-90% on 80% FiO2. Repeat chest x-ray reveals stable bilateral patchy infiltrate. She has completed course of Remdesivir and course of Tamiflu. She has been afebrile, heart rate 64, blood pressure 151/79. WBC 14.6, hemoglobin 10.1. Creatinine 0.51. Blood sugar 136. Albumin 2.5. Patient has been without food for greater than 6 days. Discussed nutrition options with Dr. Crowe he will address with rounds today. Physical exam deferred to Dr. Crowe. 05/16: Patient remains in the intensive care unit. She remains on 100% BiPAP pulse oxing 91%. She's been afebrile, heart rate in the low 100s, blood pressure 162/88. Repeat blood work reveals WBC 16.1, hemoglobin 10.8. D-dimer is 2.88. Sodium 135, potassium 3.7, chloride 108, CO2 25, BUN 28 and creatinine 0.47. CRP 37.3. Repeat chest x-ray reveals patchy bilateral lung infiltrates. Patient continues to be followed by [facility] and infectious disease. Patient is eating only about 25% of her meals. She is followed by case management for discharge planning. Patient states that Xanax is not helping and will be changed to lorazepam 0.5 mg IV every 6 hours as needed. 05/17: Patient was intubated last night currently on mechanical ventilation with tidal volume 400, FiO2 100, PEEP of 14. Pulse ox is 90-91%. Chest x-ray this morning reveals mild cardiomegaly and diffuse interstitial opacities mid and lower lungs. Small effusions. Correlate for interstitial pulmonary edema. She has been afebrile, heart rate 76, blood pressure 132/68. Patient has not required vasopressors. Patient is on max propofol. Oral tube feeding to be started today. Repeat lab work reveals WBC 15, hemoglobin 10. Sodium 136, potassium 3.5, chloride 108, CO2 24, BUN 27 and creatinine 0.51. Stool for occult blood positive. 05/18: Patient remains in the intensive care unit with pulse ox in the low 90s, remains intubated and on mechanical ventilation with tidal volume 350, FiO2 65, PEEP 12. She has been afebrile, heart rate 64, blood pressure 105/59. Patient has been starting on tube feedings currently at goal. Repeat lab work reveals Mattie BC 15.9, hemoglobin 10.1. Fibrinogen 504, d-dimer 1.17. Sodium 136, potassium 3.7, chloride 112, CO2 23, BUN 29 and creatinine 0.59. Blood sugars in the low 100s. Ferritin 570. C-reactive protein 27.9. 05/19:patient intubated sedated leukocytosis 20k, p02 67 sbp 123, solumedrol 60 q6 levofed infusion, still requiring pressor support, we will change oral levothyroxine to IV 25 g daily.vo REVIEW OF SYSTEMS Unable to obtain due to intubation. Objective - Vital Signs Vital signs: Vital Signs Temp 98.6 F 05/19/20 08:00 Pulse 73 05/19/20 11:00 Resp 30 H 05/19/20 11:00 BP 99/47 05/19/20 11:00 Pulse Ox 93 L 05/19/20 11:00 Intake & Output 05/18/20 05/19/20 05/19/20 18:59 06:59 18:59 Intake Total 2809.595 2750.021 486.517 Output Total 606 671 315 Balance 2203.595 2079.021 171.517 Weight 61.3 kg Intake: IV 2175 2072 243 Piperacillin-Tazobactam 3 200 100 .375 gm In Sodium Chloride 0.9% 100 ml @ 25 mls/hr IVPB Q8HR [facility] Rx# :[id number] Pressure Bags 0.9 sodium 75 72 18 chloride Sodium Chloride 0.9% 1, 900 900 225 000 ml @ 75 mls/hr IV . [id number] [facility] Rx#:[id number] Sodium Chloride 0.9% 1, 1000 1000 000 ml @ 999 mls/hr IV . Q1H1M ONE Rx#:[id number] Intake, IV Titration 176.595 294.021 102.517 Amount Norepinephrine 8 mg In 17.784 2.517 Sodium Chloride 0.9% 250 ml @ 0.05 MCG/KG/MIN 5. 718 mls/hr IV .Q24H [facility] Rx#:[id number] propofoL 1,000 mg In 176.595 276.237 100 Empty Bag 1 bag @ Titrate IV .Q0M [facility] Rx#: [id number] Oral 60 Tube Feeding 238 204 51 Other 160 180 90 Output: Urine 606 671 315 Other: Voiding Method Indwelling Catheter Indwelling Catheter Indwelling Catheter # Voids 1 # Bowel Movements 0 0 0 ABP, PAP, CO, CI - Last Documented Arterial Blood Pressure 96/56 - Constitutional General appearance: Present: cooperative, no acute distress - EENT Eyes: Present: anicteric sclerae, EOMI, PERRLA ENT: Present: NA/AT, normal oropharynx - Neck Neck: Present: normal ROM Thyroid: bilateral: normal size, negative: enlarged, firm - Respiratory Respiratory: bilateral: CTA, negative: diminished, dullness - Cardiovascular Rhythm: regular Heart sounds: normal: S1, S2 Abnormal Heart Sounds: Absent: systolic murmur, diastolic murmur, rub, S3 Gallop, S4 Gallop, click, other - Integumentary Integumentary: Present: decreased turgor, normal - Neurologic Neurologic: Present: CNII-XII intact - Psychiatric Psychiatric: Present: A&O x's 3, appropriate affect, intact judgment & insight - Labs CBC & Chem 7: 05/19/20 04:15 05/19/20 04:15 Labs: Abnormal Lab Results - Last 24 Hours (Table) 05/18/20 05/19/20 05/19/20 Range/Units 18:03 00:14 04:15 WBC 20.6 H (3.8-10.6) k/uL RBC 3.25 L (3.80-5.40) m/uL Hgb 9.3 L (11.4-16.0) gm/dL Hct 29.5 L (34.0-46.0) % Neutrophils # 19.7 H (1.3-7.7) k/uL Lymphocytes # 0.2 L (1.0-4.8) k/uL D-Dimer (<0.60) mg/L FEU ABG pH (7.35-7.45) ABG pO2 (83-108) mmHg ABG O2 Saturation (94-97) % Chloride (98-107) mmol/L BUN (7-17) mg/dL Glucose (74-99) mg/dL POC Glucose (mg/dL) 152 H 142 H (75-99) mg/dL Calcium (8.4-10.2) mg/dL Ferritin (10.0-291.0) ng/mL Creatine Kinase (30-135) U/L C-Reactive Protein (<10.0) mg/L Total Protein (6.3-8.2) g/dL Albumin (3.5-5.0) g/dL 05/19/20 05/19/20 05/19/20 Range/Units 04:15 04:15 05:11 WBC (3.8-10.6) k/uL RBC (3.80-5.40) m/uL Hgb (11.4-16.0) gm/dL Hct (34.0-46.0) % Neutrophils # (1.3-7.7) k/uL Lymphocytes # (1.0-4.8) k/uL D-Dimer 0.99 H (<0.60) mg/L FEU ABG pH 7.32 L (7.35-7.45) ABG pO2 67 L (83-108) mmHg ABG O2 Saturation 91.7 L (94-97) % Chloride 114 H (98-107) mmol/L BUN 27 H (7-17) mg/dL Glucose 123 H (74-99) mg/dL POC Glucose (mg/dL) (75-99) mg/dL Calcium 7.4 L (8.4-10.2) mg/dL Ferritin 440.8 H (10.0-291.0) ng/mL Creatine Kinase <20 L (30-135) U/L C-Reactive Protein 24.8 H (<10.0) mg/L Total Protein 4.2 L (6.3-8.2) g/dL Albumin 1.9 L (3.5-5.0) g/dL 05/19/20 Range/Units 06:23 WBC (3.8-10.6) k/uL RBC (3.80-5.40) m/uL Hgb (11.4-16.0) gm/dL Hct (34.0-46.0) % Neutrophils # (1.3-7.7) k/uL Lymphocytes # (1.0-4.8) k/uL D-Dimer (<0.60) mg/L FEU ABG pH (7.35-7.45) ABG pO2 (83-108) mmHg ABG O2 Saturation (94-97) % Chloride (98-107) mmol/L BUN (7-17) mg/dL Glucose (74-99) mg/dL POC Glucose (mg/dL) 142 H (75-99) mg/dL Calcium (8.4-10.2) mg/dL Ferritin (10.0-291.0) ng/mL Creatine Kinase (30-135) U/L C-Reactive Protein (<10.0) mg/L Total Protein (6.3-8.2) g/dL Albumin (3.5-5.0) g/dL Assessment and Plan Plan: ASSESSMENT AND PLAN 1. Acute on chronic hypoxic respiratory failure secondary to COVID pneumonia, Influenza B and small left lower pulmonary embolism. Patient required i ntubation and mechanical ventilation. Solu-Medrol 60 mg IV every 6 hours, Lovenox 60 mg subcu twice daily, vitamin supplements with vitamin C, vitamin D, zinc, Tamifllu completed. Remdesivir completed. Consults with pulmonary medicine and infectious disease appreciated. 2. Hypothyroidism. Continue levothyroxine changed to IV 25 g daily instead of oral 50 g daily. 3. Severe osteoporosis. Fosamax on hold. 4. Anticoagulation with Lovenox. 5. GI prophylaxis. Pepcid. 6. Recurrent depression. Continue Zoloft 200 mg daily. 7. Situational anxiety. Xanax 0.5 mg twice daily as needed added. 8. History of breast cancer. 9. Stool positive for occult blood. Monitor hemoglobin and patient status closely. Prognosis guarded. DISCHARGE PLAN May require subacute rehab. Patient is followed by case management.
[2020-05-19 18:53] LABS: Glucose,Whole Blood 149 mg/dL (75-99)
[2020-05-19 23:52] LABS: Glucose,Whole Blood 134 mg/dL (75-99)
[2020-05-20] MEDS: clonazePAM 0.5 MG TAB PO SCH ×2 (00:13→20:41)
[2020-05-20] MEDS: INSULIN ASPART (NovoLOG) 100 UNIT/ML VIAL SQ SCH ×4 (00:14→18:00)
[2020-05-20] MEDS: NOREPINEPHRINE 8 MG in SODIUM CHLORIDE 0.9% 250 ML IV SCH (00:14)
--- NOTE | 2020-05-20 05:30 | PN ---
PROGRESS NOTE DATE OF SERVICE: 05/19/2020 REASON FOR FOLLOWUP: Pneumonia. INTERVAL HISTORY: The patient is currently afebrile. The patient is hemodynamically stable, not on pressor support. FiO2 is currently 60%. No significant purulent secretions through the ET or any diarrhea reported by the nursing staff. PHYSICAL EXAMINATION: Blood pressure is 103/58 with pulse of 92, temperature 98. She is 94% on 60% FiO2. General description is an elderly female lying in bed in no distress. RESPIRATORY SYSTEM: Unlabored breathing, decreased breath sounds in the bases. No wheeze. HEART: S1, S2. Regular rate and rhythm. ABDOMEN: Soft, no tenderness. LABS: Hemoglobin 9.3, white count 20.6. Sputum requested, not collected. Blood culture so far negative. DIAGNOSTIC IMPRESSION AND PLAN: Patient with acute respiratory failure which is multifactorial in this patient who has finished treatment for the COVID-19 as well as the influenza, now with worsening respiratory status. Sputum requested, not collected will request again. Continue with Zosyn and monitor clinical course closely. MMODL / IJN: [id number] /
[2020-05-20 06:04] LABS: ABG Base Excess -4.1 mmol/L; ABG HCO3 22 mmol/L (21-25); ABG Oxygen Saturation 95.5 % (94-97); ABG PCO2 44 mmHg (35-45); ABG PH 7.31 (7.35-7.45); ABG PO2 83 mmHg (83-108); ABG TCO2 23 mmol/L (19-24)
[2020-05-20] MEDS: methylPREDNISolone SOD SUCCI 125 MG/2 ML VIAL IV SCH ×3 (06:04→17:49)
[2020-05-20 06:13] LABS: Glucose,Whole Blood 149 mg/dL (75-99)
[2020-05-20 06:34] LABS: Allen Test Performed? no
[2020-05-20] MEDS: SODIUM CHLORIDE 0.9% 1,000 ML IV SCH (08:22)
[2020-05-20] MEDS: PIPERACILLIN-TAZOBACTAM 3.375 GM in SODIUM CHLORIDE 0.9% 100 ML IVPB SCH ×2 (08:23→17:49)
[2020-05-20 08:38] LABS: HCT 27.5 % (34.0-46.0); Hypochromasia Slight; MCH 30.1 pg (25.0-35.0); MCHC 32.9 g/dL (31.0-37.0); MCV 91.4 fL (80.0-100.0); Mean Platelet Volume 7.1; Platelet Count 268 k/uL (150-450); RDW 15.2 % (11.5-15.5); WBC 22.9 k/uL (3.8-10.6)
[2020-05-20 08:48] LABS: ALT 13 U/L (4-34); AST 21 U/L (14-36); African American GFR (CKD) >90 (>60 ml/min/1.73 sqM); Albumin 2.1 g/dL (3.5-5.0); Alkaline Phosphatase 86 U/L (38-126); Anion Gap 2 mmol/L; Blood Urea Nitrogen 29 mg/dL (7-17); Calcium 7.6 mg/dL (8.4-10.2); Carbon Dioxide 23 mmol/L (22-30); Chloride 116 mmol/L (98-107); Glucose 138 mg/dL (74-99); Non-African American GFR(CKD) 90 (>60 ml/min/1.73 sqM); Sodium 141 mmol/L (137-145); Total Bilirubin 0.3 mg/dL (0.2-1.3); Total Protein 4.5 g/dL (6.3-8.2)
[2020-05-20] MEDS: ASCORBIC ACID 500 MG TAB PO SCH ×2 (09:05→20:42)
[2020-05-20] MEDS: CHLORHEXIDINE GLUCONATE 15 ML CUP MUCOUS MEM SCH ×2 (09:06→20:41)
[2020-05-20] MEDS: ASPIRIN 81 MG PO SCH (09:06)
[2020-05-20] MEDS: ZINC SULFATE 220 MG CAP PO SCH (09:06)
[2020-05-20] MEDS: SERTRALINE 100 MG TAB PO SCH (09:06)
[2020-05-20] MEDS: CHOLECALCIFEROL 1,000 UNIT TAB PO SCH (09:06)
[2020-05-20] MEDS: PANTOPRAZOLE 40 MG/10 ML VIAL IVP SCH ×2 (09:06→20:41)
[2020-05-20] MEDS: ENOXAPARIN 60 MG/0.6 ML SYRINGE SQ SCH ×2 (09:07→20:41)
[2020-05-20] MEDS: CYANOCOBALAMIN 500 MCG TAB PO SCH (09:07)
[2020-05-20] MEDS: METOPROLOL TARTRATE 25 MG TAB PO SCH ×2 (09:07→20:42)
--- NOTE | 2020-05-20 09:17 | XR ---
EXAMINATION TYPE: XR chest 1V portable DATE OF EXAM: 05/20/2020 COMPARISON: 05/19/2020 INDICATION: Tube placement TECHNIQUE: Single frontal view of the chest is obtained. FINDINGS: The heart size is normal. The pulmonary vasculature is normal. There is mild increased lung markings present bilaterally greater in the lung bases. This is nonspeci fic. Consider atypical pneumonia. There is a right central venous catheter with the tip in the proximal right atrium. Endotracheal tube tip is above the alanna. Nasogastric tube transverses the thorax. IMPRESSION: 1. Mild diffuse increased lung markings, stable from comparison. 2. Lines and catheters discussed above.
[2020-05-20] MEDS: LEVOTHYROXINE IVP 100 MCG/5 ML VIAL IV SCH (09:26)
[2020-05-20 10:00] LABS: Band Neutrophils % 1 %; Lymphocytes # (M) 0.69 k/uL (1.0-4.8); Metamyelocytes # (M) 0.46 k/uL (0); Metamyelocytes % 2 %; Monocytes # (M) 0.69 k/uL (0-1.0); Myelocytes # (M) 0.92 k/uL (0); Myelocytes % 4 %; Neutrophils % (M) 88 %; Nucleated Red Blood Cells 0 /100 WBC (0-0); Total Cells Counted 200
[2020-05-20 11:58] LABS: Glucose,Whole Blood 145 mg/dL (75-99)
--- NOTE | 2020-05-20 16:02 | P.PN ---
Subjective Progress Note Date: 05/20/20 HISTORY OF PRESENT ILLNESS This is a 79-year-old female patient of Dr. Guerrero with past medical history of breast cancer, hypothyroidism, hyperlipidemia, generalized o steoarthritis. She was recently hospitalized May 12 for fever, chills, cough with sputum production with worsening dyspnea was diagnosed with COVID-19 pneumonia. Patient was stabilized and discharged home on May 05 with azithromycin, steroids, home oxygen and vitamin supplements. Patient had significant shortness of breath when she woke up this morning and was wearing oxygen at 4 L. EMS was called and reported that she was ashen nazario, diaphoretic with a pulse ox of 71% upon arrival. Patient was brought into [facility] emergency [facility] and found to be afebrile, heart rate 105, blood pressure 168/89, pulse ox 97% with nonrebreather. She continued tachypneic and tachycardic and patient was placed on BiPAP. Chest x-ray reveals stable patchy bilateral infiltrates. WBC 19.5, hemoglobin 11. Sodium 133, potassium 4.1, CO2 26, BUN 23 and creatinine 0.65. Blood sugar 100. Lactic acid 1.1. LDH 1116, C-reactive protein 63.7. Covid 19 not detected. Influenza B positive. Patient was continued on vitamin supplements, dexamethasone and started on Lovenox, Tamiflu, admitted to the cardiac stepdown unit and consult requested with infectious disease and pulmonary medicine. DDimer elevated at 33 and CTA of the chest positive for tiny filling defect left lower lobe pulmonary artery. 05/10: Patient continues to have significant shortness of breath cough and chest tightness. She is on BiPAP and unable to eat or drink. She continues to feel weak and tired. Temperature max 100.0, heart rate 95, blood pressure 125/68, pulse ox 91% on BiPAP with FiO2 of 80. Patient has been seen by pulmonary medicine and started on Remdesivir. The patient's has been contacted via phone and updated regarding patient's current condition and treatment plan. 05/11: Patient is currently on day 3/5 of Remdesivir. Her pulse ox is running a bout 89% on BiPAP of 85% FiO2. Legionella was negative. Temperature max 101, heart rate 86, blood pressure 150/68. Navarro catheter will be placed as patient is too dyspneic to use bedpan or commode. Repeat blood work reveals WBC 19.4, hemoglobin 10.2. Sodium 136, potassium 3.7, creatinine 0.68. Patient is followed by infectious disease and pulmonary medicine. 05/12: Patient is currently on day 4/5 of Remdesivir. She continues to have significant shortness of breath which is worse from yesterday. She is on 85% FiO2 BiPAP pulse ox a 90%. When she moved over to 15 L, pulse ox dropped down to 78%. She continues complaining of shortness of breath. She has been anxious during the night and Xanax ordered. Patient is unable to take any new oral nutrition at this point. Navarro catheter was placed yesterday. Patient has been afebrile for 24 hour period. Heart rate 104, respiratory rate 26, blood pressure 175/81. Updated pulmonary medicine regarding possible need for intubation. 05/13: Patient's respiratory status did improve yesterday afternoon and she did not require transfer to the intensive care unit. Patient may be slightly better today from yesterday morning but did decline from yesterday afternoon. She is currently pulse ox seen in the 80s with BiPAP of 85% FiO2. She has been off onto 15 L high flow nasal cannula to eat and has been able to take in a small amount of food yesterday and Ensure. She will complete her course of Remdesivir this evening. Tamiflu course will also be completed this evening. Temperature max 100.3 yesterday at noon. Heart rate 91, blood pressure 174/85. Repeat blood work reveals WBC 20.5, hemoglobin 11. Chloride 112, BUN 33 and creatinine 0.61. Blood sugar 146. Alkaline phosphatase 129. 05/14: Yesterday afternoon, patient was transferred to the intensive care unit and is agreeable to short-term intubation if necessary. She has not required vasopressors. Patient has been afebrile. Heart rate 64, blood pressure 132/69, pulse ox 93% on 80% BiPAP. Leukocytosis is down to 12.9, hemoglobin 10. D- dimer isn't improved at 2.83. Creatinine 0.53. Other inflammatory markers have shown improvement with LDH at 1416, C-reactive protein 36.8. Patient has completed course of Remdesivir and Tamiflu. She remains on Lovenox, Solu-Medrol and vitamin supplementations. 05/15: Patient remains in the intensive care unit on BiPAP pulse ox seen 89-90% on 80% FiO2. Repeat chest x-ray reveals stable bilateral patchy infiltrate. She has completed course of Remdesivir and course of Tamiflu. She has been afebrile, heart rate 64, blood pressure 151/79. WBC 14.6, hemoglobin 10.1. Creatinine 0.51. Blood sugar 136. Albumin 2.5. Patient has been without food for greater than 6 days. Discussed nutrition options with Dr. Crowe he will address with rounds today. Physical exam deferred to Dr. Crowe. 05/16: Patient remains in the intensive care unit. She remains on 100% BiPAP pulse oxing 91%. She's been afebrile, heart rate in the low 100s, blood pressure 162/88. Repeat blood work reveals WBC 16.1, hemoglobin 10.8. D-dimer is 2.88. Sodium 135, potassium 3.7, chloride 108, CO2 25, BUN 28 and creatinine 0.47. CRP 37.3. Repeat chest x-ray reveals patchy bilateral lung infiltrates. Patient continues to be followed by [facility] and infectious disease. Patient is eating only about 25% of her meals. She is followed by case management for discharge planning. Patient states that Xanax is not helping and will be changed to lorazepam 0.5 mg IV every 6 hours as needed. 05/17: Patient was intubated last night currently on mechanical ventilation with tidal volume 400, FiO2 100, PEEP of 14. Pulse ox is 90-91%. Chest x-ray this morning reveals mild cardiomegaly and diffuse interstitial opacities mid and lower lungs. Small effusions. Correlate for interstitial pulmonary edema. She has been afebrile, heart rate 76, blood pressure 132/68. Patient has not required vasopressors. Patient is on max propofol. Oral tube feeding to be started today. Repeat lab work reveals WBC 15, hemoglobin 10. Sodium 136, potassium 3.5, chloride 108, CO2 24, BUN 27 and creatinine 0.51. Stool for occult blood positive. 05/18: Patient remains in the intensive care unit with pulse ox in the low 90s, remains intubated and on mechanical ventilation with tidal volume 350, FiO2 65, PEEP 12. She has been afebrile, heart rate 64, blood pressure 105/59. Patient has been starting on tube feedings currently at goal. Repeat lab work reveals Mattie BC 15.9, hemoglobin 10.1. Fibrinogen 504, d-dimer 1.17. Sodium 136, potassium 3.7, chloride 112, CO2 23, BUN 29 and creatinine 0.59. Blood sugars in the low 100s. Ferritin 570. C-reactive protein 27.9. 05/19:patient intubated sedated leukocytosis 20k, p02 67 sbp 123, solumedrol 60 q6 levofed infusion, still requiring pressor support, we will change oral levothyroxine to IV 25 g daily.vo 05/20: Patient is remains in ICU intubated on vent, sedated, still with leukocytosis 22.9 thousand, chest x-ray shows mild diffuse increased lung markings stable from previous, patient is on Zosyn, sputum culture requested, finished treatment withremdesivir d-dimer is trending down toward with current level of 0.99, creatinine is normal, we'll going to check for TSH value check for immune globulin level, iron levels, for the anemia. albumin levels low at 2.1 on or OG-tube feedings REVIEW OF SYSTEMS Unable to obtain due to intubation. Objective - Vital Signs Vital signs: Vital Signs Temp 96.5 F L 05/20/20 12:00 Pulse 96 05/20/20 12:00 Resp 31 H 05/20/20 12:00 BP 106/52 05/20/20 12:00 Pulse Ox 93 L 05/20/20 12:00 Intake & Output 05/19/20 05/20/20 05/20/20 18:59 06:59 18:59 Intake Total 0310.371 3137.348 746.414 Output Total 665 500 175 Balance 397.147 8410.348 571.414 Weight 61.5 kg 61.5 kg Intake: IV 891 954 580 Piperacillin-Tazobactam 3 100 .375 gm In Sodium Chloride 0.9% 100 ml @ 25 mls/hr IVPB Q8HR NI Rx# :[id number] Pressure Bags 0.9 sodium 66 54 30 chloride Sodium Chloride 0.9% 1, 825 900 450 000 ml @ 75 mls/hr IV . [id number] NI Rx#:[id number] Intake, IV Titration 318.431 329.348 4.414 Amount Norepinephrine 8 mg In 18.431 36.234 Sodium Chloride 0.9% 250 ml @ 0.05 MCG/KG/MIN 5. 718 mls/hr IV .Q24H NI Rx#:[id number] Piperacillin-Tazobactam 3 100 100 .375 gm In Sodium Chloride 0.9% 100 ml @ 25 mls/hr IVPB Q8HR NI Rx# :[id number] propofoL 1,000 mg In 200 193.114 4.414 Empty Bag 1 bag @ Titrate IV .Q0M NI Rx#: [id number] Oral 60 Tube Feeding 170 204 102 Other 120 30 60 Output: Urine 665 500 175 Other: Voiding Method Indwelling Catheter Indwelling Catheter Indwelling Catheter # Voids 1 # Bowel Movements 0 0 0 ABP, PAP, CO, CI - Last Documented Arterial Blood Pressure 106/52 - Exam Intubated sedated on vent - EENT ENT: Present: NA/AT - Respiratory Respiratory: bilateral: diminished, rhonchi - Cardiovascular Rhythm: regular Heart sounds: normal: S1, S2 - Gastrointestinal General gastrointestinal: Present: normal bowel sounds, soft - Integumentary Integumentary: Present: normal - Labs CBC & Chem 7: 05/20/20 08:25 05/20/20 08:25 Labs: Abnormal Lab Results - Last 24 Hours (Table) 05/19/20 05/19/20 05/19/20 Range/Units 12:56 13:40 18:52 WBC (3.8-10.6) k/uL RBC (3.80-5.40) m/uL Hgb (11.4-16.0) gm/dL Hct (34.0-46.0) % Neutrophils # (Manual) (1.3-7.7) k/uL Lymphocytes # (Manual) (1.0-4.8) k/uL Metamyelocytes # (Man) (0) k/uL Myelocytes # (Manual) (0) k/uL ABG pH (7.35-7.45) Chloride (98-107) mmol/L BUN (7-17) mg/dL Glucose (74-99) mg/dL POC Glucose (mg/dL) 124 H 149 H (75-99) mg/dL Calcium (8.4-10.2) mg/dL Magnesium 2.4 H (1.6-2.3) mg/dL Total Protein (6.3-8.2) g/dL Albumin (3.5-5.0) g/dL 05/19/20 05/20/20 05/20/20 Range/Units 23:51 06:00 06:11 WBC (3.8-10.6) k/uL RBC (3.80-5.40) m/uL Hgb (11.4-16.0) gm/dL Hct (34.0-46.0) % Neutrophils # (Manual) (1.3-7.7) k/uL Lymphocytes # (Manual) (1.0-4.8) k/uL Metamyelocytes # (Man) (0) k/uL Myelocytes # (Manual) (0) k/uL ABG pH 7.31 L (7.35-7.45) Chloride (98-107) mmol/L BUN (7-17) mg/dL Glucose (74-99) mg/dL POC Glucose (mg/dL) 134 H 149 H (75-99) mg/dL Calcium (8.4-10.2) mg/dL Magnesium (1.6-2.3) mg/dL Total Protein (6.3-8.2) g/dL Albumin (3.5-5.0) g/dL 05/20/20 05/20/20 05/20/20 Range/Units 08:25 08:25 11:56 WBC 22.9 H (3.8-10.6) k/uL RBC 3.00 L (3.80-5.40) m/uL Hgb 9.0 L (11.4-16.0) gm/dL Hct 27.5 L (34.0-46.0) % Neutrophils # (Manual) 20.30 H (1.3-7.7) k/uL Lymphocytes # (Manual) 0.69 L (1.0-4.8) k/uL Metamyelocytes # (Man) 0.46 H (0) k/uL Myelocytes # (Manual) 0.92 H (0) k/uL ABG pH (7.35-7.45) Chloride 116 H (98-107) mmol/L BUN 29 H (7-17) mg/dL Glucose 138 H (74-99) mg/dL POC Glucose (mg/dL) 145 H (75-99) mg/dL Calcium 7.6 L (8.4-10.2) mg/dL Magnesium (1.6-2.3) mg/dL Total Protein 4.5 L (6.3-8.2) g/dL Albumin 2.1 L (3.5-5.0) g/dL Assessment and Plan Plan: ASSESSMENT AND PLAN 1. Acute on chronic hypoxic respiratory failure secondary to COVID pneumonia, Influenza B and small left lower pulmonary embolism. Patient required int ubation and mechanical ventilation. Solu-Medrol 60 mg IV every 6 hours, Lovenox 60 mg subcu twice daily, vitamin supplements with vitamin C, vitamin D, zinc, Tamifllu completed. Remdesivir completed. Consults with pulmonary medicine and infectious disease appreciated. Check for immunosuppression, immunoglobulin level 2. Hypothyroidism. Continue levothyroxine changed to IV 25 g daily instead of oral 50 g daily. 3. Severe osteoporosis. Fosamax on hold. 4. Anticoagulation with Lovenox full therapeutic anticoagulant dose. 5. GI prophylaxis. Pepcid. 6. Recurrent depression. Continue Zoloft 200 mg daily. 7. Situational anxiety. Xanax 0.5 mg twice daily as needed added. 8. History of breast cancer. 9. Stool positive for occult blood. Monitor hemoglobin and patient status closely 10. Blood loss anemia, iron studies to be done, patient's on full dose anticoagulation with Lovenox, transfusion if hemoglobin is under 7 Prognosis guarded. DISCHARGE PLAN May require subacute rehab. Patient is followed by case management.
--- NOTE | 2020-05-20 16:27 | P.PN ---
Subjective Progress Note Date: 05/20/20 Principal diagnosis: Acute hypoxic respiratory failure secondary to covid 19 pneumonitis. On 05/14/2020, the patient is being seen in the intensive care unit. The patient has been transferred to the intensive care unit yesterday because of acute hypoxic respiratory failure with progressive worsening shortness of breath and progressive worsening in her oxygenation. Note that the patient missed on a BiPAP and currently things of 14/8 cm of water with an FiO2 of 100%. Note that this patient initially had an acute Covid 19 related pneumonia that was diagnosed on 04/28/2020 and the patient was hospitalized and subsequently discharged home after being treated. At the time of discharge was given oral Decadron. She came back to the hospital on 05/09/2020 with worsening shortness of breath and hypoxemia and the patient tested negative for Covid 19 and the patient tested positive for influenza B. Despite all this, I give the patient the benefit of the doubt and treated the patient with Decadron and Remdesivir and I also had a Tamiflu. Subsequently, switched this patient to IV Solu- Medrol. At this point in time, the patient is in the intensive care unit. On today's evaluation her white cell count is at 12.9 with a hemoglobin of 10.0. D-dimer is at 2.83 and the patient remains on therapeutic dose of Lovenox 60 mg subcu every 12 hours. Note that the Electrodes are being utilized at the patient also showed a subsegmental pulmonary embolism in the left lower lobe pulmonary artery branch. As mentioned earlier, the subsegmental pulmonary embolism is not the culprit is not contributing to her respiratory failure and respiratory failure essentially related to the viral pneumonia. Most recent LDH is 1416 with a CRP level of 36 anti-inflammatory markers improved compared to earlier values. Legionella urine antigen was negative. She is afebrile. A repeat chest x-ray was done todayAntegrade the suspicion for a right-sided pneumothorax. I thought this was a skin fold and I repeated the chest x-ray which essentially showed diffuse bilateral pulmonary infiltrates worse on the left without evidence of any pneumothorax. I had a lengthy discussion with the patient. Based on our discussion today, the patient consented for a short-term intubation. She is not on any form of long-term mechanical ventilation in the event her breathing further decompensates. As such, overall CODE STATUS is full at this point in time. 05/15/2020, the patient remains in the intensive care unit in regards to her acute respiratory failure. The patient remains very much BiPAP dependent. She remains on a pressure of 14/8 cm of water. FiO2 has been weaned down to 80%. Despite unchanged BiPAP setting, the patient claims that she is breathing slightly better compared to yesterday. She is urinating a tidal volume of about 500 on a mechanical ventilator. Her minute ventilation is in the order of 10 L per minute. Note that she is on IV fluids and the site of 75 mL an hour. She has received IV Solu-Medrol, completed Remdesivir, completed Tamiflu, and she al so received 2 units of convalescent plasma. Chest x-ray from today is showing stable bilateral patchy pulmonary infiltrates, unchanged compared to yesterday. Her white cell count is at 14.6 with a hemoglobin of 10.1. She continues to have lymphopenia. The patient's LDH level is at 1416 from yesterday. Her CRP was 36.8 this will be repeated tomorrow. In function is stable. The rest of the electrodes are all stable. She is weak. She is able to take some sips of juice and shakes while being on the BiPAP. Unable to go to regular feeding at this point in time. As mentioned earlier, she has a full CODE STATUS. The patient made it clear to me that she did not want any form of long-term mechanical ventilation should she go into respiratory failure requiring intubation mechanical ventilation. She is still on anticoagulation the patient is on Lovenox therapeutic dose of 60 mg subcu every 12 hours. IV fluids are running at rate of 75 mL an hour. Reevaluated today on 05/16/20, patient remains in the ICU, presently on BiPAP with IPAP of 14 EPAP of 8 she is on the percent FiO2, and O2 saturation is very marginal at best, 90%. Patient did receive convalescent plasma, remdesivir and received Solu-Medrol. Patient was admitted initially on 05/09 and has been in the ICU since 05/13. Her pulmonary status is marginal at best. Patient also completed a course of Tamiflu. Chest x-ray continues to show bilateral interstitial infiltrates. WBC count is 16.1 hemoglobin is 10.8. D-dimer is 2.88 left lites are normal renal profile is normal Reevaluated today on 05/17/20. Patient had a deterioration in her clinical status last night, and she was barely oxygenating. ABG on high FiO2 of 100% on BiPAP, showed a pO2 of only 62 pCO2 of 34 pH of 7.47, and the patient was noted to be more tachypneic. Hence I recommended intubating the patient. And she had a follow-up ABG this morning on 100% FiO2 with of PEEP 12, showed a pO2 of 58 pCO2 of 40 0 pH of 7.43. patient is now on mechanical ventilation, and her ventilator settings are assist control rate of 26, tidal volume is 350, PEEP was cut down to 10 from 16 as the patient could not tolerate high PEEP, noted to do worse, with significantly elevated peak airway pressure and significantly elevated plateau pressures. Hence the to using lower tidal volumes, higher rates, and was able to cut down on her peak airway pressure, and her plateau pressures. ABG is pending. This morning ABG showed a pO2 of 58 pCO2 of 40 pH of 7.43. Patient is now on propofol at 60 g per acute per minute IV fluid at 75 mL per hour, enteral feeding to be started today. Lines including a right IJ central line placed, and left radial arterial line was also placed. Chest x-ray continues to show patchy infiltrates mid and lower lungs left greater than right. Electrolytes are normal renal profile is normal. WBC count is 15 hemoglobin is 10. Reevaluated today on 05/18/20, patient remains in the ICU, intubated and mechanically ventilated. Her ventilator settings are assist control rate of 30 tidal volume of 350 FiO2 is 70%. PEEP of 10. ABG showed a pO2 of 70 pCO2 of 39 pH of 7.35. Patient is on propofol at 48 mcg/kg/m, IV fluid at 75 mL/h, patient is on enteral feeding, I did increase the PEEP up to 12, hoping to cut down on the FiO2 from 70% to 60% if possible. Patient had very poor tolerance to high PEEP, we will address that accordingly. Zosyn was added mostly because of elevated pro calcitonin level. Electrolytes and renal profile are normal. D- dimer is 1.17. C-reactive protein is 27.9. Seems to be trending down. Reevaluated today on 05/19/20, patient remains intubated and mechanically ventilated, her ventilator settings are assist control rate of 30 tidal volume is 350 FiO2 is 60% and PEEP is 12. ABG showed a pO2 of 67 pCO2 of 43 pH of 7.32. Hence I recommended no change in her ventilator settings based on the ABG. Patient is off norepinephrine, maintained on propofol at 60 mcg/kg/m, she is also on enteral feeding, remains on Solu-Medrol and on Zosyn. No major change noted in the last 24 hours, patient is not quite ready for any weaning trials. Chest x-ray continues to show diffuse interstitial infiltrates/ARDS WBC count today is 20.6, hemoglobin is 9.3. D-dimer 0.99. Basic metabolic profile is normal renal profile is normal. C-reactive protein is down to 24.8, Reevaluated today on 05/20/20, patient remains intubated and mechanically ventilated. She is now on assist control rate of 30, tidal volume is 350 FiO2 is 55% and PEEP is 12. Patient is not requiring any pressors today. She is off propofol, but she is noted to be extremely agitated, does not follow any instructions. enteral feeding, he is also on Solu-Medrol and on Zosyn. reviewed ABG, no changes were made in her ventilator settings. Chest x-ray continues to show mild interstitial infiltrates. Consistent with covid 19 pneumonitis Objective - Vital Signs Vital signs: Vital Signs Temp 98.9 F 05/20/20 16:00 Pulse 118 H 05/20/20 16:00 Resp 26 H 05/20/20 16:00 BP 119/56 05/20/20 15:00 Pulse Ox 89 L 05/20/20 16:00 Intake & Output 05/19/20 05/20/20 05/20/20 18:59 06:59 18:59 Intake Total 3858.418 6272.348 1238.210 Output Total 665 500 310 Balance 171.026 0290.348 928.210 Weight 61.5 kg 61.5 kg Intake: IV 891 954 904 Piperacillin-Tazobactam 3 100 .375 gm In Sodium Chloride 0.9% 100 ml @ 25 mls/hr IVPB Q8HR NI Rx# :[id number] Pressure Bags 0.9 sodium 66 54 54 chloride Sodium Chloride 0.9% 1, 825 900 750 000 ml @ 75 mls/hr IV . [id number] NI Rx#:[id number] Intake, IV Titration 318.431 329.348 138.210 Amount Norepinephrine 8 mg In 18.431 36.234 Sodium Chloride 0.9% 250 ml @ 0.05 MCG/KG/MIN 5. 718 mls/hr IV .Q24H NI Rx#:[id number] Piperacillin-Tazobactam 3 100 100 .375 gm In Sodium Chloride 0.9% 100 ml @ 25 mls/hr IVPB Q8HR NI Rx# :[id number] propofoL 1,000 mg In 200 193.114 138.210 Empty Bag 1 bag @ Titrate IV .Q0M NI Rx#: [id number] Oral 60 Tube Feeding 170 204 136 Other 120 30 60 Output: Urine 665 500 310 Other: Voiding Method Indwelling Catheter Indwelling Catheter Indwelling Catheter # Voids 1 # Bowel Movements 0 0 0 ABP, PAP, CO, CI - Last Documented Arterial Blood Pressure 113/57 - Exam GENERAL EXAM: Revealed a 79-year-old female on mechanical ventilation, off propofol, slightly agitated. Does not follow any instructions HEAD: Normocephalic/atraumatic. ENT: PERRLA, EOMI, neck is, no neck masses, no JVD, no stridor.. CHEST: No chest wall deformity. Symmetrical expansion. LUNGS: Crackles and rhonchi noted bilaterally. CVS: Regular rate and rhythm, normal S1 and S2, no gallops, no murmurs, no rubs ABDOMEN: Soft, nontender. No hepatosplenomegaly, normal bowel sounds, no guarding or rigidity. EXTREMITIES: No clubbing, no edema, no cyanosis, 2+ pulses and upper and lower extremities SKIN: No rashes CENTRAL NERVOUS SYSTEM: Could not assess PSYCHIATRIC: Unable to assess - Labs CBC & Chem 7: 05/20/20 08:25 05/20/20 08:25 Labs: Abnormal Lab Results - Last 24 Hours (Table) 05/19/20 05/19/20 05/20/20 Range/Units 18:52 23:51 06:00 WBC (3.8-10.6) k/uL RBC (3.80-5.40) m/uL Hgb (11.4-16.0) gm/dL Hct (34.0-46.0) % Neutrophils # (Manual) (1.3-7.7) k/uL Lymphocytes # (Manual) (1.0-4.8) k/uL Metamyelocytes # (Man) (0) k/uL Myelocytes # (Manual) (0) k/uL ABG pH 7.31 L (7.35-7.45) Chloride (98-107) mmol/L BUN (7-17) mg/dL Glucose (74-99) mg/dL POC Glucose (mg/dL) 149 H 134 H (75-99) mg/dL Calcium (8.4-10.2) mg/dL Total Protein (6.3-8.2) g/dL Albumin (3.5-5.0) g/dL 05/20/20 05/20/20 05/20/20 Range/Units 06:11 08:25 08:25 WBC 22.9 H (3.8-10.6) k/uL RBC 3.00 L (3.80-5.40) m/uL Hgb 9.0 L (11.4-16.0) gm/dL Hct 27.5 L (34.0-46.0) % Neutrophils # (Manual) 20.30 H (1.3-7.7) k/uL Lymphocytes # (Manual) 0.69 L (1.0-4.8) k/uL Metamyelocytes # (Man) 0.46 H (0) k/uL Myelocytes # (Manual) 0.92 H (0) k/uL ABG pH (7.35-7.45) Chloride 116 H (98-107) mmol/L BUN 29 H (7-17) mg/dL Glucose 138 H (74-99) mg/dL POC Glucose (mg/dL) 149 H (75-99) mg/dL Calcium 7.6 L (8.4-10.2) mg/dL Total Protein 4.5 L (6.3-8.2) g/dL Albumin 2.1 L (3.5-5.0) g/dL 05/20/20 Range/Units 11:56 WBC (3.8-10.6) k/uL RBC (3.80-5.40) m/uL Hgb (11.4-16.0) gm/dL Hct (34.0-46.0) % Neutrophils # (Manual) (1.3-7.7) k/uL Lymphocytes # (Manual) (1.0-4.8) k/uL Metamyelocytes # (Man) (0) k/uL Myelocytes # (Manual) (0) k/uL ABG pH (7.35-7.45) Chloride (98-107) mmol/L BUN (7-17) mg/dL Glucose (74-99) mg/dL POC Glucose (mg/dL) 145 H (75-99) mg/dL Calcium (8.4-10.2) mg/dL Total Protein (6.3-8.2) g/dL Albumin (3.5-5.0) g/dL Assessment and Plan Assessment: Impression: Acute hypoxic respiratory failure. Secondary to Covid 19 pneumonitis. Patient required intubation on 05/16/20, and she remains now on mechanical ventilation. Presently on FiO2 of 55 percent., and PEEP 12. Acute pulmonary embolism, subsegmental in the left lower lobe with elevated d- dimer History of breast cancer. Generalized anxiety disorder. Influenza B infection Elevated d-dimer Recommendation: Continue ventilatory support. Not ready for weaning. Continue Zosyn empirically. Continue Lovenox/therapeutic dose. 60 mg subcu every 12 hours. Continue nutritional support. Continue GI and DVT prophylaxis. Continue IV Solu-Medrol. Completed treatment with remdesivir , and received convalescent plasma times one. Continue supportive care measures. Continue the Covid 19 cocktail. We'll continue to follow. Critical care time is over 30 minutes. Time with Patient: Greater than 30
[2020-05-20 16:34] LABS: LD Isoenzymes 1 19 % (19-38); LD Isoenzymes 2 34 % (30-43); LD Isoenzymes 3 20 % (16-26); LD Isoenzymes 4 11 % (3-12); LD Isoenzymes 5 16 % (3-14); Lactacte Dehydrogenase(LD) ISO 372 U/L (120-250)
[2020-05-20 16:34] LABS: LD Isoenzymes 1 17 % (19-38); LD Isoenzymes 2 31 % (30-43); LD Isoenzymes 3 21 % (16-26); LD Isoenzymes 4 13 % (3-12); LD Isoenzymes 5 18 % (3-14); Lactacte Dehydrogenase(LD) ISO 423 U/L (120-250)
[2020-05-20 17:54] LABS: Glucose,Whole Blood 129 mg/dL (75-99)
--- NOTE | 2020-05-20 21:55 | PN ---
PROGRESS NOTE DATE OF SERVICE: 05/20/2020 REASON FOR FOLLOWUP: Pneumonia. INTERVAL HISTORY: The patient is currently afebrile. The patient was noted to have a low-grade fever of 99.9 this evening. The patient is hemodynamically stable, not on pressor support. FiO2 is currently 55%. No significant purulent secretions in the ET or any diarrhea has been reported by the nursing staff. PHYSICAL EXAMINATION: Blood pressure 128/72 with a pulse of 103, temperature 98.8. She is 92% on 55% FiO2. General description is an elderly female intubated on the vent. RESPIRATORY SYSTEM: Unlabored breathing with decreased intensity of breath sounds. No wheeze. HEART: S1, S2. Regular rate and rhythm. ABDOMEN: Soft. No tenderness. LABS/IMAGING: Hemoglobin is 9, white count of 22.9 with a BUN of 29, creatinine 0.57. Blood culture negative. Sputum culture was never done. Chest x-ray this morning showed diffuse lung markings stable from comparison. DIAGNOSTIC IMPRESSION AND PLAN: Patient with acute respiratory failure which is multifactorial in this patient with a possible component of pneumonia. Patient has completed treatment for influenza and COVID, currently on empiric Zosyn. Sputum culture has been requested again. The patient's white count elevation is more likely related to steroid effect and will be monitored closely. Continue with supportive care. MMODL / IJN: [id number] /
[2020-05-20 23:37] LABS: Glucose,Whole Blood 151 mg/dL (75-99)
[2020-05-21] MEDS: INSULIN ASPART (NovoLOG) 100 UNIT/ML VIAL SQ SCH ×4 (00:01→18:38)
[2020-05-21] MEDS: PIPERACILLIN-TAZOBACTAM 3.375 GM in SODIUM CHLORIDE 0.9% 100 ML IVPB SCH ×3 (00:03→16:41)
[2020-05-21] MEDS: methylPREDNISolone SOD SUCCI 125 MG/2 ML VIAL IV SCH ×4 (00:03→18:40)
[2020-05-21] MEDS: SODIUM CHLORIDE 0.9% 1,000 ML IV SCH ×2 (04:31→10:57)
[2020-05-21] MEDS: NOREPINEPHRINE 8 MG in SODIUM CHLORIDE 0.9% 250 ML IV SCH (04:32)
[2020-05-21 05:17] LABS: Glucose,Whole Blood 138 mg/dL (75-99)
[2020-05-21 05:31] LABS: ABG Base Excess -1.7 mmol/L; ABG HCO3 24 mmol/L (21-25); ABG Oxygen Saturation 95.8 % (94-97); ABG PCO2 43 mmHg (35-45); ABG PH 7.35 (7.35-7.45); ABG PO2 75 mmHg (83-108); ABG TCO2 25 mmol/L (19-24); Allen Test Performed? Yes
[2020-05-21 05:34] LABS: HGB 8.2 gm/dL (11.4-16.0); Hypochromasia Slight; MCH 29.8 pg (25.0-35.0); MCHC 32.7 g/dL (31.0-37.0); MCV 91.2 fL (80.0-100.0); Mean Platelet Volume 7.4; Platelet Count 245 k/uL (150-450); RBC 2.75 m/uL (3.80-5.40); RDW 15.6 % (11.5-15.5); WBC 23.1 k/uL (3.8-10.6)
[2020-05-21 05:42] LABS: D-Dimer 0.86 mg/L FEU (<0.60)
[2020-05-21 06:00] LABS: African American GFR (CKD) >90 (>60 ml/min/1.73 sqM); Anion Gap -2 mmol/L; Blood Urea Nitrogen 30 mg/dL (7-17); C Reactive Protein 17.9 mg/L (<10.0); Calcium 7.8 mg/dL (8.4-10.2); Carbon Dioxide 25 mmol/L (22-30); Chloride 116 mmol/L (98-107); Glucose 133 mg/dL (74-99); LDH 1135 U/L (313-618); Non-African American GFR(CKD) 86 (>60 ml/min/1.73 sqM); Sodium 139 mmol/L (137-145)
[2020-05-21 06:01] LABS: Band Neutrophils % 12 %; Eosinophils # (M) 0.23 k/uL (0-0.7); Lymphocytes # (M) 0.23 k/uL (1.0-4.8); Metamyelocytes # (M) 0.23 k/uL (0); Metamyelocytes % 1 %; Monocytes # (M) 1.16 k/uL (0-1.0); Myelocytes # (M) 0.92 k/uL (0); Myelocytes % 4 %; Neutrophils % (M) 75 %; Nucleated Red Blood Cells 0 /100 WBC (0-0); Promyelocytes # (M) 0.23 k/uL (0); Promyelocytes % 1 %; Total Cells Counted 200
[2020-05-21 06:03] LABS: Toxic Granulation Present
--- NOTE | 2020-05-21 06:40 | XR ---
EXAMINATION TYPE: XR chest 1V portable DATE OF EXAM: 05/21/2020 CLINICAL HISTORY: Difficulty breathing progress study. TECHNIQUE: Single AP portable semiupright view of the chest is obtained. COMPARISON: Chest x-ray from one day earlier and older studies. CTA chest May 09, 2020 FINDINGS: Stable endotracheal and orogastric tubes. Stable right internal jugular central venous cat heter. Persistent reticular increased markings in the lower lungs with multifocal opacities bilaterally. No significant pleural effusion or pneumothorax. Cardiac silhouette size stable and within normal limits . Right axillary surgical clips. Osseous structures are intact. IMPRESSION: Fibrotic changes in the lower lungs with bilateral multifocal acute infiltrates. No signi ficant change from one day earlier.
[2020-05-21] MEDS: ASPIRIN 81 MG PO SCH (08:23)
[2020-05-21] MEDS: CHLORHEXIDINE GLUCONATE 15 ML CUP MUCOUS MEM SCH ×2 (08:23→19:52)
[2020-05-21] MEDS: CYANOCOBALAMIN 500 MCG TAB PO SCH (08:23)
[2020-05-21] MEDS: CHOLECALCIFEROL 1,000 UNIT TAB PO SCH (08:23)
[2020-05-21] MEDS: ASCORBIC ACID 500 MG TAB PO SCH ×2 (08:23→20:22)
[2020-05-21] MEDS: LEVOTHYROXINE IVP 100 MCG/5 ML VIAL IV SCH (08:24)
[2020-05-21] MEDS: ENOXAPARIN 60 MG/0.6 ML SYRINGE SQ SCH ×2 (08:24→21:10)
[2020-05-21] MEDS: SERTRALINE 100 MG TAB PO SCH (08:25)
[2020-05-21] MEDS: METOPROLOL TARTRATE 25 MG TAB PO SCH ×2 (08:25→19:52)
[2020-05-21] MEDS: ZINC SULFATE 220 MG CAP PO SCH (08:25)
[2020-05-21] MEDS: PANTOPRAZOLE 40 MG/10 ML VIAL IVP SCH ×2 (08:25→19:52)
[2020-05-21 09:11] LABS: % Iron Saturation 37.75 (12.00-45.00)
[2020-05-21 09:39] LABS: Ferritin 375.4 ng/mL (10.0-291.0)
[2020-05-21 11:45] LABS: Glucose,Whole Blood 142 mg/dL (75-99)
--- NOTE | 2020-05-21 15:14 | P.PN ---
Subjective Progress Note Date: 05/21/20 Principal diagnosis: Acute hypoxic respiratory failure secondary to covid 19 pneumonitis. On 05/14/2020, the patient is being seen in the intensive care unit. The patient has been transferred to the intensive care unit yesterday because of acute hypoxic respiratory failure with progressive worsening shortness of breath and progressive worsening in her oxygenation. Note that the patient missed on a BiPAP and currently things of 14/8 cm of water with an FiO2 of 100%. Note that this patient initially had an acute Covid 19 related pneumonia that was diagnosed on 04/28/2020 and the patient was hospitalized and subsequently discharged home after being treated. At the time of discharge was given oral Decadron. She came back to the hospital on 05/09/2020 with worsening shortness of breath and hypoxemia and the patient tested negative for Covid 19 and the patient tested positive for influenza B. Despite all this, I give the patient the benefit of the doubt and treated the patient with Decadron and Remdesivir and I also had a Tamiflu. Subsequently, switched this patient to IV Solu- Medrol. At this point in time, the patient is in the intensive care unit. On today's evaluation her white cell count is at 12.9 with a hemoglobin of 10.0. D-dimer is at 2.83 and the patient remains on therapeutic dose of Lovenox 60 mg subcu every 12 hours. Note that the Electrodes are being utilized at the patient also showed a subsegmental pulmonary embolism in the left lower lobe pulmonary artery branch. As mentioned earlier, the subsegmental pulmonary embolism is not the culprit is not contributing to her respiratory failure and respiratory failure essentially related to the viral pneumonia. Most recent LDH is 1416 with a CRP level of 36 anti-inflammatory markers improved compared to earlier values. Legionella urine antigen was negative. She is afebrile. A repeat chest x-ray was done todayAntegrade the suspicion for a right-sided pneumothorax. I thought this was a skin fold and I repeated the chest x-ray which essentially showed diffuse bilateral pulmonary infiltrates worse on the left without evidence of any pneumothorax. I had a lengthy discussion with the patient. Based on our discussion today, the patient consented for a short-term intubation. She is not on any form of long-term mechanical ventilation in the event her breathing further decompensates. As such, overall CODE STATUS is full at this point in time. 05/15/2020, the patient remains in the intensive care unit in regards to her acute respiratory failure. The patient remains very much BiPAP dependent. She remains on a pressure of 14/8 cm of water. FiO2 has been weaned down to 80%. Despite unchanged BiPAP setting, the patient claims that she is breathing slightly better compared to yesterday. She is urinating a tidal volume of about 500 on a mechanical ventilator. Her minute ventilation is in the order of 10 L per minute. Note that she is on IV fluids and the site of 75 mL an hour. She has received IV Solu-Medrol, completed Remdesivir, completed Tamiflu, and she al so received 2 units of convalescent plasma. Chest x-ray from today is showing stable bilateral patchy pulmonary infiltrates, unchanged compared to yesterday. Her white cell count is at 14.6 with a hemoglobin of 10.1. She continues to have lymphopenia. The patient's LDH level is at 1416 from yesterday. Her CRP was 36.8 this will be repeated tomorrow. In function is stable. The rest of the electrodes are all stable. She is weak. She is able to take some sips of juice and shakes while being on the BiPAP. Unable to go to regular feeding at this point in time. As mentioned earlier, she has a full CODE STATUS. The patient made it clear to me that she did not want any form of long-term mechanical ventilation should she go into respiratory failure requiring intubation mechanical ventilation. She is still on anticoagulation the patient is on Lovenox therapeutic dose of 60 mg subcu every 12 hours. IV fluids are running at rate of 75 mL an hour. Reevaluated today on 05/16/20, patient remains in the ICU, presently on BiPAP with IPAP of 14 EPAP of 8 she is on the percent FiO2, and O2 saturation is very marginal at best, 90%. Patient did receive convalescent plasma, remdesivir and received Solu-Medrol. Patient was admitted initially on 05/09 and has been in the ICU since 05/13. Her pulmonary status is marginal at best. Patient also completed a course of Tamiflu. Chest x-ray continues to show bilateral interstitial infiltrates. WBC count is 16.1 hemoglobin is 10.8. D-dimer is 2.88 left lites are normal renal profile is normal Reevaluated today on 05/17/20. Patient had a deterioration in her clinical status last night, and she was barely oxygenating. ABG on high FiO2 of 100% on BiPAP, showed a pO2 of only 62 pCO2 of 34 pH of 7.47, and the patient was noted to be more tachypneic. Hence I recommended intubating the patient. And she had a follow-up ABG this morning on 100% FiO2 with of PEEP 12, showed a pO2 of 58 pCO2 of 40 0 pH of 7.43. patient is now on mechanical ventilation, and her ventilator settings are assist control rate of 26, tidal volume is 350, PEEP was cut down to 10 from 16 as the patient could not tolerate high PEEP, noted to do worse, with significantly elevated peak airway pressure and significantly elevated plateau pressures. Hence the to using lower tidal volumes, higher rates, and was able to cut down on her peak airway pressure, and her plateau pressures. ABG is pending. This morning ABG showed a pO2 of 58 pCO2 of 40 pH of 7.43. Patient is now on propofol at 60 g per acute per minute IV fluid at 75 mL per hour, enteral feeding to be started today. Lines including a right IJ central line placed, and left radial arterial line was also placed. Chest x-ray continues to show patchy infiltrates mid and lower lungs left greater than right. Electrolytes are normal renal profile is normal. WBC count is 15 hemoglobin is 10. Reevaluated today on 05/18/20, patient remains in the ICU, intubated and mechanically ventilated. Her ventilator settings are assist control rate of 30 tidal volume of 350 FiO2 is 70%. PEEP of 10. ABG showed a pO2 of 70 pCO2 of 39 pH of 7.35. Patient is on propofol at 48 mcg/kg/m, IV fluid at 75 mL/h, patient is on enteral feeding, I did increase the PEEP up to 12, hoping to cut down on the FiO2 from 70% to 60% if possible. Patient had very poor tolerance to high PEEP, we will address that accordingly. Zosyn was added mostly because of elevated pro calcitonin level. Electrolytes and renal profile are normal. D- dimer is 1.17. C-reactive protein is 27.9. Seems to be trending down. Reevaluated today on 05/19/20, patient remains intubated and mechanically ventilated, her ventilator settings are assist control rate of 30 tidal volume is 350 FiO2 is 60% and PEEP is 12. ABG showed a pO2 of 67 pCO2 of 43 pH of 7.32. Hence I recommended no change in her ventilator settings based on the ABG. Patient is off norepinephrine, maintained on propofol at 60 mcg/kg/m, she is also on enteral feeding, remains on Solu-Medrol and on Zosyn. No major change noted in the last 24 hours, patient is not quite ready for any weaning trials. Chest x-ray continues to show diffuse interstitial infiltrates/ARDS WBC count today is 20.6, hemoglobin is 9.3. D-dimer 0.99. Basic metabolic profile is normal renal profile is normal. C-reactive protein is down to 24.8, Reevaluated today on 05/20/20, patient remains intubated and mechanically ventilated. She is now on assist control rate of 30, tidal volume is 350 FiO2 is 55% and PEEP is 12. Patient is not requiring any pressors today. She is off propofol, but she is noted to be extremely agitated, does not follow any instructions. enteral feeding, he is also on Solu-Medrol and on Zosyn. reviewed ABG, no changes were made in her ventilator settings. Chest x-ray continues to show mild interstitial infiltrates. Consistent with covid 19 pneumonitis Patient was reevaluated today on 05/21/20, remains intubated, mechanically v entilated, ventilator settings are assist control rate of 30 tidal volume is 350 FiO2 is 55% and PEEP is 12 after reviewing the ABG, I cut down the PEEP down to 10. ABG showed a pO2 of 75 pCO2 of 43 pH of 7.35. Electrolytes are normal. WBC count is 20.1 hemoglobin is 8.2. Hematocrit is 25.0. Chest x-ray continues to show bilateral multifocal infiltrates. Possibly slight improvement noted. River cisse was placed on Zosyn empirically for possible underlying pneumonia/bacterial pneumonia although she presented with Covid 19 pneumonitis Objective - Vital Signs Vital signs: Vital Signs Temp 99.1 F 05/21/20 12:00 Pulse 73 05/21/20 14:00 Resp 32 H 05/21/20 14:00 BP 120/57 05/21/20 13:00 Pulse Ox 94 L 05/21/20 14:00 Intake & Output 05/20/20 05/21/20 05/21/20 18:59 06:59 18:59 Intake Total 7255.644 1935.349 970.569 Output Total 355 460 300 Balance 9203.849 7356.349 670.569 Weight 61.5 kg 69.1 kg Intake: IV 1141 972 748 Piperacillin-Tazobactam 3 200 100 .375 gm In Sodium Chloride 0.9% 100 ml @ 25 mls/hr IVPB Q8HR NI Rx# :[id number] Pressure Bags 0.9 sodium 66 72 48 chloride Sodium Chloride 0.9% 1, 875 900 600 000 ml @ 75 mls/hr IV . [id number] NI Rx#:[id number] Intake, IV Titration 189.717 286.349 26.569 Amount Norepinephrine 8 mg In 19.155 Sodium Chloride 0.9% 250 ml @ 0.05 MCG/KG/MIN 5. 718 mls/hr IV .Q24H NI Rx#:[id number] propofoL 1,000 mg In 189.717 267.194 26.569 Empty Bag 1 bag @ Titrate IV .Q0M NI Rx#: [id number] Tube Feeding 170 204 136 Other 60 90 60 Output: Urine 355 460 300 Other: Voiding Method Indwelling Catheter Indwelling Catheter Indwelling Catheter # Bowel Movements 0 ABP, PAP, CO, CI - Last Documented Arterial Blood Pressure 130/53 - Exam GENERAL EXAM: Revealed a 79-year-old female on mechanical ventilation, remains on propofol, sedated. HEAD: Normocephalic/atraumatic. ENT: PERRLA, EOMI, neck is, no neck masses, no JVD, no stridor.. CHEST: No chest wall deformity. Symmetrical expansion. LUNGS: Crackles and rhonchi noted bilaterally. CVS: Regular rate and rhythm, normal S1 and S2, no gallops, no murmurs, no rubs ABDOMEN: Soft, nontender. No hepatosplenomegaly, normal bowel sounds, no guarding or rigidity. EXTREMITIES: No clubbing, no edema, no cyanosis, 2+ pulses and upper and lower extremities SKIN: No rashes CENTRAL NERVOUS SYSTEM: Could not assess PSYCHIATRIC: Unable to assess - Labs CBC & Chem 7: 05/21/20 05:10 05/21/20 05:10 Labs: Abnormal Lab Results - Last 24 Hours (Table) 05/16/20 05/17/20 05/20/20 Range/Units 05:44 03:51 17:52 WBC (3.8-10.6) k/uL RBC (3.80-5.40) m/uL Hgb (11.4-16.0) gm/dL Hct (34.0-46.0) % RDW (11.5-15.5) % Neutrophils # (Manual) (1.3-7.7) k/uL Lymphocytes # (Manual) (1.0-4.8) k/uL Monocytes # (Manual) (0-1.0) k/uL Metamyelocytes # (Man) (0) k/uL Myelocytes # (Manual) (0) k/uL Promyelocytes # (Man) (0) k/uL D-Dimer (<0.60) mg/L FEU ABG pO2 (83-108) mmHg ABG Total CO2 (19-24) mmol/L Chloride (98-107) mmol/L BUN (7-17) mg/dL Glucose (74-99) mg/dL POC Glucose (mg/dL) 129 H (75-99) mg/dL Calcium (8.4-10.2) mg/dL TIBC (228-460) ug/dL Ferritin (10.0-291.0) ng/mL Lactate Dehydrogenase (313-618) U/L LD Isoenzymes 372 H 423 H (120-250) U/L LD 1 17 L (19-38) % LD 4 13 H (3-12) % LD 5 16 H 18 H (3-14) % C-Reactive Protein (<10.0) mg/L IgG (700.0-1600.0) mg/dL IgM (40.0-280.0) mg/dL 05/20/20 05/21/20 05/21/20 Range/Units 23:36 05:05 05:10 WBC (3.8-10.6) k/uL RBC (3.80-5.40) m/uL Hgb (11.4-16.0) gm/dL Hct (34.0-46.0) % RDW (11.5-15.5) % Neutrophils # (Manual) (1.3-7.7) k/uL Lymphocytes # (Manual) (1.0-4.8) k/uL Monocytes # (Manual) (0-1.0) k/uL Metamyelocytes # (Man) (0) k/uL Myelocytes # (Manual) (0) k/uL Promyelocytes # (Man) (0) k/uL D-Dimer (<0.60) mg/L FEU ABG pO2 (83-108) mmHg ABG Total CO2 (19-24) mmol/L Chloride (98-107) mmol/L BUN (7-17) mg/dL Glucose (74-99) mg/dL POC Glucose (mg/dL) 151 H 138 H (75-99) mg/dL Calcium (8.4-10.2) mg/dL TIBC (228-460) ug/dL Ferritin (10.0-291.0) ng/mL Lactate Dehydrogenase (313-618) U/L LD Isoenzymes (120-250) U/L LD 1 (19-38) % LD 4 (3-12) % LD 5 (3-14) % C-Reactive Protein (<10.0) mg/L IgG 378.0 L (700.0-1600.0) mg/dL IgM 303.0 H (40.0-280.0) mg/dL 05/21/20 05/21/20 05/21/20 Range/Units 05:10 05:10 05:10 WBC 23.1 H (3.8-10.6) k/uL RBC 2.75 L (3.80-5.40) m/uL Hgb 8.2 L (11.4-16.0) gm/dL Hct 25.0 L (34.0-46.0) % RDW 15.6 H (11.5-15.5) % Neutrophils # (Manual) 20.00 H (1.3-7.7) k/uL Lymphocytes # (Manual) 0.23 L (1.0-4.8) k/uL Monocytes # (Manual) 1.16 H (0-1.0) k/uL Metamyelocytes # (Man) 0.23 H (0) k/uL Myelocytes # (Manual) 0.92 H (0) k/uL Promyelocytes # (Man) 0.23 H (0) k/uL D-Dimer 0.86 H (<0.60) mg/L FEU ABG pO2 (83-108) mmHg ABG Total CO2 (19-24) mmol/L Chloride (98-107) mmol/L BUN (7-17) mg/dL Glucose (74-99) mg/dL POC Glucose (mg/dL) (75-99) mg/dL Calcium (8.4-10.2) mg/dL TIBC 204 L (228-460) ug/dL Ferritin (10.0-291.0) ng/mL Lactate Dehydrogenase (313-618) U/L LD Isoenzymes (120-250) U/L LD 1 (19-38) % LD 4 (3-12) % LD 5 (3-14) % C-Reactive Protein (<10.0) mg/L IgG (700.0-1600.0) mg/dL IgM (40.0-280.0) mg/dL 05/21/20 05/21/20 05/21/20 Range/Units 05:10 05:27 11:44 WBC (3.8-10.6) k/uL RBC (3.80-5.40) m/uL Hgb (11.4-16.0) gm/dL Hct (34.0-46.0) % RDW (11.5-15.5) % Neutrophils # (Manual) (1.3-7.7) k/uL Lymphocytes # (Manual) (1.0-4.8) k/uL Monocytes # (Manual) (0-1.0) k/uL Metamyelocytes # (Man) (0) k/uL Myelocytes # (Manual) (0) k/uL Promyelocytes # (Man) (0) k/uL D-Dimer (<0.60) mg/L FEU ABG pO2 75 L (83-108) mmHg ABG Total CO2 25 H (19-24) mmol/L Chloride 116 H (98-107) mmol/L BUN 30 H (7-17) mg/dL Glucose 133 H (74-99) mg/dL POC Glucose (mg/dL) 142 H (75-99) mg/dL Calcium 7.8 L (8.4-10.2) mg/dL TIBC (228-460) ug/dL Ferritin 375.4 H (10.0-291.0) ng/mL Lactate Dehydrogenase 1135 H (313-618) U/L LD Isoenzymes (120-250) U/L LD 1 (19-38) % LD 4 (3-12) % LD 5 (3-14) % C-Reactive Protein 17.9 H (<10.0) mg/L IgG (700.0-1600.0) mg/dL IgM (40.0-280.0) mg/dL Assessment and Plan Assessment: Impression: Acute hypoxic respiratory failure. Secondary to Covid 19 pneumonitis. Patient required intubation on 05/16/20, and she remains now on mechanical ventilation. Presently on FiO2 of 55 percent., PEEP was cut down to 10. Acute pulmonary embolism, subsegmental in the left lower lobe with elevated d- dimer History of breast cancer. Generalized anxiety disorder. Influenza B infection Elevated d-dimer Recommendation: Continue ventilatory support. Continue Zosyn empirically. Continue Lovenox/therapeutic dose. 60 mg subcu every 12 hours. Continue nutritional support. Continue GI and DVT prophylaxis. Continue IV Solu-Medrol. Completed treatment with remdesivir , and received convalescent plasma times one. Continue supportive care measures. Continue the Covid 19 cocktail. Assessment and status daily off sedation, but clearly not quite ready for weaning or extubation. Critical care time is over 30 minutes. We'll continue to follow Time with Patient: Greater than 30
[2020-05-21 17:08] LABS: Immunoglobulin E 3.03 IU/mL (0.00-114.00)
--- NOTE | 2020-05-21 17:34 | P.PN ---
Subjective Progress Note Date: 05/21/20 HISTORY OF PRESENT ILLNESS This is a 79-year-old female patient of Dr. Guerrero with past medical history of breast cancer, hypothyroidism, hyperlipidemia, generalized o steoarthritis. She was recently hospitalized May 12 for fever, chills, cough with sputum production with worsening dyspnea was diagnosed with COVID-19 pneumonia. Patient was stabilized and discharged home on May 05 with azithromycin, steroids, home oxygen and vitamin supplements. Patient had significant shortness of breath when she woke up this morning and was wearing oxygen at 4 L. EMS was called and reported that she was ashen nazario, diaphoretic with a pulse ox of 71% upon arrival. Patient was brought into [facility] emergency center and found to be afebrile, heart rate 105, blood pressure 168/89, pulse ox 97% with nonrebreather. She continued tachypneic and tachycardic and patient was placed on BiPAP. Chest x-ray reveals stable patchy bilateral infiltrates. WBC 19.5, hemoglobin 11. Sodium 133, potassium 4.1, CO2 26, BUN 23 and creatinine 0.65. Blood sugar 100. Lactic acid 1.1. LDH 1116, C-reactive protein 63.7. Covid 19 not detected. Influenza B positive. Patient was continued on vitamin supplements, dexamethasone and started on Lovenox, Tamiflu, admitted to the cardiac stepdown unit and consult requested with infectious disease and pulmonary medicine. DDimer elevated at 33 and CTA of the chest positive for tiny filling defect left lower lobe pulmonary artery. 05/10: Patient continues to have significant shortness of breath cough and chest tightness. She is on BiPAP and unable to eat or drink. She continues to feel weak and tired. Temperature max 100.0, heart rate 95, blood pressure 125/68, pulse ox 91% on BiPAP with FiO2 of 80. Patient has been seen by pulmonary medicine and started on Remdesivir. The patient's has been contacted via phone and updated regarding patient's current condition and treatment plan. 05/11: Patient is currently on day 3/5 of Remdesivir. Her pulse ox is running a bout 89% on BiPAP of 85% FiO2. Legionella was negative. Temperature max 101, heart rate 86, blood pressure 150/68. Navarro catheter will be placed as patient is too dyspneic to use bedpan or commode. Repeat blood work reveals WBC 19.4, hemoglobin 10.2. Sodium 136, potassium 3.7, creatinine 0.68. Patient is followed by infectious disease and pulmonary medicine. 05/12: Patient is currently on day 4/5 of Remdesivir. She continues to have significant shortness of breath which is worse from yesterday. She is on 85% FiO2 BiPAP pulse ox a 90%. When she moved over to 15 L, pulse ox dropped down to 78%. She continues complaining of shortness of breath. She has been anxious during the night and Xanax ordered. Patient is unable to take any new oral nutrition at this point. Navarro catheter was placed yesterday. Patient has been afebrile for 24 hour period. Heart rate 104, respiratory rate 26, blood pressure 175/81. Updated pulmonary medicine regarding possible need for intubation. 05/13: Patient's respiratory status did improve yesterday afternoon and she did not require transfer to the intensive care unit. Patient may be slightly better today from yesterday morning but did decline from yesterday afternoon. She is currently pulse ox seen in the 80s with BiPAP of 85% FiO2. She has been off onto 15 L high flow nasal cannula to eat and has been able to take in a small amount of food yesterday and Ensure. She will complete her course of Remdesivir this evening. Tamiflu course will also be completed this evening. Temperature max 100.3 yesterday at noon. Heart rate 91, blood pressure 174/85. Repeat blood work reveals WBC 20.5, hemoglobin 11. Chloride 112, BUN 33 and creatinine 0.61. Blood sugar 146. Alkaline phosphatase 129. 05/14: Yesterday afternoon, patient was transferred to the intensive care unit and is agreeable to short-term intubation if necessary. She has not required vasopressors. Patient has been afebrile. Heart rate 64, blood pressure 132/69, pulse ox 93% on 80% BiPAP. Leukocytosis is down to 12.9, hemoglobin 10. D- dimer isn't improved at 2.83. Creatinine 0.53. Other inflammatory markers have shown improvement with LDH at 1416, C-reactive protein 36.8. Patient has completed course of Remdesivir and Tamiflu. She remains on Lovenox, Solu-Medrol and vitamin supplementations. 05/15: Patient remains in the intensive care unit on BiPAP pulse ox seen 89-90% on 80% FiO2. Repeat chest x-ray reveals stable bilateral patchy infiltrate. She has completed course of Remdesivir and course of Tamiflu. She has been afebrile, heart rate 64, blood pressure 151/79. WBC 14.6, hemoglobin 10.1. Creatinine 0.51. Blood sugar 136. Albumin 2.5. Patient has been without food for greater than 6 days. Discussed nutrition options with Dr. Crowe he will address with rounds today. Physical exam deferred to Dr. Crowe. 05/16: Patient remains in the intensive care unit. She remains on 100% BiPAP pulse oxing 91%. She's been afebrile, heart rate in the low 100s, blood pressure 162/88. Repeat blood work reveals WBC 16.1, hemoglobin 10.8. D-dimer is 2.88. Sodium 135, potassium 3.7, chloride 108, CO2 25, BUN 28 and creatinine 0.47. CRP 37.3. Repeat chest x-ray reveals patchy bilateral lung infiltrates. Patient continues to be followed by [facility] and infectious disease. Patient is eating only about 25% of her meals. She is followed by case management for discharge planning. Patient states that Xanax is not helping and will be changed to lorazepam 0.5 mg IV every 6 hours as needed. 05/17: Patient was intubated last night currently on mechanical ventilation with tidal volume 400, FiO2 100, PEEP of 14. Pulse ox is 90-91%. Chest x-ray this morning reveals mild cardiomegaly and diffuse interstitial opacities mid and lower lungs. Small effusions. Correlate for interstitial pulmonary edema. She has been afebrile, heart rate 76, blood pressure 132/68. Patient has not required vasopressors. Patient is on max propofol. Oral tube feeding to be started today. Repeat lab work reveals WBC 15, hemoglobin 10. Sodium 136, potassium 3.5, chloride 108, CO2 24, BUN 27 and creatinine 0.51. Stool for occult blood positive. 05/18: Patient remains in the intensive care unit with pulse ox in the low 90s, remains intubated and on mechanical ventilation with tidal volume 350, FiO2 65, PEEP 12. She has been afebrile, heart rate 64, blood pressure 105/59. Patient has been starting on tube feedings currently at goal. Repeat lab work reveals Mattie BC 15.9, hemoglobin 10.1. Fibrinogen 504, d-dimer 1.17. Sodium 136, potassium 3.7, chloride 112, CO2 23, BUN 29 and creatinine 0.59. Blood sugars in the low 100s. Ferritin 570. C-reactive protein 27.9. 05/19:patient intubated sedated leukocytosis 20k, p02 67 sbp 123, solumedrol 60 q6 levofed infusion, still requiring pressor support, we will change oral levothyroxine to IV 25 g daily.vo 05/20: Patient is remains in ICU intubated on vent, sedated, still with leukocytosis 22.9 thousand, chest x-ray shows mild diffuse increased lung markings stable from previous, patient is on Zosyn, sputum culture requested, finished treatment withremdesivir d-dimer is trending down toward with current level of 0.99, creatinine is normal, we'll going to check for TSH value check for immune globulin level, iron levels, for the anemia. albumin levels low at 2.1 on or OG-tube feedings 05/21. Patient remains in ICU, still in mechanical ventilation, followed closely by facility coordinator, patient still leukocytosis wbcof 23,000, hemoglobin of 8.2, chest x-ray shows bilateral multifocal infiltrates, still on empiric Zosyn for underlying but bacterial pneumonia, however, covid pneumonitis is still difficult to eradicate chest x-ray shows fibrotic change in the lower lung with bilateral multifocal acute infiltrates, no significant change. IgG levels are very low at 378, unsure whether, globulin infusion would be helpful against a convalescent Covid serum would be helpful we will discuss with infectious disease or pulmonary. I discussed these value of hypogammaglobulinemia to Dr. Wright, for which he recommended IV IgG infusion, rather than convalescent serum. Gammagard to be dosed by pharmacy at 0.6 mg/kg of ideal body weight. ICU was notified. REVIEW OF SYSTEMS Unable to obtain due to intubation. Objective - Vital Signs Vital signs: Vital Signs Temp 99.0 F 05/21/20 16:00 Pulse 85 05/21/20 17:00 Resp 31 H 05/21/20 17:00 BP 120/57 05/21/20 13:00 Pulse Ox 93 L 05/21/20 17:00 Intake & Output 05/20/20 05/21/20 05/21/20 18:59 06:59 18:59 Intake Total 1743.041 1489.349 1294.569 Output Total 355 460 605 Balance 7321.357 7431.349 689.569 Weight 61.5 kg 69.1 kg Intake: IV 1141 972 991 Piperacillin-Tazobactam 3 200 100 .375 gm In Sodium Chloride 0.9% 100 ml @ 25 mls/hr IVPB Q8HR NI Rx# :[id number] Pressure Bags 0.9 sodium 66 72 66 chloride Sodium Chloride 0.9% 1, 875 900 825 000 ml @ 75 mls/hr IV . [id number] NI Rx#:[id number] Intake, IV Titration 189.717 286.349 26.569 Amount Norepinephrine 8 mg In 19.155 Sodium Chloride 0.9% 250 ml @ 0.05 MCG/KG/MIN 5. 718 mls/hr IV .Q24H NI Rx#:[id number] propofoL 1,000 mg In 189.717 267.194 26.569 Empty Bag 1 bag @ Titrate IV .Q0M NI Rx#: [id number] Tube Feeding 170 204 187 Other 60 90 90 Output: Urine 355 460 605 Other: Voiding Method Indwelling Catheter Indwelling Catheter Indwelling Catheter # Bowel Movements 0 ABP, PAP, CO, CI - Last Documented Arterial Blood Pressure 156/67 - Exam Intubated sedated on vent - Constitutional General appearance: Present: cooperative, no acute distress - Respiratory Respiratory: bilateral: diminished, rhonchi - Cardiovascular Rhythm: regular - Gastrointestinal General gastrointestinal: Present: normal bowel sounds, soft - Labs CBC & Chem 7: 05/21/20 05:10 05/21/20 05:10 Labs: Abnormal Lab Results - Last 24 Hours (Table) 05/20/20 05/20/20 05/21/20 Range/Units 17:52 23:36 05:05 WBC (3.8-10.6) k/uL RBC (3.80-5.40) m/uL Hgb (11.4-16.0) gm/dL Hct (34.0-46.0) % RDW (11.5-15.5) % Neutrophils # (Manual) (1.3-7.7) k/uL Lymphocytes # (Manual) (1.0-4.8) k/uL Monocytes # (Manual) (0-1.0) k/uL Metamyelocytes # (Man) (0) k/uL Myelocytes # (Manual) (0) k/uL Promyelocytes # (Man) (0) k/uL D-Dimer (<0.60) mg/L FEU ABG pO2 (83-108) mmHg ABG Total CO2 (19-24) mmol/L Chloride (98-107) mmol/L BUN (7-17) mg/dL Glucose (74-99) mg/dL POC Glucose (mg/dL) 129 H 151 H 138 H (75-99) mg/dL Calcium (8.4-10.2) mg/dL TIBC (228-460) ug/dL Ferritin (10.0-291.0) ng/mL Lactate Dehydrogenase (313-618) U/L C-Reactive Protein (<10.0) mg/L IgG (700.0-1600.0) mg/dL IgM (40.0-280.0) mg/dL 05/21/20 05/21/20 05/21/20 Range/Units 05:10 05:10 05:10 WBC 23.1 H (3.8-10.6) k/uL RBC 2.75 L (3.80-5.40) m/uL Hgb 8.2 L (11.4-16.0) gm/dL Hct 25.0 L (34.0-46.0) % RDW 15.6 H (11.5-15.5) % Neutrophils # (Manual) 20.00 H (1.3-7.7) k/uL Lymphocytes # (Manual) 0.23 L (1.0-4.8) k/uL Monocytes # (Manual) 1.16 H (0-1.0) k/uL Metamyelocytes # (Man) 0.23 H (0) k/uL Myelocytes # (Manual) 0.92 H (0) k/uL Promyelocytes # (Man) 0.23 H (0) k/uL D-Dimer (<0.60) mg/L FEU ABG pO2 (83-108) mmHg ABG Total CO2 (19-24) mmol/L Chloride (98-107) mmol/L BUN (7-17) mg/dL Glucose (74-99) mg/dL POC Glucose (mg/dL) (75-99) mg/dL Calcium (8.4-10.2) mg/dL TIBC 204 L (228-460) ug/dL Ferritin (10.0-291.0) ng/mL Lactate Dehydrogenase (313-618) U/L C-Reactive Protein (<10.0) mg/L IgG 378.0 L (700.0-1600.0) mg/dL IgM 303.0 H (40.0-280.0) mg/dL 05/21/20 05/21/20 05/21/20 Range/Units 05:10 05:10 05:27 WBC (3.8-10.6) k/uL RBC (3.80-5.40) m/uL Hgb (11.4-16.0) gm/dL Hct (34.0-46.0) % RDW (11.5-15.5) % Neutrophils # (Manual) (1.3-7.7) k/uL Lymphocytes # (Manual) (1.0-4.8) k/uL Monocytes # (Manual) (0-1.0) k/uL Metamyelocytes # (Man) (0) k/uL Myelocytes # (Manual) (0) k/uL Promyelocytes # (Man) (0) k/uL D-Dimer 0.86 H (<0.60) mg/L FEU ABG pO2 75 L (83-108) mmHg ABG Total CO2 25 H (19-24) mmol/L Chloride 116 H (98-107) mmol/L BUN 30 H (7-17) mg/dL Glucose 133 H (74-99) mg/dL POC Glucose (mg/dL) (75-99) mg/dL Calcium 7.8 L (8.4-10.2) mg/dL TIBC (228-460) ug/dL Ferritin 375.4 H (10.0-291.0) ng/mL Lactate Dehydrogenase 1135 H (313-618) U/L C-Reactive Protein 17.9 H (<10.0) mg/L IgG (700.0-1600.0) mg/dL IgM (40.0-280.0) mg/dL 05/21/20 Range/Units 11:44 WBC (3.8-10.6) k/uL RBC (3.80-5.40) m/uL Hgb (11.4-16.0) gm/dL Hct (34.0-46.0) % RDW (11.5-15.5) % Neutrophils # (Manual) (1.3-7.7) k/uL Lymphocytes # (Manual) (1.0-4.8) k/uL Monocytes # (Manual) (0-1.0) k/uL Metamyelocytes # (Man) (0) k/uL Myelocytes # (Manual) (0) k/uL Promyelocytes # (Man) (0) k/uL D-Dimer (<0.60) mg/L FEU ABG pO2 (83-108) mmHg ABG Total CO2 (19-24) mmol/L Chloride (98-107) mmol/L BUN (7-17) mg/dL Glucose (74-99) mg/dL POC Glucose (mg/dL) 142 H (75-99) mg/dL Calcium (8.4-10.2) mg/dL TIBC (228-460) ug/dL Ferritin (10.0-291.0) ng/mL Lactate Dehydrogenase (313-618) U/L C-Reactive Protein (<10.0) mg/L IgG (700.0-1600.0) mg/dL IgM (40.0-280.0) mg/dL Assessment and Plan Plan: ASSESSMENT AND PLAN 1. Acute on chronic hypoxic respiratory failure secondary to COVID pneumonia, Influenza B and small left lower pulmonary embolism. Patient required intubation and mechanical ventilation. Solu-Medrol 60 mg IV every 6 hours, Love nox 60 mg subcu twice daily, vitamin supplements with vitamin C, vitamin D, zinc, Tamifllu completed. Remdesivir completed. Consults with pulmonary medicine and infectious disease appreciated. Check for immunosuppression, immunoglobulin level 2. 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 San, infectious disease, and based on recommendation, he decided on IV Ig infusion,, guarded at 0.6 mg/kg of IV but ideal body weight, baseline levels igg [id number] 2. Hypothyroidism. Continue levothyroxine changed to IV 25 g daily instead of oral 50 g daily. 3. Severe osteoporosis. Fosamax on hold. 4. Anticoagulation with Lovenox full therapeutic anticoagulant dose. 5. GI prophylaxis. Pepcid. 6. Recurrent depression. Continue Zoloft 200 mg daily. 7. Situational anxiety. Xanax 0.5 mg twice daily as needed added. 8. History of breast cancer. 9. Stool positive for occult blood. Monitor hemoglobin and patient status closely 10. Blood loss anemia, iron studies to be done, patient's on full dose anticoagulation with Lovenox, transfusion if hemoglobin is under 7 Prognosis guarded. DISCHARGE PLAN May require subacute rehab. Patient is followed by case management.
[2020-05-21 18:38] LABS: Glucose,Whole Blood 121 mg/dL (75-99)
[2020-05-21] MEDS: hydrALAZINE HCL 20 MG/ML 1 ML VIAL IVP PRN (18:40)
[2020-05-21] MEDS ORDERED: IMMUNE GLOBULIN (GAMMAGARD) 30 GM in EMPTY BAG 1 BAG IV ONE (20:00)
[2020-05-21] MEDS ORDERED: IMMUNE GLOBULIN (GAMMAGARD) 5 GM in EMPTY BAG 1 BAG IV ONE (20:00)
[2020-05-21] MEDS: clonazePAM 0.5 MG TAB PO SCH (20:22)
--- NOTE | 2020-05-21 23:43 | PN ---
PROGRESS NOTE DATE OF SERVICE: 05/21/2020. REASON FOR FOLLOWUP: Pneumonia. INTERVAL HISTORY: The patient is currently afebrile. The patient is hemodynamically stable, not on pressor support. FiO2 is currently stable 55%. diarrhea per the nursing staff. EXAMINATION: Blood pressure 138/78 with a pulse of 89, temperature 98.8. She is 92% on 55% FiO2. General description is an elderly female intubated on the vent. Respiratory system: Unlabored breathing, decreased breath sounds in the bases. No wheeze. Heart S1, S2. Regular rate and rhythm. ABDOMEN: Soft, no tenderness. The patient noticed to have low IGG levels. Chest x-ray with multifocal . DIAGNOSTIC IMPRESSION AND PLAN: Patient with acute respiratory failure which is multifactorial in this patient with possible component of pneumonia. Has been treated for influenza and Covid and is currently covered with Zosyn. Sputum culture has been cultured again in view of the low IGG. May benefit from infusion. This was discussed with the admitting physician and continue supportive care. MMODL / IJN: [id number] /
[2020-05-22] MEDS: methylPREDNISolone SOD SUCCI 125 MG/2 ML VIAL IV SCH ×4 (01:27→18:03)
[2020-05-22] MEDS: PIPERACILLIN-TAZOBACTAM 3.375 GM in SODIUM CHLORIDE 0.9% 100 ML IVPB SCH ×3 (01:27→16:03)
[2020-05-22] MEDS: hydrALAZINE HCL 20 MG/ML 1 ML VIAL IVP PRN (01:28)
[2020-05-22 01:42] LABS: Glucose,Whole Blood 137 mg/dL (75-99)
[2020-05-22] MEDS: INSULIN ASPART (NovoLOG) 100 UNIT/ML VIAL SQ SCH ×4 (01:56→18:03)
[2020-05-22] MEDS: SODIUM CHLORIDE 0.9% 1,000 ML IV SCH ×3 (02:00→21:48)
[2020-05-22] MEDS: NOREPINEPHRINE 8 MG in SODIUM CHLORIDE 0.9% 250 ML IV SCH (03:10)
[2020-05-22 04:44] LABS: ABG Base Excess 0.9 mmol/L; ABG HCO3 26 mmol/L (21-25); ABG Oxygen Saturation 94.2 % (94-97); ABG PCO2 42 mmHg (35-45); ABG PO2 67 mmHg (83-108); ABG TCO2 27 mmol/L (19-24); Allen Test Performed? Yes
[2020-05-22 05:18] LABS: HCT 23.6 % (34.0-46.0); HGB 7.7 gm/dL (11.4-16.0); MCH 29.3 pg (25.0-35.0); MCHC 32.6 g/dL (31.0-37.0); Mean Platelet Volume 7.2; Platelet Count 255 k/uL (150-450); RBC 2.62 m/uL (3.80-5.40); WBC 29.7 k/uL (3.8-10.6)
[2020-05-22 05:33] LABS: African American GFR (CKD) >90 (>60 ml/min/1.73 sqM); Anion Gap 3 mmol/L; Blood Urea Nitrogen 25 mg/dL (7-17); Calcium 7.7 mg/dL (8.4-10.2); Carbon Dioxide 25 mmol/L (22-30); Chloride 112 mmol/L (98-107); Glucose 140 mg/dL (74-99); Non-African American GFR(CKD) >90 (>60 ml/min/1.73 sqM); Potassium 3.4 mmol/L (3.5-5.1); Sodium 140 mmol/L (137-145)
[2020-05-22] MEDS: POTASSIUM BICARBONATE/CIT AC 20 MEQ TABLET.EFF NG-TUBE SCH ×4 (06:29→21:46)
[2020-05-22 06:47] LABS: Glucose,Whole Blood 131 mg/dL (75-99)
--- NOTE | 2020-05-22 07:13 | XR ---
EXAMINATION TYPE: XR chest 1V portable DATE OF EXAM: 05/22/2020 CLINICAL HISTORY: Difficulty breathing progress study. TECHNIQUE: Single AP portable supine view of the chest is obtained. COMPARISON: Chest x-ray from one day earlier and older studies FINDINGS: Stable endotracheal and orogastric tubes. Stable right internal jugular central venous cat heter. Persistent reticular increased markings greatest in the lower lungs with multifocal opacities bilater ally. No pneumothorax seen bilaterally. Cardiac silhouette size stable and within normal limits. Righ t axillary surgical clips redemonstrated. Underlying scoliotic curvature. IMPRESSION: Fibrotic changes in the lower lungs with bilateral multifocal acute infiltrates and/or e kip. No significant change from one day earlier.
[2020-05-22 08:17] LABS: Glucose,Whole Blood 127 mg/dL (75-99)
[2020-05-22] MEDS: CHOLECALCIFEROL 1,000 UNIT TAB PO SCH (08:38)
[2020-05-22] MEDS: CHLORHEXIDINE GLUCONATE 15 ML CUP MUCOUS MEM SCH ×2 (08:38→21:45)
[2020-05-22] MEDS: ASCORBIC ACID 500 MG TAB PO SCH ×2 (08:38→21:45)
[2020-05-22] MEDS: CYANOCOBALAMIN 500 MCG TAB PO SCH (08:38)
[2020-05-22] MEDS: ASPIRIN 81 MG PO SCH (08:38)
[2020-05-22 08:39] LABS: Band Neutrophils % 2 %; Metamyelocytes # (M) 1.19 k/uL (0); Metamyelocytes % 4 %; Myelocytes # (M) 1.49 k/uL (0); Myelocytes % 5 %; Neutrophils % (M) 89 %; Nucleated Red Blood Cells 0 /100 WBC (0-0); Total Cells Counted 200
[2020-05-22] MEDS: ENOXAPARIN 60 MG/0.6 ML SYRINGE SQ SCH ×2 (08:39→21:55)
[2020-05-22] MEDS: LEVOTHYROXINE IVP 100 MCG/5 ML VIAL IV SCH (08:39)
[2020-05-22] MEDS: PANTOPRAZOLE 40 MG/10 ML VIAL IVP SCH ×2 (08:39→21:45)
[2020-05-22] MEDS: METOPROLOL TARTRATE 25 MG TAB PO SCH ×2 (08:40→21:45)
[2020-05-22] MEDS: SERTRALINE 100 MG TAB PO SCH (08:40)
[2020-05-22] MEDS: ZINC SULFATE 220 MG CAP PO SCH (08:40)
[2020-05-22] MEDS: CLEVIDIPINE BUTYRATE 25 MG in EMPTY BAG 1 BAG IV SCH ×2 (10:52→16:09)
[2020-05-22 12:26] LABS: Glucose,Whole Blood 136 mg/dL (75-99)
--- NOTE | 2020-05-22 12:47 | P.PN ---
Subjective Progress Note Date: 05/22/20 HISTORY OF PRESENT ILLNESS This is a 79-year-old female patient of Dr. Guerrero with past medical history of breast cancer, hypothyroidism, hyperlipidemia, generalized o steoarthritis. She was recently hospitalized May 12 for fever, chills, cough with sputum production with worsening dyspnea was diagnosed with COVID-19 pneumonia. Patient was stabilized and discharged home on May 05 with azithromycin, steroids, home oxygen and vitamin supplements. Patient had significant shortness of breath when she woke up this morning and was wearing oxygen at 4 L. EMS was called and reported that she was ashen nazario, diaphoretic with a pulse ox of 71% upon arrival. Patient was brought into [facility] emergency center and found to be afebrile, heart rate 105, blood pressure 168/89, pulse ox 97% with nonrebreather. She continued tachypneic and tachycardic and patient was placed on BiPAP. Chest x-ray reveals stable patchy bilateral infiltrates. WBC 19.5, hemoglobin 11. Sodium 133, potassium 4.1, CO2 26, BUN 23 and creatinine 0.65. Blood sugar 100. Lactic acid 1.1. LDH 1116, C-reactive protein 63.7. Covid 19 not detected. Influenza B positive. Patient was continued on vitamin supplements, dexamethasone and started on Lovenox, Tamiflu, admitted to the cardiac stepdown unit and consult requested with infectious disease and pulmonary medicine. DDimer elevated at 33 and CTA of the chest positive for tiny filling defect left lower lobe pulmonary artery. 05/10: Patient continues to have significant shortness of breath cough and chest tightness. She is on BiPAP and unable to eat or drink. She continues to feel weak and tired. Temperature max 100.0, heart rate 95, blood pressure 125/68, pulse ox 91% on BiPAP with FiO2 of 80. Patient has been seen by pulmonary medicine and started on Remdesivir. The patient's has been contacted via phone and updated regarding patient's current condition and treatment plan. 05/11: Patient is currently on day 3/5 of Remdesivir. Her pulse ox is running a bout 89% on BiPAP of 85% FiO2. Legionella was negative. Temperature max 101, heart rate 86, blood pressure 150/68. Navarro catheter will be placed as patient is too dyspneic to use bedpan or commode. Repeat blood work reveals WBC 19.4, hemoglobin 10.2. Sodium 136, potassium 3.7, creatinine 0.68. Patient is followed by infectious disease and pulmonary medicine. 05/12: Patient is currently on day 4/5 of Remdesivir. She continues to have significant shortness of breath which is worse from yesterday. She is on 85% FiO2 BiPAP pulse ox a 90%. When she moved over to 15 L, pulse ox dropped down to 78%. She continues complaining of shortness of breath. She has been anxious during the night and Xanax ordered. Patient is unable to take any new oral nutrition at this point. Navarro catheter was placed yesterday. Patient has been afebrile for 24 hour period. Heart rate 104, respiratory rate 26, blood pressure 175/81. Updated pulmonary medicine regarding possible need for intubation. 05/13: Patient's respiratory status did improve yesterday afternoon and she did not require transfer to the intensive care unit. Patient may be slightly better today from yesterday morning but did decline from yesterday afternoon. She is currently pulse ox seen in the 80s with BiPAP of 85% FiO2. She has been off onto 15 L high flow nasal cannula to eat and has been able to take in a small amount of food yesterday and Ensure. She will complete her course of Remdesivir this evening. Tamiflu course will also be completed this evening. Temperature max 100.3 yesterday at noon. Heart rate 91, blood pressure 174/85. Repeat blood work reveals WBC 20.5, hemoglobin 11. Chloride 112, BUN 33 and creatinine 0.61. Blood sugar 146. Alkaline phosphatase 129. 05/14: Yesterday afternoon, patient was transferred to the intensive care unit and is agreeable to short-term intubation if necessary. She has not required vasopressors. Patient has been afebrile. Heart rate 64, blood pressure 132/69, pulse ox 93% on 80% BiPAP. Leukocytosis is down to 12.9, hemoglobin 10. D- dimer isn't improved at 2.83. Creatinine 0.53. Other inflammatory markers have shown improvement with LDH at 1416, C-reactive protein 36.8. Patient has completed course of Remdesivir and Tamiflu. She remains on Lovenox, Solu-Medrol and vitamin supplementations. 05/15: Patient remains in the intensive care unit on BiPAP pulse ox seen 89-90% on 80% FiO2. Repeat chest x-ray reveals stable bilateral patchy infiltrate. She has completed course of Remdesivir and course of Tamiflu. She has been afebrile, heart rate 64, blood pressure 151/79. WBC 14.6, hemoglobin 10.1. Creatinine 0.51. Blood sugar 136. Albumin 2.5. Patient has been without food for greater than 6 days. Discussed nutrition options with Dr. Crowe he will address with rounds today. Physical exam deferred to Dr. Crowe. 05/16: Patient remains in the intensive care unit. She remains on 100% BiPAP pulse oxing 91%. She's been afebrile, heart rate in the low 100s, blood pressure 162/88. Repeat blood work reveals WBC 16.1, hemoglobin 10.8. D-dimer is 2.88. Sodium 135, potassium 3.7, chloride 108, CO2 25, BUN 28 and creatinine 0.47. CRP 37.3. Repeat chest x-ray reveals patchy bilateral lung infiltrates. Patient continues to be followed by [facility] and infectious disease. Patient is eating only about 25% of her meals. She is followed by case management for discharge planning. Patient states that Xanax is not helping and will be changed to lorazepam 0.5 mg IV every 6 hours as needed. 05/17: Patient was intubated last night currently on mechanical ventilation with tidal volume 400, FiO2 100, PEEP of 14. Pulse ox is 90-91%. Chest x-ray this morning reveals mild cardiomegaly and diffuse interstitial opacities mid and lower lungs. Small effusions. Correlate for interstitial pulmonary edema. She has been afebrile, heart rate 76, blood pressure 132/68. Patient has not required vasopressors. Patient is on max propofol. Oral tube feeding to be started today. Repeat lab work reveals WBC 15, hemoglobin 10. Sodium 136, potassium 3.5, chloride 108, CO2 24, BUN 27 and creatinine 0.51. Stool for occult blood positive. 05/18: Patient remains in the intensive care unit with pulse ox in the low 90s, remains intubated and on mechanical ventilation with tidal volume 350, FiO2 65, PEEP 12. She has been afebrile, heart rate 64, blood pressure 105/59. Patient has been starting on tube feedings currently at goal. Repeat lab work reveals Mattie BC 15.9, hemoglobin 10.1. Fibrinogen 504, d-dimer 1.17. Sodium 136, potassium 3.7, chloride 112, CO2 23, BUN 29 and creatinine 0.59. Blood sugars in the low 100s. Ferritin 570. C-reactive protein 27.9. 05/19:patient intubated sedated leukocytosis 20k, p02 67 sbp 123, solumedrol 60 q6 levofed infusion, still requiring pressor support, we will change oral levothyroxine to IV 25 g daily.vo 05/20: Patient is remains in ICU intubated on vent, sedated, still with leukocytosis 22.9 thousand, chest x-ray shows mild diffuse increased lung markings stable from previous, patient is on Zosyn, sputum culture requested, finished treatment withremdesivir d-dimer is trending down toward with current level of 0.99, creatinine is normal, we'll going to check for TSH value check for immune globulin level, iron levels, for the anemia. albumin levels low at 2.1 on or OG-tube feedings 05/21. Patient remains in ICU, still in mechanical ventilation, followed closely by mat sewer, patient still leukocytosis wbcof 23,000, hemoglobin of 8.2, chest x-ray shows bilateral multifocal infiltrates, still on empiric Zosyn for underlying but bacterial pneumonia, however, covid pneumonitis is still difficult to eradicate chest x-ray shows fibrotic change in the lower lung with bilateral multifocal acute infiltrates, no significant change. IgG levels are very low at 378, unsure whether, globulin infusion would be helpful against a convalescent Covid serum would be helpful we will discuss with infectious disease or pulmonary. I discussed these value of hypogammaglobulinemia to Dr. Savage, for which he recommended IV IgG infusion, rather than convalescent serum. Gammagard to be dosed by pharmacy at 0.6 mg/kg of ideal body weight. ICU was notified. May 22: Patient remains in ICU, still with mechanical ventilation, Gammagard should have been infused, afebrile, still receiving OG-tube feedings still with leukocytosis, no new changes, awaiting response of antibiotic, no plans for vent weaning yet mat sewer, monitoring very closely REVIEW OF SYSTEMS Unable to obtain due to intubation. Objective - Vital Signs Vital signs: Vital Signs Temp 98.1 F 05/22/20 08:00 Pulse 81 05/22/20 09:00 Resp 31 H 05/22/20 09:00 BP 139/64 05/22/20 09:00 Pulse Ox 93 L 05/22/20 09:00 Intake & Output 05/21/20 05/22/20 05/22/20 18:59 06:59 18:59 Intake Total 2886.716 4681.000 307 Output Total 685 940 375 Balance 807.569 912.000 -68 Weight 68.5 kg Intake: IV 1072 1422 243 Immune Globulin ( 300 Gammagard) 30 gm In Empty Bag 1 bag @ Per Protocol IV .Q0M ONE Rx#: [id number] Immune Globulin ( 50 Gammagard) 5 gm In Empty Bag 1 bag @ Titrate IV . Q0M ONE Rx#:[id number] Piperacillin-Tazobactam 3 100 100 .375 gm In Sodium Chloride 0.9% 100 ml @ 25 mls/hr IVPB Q8HR [facility] Rx# :[id number] Pressure Bags 0.9 sodium 72 72 18 chloride Sodium Chloride 0.9% 1, 900 900 225 000 ml @ 75 mls/hr IV . [id number] [facility] Rx#:[id number] Intake, IV Titration 126.569 170.000 Amount Immune Globulin ( 43.167 Gammagard) 30 gm In Empty Bag 1 bag @ Per Protocol IV .Q0M ONE Rx#: [id number] Immune Globulin ( 26.833 Gammagard) 5 gm In Empty Bag 1 bag @ Titrate IV . Q0M ONE Rx#:[id number] propofoL 1,000 mg In 126.569 100 Empty Bag 1 bag @ Titrate IV .Q0M [facility] Rx#: [id number] Tube Feeding 204 170 34 Other 90 90 30 Output: Urine 685 940 375 Other: Voiding Method Indwelling Catheter Indwelling Catheter Indwelling Catheter ABP, PAP, CO, CI - Last Documented Arterial Blood Pressure 157/62 - Exam Intubated sedated on vent - Respiratory Respiratory: bilateral: diminished - Cardiovascular Rhythm: regular - Allied health notes Allied health notes reviewed: case management - Labs CBC & Chem 7: 05/22/20 04:00 05/22/20 04:00 Labs: Abnormal Lab Results - Last 24 Hours (Table) 05/21/20 05/21/20 05/21/20 Range/Units 05:10 11:44 18:37 WBC (3.8-10.6) k/uL RBC (3.80-5.40) m/uL Hgb (11.4-16.0) gm/dL Hct (34.0-46.0) % RDW (11.5-15.5) % Neutrophils # (Manual) (1.3-7.7) k/uL Lymphocytes # (Manual) (1.0-4.8) k/uL Metamyelocytes # (Man) (0) k/uL Myelocytes # (Manual) (0) k/uL ABG pO2 (83-108) mmHg ABG HCO3 (21-25) mmol/L ABG Total CO2 (19-24) mmol/L Potassium (3.5-5.1) mmol/L Chloride (98-107) mmol/L BUN (7-17) mg/dL Creatinine (0.52-1.04) mg/dL Glucose (74-99) mg/dL POC Glucose (mg/dL) 142 H 121 H (75-99) mg/dL Calcium (8.4-10.2) mg/dL IgG 378.0 L (700.0-1600.0) mg/dL IgM 303.0 H (40.0-280.0) mg/dL 05/22/20 05/22/20 05/22/20 Range/Units 01:40 04:00 04:00 WBC 29.7 H (3.8-10.6) k/uL RBC 2.62 L (3.80-5.40) m/uL Hgb 7.7 L (11.4-16.0) gm/dL Hct 23.6 L (34.0-46.0) % RDW 16.0 H (11.5-15.5) % Neutrophils # (Manual) 27.00 H (1.3-7.7) k/uL Lymphocytes # (Manual) 0.30 L (1.0-4.8) k/uL Metamyelocytes # (Man) 1.19 H (0) k/uL Myelocytes # (Manual) 1.49 H (0) k/uL ABG pO2 (83-108) mmHg ABG HCO3 (21-25) mmol/L ABG Total CO2 (19-24) mmol/L Potassium 3.4 L (3.5-5.1) mmol/L Chloride 112 H (98-107) mmol/L BUN 25 H (7-17) mg/dL Creatinine 0.51 L (0.52-1.04) mg/dL Glucose 140 H (74-99) mg/dL POC Glucose (mg/dL) 137 H (75-99) mg/dL Calcium 7.7 L (8.4-10.2) mg/dL IgG (700.0-1600.0) mg/dL IgM (40.0-280.0) mg/dL 05/22/20 05/22/20 05/22/20 Range/Units 04:38 06:40 08:16 WBC (3.8-10.6) k/uL RBC (3.80-5.40) m/uL Hgb (11.4-16.0) gm/dL Hct (34.0-46.0) % RDW (11.5-15.5) % Neutrophils # (Manual) (1.3-7.7) k/uL Lymphocytes # (Manual) (1.0-4.8) k/uL Metamyelocytes # (Man) (0) k/uL Myelocytes # (Manual) (0) k/uL ABG pO2 67 L (83-108) mmHg ABG HCO3 26 H (21-25) mmol/L ABG Total CO2 27 H (19-24) mmol/L Potassium (3.5-5.1) mmol/L Chloride (98-107) mmol/L BUN (7-17) mg/dL Creatinine (0.52-1.04) mg/dL Glucose (74-99) mg/dL POC Glucose (mg/dL) 131 H 127 H (75-99) mg/dL Calcium (8.4-10.2) mg/dL IgG (700.0-1600.0) mg/dL IgM (40.0-280.0) mg/dL Microbiology - Last 24 Hours (Table) 05/21/20 23:58 Sputum Culture - Preliminary Sputum Assessment and Plan Plan: ASSESSMENT AND PLAN 1. Acute on chronic hypoxic respiratory failure secondary to COVID pneumonia, Influenza B and small left lower pulmonary embolism. Patient required intubation and mechanical ventilation. Solu-Medrol 60 mg IV every 6 hours, Lovenox 60 mg subcu twice daily, vitamin supplements with vitamin C, vitamin D, zinc, Tamifllu completed. Remdesivir completed. Consults with pulmonary medicine and infectious disease appreciated. Check for immunosuppression, immunoglobulin level started on Gammagard secondary to significantly low IgG 2. 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 San, infectious disease, and based on recommendation, he decided on IV Ig infusion,, guarded at 0.6 mg/kg of IV but ideal body weight, baseline levels igg 378 2. Hypothyroidism. Continue levothyroxine changed to IV 25 g daily instead of oral 50 g daily. 3. Severe osteoporosis. Fosamax on hold. 4. Anticoagulation with Lovenox full therapeutic anticoagulant dose. 5. GI prophylaxis. Pepcid. 6. Recurrent depression. Continue Zoloft 200 mg daily. 7. Situational anxiety. Xanax 0.5 mg twice daily as needed added. 8. History of breast cancer. 9. Stool positive for occult blood. Monitor hemoglobin and patient status closely 10. Blood loss anemia, iron studies to be done, patient's on full dose anticoagulation with Lovenox, transfusion if hemoglobin is under 7 Prognosis guarded. DISCHARGE PLAN May require subacute rehab. Patient is followed by case management.
--- NOTE | 2020-05-22 14:18 | P.PN ---
Subjective Progress Note Date: 05/22/20 Principal diagnosis: Acute hypoxic respiratory failure secondary to covid 19 pneumonitis. On 05/14/2020, the patient is being seen in the intensive care unit. The patient has been transferred to the intensive care unit yesterday because of acute hypoxic respiratory failure with progressive worsening shortness of breath and progressive worsening in her oxygenation. Note that the patient missed on a BiPAP and currently things of 14/8 cm of water with an FiO2 of 100%. Note that this patient initially had an acute Covid 19 related pneumonia that was diagnosed on 04/28/2020 and the patient was hospitalized and subsequently discharged home after being treated. At the time of discharge was given oral Decadron. She came back to the hospital on 05/09/2020 with worsening shortness of breath and hypoxemia and the patient tested negative for Covid 19 and the patient tested positive for influenza B. Despite all this, I give the patient the benefit of the doubt and treated the patient with Decadron and Remdesivir and I also had a Tamiflu. Subsequently, switched this patient to IV Solu- Medrol. At this point in time, the patient is in the intensive care unit. On today's evaluation her white cell count is at 12.9 with a hemoglobin of 10.0. D-dimer is at 2.83 and the patient remains on therapeutic dose of Lovenox 60 mg subcu every 12 hours. Note that the Electrodes are being utilized at the patient also showed a subsegmental pulmonary embolism in the left lower lobe pulmonary artery branch. As mentioned earlier, the subsegmental pulmonary embolism is not the culprit is not contributing to her respiratory failure and respiratory failure essentially related to the viral pneumonia. Most recent LDH is 1416 with a CRP level of 36 anti-inflammatory markers improved compared to earlier values. Legionella urine antigen was negative. She is afebrile. A repeat chest x-ray was done todayAntegrade the suspicion for a right-sided pneumothorax. I thought this was a skin fold and I repeated the chest x-ray which essentially showed diffuse bilateral pulmonary infiltrates worse on the left without evidence of any pneumothorax. I had a lengthy discussion with the patient. Based on our discussion today, the patient consented for a short-term intubation. She is not on any form of long-term mechanical ventilation in the event her breathing further decompensates. As such, overall CODE STATUS is full at this point in time. 05/15/2020, the patient remains in the intensive care unit in regards to her acute respiratory failure. The patient remains very much BiPAP dependent. She remains on a pressure of 14/8 cm of water. FiO2 has been weaned down to 80%. Despite unchanged BiPAP setting, the patient claims that she is breathing slightly better compared to yesterday. She is urinating a tidal volume of about 500 on a mechanical ventilator. Her minute ventilation is in the order of 10 L per minute. Note that she is on IV fluids and the site of 75 mL an hour. She has received IV Solu-Medrol, completed Remdesivir, completed Tamiflu, and she al so received 2 units of convalescent plasma. Chest x-ray from today is showing stable bilateral patchy pulmonary infiltrates, unchanged compared to yesterday. Her white cell count is at 14.6 with a hemoglobin of 10.1. She continues to have lymphopenia. The patient's LDH level is at 1416 from yesterday. Her CRP was 36.8 this will be repeated tomorrow. In function is stable. The rest of the electrodes are all stable. She is weak. She is able to take some sips of juice and shakes while being on the BiPAP. Unable to go to regular feeding at this point in time. As mentioned earlier, she has a full CODE STATUS. The patient made it clear to me that she did not want any form of long-term mechanical ventilation should she go into respiratory failure requiring intubation mechanical ventilation. She is still on anticoagulation the patient is on Lovenox therapeutic dose of 60 mg subcu every 12 hours. IV fluids are running at rate of 75 mL an hour. Reevaluated today on 05/16/20, patient remains in the ICU, presently on BiPAP with IPAP of 14 EPAP of 8 she is on the percent FiO2, and O2 saturation is very marginal at best, 90%. Patient did receive convalescent plasma, remdesivir and received Solu-Medrol. Patient was admitted initially on 05/09 and has been in the ICU since 05/13. Her pulmonary status is marginal at best. Patient also completed a course of Tamiflu. Chest x-ray continues to show bilateral interstitial infiltrates. WBC count is 16.1 hemoglobin is 10.8. D-dimer is 2.88 left lites are normal renal profile is normal Reevaluated today on 05/17/20. Patient had a deterioration in her clinical status last night, and she was barely oxygenating. ABG on high FiO2 of 100% on BiPAP, showed a pO2 of only 62 pCO2 of 34 pH of 7.47, and the patient was noted to be more tachypneic. Hence I recommended intubating the patient. And she had a follow-up ABG this morning on 100% FiO2 with of PEEP 12, showed a pO2 of 58 pCO2 of 40 0 pH of 7.43. patient is now on mechanical ventilation, and her ventilator settings are assist control rate of 26, tidal volume is 350, PEEP was cut down to 10 from 16 as the patient could not tolerate high PEEP, noted to do worse, with significantly elevated peak airway pressure and significantly elevated plateau pressures. Hence the to using lower tidal volumes, higher rates, and was able to cut down on her peak airway pressure, and her plateau pressures. ABG is pending. This morning ABG showed a pO2 of 58 pCO2 of 40 pH of 7.43. Patient is now on propofol at 60 g per acute per minute IV fluid at 75 mL per hour, enteral feeding to be started today. Lines including a right IJ central line placed, and left radial arterial line was also placed. Chest x-ray continues to show patchy infiltrates mid and lower lungs left greater than right. Electrolytes are normal renal profile is normal. WBC count is 15 hemoglobin is 10. Reevaluated today on 05/18/20, patient remains in the ICU, intubated and mechanically ventilated. Her ventilator settings are assist control rate of 30 tidal volume of 350 FiO2 is 70%. PEEP of 10. ABG showed a pO2 of 70 pCO2 of 39 pH of 7.35. Patient is on propofol at 48 mcg/kg/m, IV fluid at 75 mL/h, patient is on enteral feeding, I did increase the PEEP up to 12, hoping to cut down on the FiO2 from 70% to 60% if possible. Patient had very poor tolerance to high PEEP, we will address that accordingly. Zosyn was added mostly because of elevated pro calcitonin level. Electrolytes and renal profile are normal. D- dimer is 1.17. C-reactive protein is 27.9. Seems to be trending down. Reevaluated today on 05/19/20, patient remains intubated and mechanically ventilated, her ventilator settings are assist control rate of 30 tidal volume is 350 FiO2 is 60% and PEEP is 12. ABG showed a pO2 of 67 pCO2 of 43 pH of 7.32. Hence I recommended no change in her ventilator settings based on the ABG. Patient is off norepinephrine, maintained on propofol at 60 mcg/kg/m, she is also on enteral feeding, remains on Solu-Medrol and on Zosyn. No major change noted in the last 24 hours, patient is not quite ready for any weaning trials. Chest x-ray continues to show diffuse interstitial infiltrates/ARDS WBC count today is 20.6, hemoglobin is 9.3. D-dimer 0.99. Basic metabolic profile is normal renal profile is normal. C-reactive protein is down to 24.8, Reevaluated today on 05/20/20, patient remains intubated and mechanically ventilated. She is now on assist control rate of 30, tidal volume is 350 FiO2 is 55% and PEEP is 12. Patient is not requiring any pressors today. She is off propofol, but she is noted to be extremely agitated, does not follow any instructions. enteral feeding, he is also on Solu-Medrol and on Zosyn. reviewed ABG, no changes were made in her ventilator settings. Chest x-ray continues to show mild interstitial infiltrates. Consistent with covid 19 pneumonitis Patient was reevaluated today on 05/21/20, remains intubated, mechanically v entilated, ventilator settings are assist control rate of 30 tidal volume is 350 FiO2 is 55% and PEEP is 12 after reviewing the ABG, I cut down the PEEP down to 10. ABG showed a pO2 of 75 pCO2 of 43 pH of 7.35. Electrolytes are normal. WBC count is 20.1 hemoglobin is 8.2. Hematocrit is 25.0. Chest x-ray continues to show bilateral multifocal infiltrates. Possibly slight improvement noted. River cisse was placed on Zosyn empirically for possible underlying pneumonia/bacterial pneumonia although she presented with Covid 19 pneumonitis Patient was reevaluated today on 05/22/20, remains intubated and mechanically ventilated, remains in the ICU. She is on assist control rate of 30, tidal vol ume is 350, FiO2 is 55%, and PEEP is 10. ABG showed a pO2 of 67 pCO2 of 42 pH of 7.40. Patient is on a propofol drip at 65 mcg/kg/m, she is on IV fluid at 0.9 75 mL per hour. Not requiring any pressors, but not assess mental status today, she is a bit hypertensive and I recommended that she goes on clevidipine drip. Chest x-ray continues to show bilateral infiltrates, not much different from chest x-ray in the last few days. Labs today showed a WBC count of 29.7 hemoglobin is 7.7 continues to have lymphopenia, electrolytes are relatively normal renal profile is normal blood sugar is under control. Calcium is 7.7. No inflammatory markers were ordered for today. Patient remains on the Covid 19 cocktail. Remains on Lovenox at 60 mg subcu every 12 hours. Remains on Zosyn empirically for potential underlying bacterial superimposed pneumonia especially with her leukocytosis as noted. Sputum cultures are nondiagnostic. And blood cultures are negative since admission Objective - Vital Signs Vital signs: Vital Signs Temp 98.7 F 05/22/20 12:00 Pulse 86 05/22/20 14:00 Resp 30 H 05/22/20 14:00 BP 139/66 05/22/20 14:00 Pulse Ox 93 L 05/22/20 14:00 Intake & Output 05/21/20 05/22/20 05/22/20 18:59 06:59 18:59 Intake Total 9879.236 3051.000 830.933 Output Total 612 027 5620 Balance 807.569 912.000 -394.067 Weight 68.5 kg Intake: IV 1072 1422 567 Immune Globulin ( 300 Gammagard) 30 gm In Empty Bag 1 bag @ Per Protocol IV .Q0M ONE Rx#: [id number] Immune Globulin ( 50 Gammagard) 5 gm In Empty Bag 1 bag @ Titrate IV . Q0M ONE Rx#:[id number] Piperacillin-Tazobactam 3 100 100 .375 gm In Sodium Chloride 0.9% 100 ml @ 25 mls/hr IVPB Q8HR [facility] Rx# :[id number] Pressure Bags 0.9 sodium 72 72 42 chloride Sodium Chloride 0.9% 1, 900 900 525 000 ml @ 75 mls/hr IV . [id number] [facility] Rx#:[id number] Intake, IV Titration 126.569 170.000 101.933 Amount Clevidipine Butyrate 25 1.933 mg In Empty Bag 1 bag @ 1 MG/HR 2 mls/hr IV .Q24H [facility] Rx#:[id number] Immune Globulin ( 43.167 Gammagard) 30 gm In Empty Bag 1 bag @ Per Protocol IV .Q0M ONE Rx#: [id number] Immune Globulin ( 26.833 Gammagard) 5 gm In Empty Bag 1 bag @ Titrate IV . Q0M ONE Rx#:[id number] propofoL 1,000 mg In 126.569 100 100 Empty Bag 1 bag @ Titrate IV .Q0M [facility] Rx#: [id number] Tube Feeding 204 170 102 Other 90 90 60 Output: Urine 345 752 4055 Other: Voiding Method Indwelling Catheter Indwelling Catheter Indwelling Catheter ABP, PAP, CO, CI - Last Documented Arterial Blood Pressure 143/60 - Exam GENERAL EXAM: Revealed a 79-year-old female on mechanical ventilation, remains on propofol, sedated. HEAD: Normocephalic/atraumatic. ENT: PERRLA, EOMI, neck is, no neck masses, no JVD, no stridor.. CHEST: No chest wall deformity. Symmetrical expansion. LUNGS: Crackles and rhonchi noted bilaterally. CVS: Regular rate and rhythm, normal S1 and S2, no gallops, no murmurs, no rubs ABDOMEN: Soft, nontender. No hepatosplenomegaly, normal bowel sounds, no guarding or rigidity. EXTREMITIES: No clubbing, no edema, no cyanosis, 2+ pulses and upper and lower extremities SKIN: No rashes CENTRAL NERVOUS SYSTEM: Could not assess PSYCHIATRIC: Unable to assess - Labs CBC & Chem 7: 05/22/20 04:00 05/22/20 04:00 Labs: Abnormal Lab Results - Last 24 Hours (Table) 05/21/20 05/22/20 05/22/20 Range/Units 18:37 01:40 04:00 WBC 29.7 H (3.8-10.6) k/uL RBC 2.62 L (3.80-5.40) m/uL Hgb 7.7 L (11.4-16.0) gm/dL Hct 23.6 L (34.0-46.0) % RDW 16.0 H (11.5-15.5) % Neutrophils # (Manual) 27.00 H (1.3-7.7) k/uL Lymphocytes # (Manual) 0.30 L (1.0-4.8) k/uL Metamyelocytes # (Man) 1.19 H (0) k/uL Myelocytes # (Manual) 1.49 H (0) k/uL ABG pO2 (83-108) mmHg ABG HCO3 (21-25) mmol/L ABG Total CO2 (19-24) mmol/L Potassium (3.5-5.1) mmol/L Chloride (98-107) mmol/L BUN (7-17) mg/dL Creatinine (0.52-1.04) mg/dL Glucose (74-99) mg/dL POC Glucose (mg/dL) 121 H 137 H (75-99) mg/dL Calcium (8.4-10.2) mg/dL 05/22/20 05/22/20 05/22/20 Range/Units 04:00 04:38 06:40 WBC (3.8-10.6) k/uL RBC (3.80-5.40) m/uL Hgb (11.4-16.0) gm/dL Hct (34.0-46.0) % RDW (11.5-15.5) % Neutrophils # (Manual) (1.3-7.7) k/uL Lymphocytes # (Manual) (1.0-4.8) k/uL Metamyelocytes # (Man) (0) k/uL Myelocytes # (Manual) (0) k/uL ABG pO2 67 L (83-108) mmHg ABG HCO3 26 H (21-25) mmol/L ABG Total CO2 27 H (19-24) mmol/L Potassium 3.4 L (3.5-5.1) mmol/L Chloride 112 H (98-107) mmol/L BUN 25 H (7-17) mg/dL Creatinine 0.51 L (0.52-1.04) mg/dL Glucose 140 H (74-99) mg/dL POC Glucose (mg/dL) 131 H (75-99) mg/dL Calcium 7.7 L (8.4-10.2) mg/dL 05/22/20 05/22/20 Range/Units 08:16 12:24 WBC (3.8-10.6) k/uL RBC (3.80-5.40) m/uL Hgb (11.4-16.0) gm/dL Hct (34.0-46.0) % RDW (11.5-15.5) % Neutrophils # (Manual) (1.3-7.7) k/uL Lymphocytes # (Manual) (1.0-4.8) k/uL Metamyelocytes # (Man) (0) k/uL Myelocytes # (Manual) (0) k/uL ABG pO2 (83-108) mmHg ABG HCO3 (21-25) mmol/L ABG Total CO2 (19-24) mmol/L Potassium (3.5-5.1) mmol/L Chloride (98-107) mmol/L BUN (7-17) mg/dL Creatinine (0.52-1.04) mg/dL Glucose (74-99) mg/dL POC Glucose (mg/dL) 127 H 136 H (75-99) mg/dL Calcium (8.4-10.2) mg/dL Microbiology - Last 24 Hours (Table) 05/21/20 23:58 Sputum Culture - Preliminary Sputum Assessment and Plan Assessment: Impression: Acute hypoxic respiratory failure. Secondary to Covid 19 pneumonitis. Patient required intubation on 05/16/20, and she remains now on mechanical ventilation. PEEP remains at 10 FiO2 remains at 55%. Patient did not tolerate higher peeps upon her initial presentation. Acute pulmonary embolism, subsegmental in the left lower lobe with elevated d- dimer History of breast cancer. Generalized anxiety disorder. Influenza B infection Elevated d-dimer Recommendation: Continue ventilatory support. Continue Zosyn empirically. Continue Lovenox/therapeutic dose. 60 mg subcu every 12 hours. Continue nutritional support. Continue GI and DVT prophylaxis. Continue IV Solu-Medrol. Finished a full course of treatment with remdesivir, and he received a unit of convalescent plasma. Continue supportive care measures. Continue the Covid 19 cocktail. Hold propofol today and assess mental status. Placed on clevidipine to maintain adequate blood pressure in the 150 systolic range Patient remains critically ill. Critical care time is over 30 minutes. Time with Patient: Greater than 30
[2020-05-22 17:57] LABS: Glucose,Whole Blood 139 mg/dL (75-99)
[2020-05-22] MEDS ORDERED: Potassium Replacement Protocol 1 EACH MISC MISCELLANE PRN (18:12)
[2020-05-22 18:59] LABS: Appearance,Urine Clear (Clear); Bacteria,Urine Rare /hpf; Bilirubin,Urine Negative (Negative); Blood,Urine Small (Negative); Color,Urine Colorless; Glucose,Urine (UA) Negative (Negative); Hyaline Casts,Urine 5 /lpf (0-2); Ketones,Urine Negative (Negative); Leukocyte Esterase,Urine Negative (Negative); Mucus,Urine Rare /hpf; Nitrite,Urine Negative (Negative); PH, Urine 5.5 (5.0-8.0); Protein,Urine Negative (Negative); RBC,Urine 39 /hpf (0-5); Specific Gravity,Urine 1.012 (1.001-1.035); Urobilinogen,Urine <2.0 mg/dL (<2.0); WBC,Urine 1 /hpf (0-5)
[2020-05-22 19:01] LABS: Glucose,Whole Blood 162 mg/dL (75-99)
[2020-05-22] MEDS: fentaNYL (PF) 1,000 MCG in SODIUM CHLORIDE 0.9% 80 ML IV SCH (19:53)
[2020-05-22] MEDS: clonazePAM 0.5 MG TAB PO SCH (21:55)
[2020-05-22 23:41] LABS: Glucose,Whole Blood 135 mg/dL (75-99)
[2020-05-23] MEDS: methylPREDNISolone SOD SUCCI 125 MG/2 ML VIAL IV SCH ×3 (00:08→20:24)
[2020-05-23] MEDS: PIPERACILLIN-TAZOBACTAM 3.375 GM in SODIUM CHLORIDE 0.9% 100 ML IVPB SCH ×3 (00:09→16:31)
[2020-05-23] MEDS: INSULIN ASPART (NovoLOG) 100 UNIT/ML VIAL SQ SCH ×4 (00:25→18:48)
[2020-05-23] MEDS: NOREPINEPHRINE 8 MG in SODIUM CHLORIDE 0.9% 250 ML IV SCH (00:37)
--- NOTE | 2020-05-23 04:02 | PN ---
PROGRESS NOTE DATE OF SERVICE: 05/22/2020 REASON FOR FOLLOWUP: Pneumonia. INTERVAL HISTORY: The patient is currently afebrile. The patient remains to be intubated on the vent. The patient is hemodynamically stable not on pressor support. FiO2 is currently down to 55%. No significant purulent secretions through ET or any diarrhea reported by nursing staff. PHYSICAL EXAMINATION: Blood pressure 126/55 with pulse 89, temperature 98. She is 92% on 55% FiO2. General description is an elderly female intubated on the vent. RESPIRATORY SYSTEM: Unlabored breathing, decreased breath sounds at the bases. No wheeze. HEART: S1, S2. Regular rate and rhythm. ABDOMEN: Soft, no tenderness. LABS: Hemoglobin is 7.7, hematocrit 29.7, BUN of 25, creatinine 0.51. Sputum culture finally received. DIAGNOSTIC IMPRESSION AND PLAN: Patient in acute respiratory failure which is multifactorial in this patient who has been treated for COVID-19 as well as the influenza, now with repeat culture so far pending. Patient is currently empirically covered with Zosyn. Did have elevated white count more likely steroid effect and need to be monitored closely. Continue supportive care. MMODL / IJN: [id number] /
[2020-05-23 05:50] LABS: Glucose,Whole Blood 129 mg/dL (75-99)
[2020-05-23 06:24] LABS: ABG Base Excess 6.5 mmol/L; ABG HCO3 31 mmol/L (21-25); ABG Oxygen Saturation 97.9 % (94-97); ABG PCO2 48 mmHg (35-45); ABG PH 7.42 (7.35-7.45); ABG PO2 86 mmHg (83-108); ABG TCO2 33 mmol/L (19-24); Allen Test Performed? Yes
[2020-05-23 06:53] LABS: Anisocytosis Slight; MCH 30.8 pg (25.0-35.0); MCHC 34.2 g/dL (31.0-37.0); MCV 90.3 fL (80.0-100.0); Mean Platelet Volume 7.2; Platelet Count 168 k/uL (150-450); RBC 2.02 m/uL (3.80-5.40); RDW 16.2 % (11.5-15.5)
[2020-05-23 07:08] LABS: HCT 18.2 % (34.0-46.0); HGB 6.2 gm/dL (11.4-16.0)
[2020-05-23 07:28] LABS: ALT 15 U/L (4-34); AST 25 U/L (14-36); African American GFR (CKD) >90 (>60 ml/min/1.73 sqM); Albumin 1.9 g/dL (3.5-5.0); Alkaline Phosphatase 72 U/L (38-126); Anion Gap -2 mmol/L; Blood Urea Nitrogen 22 mg/dL (7-17); Calcium 7.3 mg/dL (8.4-10.2); Carbon Dioxide 32 mmol/L (22-30); Chloride 109 mmol/L (98-107); Glucose 134 mg/dL (74-99); LDH 961 U/L (313-618); Non-African American GFR(CKD) >90 (>60 ml/min/1.73 sqM); Potassium 3.9 mmol/L (3.5-5.1); Sodium 139 mmol/L (137-145); Total Bilirubin 0.3 mg/dL (0.2-1.3); Total Protein 4.8 g/dL (6.3-8.2)
--- NOTE | 2020-05-23 07:38 | XR ---
EXAMINATION TYPE: XR chest 1V portable DATE OF EXAM: 05/23/2020 Comparison: 05/22/2020 Clinical History: 79-year-old female PNA Findings: ET and NG tubes are satisfactory. Right IJ CVC tip in the upper right atrium. Heart upper limits of n ormal in size. Patchy mid and lower lung opacities persist without significant change. Trace effusion on the left now seen. Surgical clips in the right axilla. Impression: Continued bibasilar airspace disease. There may be a trace effusion now seen on the left.
[2020-05-23] MEDS ORDERED: POTASSIUM BICARBONATE/CIT AC 20 MEQ TABLET.EFF NG-TUBE ONE (08:00)
[2020-05-23 08:22] LABS: Anisocytosis Slight; MCH 30.4 pg (25.0-35.0); MCHC 33.8 g/dL (31.0-37.0); Mean Platelet Volume 7.4; Platelet Count 168 k/uL (150-450); RBC 1.94 m/uL (3.80-5.40); RDW 16.2 % (11.5-15.5); WBC 13.9 k/uL (3.8-10.6)
[2020-05-23 08:27] LABS: HCT 17.5 % (34.0-46.0); HGB 5.9 gm/dL (11.4-16.0)
[2020-05-23] MEDS: ASCORBIC ACID 500 MG TAB PO SCH ×2 (08:59→20:23)
[2020-05-23] MEDS: SERTRALINE 100 MG TAB PO SCH (08:59)
[2020-05-23 09:00] LABS: C Reactive Protein 7.9 mg/L (<10.0)
[2020-05-23] MEDS: CHOLECALCIFEROL 1,000 UNIT TAB PO SCH (09:00)
[2020-05-23] MEDS: ZINC SULFATE 220 MG CAP PO SCH (09:00)
[2020-05-23] MEDS: LEVOTHYROXINE IVP 100 MCG/5 ML VIAL IV SCH (09:02)
[2020-05-23] MEDS: PANTOPRAZOLE 40 MG/10 ML VIAL IVP SCH ×2 (09:02→20:23)
[2020-05-23] MEDS: CHLORHEXIDINE GLUCONATE 15 ML CUP MUCOUS MEM SCH ×2 (09:14→20:23)
[2020-05-23] MEDS: CYANOCOBALAMIN 500 MCG TAB PO SCH (09:16)
[2020-05-23 09:37] LABS: Band Neutrophils % 8 %; Metamyelocytes # (M) 0.42 k/uL (0); Metamyelocytes % 3 %; Monocytes # (M) 0.42 k/uL (0-1.0); Myelocytes # (M) 0.56 k/uL (0); Myelocytes % 4 %; Neutrophils % (M) 78 %; Nucleated Red Blood Cells 1 /100 WBC (0-0); Total Cells Counted 200; WBC 13.9 k/uL (3.8-10.6)
--- NOTE | 2020-05-23 10:21 | P.PN ---
Subjective Progress Note Date: 05/23/20 HISTORY OF PRESENT ILLNESS This is a 79-year-old female patient of Dr. Guerrero with past medical history of breast cancer, hypothyroidism, hyperlipidemia, generalized osteoarthritis. She was recently hospitalized May 12 for fever, chills, cough with sputum production with worsening dyspnea was diagnosed with COVID-19 pneumonia. Patient was stabilized and discharged home on May 05 with azithromycin, steroids, home oxygen and vitamin supplements. Patient had significant shortness of breath when she woke up this morning and was wearing oxygen at 4 L. EMS was called and reported that she was ashen nazario, diaphoretic with a pulse ox of 71% upon arrival. Patient was brought into [facility] emergency center and found to be afebrile, heart rate 105, blood pressure 168/89, pulse ox 97% with nonrebreather. She continued tachypneic and tachycardic and patient was placed on BiPAP. Chest x-ray reveals stable patchy bilateral infiltrates. WBC 19.5, hemoglobin 11. Sodium 133, potassium 4.1, CO2 26, BUN 23 and creatinine 0.65. Blood sugar 100. Lactic acid 1.1. LDH 1116, C-reactive protein 63.7. Covid 19 not detected. Influenza B positive. Patient was continued on vitamin supplements, dexamethasone and started on Lovenox, Kati flu, admitted to the cardiac stepdown unit and consult requested with infectious disease and pulmonary medicine. DDimer elevated at 33 and CTA of the chest positive for tiny filling defect left lower lobe pulmonary artery. 05/10: Patient continues to have significant shortness of breath cough and chest tightness. She is on BiPAP and unable to eat or drink. She continues to feel weak and tired. Temperature max 100.0, heart rate 95, blood pressure 125/68, pulse ox 91% on BiPAP with FiO2 of 80. Patient has been seen by pulmonary medicine and started on Remdesivir. The patient's has been contacted via phone and updated regarding patient's current condition and treatment plan. 05/11: Patient is currently on day 3/5 of Remdesivir. Her pulse ox is running about 89% on BiPAP of 85% FiO2. Legionella was negative. Temperature max 101, heart rate 86, blood pressure 150/68. Navarro catheter will be placed as patient is too dyspneic to use bedpan or commode. Repeat blood work reveals WBC 19.4, hemoglobin 10.2. Sodium 136, potassium 3.7, creatinine 0.68. Patient is followed by infectious disease and pulmonary medicine. 05/12: Patient is currently on day 4/5 of Remdesivir. She continues to have significant shortness of breath which is worse from yesterday. She is on 85% FiO2 BiPAP pulse ox a 90%. When she moved over to 15 L, pulse ox dropped down to 78%. She continues complaining of shortness of breath. She has been anxious during the night and Xanax ordered. Patient is unable to take any new oral nutrition at this point. Navarro catheter was placed yesterday. Patient has been afebrile for 24 hour period. Heart rate 104, respiratory rate 26, blood pressure 175/81. Updated pulmonary medicine regarding possible need for intubation. 05/13: Patient's respiratory status did improve yesterday afternoon and she did not require transfer to the intensive care unit. Patient may be slightly better today from yesterday morning but did decline from yesterday afternoon. She is currently pulse ox seen in the 80s with BiPAP of 85% FiO2. She has been off onto 15 L high flow nasal cannula to eat and has been able to take in a small amount of food yesterday and Ensure. She will complete her course of Remdesivir this evening. Tamiflu course will also be completed this evening. Temperature max 100.3 yesterday at noon. Heart rate 91, blood pressure 174/85. Repeat blood work reveals WBC 20.5, hemoglobin 11. Chloride 112, BUN 33 and creatinine 0.61. Blood sugar 146. Alkaline phosphatase 129. 05/14: Yesterday afternoon, patient was transferred to the intensive care unit and is agreeable to short-term intubation if necessary. She has not required vasopressors. Patient has been afebrile. Heart rate 64, blood pressure 132/69, pulse ox 93% on 80% BiPAP. Leukocytosis is down to 12.9, hemoglobin 10. D- dimer isn't improved at 2.83. Creatinine 0.53. Other inflammatory markers have shown improvement with LDH at 1416, C-reactive protein 36.8. Patient has completed course of Remdesivir and Tamiflu. She remains on Lovenox, Solu-Medrol and vitamin supplementations. 05/15: Patient remains in the intensive care unit on BiPAP pulse ox seen 89-90% on 80% FiO2. Repeat chest x-ray reveals stable bilateral patchy infiltrate. She has completed course of Remdesivir and course of Tamiflu. She has been afebrile, heart rate 64, blood pressure 151/79. WBC 14.6, hemoglobin 10.1. Creatinine 0.51. Blood sugar 136. Albumin 2.5. Patient has been without food for greater than 6 days. Discussed nutrition options with Dr. Crowe he will address with rounds today. Physical exam deferred to Dr. Crowe. 05/16: Patient remains in the intensive care unit. She remains on 100% BiPAP pulse oxing 91%. She's been afebrile, heart rate in the low 100s, blood pressure 162/88. Repeat blood work reveals WBC 16.1, hemoglobin 10.8. D-dimer is 2.88. Sodium 135, potassium 3.7, chloride 108, CO2 25, BUN 28 and creatinine 0.47. CRP 37.3. Repeat chest x-ray reveals patchy bilateral lung infiltrates. Patient continues to be followed by [facility] and infectious disease. Patient is eating only about 25% of her meals. She is followed by case management for discharge planning. Patient states that Xanax is not helping and will be changed to lorazepam 0.5 mg IV every 6 hours as needed. 05/17: Patient was intubated last night currently on mechanical ventilation with tidal volume 400, FiO2 100, PEEP of 14. Pulse ox is 90-91%. Chest x-ray this morning reveals mild cardiomegaly and diffuse interstitial opacities mid and lower lungs. Small effusions. Correlate for interstitial pulmonary edema. She has been afebrile, heart rate 76, blood pressure 132/68. Patient has not required vasopressors. Patient is on max propofol. Oral tube feeding to be started today. Repeat lab work reveals WBC 15, hemoglobin 10. Sodium 136, potassium 3.5, chloride 108, CO2 24, BUN 27 and creatinine 0.51. Stool for occult blood positive. 05/18: Patient remains in the intensive care unit with pulse ox in the low 90s, remains intubated and on mechanical ventilation with tidal volume 350, FiO2 65, PEEP 12. She has been afebrile, heart rate 64, blood pressure 105/59. Patient has been starting on tube feedings currently at goal. Repeat lab work reveals Mattie BC 15.9, hemoglobin 10.1. Fibrinogen 504, d-dimer 1.17. Sodium 136, potassium 3.7, chloride 112, CO2 23, BUN 29 and creatinine 0.59. Blood sugars in the low 100s. Ferritin 570. C-reactive protein 27.9. 05/19:patient intubated sedated leukocytosis 20k, p02 67 sbp 123, solumedrol 60 q6 levofed infusion, still requiring pressor support, we will change oral levothyroxine to IV 25 g daily.vo 05/20: Patient is remains in ICU intubated on vent, sedated, still with leukocyt osis 22.9 thousand, chest x-ray shows mild diffuse increased lung markings stable from previous, patient is on Zosyn, sputum culture requested, finished treatment withremdesivir d-dimer is trending down toward with current level of 0.99, creatinine is normal, we'll going to check for TSH value check for immune globulin level, iron levels, for the anemia. albumin levels low at 2.1 on or OG-tube feedings 05/21. Patient remains in ICU, still in mechanical ventilation, followed closely by hay sorter, patient still leukocytosis wbcof 23,000, hemoglobin of 8.2, chest x-ray shows bilateral multifocal infiltrates, still on empiric Zosyn for underlying but bacterial pneumonia, however, covid pneumonitis is still difficult to eradicate chest x-ray shows fibrotic change in the lower lung with bilateral multifocal acute infiltrates, no significant change. IgG levels are very low at 378, unsure whether, globulin infusion would be helpful against a convalescent Covid serum would be helpful we will discuss with infectious disease or pulmonary. I discussed these value of hypogammaglobulinemia to Dr. Savage, for which he recommended IV IgG infusion, rather than convalescent serum. Gammagard to be dosed by pharmacy at 0.6 mg/kg of ideal body weight. ICU was notified. May 22: Patient remains in ICU, still with mechanical ventilation, Gammagard should have been infused, afebrile, still receiving OG-tube feedings still with leukocytosis, no new changes, awaiting response of antibiotic, no plans for vent weaning yet hay sorter, monitoring very closely 05/23: Patient remained intubated and on mechanical ventilation with FiO2 50 and PEEP of 10. Pulse ox is running about 90%. She has been afebrile, heart rate in the 60s and 70s, blood pressure 162/63. Clevidipine is on hold. Patient has been continued on Zosyn and followed by multiple consultants. REVIEW OF SYSTEMS Unable to obtain due to intubation. PHYSICAL EXAMINATION Examination deferred to hay sorter due to Covid 19 restrictions. Gen: This is a 79-year-old female. She is resting in bed in no distress, intubated and on mechanical ventilation. HEENT: Head is atraumatic, normocephalic. Oral ET and gastric tube. NEUROLOGICAL: Patient is on sedation. ASSESSMENT AND PLAN 1. Acute on chronic hypoxic respiratory failure secondary to COVID pneumonia, Influenza B and small left lower pulmonary embolism. Patient required in tubation and mechanical ventilation. Solu-Medrol 60 mg IV every 6 hours, Lovenox 60 mg subcu twice daily, vitamin supplements with vitamin C, vitamin D, zinc, Tamifllu completed. Remdesivir completed. Consults with pulmonary medicine and infectious disease appreciated. Check for immunosuppression, immunoglobulin level started on Gammagard 2. 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 San, infectious disease, and based on recommendation, he d ecided on IV Ig infusion,, guarded at 0.6 mg/kg of IV but ideal body weight, baseline levels igg 378 3. Hypothyroidism. Continue levothyroxine 50 g daily. 3. Severe osteoporosis. Fosamax on hold. 4. Anticoagulation with Lovenox. 5. GI prophylaxis. Pepcid. 6. Recurrent depression. Continue Zoloft 200 mg daily. 7. Situational anxiety. Xanax 0.5 mg twice daily as needed added. 8. History of breast cancer. 9. Stool positive for occult blood. Monitor hemoglobin and patient status closely. 10. Blood loss anemia, iron studies to be done, patient's on full dose anticoagulation with Lovenox, transfusion if hemoglobin is under 7 Prognosis guarded. DISCHARGE PLAN May require subacute rehab. Patient is followed by case management. Impression and plan of care have been directed as dictated by the signing physician. Ivone Vizcarra nurse practitioner acting as scribe for signing physician. Objective - Vital Signs Vital signs: Vital Signs Temp 97.6 F 05/23/20 08:00 Pulse 65 05/23/20 09:00 Resp 30 H 05/23/20 09:00 BP 118/53 05/23/20 09:00 Pulse Ox 88 L 05/23/20 09:00 Intake & Output 05/22/20 05/23/20 05/23/20 18:59 06:59 18:59 Intake Total 8945.039 4505.772 584.68 Output Total 2655 1280 120 Balance -1064.802 34.772 464.68 Weight 69 kg Intake: IV 1072 1072 343 Piperacillin-Tazobactam 3 100 100 100 .375 gm In Sodium Chloride 0.9% 100 ml @ 25 mls/hr IVPB Q8HR NI Rx# :[id number] Pressure Bags 0.9 sodium 72 72 18 chloride Sodium Chloride 0.9% 1, 900 900 225 000 ml @ 75 mls/hr IV . [id number] NI Rx#:[id number] Intake, IV Titration 241.198 144.772 87.68 Amount Clevidipine Butyrate 25 19.200 31.517 mg In Empty Bag 1 bag @ 1 MG/HR 2 mls/hr IV .Q24H NI Rx#:[id number] propofoL 1,000 mg In 221.998 113.255 87.68 Empty Bag 1 bag @ Titrate IV .Q0M NI Rx#: [id number] Tube Feeding 187 68 34 Other 90 30 120 Output: Urine 2655 1280 120 Other: Voiding Method Indwelling Catheter Indwelling Catheter ABP, PAP, CO, CI - Last Documented Arterial Blood Pressure 136/50 - Labs CBC & Chem 7: 05/23/20 07:19 05/23/20 06:20 Labs: Abnormal Lab Results - Last 24 Hours (Table) 05/22/20 05/22/20 05/22/20 Range/Units 12:24 17:10 17:55 WBC (3.8-10.6) k/uL RBC (3.80-5.40) m/uL Hgb (11.4-16.0) gm/dL Hct (34.0-46.0) % RDW (11.5-15.5) % D-Dimer (<0.60) mg/L FEU ABG pCO2 (35-45) mmHg ABG HCO3 (21-25) mmol/L ABG Total CO2 (19-24) mmol/L ABG O2 Saturation (94-97) % Potassium 3.4 L (3.5-5.1) mmol/L Chloride (98-107) mmol/L Carbon Dioxide (22-30) mmol/L BUN (7-17) mg/dL Glucose (74-99) mg/dL POC Glucose (mg/dL) 136 H 139 H (75-99) mg/dL Calcium (8.4-10.2) mg/dL Lactate Dehydrogenase (313-618) U/L Total Protein (6.3-8.2) g/dL Albumin (3.5-5.0) g/dL Urine Blood (Negative) Urine RBC (0-5) /hpf Urine Bacteria (None) /hpf Hyaline Casts (0-2) /lpf Urine Mucus (None) /hpf 05/22/20 05/22/20 05/22/20 Range/Units 18:30 19:00 23:40 WBC (3.8-10.6) k/uL RBC (3.80-5.40) m/uL Hgb (11.4-16.0) gm/dL Hct (34.0-46.0) % RDW (11.5-15.5) % D-Dimer (<0.60) mg/L FEU ABG pCO2 (35-45) mmHg ABG HCO3 (21-25) mmol/L ABG Total CO2 (19-24) mmol/L ABG O2 Saturation (94-97) % Potassium (3.5-5.1) mmol/L Chloride (98-107) mmol/L Carbon Dioxide (22-30) mmol/L BUN (7-17) mg/dL Glucose (74-99) mg/dL POC Glucose (mg/dL) 162 H 135 H (75-99) mg/dL Calcium (8.4-10.2) mg/dL Lactate Dehydrogenase (313-618) U/L Total Protein (6.3-8.2) g/dL Albumin (3.5-5.0) g/dL Urine Blood Small H (Negative) Urine RBC 39 H (0-5) /hpf Urine Bacteria Rare H (None) /hpf Hyaline Casts 5 H (0-2) /lpf Urine Mucus Rare H (None) /hpf 05/23/20 05/23/20 05/23/20 Range/Units 05:48 06:15 06:20 WBC 14.0 H (3.8-10.6) k/uL RBC 2.02 L (3.80-5.40) m/uL Hgb 6.2 L* D (11.4-16.0) gm/dL Hct 18.2 L* (34.0-46.0) % RDW 16.2 H (11.5-15.5) % D-Dimer (<0.60) mg/L FEU ABG pCO2 48 H (35-45) mmHg ABG HCO3 31 H (21-25) mmol/L ABG Total CO2 33 H (19-24) mmol/L ABG O2 Saturation 97.9 H (94-97) % Potassium (3.5-5.1) mmol/L Chloride (98-107) mmol/L Carbon Dioxide (22-30) mmol/L BUN (7-17) mg/dL Glucose (74-99) mg/dL POC Glucose (mg/dL) 129 H (75-99) mg/dL Calcium (8.4-10.2) mg/dL Lactate Dehydrogenase (313-618) U/L Total Protein (6.3-8.2) g/dL Albumin (3.5-5.0) g/dL Urine Blood (Negative) Urine RBC (0-5) /hpf Urine Bacteria (None) /hpf Hyaline Casts (0-2) /lpf Urine Mucus (None) /hpf 05/23/20 05/23/20 05/23/20 Range/Units 06:20 06:20 07:19 WBC 13.9 H (3.8-10.6) k/uL RBC 1.94 L (3.80-5.40) m/uL Hgb 5.9 L* (11.4-16.0) gm/dL Hct 17.5 L* (34.0-46.0) % RDW 16.2 H (11.5-15.5) % D-Dimer 0.70 H (<0.60) mg/L FEU ABG pCO2 (35-45) mmHg ABG HCO3 (21-25) mmol/L ABG Total CO2 (19-24) mmol/L ABG O2 Saturation (94-97) % Potassium (3.5-5.1) mmol/L Chloride 109 H (98-107) mmol/L Carbon Dioxide 32 H (22-30) mmol/L BUN 22 H (7-17) mg/dL Glucose 134 H (74-99) mg/dL POC Glucose (mg/dL) (75-99) mg/dL Calcium 7.3 L (8.4-10.2) mg/dL Lactate Dehydrogenase 961 H (313-618) U/L Total Protein 4.8 L (6.3-8.2) g/dL Albumin 1.9 L (3.5-5.0) g/dL Urine Blood (Negative) Urine RBC (0-5) /hpf Urine Bacteria (None) /hpf Hyaline Casts (0-2) /lpf Urine Mucus (None) /hpf Microbiology - Last 24 Hours (Table) 05/21/20 23:58 Gram Stain - Preliminary Sputum Sputum Culture - Preliminary
[2020-05-23] MEDS: SODIUM CHLORIDE 0.9% 1,000 ML IV SCH (11:31)
[2020-05-23] MEDS: ENOXAPARIN 60 MG/0.6 ML SYRINGE SQ SCH ×2 (11:31→20:24)
[2020-05-23] MEDS: ASPIRIN 81 MG PO SCH (11:31)
[2020-05-23 11:38] LABS: Glucose,Whole Blood 114 mg/dL (75-99)
[2020-05-23] MEDS: FUROSEMIDE 10 MG/ML 4 ML VIAL IV SCH ×2 (11:48→20:23)
[2020-05-23] MEDS: CLEVIDIPINE BUTYRATE 25 MG in EMPTY BAG 1 BAG IV SCH ×2 (13:46→16:32)
[2020-05-23 15:33] LABS: Anisocytosis Slight; HCT 31.6 % (34.0-46.0); MCH 30.3 pg (25.0-35.0); MCV 86.7 fL (80.0-100.0); Mean Platelet Volume 7.5; Platelet Count 280 k/uL (150-450); RBC 3.65 m/uL (3.80-5.40); RDW 17.4 % (11.5-15.5); WBC 42.3 k/uL (3.8-10.6)
[2020-05-23 15:38] LABS: HGB 11.1 gm/dL (11.4-16.0)
[2020-05-23 17:28] LABS: Ferritin 414.6 ng/mL (10.0-291.0)
--- NOTE | 2020-05-23 17:30 | PN ---
PROGRESS NOTE PULMONARY/CRITICAL CARE PROGRESS NOTE: DATE OF SERVICE: 05/23/2020 Critical care time is 34 minutes. This is a 79-year-old female who was admitted back on May 09. She was admitted with a diagnosis of acute hypoxemic respiratory failure secondary to COVID-19 pneumonia, as well as influenza B infection, and a small left lower lobe pulmonary embolism. For worsening respiratory status, she was intubated, mechanically ventilated on May 16. Currently, she remains on the ventilator. She has not made a lot of progress. She is on the volume assist-control mode rate of 30, tidal volume 350, FiO2 of 50%, PEEP of 10, blood gases show a pO2 of 86, pCO2 of 48, pH is 7.4. Those blood gases were on 55% and the FiO2 was dropped from 55%-50%. Currently, she is on saline at 75 mL an hour, propofol 40 mcg/kg per minute, fentanyl at 0.4 mcg/kg per hour and Vital high-protein at 17 with a goal of 17 mL an hour. The patient's hemoglobin is low this morning. She will get a unit of blood. In addition, she will have a daily interruption of sedation and a spontaneous breathing trial with pressure support at 10 cm of water and CPAP of 5 cm of water. I do not know that she will do well with that. She apparently did not do well with her daily interruption of sedation yesterday. Current vital signs are reviewed. Her temperature is 97.9, heart rate 97, respiratory rate is 30 breaths per minute, blood pressure 137/77 mean 97 and saturations are between 91% and 95%. Currently sedated. HEENT: Examination is grossly unremarkable. There is an orally placed endotracheal tube and NG tube. NECK: Supple, full range of motion. No adenopathy. Neck veins are flat. CARDIOVASCULAR: Examination reveals regular rhythm and rate. Heart rate about 100 beats per minute. S1, S2 normal. Heart sounds are distant. LUNGS: Reveal diffuse coarse rhonchi. No wheezes or crackles. ABDOMEN: Soft, bowel sounds are heard. EXTREMITIES: Intact. No cyanosis, clubbing, or edema. SKIN: Without rash. NEUROLOGIC: Examination is deferred as the patient is currently heavily sedated with both propofol and fentanyl. CURRENT LABS: Reviewed. White count 13.9, hemoglobin 5.9, hematocrit 17.5, and platelet count 168,000. Because of that hemoglobin 5.9, the patient received 1 unit of blood. D- dimer 0.7. Blood gases have been noted. Blood gases are consistent with normoxemia, and a combined acid-base disturbance including a respiratory acidosis and metabolic alkalosis. Sodium 139, potassium 3.9, chloride 109, CO2 is 32, anion gap is -2, BUN and creatinine were 22 and 0.55. LDH is 961. Albumin is 1.9. Microbiology is essentially negative. Sputum was positive for Bing albicans. Blood cultures are thus far negative. A chest x-ray shows continued bibasilar airspace disease. There may be a small left- sided effusion. MEDICATIONS: Reviewed. Currently, she is on Tylenol, vitamin C, aspirin, Peridex, vitamin D3, Cleviprex p.r.n., clonazepam, clonidine p.r.n., vitamin B12, Lovenox, fentanyl, Lasix, Apresoline p.r.n., ibuprofen, insulin, levothyroxine, melatonin, Solu-Medrol, Narcan, norepinephrine, Protonix, Zosyn, propofol, Zoloft, nasal spray, and zinc. ASSESSMENT: 1. COVID-19 pneumonia/pneumonitis, with hypoxemic respiratory failure, requiring intubation and mechanical ventilation on May 16, 2020. 2. Acute left lower lobe pulmonary embolism. 3. History of breast cancer. 4. Generalized anxiety disorder. 5. Influenza B infection. 6. History of hyperlipidemia. 7. History of degenerative joint disease. 8. Hypothyroidism. 9. History of breast cancer. 10.Multiple other medical problems and comorbidities. PLAN: Currently, the patient is well sedated. Will go ahead and do a daily interruption of sedation with a spontaneous breathing trial on pressure support of 10, CPAP of 5. We will nit do that until after she received 1 unit of blood for the hemoglobin of 5.9. Continue with nutrition with Vital high-protein. Additional recommendations and suggestions are forthcoming. Her labs and x-rays are reviewed. Medications are reviewed. Unnecessary medications are discontinued. We will continue to follow. Critical care time 34 minutes. MMODL / IJN: [id number] /
[2020-05-23 18:42] LABS: Glucose,Whole Blood 168 mg/dL (75-99)
[2020-05-23] MEDS: fentaNYL (PF) 1,000 MCG in SODIUM CHLORIDE 0.9% 80 ML IV SCH (18:46)
--- NOTE | 2020-05-23 23:03 | PN ---
PROGRESS NOTE DATE OF SERVICE: May 23, 2020. REASON FOR FOLLOWUP: Pneumonia. INTERVAL HISTORY: Patient is currently afebrile. The patient remains to be intubated on the vent. FiO2 is currently stable. No significant purulent secretions through the ET or diarrhea reported by nursing staff. She is noted to have low hemoglobin, getting blood transfusion. PHYSICAL EXAMINATION: Blood pressure 119/70 with a pulse of 90, temperature 98. She is 90% on 50% FIO2. General description is an elderly female intubated on the vent. Respiratory system: Unlabored breathing, decreased breath sounds in the bases. Heart S1, S2. Regular rate. ABDOMEN: Soft, no tenderness. LABS: Hemoglobin is 5.1, white count of 13.9, BUN of 22, creatinine 0.55. DIAGNOSTIC IMPRESSION AND PLAN: Patient with acute respiratory failure which is likely multifactorial, possible component of pneumonia. Sputum showing Bing, more likely colonizer. Chest x-ray, bibasilar airspace disease. Patient continue monitor clinical course closely. MMODL / IJN: [id number] /
[2020-05-24 00:01] LABS: Glucose,Whole Blood 111 mg/dL (75-99)
[2020-05-24] MEDS: PIPERACILLIN-TAZOBACTAM 3.375 GM in SODIUM CHLORIDE 0.9% 100 ML IVPB SCH ×3 (00:02→17:19)
[2020-05-24] MEDS: INSULIN ASPART (NovoLOG) 100 UNIT/ML VIAL SQ SCH ×4 (00:03→19:50)
[2020-05-24] MEDS: SODIUM CHLORIDE 0.9% 1,000 ML IV SCH (00:03)
[2020-05-24] MEDS: CLEVIDIPINE BUTYRATE 25 MG in EMPTY BAG 1 BAG IV SCH ×4 (02:25→23:22)
[2020-05-24] MEDS: POTASSIUM BICARBONATE/CIT AC 20 MEQ TABLET.EFF NG-TUBE SCH ×2 (04:33→05:15)
[2020-05-24 05:14] LABS: ABG Base Excess 11.8 mmol/L; ABG HCO3 35 mmol/L (21-25); ABG Oxygen Saturation 93.4 % (94-97); ABG PCO2 48 mmHg (35-45); ABG PH 7.47 (7.35-7.45); ABG PO2 67 mmHg (83-108); ABG TCO2 37 mmol/L (19-24); Allen Test Performed? Yes
[2020-05-24 06:18] LABS: Glucose,Whole Blood 147 mg/dL (75-99)
[2020-05-24 06:49] LABS: Anisocytosis Slight; HCT 28.3 % (34.0-46.0); MCH 29.4 pg (25.0-35.0); MCHC 34.1 g/dL (31.0-37.0); MCV 86.5 fL (80.0-100.0); Mean Platelet Volume 7.3; Platelet Count 228 k/uL (150-450); RBC 3.28 m/uL (3.80-5.40); WBC 30.6 k/uL (3.8-10.6)
[2020-05-24 07:11] LABS: HGB 9.6 gm/dL (11.4-16.0)
--- NOTE | 2020-05-24 07:33 | XR ---
EXAMINATION TYPE: XR chest 1V portable DATE OF EXAM: 05/24/2020 COMPARISON: 05/23/2020 HISTORY: Shortness of breath TECHNIQUE: Single frontal view of the chest is obtained. FINDINGS: Surgical clips overlying the axilla. ET and NG tube and central line stable. Patchy bilate ral areas of infiltrate and pleural effusion. Underlying COPD suspected. Could not exclude pneumomedi astinum. Report called to the patient's nurse in ICU. IMPRESSION: 1. Suspected interval development of pneumomediastinum. 2. COPD with patchy bilateral infiltrate stable.
[2020-05-24 07:49] LABS: Band Neutrophils % 4 %; Lymphocytes # (M) 0.92 k/uL (1.0-4.8); Metamyelocytes # (M) 1.22 k/uL (0); Metamyelocytes % 4 %; Monocytes # (M) 0.61 k/uL (0-1.0); Myelocytes # (M) 0.61 k/uL (0); Myelocytes % 2 %; Neutrophils % (M) 87 %; Nucleated Red Blood Cells 0 /100 WBC (0-0); Poikilocytosis (M) Present; Total Cells Counted 200
[2020-05-24 08:42] LABS: ALT 23 U/L (4-34); AST 49 U/L (14-36); African American GFR (CKD) >90 (>60 ml/min/1.73 sqM); Albumin 2.6 g/dL (3.5-5.0); Alkaline Phosphatase 118 U/L (38-126); Anion Gap 1 mmol/L; Blood Urea Nitrogen 24 mg/dL (7-17); Calcium 7.6 mg/dL (8.4-10.2); Carbon Dioxide 37 mmol/L (22-30); Chloride 98 mmol/L (98-107); Creatine Kinase 52 U/L (30-135); Glucose 133 mg/dL (74-99); LDH 1824 U/L (313-618); Non-African American GFR(CKD) >90 (>60 ml/min/1.73 sqM); Potassium 3.9 mmol/L (3.5-5.1); Sodium 136 mmol/L (137-145); Total Bilirubin 0.5 mg/dL (0.2-1.3); Total Protein 6.1 g/dL (6.3-8.2)
[2020-05-24] MEDS: LEVOTHYROXINE IVP 100 MCG/5 ML VIAL IV SCH (09:23)
[2020-05-24] MEDS: SERTRALINE 100 MG TAB PO SCH (09:23)
[2020-05-24] MEDS: CHLORHEXIDINE GLUCONATE 15 ML CUP MUCOUS MEM SCH ×2 (09:23→20:31)
[2020-05-24] MEDS: FUROSEMIDE 10 MG/ML 4 ML VIAL IV SCH ×2 (09:23→20:32)
[2020-05-24 09:35] LABS: C Reactive Protein 21.2 mg/L (<10.0)
[2020-05-24] MEDS: ASCORBIC ACID 500 MG TAB PO SCH ×2 (09:41→20:32)
[2020-05-24] MEDS: CHOLECALCIFEROL 1,000 UNIT TAB PO SCH (09:41)
[2020-05-24] MEDS: PANTOPRAZOLE 40 MG/10 ML VIAL IVP SCH ×2 (09:42→20:31)
[2020-05-24] MEDS: ZINC SULFATE 220 MG CAP PO SCH (09:42)
[2020-05-24] MEDS: methylPREDNISolone SOD SUCCI 125 MG/2 ML VIAL IV SCH ×2 (09:42→20:31)
[2020-05-24] MEDS: ENOXAPARIN 60 MG/0.6 ML SYRINGE SQ SCH ×2 (09:42→20:32)
[2020-05-24] MEDS: ASPIRIN 81 MG PO SCH (09:46)
[2020-05-24] MEDS: CYANOCOBALAMIN 500 MCG TAB PO SCH (10:02)
--- NOTE | 2020-05-24 11:01 | PN ---
PROGRESS NOTE PULMONARY/CRITICAL CARE PROGRESS NOTE: DATE OF SERVICE: 05/24/2020 Critical care time 33 minutes. This is a 79-year-old female that was admitted back on May 09, 2020. She was admitted with a diagnosis of acute hypoxemic respiratory failure secondary to COVID-19 pneumonia. She also had influenza B infection and a small left lower lobe pulmonary embolism. Because of worsening respiratory status and worsening hypoxemia, she was intubated, mechanically ventilated on May 16, 2020. She remains on the mechanical ventilator. She is on the volume assist-control mode, rate of 30, tidal volume 350, FiO2 of 50%, PEEP of 10. Blood gases show a pO2 of 67, pCO2 of 48, pH of 7.47. She is getting saline at 20 mL an hour, propofol 40 mcg/kg per minute, Cleviprex 6 mg an hour and fentanyl 1.4 mcg/kg per hour. She is also on Vital high-protein at 26 with a goal of 26 mL an hour. According to the radiologist that looked at her chest x-ray today, she has some pneumomediastinum. Clinically, she is about the same. We did diurese her yesterday. She did diurese well. Current vital signs include a temperature of 98 degrees, heart rate 101, respiratory rate 30, blood pressure 136/58 and saturations are in the low 90s. Appears in no acute distress. Currently sedated heavily. HEENT: Examination is grossly unremarkable. There is an orally placed endotracheal tube and NG tube. NECK: Supple, full range of motion. No adenopathy. Neck veins are flat. CARDIOVASCULAR: Examination reveals regular rhythm and rate. S1, S2 normal. Heart rate about 100 beats per minute. Heart sounds are distant. LUNGS: Reveal diffuse coarse rhonchi. Breath sounds are diminished. There are mild crackles. No prolongation noted. ABDOMEN: Soft, bowel sounds are heard. EXTREMITIES: Intact. No cyanosis, clubbing, or significant edema. SKIN: Without rash. NEUROLOGIC: Examination cannot be adequately assessed. LABS: Reviewed. White count 30.6, hemoglobin 9.6, hematocrit 28.3, platelet count normal, blood gases have been noted. Sodium 136, potassium 3.9, chloride 88, CO2 is 37, anion gap is 1. BUN and creatinine were 24 and 0.5. LDH is 1824. C-reactive protein 21.2. Microbiology is essentially negative. Sputum did have some Bing albicans. Her most recent chest x-ray shows some patchy bilateral infiltrates as well as some pneumomediastinum. MEDICATIONS: Reviewed. Currently, the patient is on Tylenol, vitamin C, aspirin, chlorhexidine, vitamin D3, Cleviprex, clonidine, vitamin B12, Lovenox, fentanyl, Lasix, hydralazine, ibuprofen, insulin, levothyroxine, melatonin, Solu-Medrol, Narcan, Protonix, Zosyn, potassium replacement, propofol, Zoloft, saline nasal mist, and zinc sulfate. ASSESSMENT: 1. COVID-19 pneumonia/pneumonitis, with hypoxemic respiratory failure, requiring intubation and mechanical ventilation on May 16, 2020. 2. Acute left lower lobe pulmonary embolism. 3. History of breast cancer. 4. Pneumomediastinum, likely related to positive-pressure ventilation. 5. Influenza B infection. 6. History of hyperlipidemia. 7. Generalized anxiety disorder. 8. Degenerative joint disease. 9. Hypothyroidism. 10.History of breast cancer. 11.Multiple other medical problems and comorbidities. PLAN: The patient is on appropriate medication. Oxygenation is borderline. The patient remains on Vital high-protein at goal. The patient is on propofol, Cleviprex, and fentanyl. Will continue to follow. Overall prognosis is poor. Pneumomediastinum is noted. It is appreciated that the radiologist did point this out. Will continue to follow. Critical care time 33 minutes. MMMECCAL / FRANSISCON: [id number] /
--- NOTE | 2020-05-24 11:30 | P.PN ---
Subjective Progress Note Date: 05/24/20 HISTORY OF PRESENT ILLNESS This is a 79-year-old female patient of Dr. Guerrero with past medical history of breast cancer, hypothyroidism, hyperlipidemia, generalized osteoarthritis. She was recently hospitalized May 12 for fever, chills, cough with sputum production with worsening dyspnea was diagnosed with COVID-19 pneumonia. Patient was stabilized and discharged home on May 05 with azithromycin, steroids, home oxygen and vitamin supplements. Patient had significant shortness of breath when she woke up this morning and was wearing oxygen at 4 L. EMS was called and reported that she was ashen nazario, diaphoretic with a pulse ox of 71% upon arrival. Patient was brought into [facility] emergency center and found to be afebrile, heart rate 105, blood pressure 168/89, pulse ox 97% with nonrebreather. She continued tachypneic and tachycardic and patient was placed on BiPAP. Chest x-ray reveals stable patchy bilateral infiltrates. WBC 19.5, hemoglobin 11. Sodium 133, potassium 4.1, CO2 26, BUN 23 and creatinine 0.65. Blood sugar 100. Lactic acid 1.1. LDH 1116, C-reactive protein 63.7. Covid 19 not detected. Influenza B positive. Patient was continued on vitamin supplements, dexamethasone and started on Lovenox, Kati flu, admitted to the cardiac stepdown unit and consult requested with infectious disease and pulmonary medicine. DDimer elevated at 33 and CTA of the chest positive for tiny filling defect left lower lobe pulmonary artery. 05/10: Patient continues to have significant shortness of breath cough and chest tightness. She is on BiPAP and unable to eat or drink. She continues to feel weak and tired. Temperature max 100.0, heart rate 95, blood pressure 125/68, pulse ox 91% on BiPAP with FiO2 of 80. Patient has been seen by pulmonary medicine and started on Remdesivir. The patient's has been contacted via phone and updated regarding patient's current condition and treatment plan. 05/11: Patient is currently on day 3/5 of Remdesivir. Her pulse ox is running about 89% on BiPAP of 85% FiO2. Legionella was negative. Temperature max 101, heart rate 86, blood pressure 150/68. Navarro catheter will be placed as patient is too dyspneic to use bedpan or commode. Repeat blood work reveals WBC 19.4, hemoglobin 10.2. Sodium 136, potassium 3.7, creatinine 0.68. Patient is followed by infectious disease and pulmonary medicine. 05/12: Patient is currently on day 4/5 of Remdesivir. She continues to have significant shortness of breath which is worse from yesterday. She is on 85% FiO2 BiPAP pulse ox a 90%. When she moved over to 15 L, pulse ox dropped down to 78%. She continues complaining of shortness of breath. She has been anxious during the night and Xanax ordered. Patient is unable to take any new oral nutrition at this point. Navarro catheter was placed yesterday. Patient has been afebrile for 24 hour period. Heart rate 104, respiratory rate 26, blood pressure 175/81. Updated pulmonary medicine regarding possible need for intubation. 05/13: Patient's respiratory status did improve yesterday afternoon and she did not require transfer to the intensive care unit. Patient may be slightly better today from yesterday morning but did decline from yesterday afternoon. She is currently pulse ox seen in the 80s with BiPAP of 85% FiO2. She has been off onto 15 L high flow nasal cannula to eat and has been able to take in a small amount of food yesterday and Ensure. She will complete her course of Remdesivir this evening. Tamiflu course will also be completed this evening. Temperature max 100.3 yesterday at noon. Heart rate 91, blood pressure 174/85. Repeat blood work reveals WBC 20.5, hemoglobin 11. Chloride 112, BUN 33 and creatinine 0.61. Blood sugar 146. Alkaline phosphatase 129. 05/14: Yesterday afternoon, patient was transferred to the intensive care unit and is agreeable to short-term intubation if necessary. She has not required vasopressors. Patient has been afebrile. Heart rate 64, blood pressure 132/69, pulse ox 93% on 80% BiPAP. Leukocytosis is down to 12.9, hemoglobin 10. D- dimer isn't improved at 2.83. Creatinine 0.53. Other inflammatory markers have shown improvement with LDH at 1416, C-reactive protein 36.8. Patient has completed course of Remdesivir and Tamiflu. She remains on Lovenox, Solu-Medrol and vitamin supplementations. 05/15: Patient remains in the intensive care unit on BiPAP pulse ox seen 89-90% on 80% FiO2. Repeat chest x-ray reveals stable bilateral patchy infiltrate. She has completed course of Remdesivir and course of Tamiflu. She has been afebrile, heart rate 64, blood pressure 151/79. WBC 14.6, hemoglobin 10.1. Creatinine 0.51. Blood sugar 136. Albumin 2.5. Patient has been without food for greater than 6 days. Discussed nutrition options with Dr. Crowe he will address with rounds today. Physical exam deferred to Dr. Crowe. 05/16: Patient remains in the intensive care unit. She remains on 100% BiPAP pulse oxing 91%. She's been afebrile, heart rate in the low 100s, blood pressure 162/88. Repeat blood work reveals WBC 16.1, hemoglobin 10.8. D-dimer is 2.88. Sodium 135, potassium 3.7, chloride 108, CO2 25, BUN 28 and creatinine 0.47. CRP 37.3. Repeat chest x-ray reveals patchy bilateral lung infiltrates. Patient continues to be followed by [facility] and infectious disease. Patient is eating only about 25% of her meals. She is followed by case management for discharge planning. Patient states that Xanax is not helping and will be changed to lorazepam 0.5 mg IV every 6 hours as needed. 05/17: Patient was intubated last night currently on mechanical ventilation with tidal volume 400, FiO2 100, PEEP of 14. Pulse ox is 90-91%. Chest x-ray this morning reveals mild cardiomegaly and diffuse interstitial opacities mid and lower lungs. Small effusions. Correlate for interstitial pulmonary edema. She has been afebrile, heart rate 76, blood pressure 132/68. Patient has not required vasopressors. Patient is on max propofol. Oral tube feeding to be started today. Repeat lab work reveals WBC 15, hemoglobin 10. Sodium 136, potassium 3.5, chloride 108, CO2 24, BUN 27 and creatinine 0.51. Stool for occult blood positive. 05/18: Patient remains in the intensive care unit with pulse ox in the low 90s, remains intubated and on mechanical ventilation with tidal volume 350, FiO2 65, PEEP 12. She has been afebrile, heart rate 64, blood pressure 105/59. Patient has been starting on tube feedings currently at goal. Repeat lab work reveals Mattie BC 15.9, hemoglobin 10.1. Fibrinogen 504, d-dimer 1.17. Sodium 136, potassium 3.7, chloride 112, CO2 23, BUN 29 and creatinine 0.59. Blood sugars in the low 100s. Ferritin 570. C-reactive protein 27.9. 05/19:patient intubated sedated leukocytosis 20k, p02 67 sbp 123, solumedrol 60 q6 levofed infusion, still requiring pressor support, we will change oral levothyroxine to IV 25 g daily.vo 05/20: Patient is remains in ICU intubated on vent, sedated, still with leukocyt osis 22.9 thousand, chest x-ray shows mild diffuse increased lung markings stable from previous, patient is on Zosyn, sputum culture requested, finished treatment withremdesivir d-dimer is trending down toward with current level of 0.99, creatinine is normal, we'll going to check for TSH value check for immune globulin level, iron levels, for the anemia. albumin levels low at 2.1 on or OG-tube feedings 05/21. Patient remains in ICU, still in mechanical ventilation, followed closely by fretted instruments inspector, patient still leukocytosis wbcof 23,000, hemoglobin of 8.2, chest x-ray shows bilateral multifocal infiltrates, still on empiric Zosyn for underlying but bacterial pneumonia, however, covid pneumonitis is still difficult to eradicate chest x-ray shows fibrotic change in the lower lung with bilateral multifocal acute infiltrates, no significant change. IgG levels are very low at 378, unsure whether, globulin infusion would be helpful against a convalescent Covid serum would be helpful we will discuss with infectious disease or pulmonary. I discussed these value of hypogammaglobulinemia to Dr. Savage, for which he recommended IV IgG infusion, rather than convalescent serum. Gammagard to be dosed by pharmacy at 0.6 mg/kg of ideal body weight. ICU was notified. May 22: Patient remains in ICU, still with mechanical ventilation, Gammagard should have been infused, afebrile, still receiving OG-tube feedings still with leukocytosis, no new changes, awaiting response of antibiotic, no plans for vent weaning yet fretted instruments inspector, monitoring very closely 05/23: Patient remained intubated and on mechanical ventilation with FiO2 50 and PEEP of 10. Pulse ox is running about 90%. She has been afebrile, heart rate in the 60s and 70s, blood pressure 162/63. Clevidipine is on hold. Patient has been continued on Zosyn and followed by multiple consultants. 05/24: Repeat chest x-ray reveals suspected interval development of pneumomediastinum. COPD with patchy bilateral infiltrates stable. Patient remains intubated and on mechanical ventilation she is currently on tidal volume 350, FiO2 50 PEEP of 10. She is currently on propofol, Cleviprex and fentanyl drips. She is receiving tube feedings and is at goal. REVIEW OF SYSTEMS Unable to obtain due to intubation. PHYSICAL EXAMINATION Examination deferred to fretted instruments inspector due to Covid 19 restrictions. Gen: This is a 79-year-old female. She is resting in bed in no distress, intubated and on mechanical ventilation. HEENT: Head is atraumatic, normocephalic. Oral ET and gastric tube. NEUROLOGICAL: Patient is on sedation. ASSESSMENT AND PLAN 1. Acute on chronic hypoxic respiratory failure secondary to COVID pneumonia, Influenza B and small left lower pulmonary embolism. Patient required intubation and mechanical ventilation. Solu-Medrol 60 mg IV every 6 hours, Lovenox 60 mg subcu twice daily, vitamin supplements with vitamin C, vitamin D, zinc, Tamifllu completed. Remdesivir completed. Consults with pulmonary medicine and infectious disease appreciated. Check for immunosuppression, immunoglobulin level started on Gammagard 2. 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 San, infectious disease, and based on recommendation, he decided on IV Ig infusion,, guarded at 0.6 mg/kg of IV but ideal body weight, baseline levels igg 378 3. Hypothyroidism. Continue levothyroxine 50 g daily. 3. Severe osteoporosis. Fosamax on hold. 4. Anticoagulation with Lovenox. 5. GI prophylaxis. Pepcid. 6. Recurrent depression. Continue Zoloft 200 mg daily. 7. Situational anxiety. Xanax 0.5 mg twice daily as needed added. 8. History of breast cancer. 9. Stool positive for occult blood. Monitor hemoglobin and patient status closely. 10. Blood loss anemia, iron studies to be done, patient's on full dose anticoagulation with Lovenox, transfusion if hemoglobin is under 7 11. Pneumomediastinum secondary to positive pressure ventilation. Prognosis guarded. Impression and plan of care have been directed as dictated by the signing physician. Ivone Vizcarra nurse practitioner acting as scribe for signing physician. Objective - Vital Signs Vital signs: Vital Signs Temp 98 F 05/24/20 00:00 Pulse 104 H 05/24/20 08:30 Resp 34 H 05/24/20 08:30 BP 139/70 05/24/20 08:30 Pulse Ox 93 L 05/24/20 08:30 Intake & Output 05/23/20 05/24/20 05/24/20 18:59 06:59 18:59 Intake Total 1515.395 870.061 141.012 Output Total 2402 3090 300 Balance -886.605 -2219.939 -158.988 Weight 69 kg 70 kg Intake: IV 817 412 52 Piperacillin-Tazobactam 3 200 100 .375 gm In Sodium Chloride 0.9% 100 ml @ 25 mls/hr IVPB Q8HR NI Rx# :[id number] Pressure Bags 0.9 sodium 72 72 12 chloride Sodium Chloride 0.9% 1, 545 240 40 000 ml @ 20 mls/hr IV . Q24H NI Rx#:[id number] Intake, IV Titration 286.395 122.061 89.012 Amount Clevidipine Butyrate 25 78.650 0 27.533 mg In Empty Bag 1 bag @ 1 MG/HR 2 mls/hr IV .Q24H NI Rx#:[id number] fentaNYL (PF) 1,000 mcg 67.311 In Sodium Chloride 0.9% 80 ml @ Per Protocol IV . Q0M NI Rx#:[id number] propofoL 1,000 mg In 140.434 122.061 61.479 Empty Bag 1 bag @ Titrate IV .Q0M NI Rx#: [id number] Tube Feeding 232 26 Blood Product 0 310 Rc Pheresis As-3 Unit 0 310 [id number] Other 180 Output: Urine 2402 3090 300 Other: Voiding Method Indwelling Catheter Indwelling Catheter # Bowel Movements 0 0 ABP, PAP, CO, CI - Last Documented Arterial Blood Pressure 155/67 - Labs CBC & Chem 7: 05/24/20 06:30 05/24/20 06:30 Labs: Abnormal Lab Results - Last 24 Hours (Table) 05/23/20 05/23/20 05/23/20 Range/Units 06:20 06:20 08:30 WBC 13.9 H (3.8-10.6) k/uL RBC (3.80-5.40) m/uL Hgb (11.4-16.0) gm/dL Hct (34.0-46.0) % RDW (11.5-15.5) % Neutrophils # (Manual) 11.90 H (1.3-7.7) k/uL Lymphocytes # (Manual) 0.70 L (1.0-4.8) k/uL Metamyelocytes # (Man) 0.42 H (0) k/uL Myelocytes # (Manual) 0.56 H (0) k/uL Nucleated RBCs 1 H (0-0) /100 WBC ABG pH (7.35-7.45) ABG pCO2 (35-45) mmHg ABG pO2 (83-108) mmHg ABG HCO3 (21-25) mmol/L ABG Total CO2 (19-24) mmol/L ABG O2 Saturation (94-97) % Sodium (137-145) mmol/L Potassium (3.5-5.1) mmol/L Carbon Dioxide (22-30) mmol/L BUN (7-17) mg/dL Creatinine (0.52-1.04) mg/dL Glucose (74-99) mg/dL POC Glucose (mg/dL) (75-99) mg/dL Calcium (8.4-10.2) mg/dL Ferritin 414.6 H (10.0-291.0) ng/mL AST (14-36) U/L Lactate Dehydrogenase (313-618) U/L C-Reactive Protein (<10.0) mg/L Total Protein (6.3-8.2) g/dL Albumin (3.5-5.0) g/dL Crossmatch See Detail 05/23/20 05/23/20 05/23/20 Range/Units 11:36 15:28 18:40 WBC 42.3 H (3.8-10.6) k/uL RBC 3.65 L (3.80-5.40) m/uL Hgb 11.1 L D (11.4-16.0) gm/dL Hct 31.6 L (34.0-46.0) % RDW 17.4 H (11.5-15.5) % Neutrophils # (Manual) (1.3-7.7) k/uL Lymphocytes # (Manual) (1.0-4.8) k/uL Metamyelocytes # (Man) (0) k/uL Myelocytes # (Manual) (0) k/uL Nucleated RBCs (0-0) /100 WBC ABG pH (7.35-7.45) ABG pCO2 (35-45) mmHg ABG pO2 (83-108) mmHg ABG HCO3 (21-25) mmol/L ABG Total CO2 (19-24) mmol/L ABG O2 Saturation (94-97) % Sodium (137-145) mmol/L Potassium (3.5-5.1) mmol/L Carbon Dioxide (22-30) mmol/L BUN (7-17) mg/dL Creatinine (0.52-1.04) mg/dL Glucose (74-99) mg/dL POC Glucose (mg/dL) 114 H 168 H (75-99) mg/dL Calcium (8.4-10.2) mg/dL Ferritin (10.0-291.0) ng/mL AST (14-36) U/L Lactate Dehydrogenase (313-618) U/L C-Reactive Protein (<10.0) mg/L Total Protein (6.3-8.2) g/dL Albumin (3.5-5.0) g/dL Crossmatch 05/24/20 05/24/20 05/24/20 Range/Units 00:00 00:15 05:00 WBC (3.8-10.6) k/uL RBC (3.80-5.40) m/uL Hgb (11.4-16.0) gm/dL Hct (34.0-46.0) % RDW (11.5-15.5) % Neutrophils # (Manual) (1.3-7.7) k/uL Lymphocytes # (Manual) (1.0-4.8) k/uL Metamyelocytes # (Man) (0) k/uL Myelocytes # (Manual) (0) k/uL Nucleated RBCs (0-0) /100 WBC ABG pH 7.47 H (7.35-7.45) ABG pCO2 48 H (35-45) mmHg ABG pO2 67 L (83-108) mmHg ABG HCO3 35 H (21-25) mmol/L ABG Total CO2 37 H (19-24) mmol/L ABG O2 Saturation 93.4 L (94-97) % Sodium (137-145) mmol/L Potassium 3.3 L (3.5-5.1) mmol/L Carbon Dioxide (22-30) mmol/L BUN (7-17) mg/dL Creatinine (0.52-1.04) mg/dL Glucose (74-99) mg/dL POC Glucose (mg/dL) 111 H (75-99) mg/dL Calcium (8.4-10.2) mg/dL Ferritin (10.0-291.0) ng/mL AST (14-36) U/L Lactate Dehydrogenase (313-618) U/L C-Reactive Protein (<10.0) mg/L Total Protein (6.3-8.2) g/dL Albumin (3.5-5.0) g/dL Crossmatch 05/24/20 05/24/20 05/24/20 Range/Units 06:16 06:30 06:30 WBC 30.6 H (3.8-10.6) k/uL RBC 3.28 L (3.80-5.40) m/uL Hgb 9.6 L D (11.4-16.0) gm/dL Hct 28.3 L (34.0-46.0) % RDW 18.0 H (11.5-15.5) % Neutrophils # (Manual) 27.80 H (1.3-7.7) k/uL Lymphocytes # (Manual) 0.92 L (1.0-4.8) k/uL Metamyelocytes # (Man) 1.22 H (0) k/uL Myelocytes # (Manual) 0.61 H (0) k/uL Nucleated RBCs (0-0) /100 WBC ABG pH (7.35-7.45) ABG pCO2 (35-45) mmHg ABG pO2 (83-108) mmHg ABG HCO3 (21-25) mmol/L ABG Total CO2 (19-24) mmol/L ABG O2 Saturation (94-97) % Sodium 136 L (137-145) mmol/L Potassium (3.5-5.1) mmol/L Carbon Dioxide 37 H (22-30) mmol/L BUN 24 H (7-17) mg/dL Creatinine 0.50 L (0.52-1.04) mg/dL Glucose 133 H (74-99) mg/dL POC Glucose (mg/dL) 147 H (75-99) mg/dL Calcium 7.6 L (8.4-10.2) mg/dL Ferritin (10.0-291.0) ng/mL AST 49 H (14-36) U/L Lactate Dehydrogenase 1824 H (313-618) U/L C-Reactive Protein 21.2 H (<10.0) mg/L Total Protein 6.1 L (6.3-8.2) g/dL Albumin 2.6 L (3.5-5.0) g/dL Crossmatch Microbiology - Last 24 Hours (Table) 05/21/20 23:58 Gram Stain - Final Sputum Sputum Culture - Final Bing albicans
[2020-05-24 12:01] LABS: Glucose,Whole Blood 114 mg/dL (75-99)
[2020-05-24] MEDS: LACTULOSE 20 GM/30 ML CUP PO SCH ×2 (15:19→20:31)
[2020-05-24 15:24] LABS: Ferritin 646.9 ng/mL (10.0-291.0)
[2020-05-24 18:52] LABS: Glucose,Whole Blood 130 mg/dL (75-99)
[2020-05-24] MEDS ORDERED: FLUCONAZOLE 100 MG TAB PO ONE (22:06)
[2020-05-24 23:41] LABS: Glucose,Whole Blood 175 mg/dL (75-99)
[2020-05-25] MEDS: fentaNYL (PF) 1,000 MCG in SODIUM CHLORIDE 0.9% 80 ML IV SCH (00:21)
[2020-05-25] MEDS: INSULIN ASPART (NovoLOG) 100 UNIT/ML VIAL SQ SCH ×3 (00:23→19:20)
[2020-05-25] MEDS: PIPERACILLIN-TAZOBACTAM 3.375 GM in SODIUM CHLORIDE 0.9% 100 ML IVPB SCH ×3 (00:23→16:05)
--- NOTE | 2020-05-25 00:39 | PN ---
PROGRESS NOTE DATE OF SERVICE: 05/24/2020 REASON FOR FOLLOWUP: Pneumonia. INTERVAL HISTORY: The patient is currently afebrile. The patient is hemodynamically stable. The patient's FiO2 is currently stable at 50%. No significant purulent secretions in the ET or diarrhea reported by nursing staff. PHYSICAL EXAMINATION: Blood pressure 118/48 with a pulse of 75, temperature 98. She is 97% on 50% FiO2. General description is an elderly female lying in bed in no distress. RESPIRATORY SYSTEM: Unlabored breathing with decreased breath sounds in the base, no wheeze. HEART: S1, S2. Regular rate and rhythm. ABDOMEN: Soft. No tenderness. LABS: Hemoglobin 9.6, white count 30.6, BUN of 24, creatinine 0.50. Sputum with Bing albicans. DIAGNOSTIC IMPRESSION AND PLAN: 1. Patient with acute respiratory failure which is multifactorial in this patient with possible component of pneumonia empirically covered with Zosyn. If culture remains to be negative, may be able to discontinue . 2. Patient with elevated white count more likely steroid effect plus minus oropharyngeal candidiasis will give her dose of Diflucan and see response and monitor clinical course closely. MMODL / IJN: [id number] /
[2020-05-25 04:19] LABS: D-Dimer 0.82 mg/L FEU (<0.60)
[2020-05-25 04:26] LABS: Anisocytosis Slight; Basophils # (A) 0.1 k/uL (0-0.2); Basophils % (A) 0 %; Eosinophils # (A) 0.1 k/uL (0-0.7); Eosinophils % (A) 0 %; HCT 26.9 % (34.0-46.0); HGB 9.2 gm/dL (11.4-16.0); Lymphocytes # (A) 0.7 k/uL (1.0-4.8); Lymphocytes % (A) 3 %; MCH 29.5 pg (25.0-35.0); MCHC 34.3 g/dL (31.0-37.0); Mean Platelet Volume 7.5; Monocytes # (A) 0.7 k/uL (0-1.0); Monocytes % (A) 3 %; Neutrophils % (A) 93 %; Platelet Count 180 k/uL (150-450); RBC 3.13 m/uL (3.80-5.40); RDW 17.9 % (11.5-15.5); WBC 23.6 k/uL (3.8-10.6)
[2020-05-25 05:17] LABS: ABG Base Excess 14.6 mmol/L; ABG HCO3 38 mmol/L (21-25); ABG Oxygen Saturation 94.5 % (94-97); ABG PCO2 51 mmHg (35-45); ABG PH 7.48 (7.35-7.45); ABG PO2 68 mmHg (83-108); ABG TCO2 40 mmol/L (19-24)
[2020-05-25 05:57] LABS: Glucose,Whole Blood 142 mg/dL (75-99)
[2020-05-25] MEDS: CLEVIDIPINE BUTYRATE 25 MG in EMPTY BAG 1 BAG IV SCH ×2 (06:32→20:13)
[2020-05-25 06:58] LABS: ALT 27 U/L (4-34); AST 55 U/L (14-36); African American GFR (CKD) >90 (>60 ml/min/1.73 sqM); Albumin 2.8 g/dL (3.5-5.0); Alkaline Phosphatase 121 U/L (38-126); Anion Gap 4 mmol/L; Blood Urea Nitrogen 26 mg/dL (7-17); C Reactive Protein 19.7 mg/L (<10.0); Calcium 7.8 mg/dL (8.4-10.2); Carbon Dioxide 38 mmol/L (22-30); Chloride 93 mmol/L (98-107); Creatine Kinase 44 U/L (30-135); Glucose 120 mg/dL (74-99); LDH 1836 U/L (313-618); Non-African American GFR(CKD) >90 (>60 ml/min/1.73 sqM); Potassium 3.2 mmol/L (3.5-5.1); Sodium 135 mmol/L (137-145); Total Bilirubin 0.6 mg/dL (0.2-1.3); Total Protein 6.3 g/dL (6.3-8.2)
[2020-05-25] MEDS: POTASSIUM BICARBONATE/CIT AC 20 MEQ TABLET.EFF NG-TUBE SCH ×2 (07:59→09:40)
--- NOTE | 2020-05-25 08:00 | XR ---
EXAMINATION TYPE: XR chest 1V portable DATE OF EXAM: 05/25/2020 COMPARISON: Prior chest x-ray 05/24/2020 HISTORY: Pneumonia TECHNIQUE: Single frontal view of the chest is obtained. FINDINGS: Endotracheal tube and NG tube are overlying appropriate positions. There is a right jugula r central venous catheter with the distal tip at the level of the cavoatrial junction. Heart size is stable. Patchy bibasilar density, bilateral groundglass opacity noted. No sizable pneumothorax. Surgi michaela clips are present in the right axilla. There are overlying artifacts present. Patient is rotated, there is subcutaneous emphysema has developed over the neck, pneumomediastinum suspected as describe d in prior report. IMPRESSION: Progression of subcutaneous emphysema over the neck bilaterally. Correlate for pneumonia , edema
[2020-05-25] MEDS: PANTOPRAZOLE 40 MG/10 ML VIAL IVP SCH ×2 (09:40→20:19)
[2020-05-25] MEDS: CHLORHEXIDINE GLUCONATE 15 ML CUP MUCOUS MEM SCH ×2 (09:40→20:19)
[2020-05-25] MEDS: ZINC SULFATE 220 MG CAP PO SCH (09:40)
[2020-05-25] MEDS: methylPREDNISolone SOD SUCCI 125 MG/2 ML VIAL IV SCH ×2 (09:40→20:19)
[2020-05-25] MEDS: LEVOTHYROXINE IVP 100 MCG/5 ML VIAL IV SCH (09:40)
[2020-05-25] MEDS: FUROSEMIDE 10 MG/ML 4 ML VIAL IV SCH ×2 (09:40→20:19)
[2020-05-25] MEDS: SERTRALINE 100 MG TAB PO SCH (09:41)
[2020-05-25] MEDS: ASPIRIN 81 MG PO SCH (09:41)
[2020-05-25] MEDS: ASCORBIC ACID 500 MG TAB PO SCH ×2 (09:41→20:19)
[2020-05-25] MEDS: CYANOCOBALAMIN 500 MCG TAB PO SCH (09:41)
[2020-05-25] MEDS: ENOXAPARIN 60 MG/0.6 ML SYRINGE SQ SCH ×2 (09:42→20:53)
[2020-05-25] MEDS: LACTULOSE 20 GM/30 ML CUP PO SCH ×2 (09:42→20:15)
[2020-05-25] MEDS: CHOLECALCIFEROL 1,000 UNIT TAB PO SCH (09:42)
--- NOTE | 2020-05-25 10:18 | P.PN ---
Subjective Progress Note Date: 05/25/20 HISTORY OF PRESENT ILLNESS This is a 79-year-old female patient of Dr. Guerrero with past medical history of breast cancer, hypothyroidism, hyperlipidemia, generalized osteoarthritis. She was recently hospitalized May 12 for fever, chills, cough with sputum production with worsening dyspnea was diagnosed with COVID-19 pneumonia. Patient was stabilized and discharged home on May 05 with azithromycin, steroids, home oxygen and vitamin supplements. Patient had significant shortness of breath when she woke up this morning and was wearing oxygen at 4 L. EMS was called and reported that she was ashen nazario, diaphoretic with a pulse ox of 71% upon arrival. Patient was brought into [facility] emergency center and found to be afebrile, heart rate 105, blood pressure 168/89, pulse ox 97% with nonrebreather. She continued tachypneic and tachycardic and patient was placed on BiPAP. Chest x-ray reveals stable patchy bilateral infiltrates. WBC 19.5, hemoglobin 11. Sodium 133, potassium 4.1, CO2 26, BUN 23 and creatinine 0.65. Blood sugar 100. Lactic acid 1.1. LDH 1116, C-reactive protein 63.7. Covid 19 not detected. Influenza B positive. Patient was continued on vitamin supplements, dexamethasone and started on Lovenox, Kati flu, admitted to the cardiac stepdown unit and consult requested with infectious disease and pulmonary medicine. DDimer elevated at 33 and CTA of the chest positive for tiny filling defect left lower lobe pulmonary artery. 05/10: Patient continues to have significant shortness of breath cough and chest tightness. She is on BiPAP and unable to eat or drink. She continues to feel weak and tired. Temperature max 100.0, heart rate 95, blood pressure 125/68, pulse ox 91% on BiPAP with FiO2 of 80. Patient has been seen by pulmonary medicine and started on Remdesivir. The patient's has been contacted via phone and updated regarding patient's current condition and treatment plan. 05/11: Patient is currently on day 3/5 of Remdesivir. Her pulse ox is running about 89% on BiPAP of 85% FiO2. Legionella was negative. Temperature max 101, heart rate 86, blood pressure 150/68. Navarro catheter will be placed as patient is too dyspneic to use bedpan or commode. Repeat blood work reveals WBC 19.4, hemoglobin 10.2. Sodium 136, potassium 3.7, creatinine 0.68. Patient is followed by infectious disease and pulmonary medicine. 05/12: Patient is currently on day 4/5 of Remdesivir. She continues to have significant shortness of breath which is worse from yesterday. She is on 85% FiO2 BiPAP pulse ox a 90%. When she moved over to 15 L, pulse ox dropped down to 78%. She continues complaining of shortness of breath. She has been anxious during the night and Xanax ordered. Patient is unable to take any new oral nutrition at this point. Navarro catheter was placed yesterday. Patient has been afebrile for 24 hour period. Heart rate 104, respiratory rate 26, blood pressure 175/81. Updated pulmonary medicine regarding possible need for intubation. 05/13: Patient's respiratory status did improve yesterday afternoon and she did not require transfer to the intensive care unit. Patient may be slightly better today from yesterday morning but did decline from yesterday afternoon. She is currently pulse ox seen in the 80s with BiPAP of 85% FiO2. She has been off onto 15 L high flow nasal cannula to eat and has been able to take in a small amount of food yesterday and Ensure. She will complete her course of Remdesivir this evening. Tamiflu course will also be completed this evening. Temperature max 100.3 yesterday at noon. Heart rate 91, blood pressure 174/85. Repeat blood work reveals WBC 20.5, hemoglobin 11. Chloride 112, BUN 33 and creatinine 0.61. Blood sugar 146. Alkaline phosphatase 129. 05/14: Yesterday afternoon, patient was transferred to the intensive care unit and is agreeable to short-term intubation if necessary. She has not required vasopressors. Patient has been afebrile. Heart rate 64, blood pressure 132/69, pulse ox 93% on 80% BiPAP. Leukocytosis is down to 12.9, hemoglobin 10. D- dimer isn't improved at 2.83. Creatinine 0.53. Other inflammatory markers have shown improvement with LDH at 1416, C-reactive protein 36.8. Patient has completed course of Remdesivir and Tamiflu. She remains on Lovenox, Solu-Medrol and vitamin supplementations. 05/15: Patient remains in the intensive care unit on BiPAP pulse ox seen 89-90% on 80% FiO2. Repeat chest x-ray reveals stable bilateral patchy infiltrate. She has completed course of Remdesivir and course of Tamiflu. She has been afebrile, heart rate 64, blood pressure 151/79. WBC 14.6, hemoglobin 10.1. Creatinine 0.51. Blood sugar 136. Albumin 2.5. Patient has been without food for greater than 6 days. Discussed nutrition options with Dr. Crowe he will address with rounds today. Physical exam deferred to Dr. Crowe. 05/16: Patient remains in the intensive care unit. She remains on 100% BiPAP pulse oxing 91%. She's been afebrile, heart rate in the low 100s, blood pressure 162/88. Repeat blood work reveals WBC 16.1, hemoglobin 10.8. D-dimer is 2.88. Sodium 135, potassium 3.7, chloride 108, CO2 25, BUN 28 and creatinine 0.47. CRP 37.3. Repeat chest x-ray reveals patchy bilateral lung infiltrates. Patient continues to be followed by [facility] and infectious disease. Patient is eating only about 25% of her meals. She is followed by case management for discharge planning. Patient states that Xanax is not helping and will be changed to lorazepam 0.5 mg IV every 6 hours as needed. 05/17: Patient was intubated last night currently on mechanical ventilation with tidal volume 400, FiO2 100, PEEP of 14. Pulse ox is 90-91%. Chest x-ray this morning reveals mild cardiomegaly and diffuse interstitial opacities mid and lower lungs. Small effusions. Correlate for interstitial pulmonary edema. She has been afebrile, heart rate 76, blood pressure 132/68. Patient has not required vasopressors. Patient is on max propofol. Oral tube feeding to be started today. Repeat lab work reveals WBC 15, hemoglobin 10. Sodium 136, potassium 3.5, chloride 108, CO2 24, BUN 27 and creatinine 0.51. Stool for occult blood positive. 05/18: Patient remains in the intensive care unit with pulse ox in the low 90s, remains intubated and on mechanical ventilation with tidal volume 350, FiO2 65, PEEP 12. She has been afebrile, heart rate 64, blood pressure 105/59. Patient has been starting on tube feedings currently at goal. Repeat lab work reveals Mattie BC 15.9, hemoglobin 10.1. Fibrinogen 504, d-dimer 1.17. Sodium 136, potassium 3.7, chloride 112, CO2 23, BUN 29 and creatinine 0.59. Blood sugars in the low 100s. Ferritin 570. C-reactive protein 27.9. 05/19:patient intubated sedated leukocytosis 20k, p02 67 sbp 123, solumedrol 60 q6 levofed infusion, still requiring pressor support, we will change oral levothyroxine to IV 25 g daily.vo 05/20: Patient is remains in ICU intubated on vent, sedated, still with leukocyt osis 22.9 thousand, chest x-ray shows mild diffuse increased lung markings stable from previous, patient is on Zosyn, sputum culture requested, finished treatment withremdesivir d-dimer is trending down toward with current level of 0.99, creatinine is normal, we'll going to check for TSH value check for immune globulin level, iron levels, for the anemia. albumin levels low at 2.1 on or OG-tube feedings 05/21. Patient remains in ICU, still in mechanical ventilation, followed closely by director search marketing strategies, patient still leukocytosis wbcof 23,000, hemoglobin of 8.2, chest x-ray shows bilateral multifocal infiltrates, still on empiric Zosyn for underlying but bacterial pneumonia, however, covid pneumonitis is still difficult to eradicate chest x-ray shows fibrotic change in the lower lung with bilateral multifocal acute infiltrates, no significant change. IgG levels are very low at 378, unsure whether, globulin infusion would be helpful against a convalescent Covid serum would be helpful we will discuss with infectious disease or pulmonary. I discussed these value of hypogammaglobulinemia to Dr. Savage, for which he recommended IV IgG infusion, rather than convalescent serum. Gammagard to be dosed by pharmacy at 0.6 mg/kg of ideal body weight. ICU was notified. May 22: Patient remains in ICU, still with mechanical ventilation, Gammagard should have been infused, afebrile, still receiving OG-tube feedings still with leukocytosis, no new changes, awaiting response of antibiotic, no plans for vent weaning yet director search marketing strategies, monitoring very closely 05/23: Patient remained intubated and on mechanical ventilation with FiO2 50 and PEEP of 10. Pulse ox is running about 90%. She has been afebrile, heart rate in the 60s and 70s, blood pressure 162/63. Clevidipine is on hold. Patient has been continued on Zosyn and followed by multiple consultants. 05/24: Repeat chest x-ray reveals suspected interval development of pneumomediastinum. COPD with patchy bilateral infiltrates stable. Patient remains intubated and on mechanical ventilation she is currently on tidal volume 350, FiO2 50 PEEP of 10. She is currently on propofol, Cleviprex and fentanyl drips. She is receiving tube feedings and is at goal. 05/25: Patient remains intubated and on mechanical ventilation with plan to hold sedation today and see how patient responds. Repeat chest x-ray reveals progression of subcutaneous emphysema over the neck bilaterally. Correlate for pneumonia, edema. She has been afebrile, heart rate 72, blood pressure 133/52, pulse ox 97%. Repeat lab work reveals Mattie BC 23.6, hemoglobin 9.2, platelets 180. Sodium 135, potassium 3.2 and has been replaced, chloride 93, CO2 38, BUN 26 creatinine 0.51. Blood sugars running between 100 2875. LDH 1836. C- reactive protein 19.7. Propofol, Cleviprex on hold. Patient is on antibiotics in form of Zosyn and followed by Dr. San. REVIEW OF SYSTEMS Unable to obtain due to intubation. PHYSICAL EXAMINATION Examination deferred to director search marketing strategies due to Covid 19 restrictions. Gen: This is a 79-year-old female. She is resting in bed in no distress, intubated and on mechanical ventilation. HEENT: Head is atraumatic, normocephalic. Oral ET and gastric tube. NEUROLOGICAL: Patient is on sedation. ASSESSMENT AND PLAN 1. Acute on chronic hypoxic respiratory failure secondary to COVID pneumonia, Influenza B and small left lower pulmonary embolism. Patient required intubation and mechanical ventilation. Solu-Medrol 60 mg IV every 12 hours, Lovenox 60 mg subcu twice daily, vitamin supplements with vitamin C, vitamin D, zinc, Tamifllu completed. Remdesivir completed. Consults with pulmonary medicine and infectious disease appreciated. Check for immunosuppression, immunoglobulin level started on Gammagard 2. 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 San, infectious disease, and based on recommendation, he decided on IV Ig infusion,, guarded at 0.6 mg/kg of IV but ideal body weight, baseline levels igg 378 3. Hypothyroidism. Continue levothyroxine 50 g daily. 3. Severe osteoporosis. Fosamax on hold. 4. Anticoagulation with Lovenox. 5. GI prophylaxis. Pepcid. 6. Recurrent depression. Continue Zoloft 200 mg daily. 7. Situational anxiety. Xanax 0.5 mg twice daily as needed added. 8. History of breast cancer. 9. Stool positive for occult blood. Monitor hemoglobin and patient status closely. 10. Blood loss anemia, iron studies to be done, patient's on full dose anticoagulation with Lovenox, transfusion if hemoglobin is under 7 11. Pneumomediastinum secondary to positive pressure ventilation. Prognosis guarded. Impression and plan of care have been directed as dictated by the signing physician. Ivone Vizcarra nurse practitioner acting as scribe for signing physician. Objective - Vital Signs Vital signs: Vital Signs Temp 98.8 F 05/25/20 04:00 Pulse 72 05/25/20 07:00 Resp 30 H 05/25/20 07:00 BP 138/78 05/24/20 09:30 Pulse Ox 97 05/25/20 07:00 Intake & Output 05/24/20 05/25/20 05/25/20 18:59 06:59 18:59 Intake Total 6194.558 1343.668 52 Output Total 1945 1715 125 Balance -868.752 -606.332 -73 Weight 66.4 kg Intake: IV 486 412 26 Piperacillin-Tazobactam 3 200 100 .375 gm In Sodium Chloride 0.9% 100 ml @ 25 mls/hr IVPB Q8HR NI Rx# :[id number] Pressure Bags 0.9 sodium 66 72 6 chloride Sodium Chloride 0.9% 1, 220 240 20 000 ml @ 20 mls/hr IV . Q24H NI Rx#:[id number] Intake, IV Titration 240.248 294.668 Amount Clevidipine Butyrate 25 89.533 44.9 mg In Empty Bag 1 bag @ 1 MG/HR 2 mls/hr IV .Q24H NI Rx#:[id number] fentaNYL (PF) 1,000 mcg 68.633 In Sodium Chloride 0.9% 80 ml @ Per Protocol IV . Q0M NI Rx#:[id number] propofoL 1,000 mg In 150.715 181.135 Empty Bag 1 bag @ Titrate IV .Q0M NI Rx#: [id number] Tube Feeding 260 312 26 Other 90 90 Output: Urine 1945 1715 125 Other: Voiding Method Indwelling Catheter Indwelling Catheter ABP, PAP, CO, CI - Last Documented Arterial Blood Pressure 133/52 - Labs CBC & Chem 7: 05/25/20 03:40 05/25/20 03:40 Labs: Abnormal Lab Results - Last 24 Hours (Table) 05/24/20 05/24/20 05/24/20 Range/Units 06:30 12:00 18:50 WBC (3.8-10.6) k/uL RBC (3.80-5.40) m/uL Hgb (11.4-16.0) gm/dL Hct (34.0-46.0) % RDW (11.5-15.5) % Neutrophils # (1.3-7.7) k/uL Lymphocytes # (1.0-4.8) k/uL D-Dimer (<0.60) mg/L FEU ABG pH (7.35-7.45) ABG pCO2 (35-45) mmHg ABG pO2 (83-108) mmHg ABG HCO3 (21-25) mmol/L ABG Total CO2 (19-24) mmol/L Sodium (137-145) mmol/L Potassium (3.5-5.1) mmol/L Chloride (98-107) mmol/L Carbon Dioxide (22-30) mmol/L BUN (7-17) mg/dL Creatinine (0.52-1.04) mg/dL Glucose (74-99) mg/dL POC Glucose (mg/dL) 114 H 130 H (75-99) mg/dL Calcium (8.4-10.2) mg/dL Ferritin 646.9 H (10.0-291.0) ng/mL AST (14-36) U/L Lactate Dehydrogenase (313-618) U/L C-Reactive Protein 21.2 H (<10.0) mg/L Albumin (3.5-5.0) g/dL 05/24/20 05/25/20 05/25/20 Range/Units 23:40 03:40 03:40 WBC 23.6 H (3.8-10.6) k/uL RBC 3.13 L (3.80-5.40) m/uL Hgb 9.2 L (11.4-16.0) gm/dL Hct 26.9 L (34.0-46.0) % RDW 17.9 H (11.5-15.5) % Neutrophils # 22.0 H (1.3-7.7) k/uL Lymphocytes # 0.7 L (1.0-4.8) k/uL D-Dimer (<0.60) mg/L FEU ABG pH (7.35-7.45) ABG pCO2 (35-45) mmHg ABG pO2 (83-108) mmHg ABG HCO3 (21-25) mmol/L ABG Total CO2 (19-24) mmol/L Sodium 135 L (137-145) mmol/L Potassium 3.2 L (3.5-5.1) mmol/L Chloride 93 L (98-107) mmol/L Carbon Dioxide 38 H (22-30) mmol/L BUN 26 H (7-17) mg/dL Creatinine 0.51 L (0.52-1.04) mg/dL Glucose 120 H (74-99) mg/dL POC Glucose (mg/dL) 175 H (75-99) mg/dL Calcium 7.8 L (8.4-10.2) mg/dL Ferritin (10.0-291.0) ng/mL AST 55 H (14-36) U/L Lactate Dehydrogenase 1836 H (313-618) U/L C-Reactive Protein 19.7 H (<10.0) mg/L Albumin 2.8 L (3.5-5.0) g/dL 05/25/20 05/25/20 05/25/20 Range/Units 03:40 05:02 05:55 WBC (3.8-10.6) k/uL RBC (3.80-5.40) m/uL Hgb (11.4-16.0) gm/dL Hct (34.0-46.0) % RDW (11.5-15.5) % Neutrophils # (1.3-7.7) k/uL Lymphocytes # (1.0-4.8) k/uL D-Dimer 0.82 H (<0.60) mg/L FEU ABG pH 7.48 H (7.35-7.45) ABG pCO2 51 H (35-45) mmHg ABG pO2 68 L (83-108) mmHg ABG HCO3 38 H (21-25) mmol/L ABG Total CO2 40 H (19-24) mmol/L Sodium (137-145) mmol/L Potassium (3.5-5.1) mmol/L Chloride (98-107) mmol/L Carbon Dioxide (22-30) mmol/L BUN (7-17) mg/dL Creatinine (0.52-1.04) mg/dL Glucose (74-99) mg/dL POC Glucose (mg/dL) 142 H (75-99) mg/dL Calcium (8.4-10.2) mg/dL Ferritin (10.0-291.0) ng/mL AST (14-36) U/L Lactate Dehydrogenase (313-618) U/L C-Reactive Protein (<10.0) mg/L Albumin (3.5-5.0) g/dL Microbiology - Last 24 Hours (Table) 05/21/20 23:58 Gram Stain - Final Sputum Sputum Culture - Final Bing albicans
--- NOTE | 2020-05-25 10:22 | P.PN ---
Subjective Progress Note Date: 05/25/20 Principal diagnosis: Acute bilateral viral pneumonia Luiza is a 79-year-old female who was admitted to our hospital 1 week ago for COVID 19, she was treated with steroids and azithromycin, she was discharged home with supplemental oxygen steroids, azithromycin, zinc, vitamin C. She's been compliant with her home medication regimen. She's been wearing her oxygen. She states that despite this she's felt progressively worsened throughout the night and couldn't sleep due to shortness of breath. Patient states that this morning she initially she couldn't get her breath despite wearing her oxygen mask at 4 L. EMS was called. EMS reports that upon their arrival to her home she was ashen nazario diaphoretic with an oxygen saturation of 71%the patient was initially placed on on the percent nonrebreather facemask. Subsequently she was switched to a BiPAP and the current pressures are 10/5 with an FiO2 of 70%. Chest x-ray showed diffuse bilateral pulmonary infiltrates. Repeat coronavirus 19 testing came back negative. Nevertheless the patient 2 positive tests that were done on 06/28/2019 and 05/02/2020 and both of them were positive. Furthermore, the patient checked positive for influenza B.a CAT scan of the chest was done in the emergency department and it showed diffuse bilateral groundglass pulmonary infiltrates left more than right. There was also a tiny subsegmental pulmonaryembolism and the left lower lobe pulmonary artery branch. The patient was started on Lovenox therapeutic dose 1 mg per KG twice a day. Currently she is BiPAP dependent. FiO2 has been drop down to 70%. The patient will be started on treatment COVID 19 pneumonia and influenza. The patient was given empiric antibiotic coverage with a combination of Rocephin and Zithromax. She is quite lethargic and weak. She easily saturates once off the BiPAP. On 05/10/2020 patient seen in follow-up on selective care unit, she remains on BiPAP, FiO2 is at 80%, short of breath, tachypnea, pulse ox is 91%, low-grade fever this morning, with a temp of 100F. No complaints of chest discomfort or palpitations. Still requiring high FiO2. she was started on Remdesivir, Tamiflu for coronavirus and influenza B. Follow-up inflammatory markers have increased, with LDH up to 1763, CRP is relatively stable, down slightly to 55, Legionella urine antigen came back negative. Follow-up coronavirus PCR came back negative, and of note patient tested positive twice on 04/28 2020 and 05/02/2020 for coronavirus. Her chest x-ray on admission showed stable patchy bilateral infiltrates. And her CTA chest showed tiny left lower lobe pulmonary artery pulmonary embolism, and diffuse bilateral left greater than right mixed alveolar groundglass infiltrates reflective of Covid 19 pneumonitis The patient is seen today 05/11/2020 in follow-up on the selective care unit. She is currently resting fairly comfortably in bed. She has been on BiPAP 10/6 at 85% FiO2 alternating with 15 L high flow nasal cannula. Chest x-ray reveals right perihilar and basilar pneumonia with mild interval progression. She is on day #3 of Remdesivir. She is also on Tamiflu. Continued on Lovenox, dexametha sone, vitamin C, vitamin D, zinc, melatonin, Pepcid. The patient is seen today 05/12/2020 in follow-up on the selective care unit. She remains on BiPAP 10/6 and 85% FiO2. She is alert and answering questions appropriately. She is still maintaining O2 saturations in the 90s. Chest x-ray reveals findings consistent with bilateral pneumonia. Arterial blood gases on 85% FiO2 revealed a PaO2 of 71, pCO2 36, pH 7.42. This is day #4 of Remdesivir. She remains on Tamiflu. Initiated on IV Solu-Medrol. Continue vitamin C, vitamin D, Lovenox 60 mg every 12 hours, Pepcid, zinc. 0.9 normal saline at 75 ML's per hour. The patient is seen today 05/25/2020 in follow-up in the intensive care unit. She is currently intubated on the mechanical ventilator with assist-control mode at a rate of 30, tidal volume 350, FiO2 50% and a PEEP of 10. Morning blood gases reveal a P O2 of 60, pCO2 51, pH 7.48. She is sedated on to prevent at 55 mcg/kg/m. She is requiring fentanyl at 0.4 mg/kg per hour. Cleviprex at 3 mg per hour. 0.9 normal saline at 20 ML's per hour. She is being nourished with vital HP at 26 ML's per hour which is goal. She has been receiving daily interruption of sedation and spontaneous breathing trials. She'll be on pressure support of 10 and a CPAP of 5. She has received Remdesivir, convalescent plasma. Continue vitamin C, vitamin D, Lovenox, melatonin, zinc, Pepcid. She remains on IV Solu-Medrol. Antibiotics in the form of Zosyn. Remains on IV diuretics. Chest x-ray continues to show patchy bibasilar densities and groundglass opacities. There is subcutaneous emphysema over the bilateral neck. White count 23.6. Hemoglobin 9.2. D-dimer 0.82. Sodium 135. Potassium 3.2. Creatinine 0.51. LDH 1836. C-reactive protein 19.7. Objective - Vital Signs Vital signs: Vital Signs Temp 98.8 F 05/25/20 04:00 Pulse 72 05/25/20 07:00 Resp 30 H 05/25/20 07:00 BP 138/78 05/24/20 09:30 Pulse Ox 97 05/25/20 07:00 Intake & Output 05/24/20 05/25/20 05/25/20 18:59 06:59 18:59 Intake Total 6636.531 8073.668 52 Output Total 1945 1715 125 Balance -868.752 -606.332 -73 Weight 66.4 kg Intake: IV 486 412 26 Piperacillin-Tazobactam 3 200 100 .375 gm In Sodium Chloride 0.9% 100 ml @ 25 mls/hr IVPB Q8HR NI Rx# :[id number] Pressure Bags 0.9 sodium 66 72 6 chloride Sodium Chloride 0.9% 1, 220 240 20 000 ml @ 20 mls/hr IV . Q24H NI Rx#:[id number] Intake, IV Titration 240.248 294.668 Amount Clevidipine Butyrate 25 89.533 44.9 mg In Empty Bag 1 bag @ 1 MG/HR 2 mls/hr IV .Q24H NI Rx#:[id number] fentaNYL (PF) 1,000 mcg 68.633 In Sodium Chloride 0.9% 80 ml @ Per Protocol IV . Q0M NI Rx#:[id number] propofoL 1,000 mg In 150.715 181.135 Empty Bag 1 bag @ Titrate IV .Q0M NI Rx#: [id number] Tube Feeding 260 312 26 Other 90 90 Output: Urine 1944 1715 125 Other: Voiding Method Indwelling Catheter Indwelling Catheter ABP, PAP, CO, CI - Last Documented Arterial Blood Pressure 133/52 - Exam GENERAL EXAM: Intubated, sedated, 79-year-old female patient maintain O2 saturations in the 90s on 50% FiO2 and a PEEP of 10. HEAD: Normocephalic/atraumatic. EYES: Normal reaction of pupils, equal size. Conjunctiva pink, sclera white. NOSE: Clear with pink turbinates. THROAT: Oral endotracheal tube and gastric tube secured in place. No erythema or exudates. NECK: No masses, no JVD, no thyroid enlargement, no adenopathy. CHEST: No chest wall deformity. Symmetrical expansion. LUNGS: Equal air entry with diffuse rhonchi, crackles in the posterior bases. CVS: Regular rate and rhythm, normal S1 and S2, no gallops, no murmurs, no rubs ABDOMEN: Soft, nontender. No hepatosplenomegaly, normal bowel sounds, no guarding or rigidity. EXTREMITIES: No clubbing, no edema, no cyanosis, 2+ pulses and upper and lower extremities. MUSCULOSKELETAL: Muscle strength and tone normal. SPINE: No scoliosis or deformity SKIN: No rashes CENTRAL NERVOUS SYSTEM: Sedated., tone is normal in all 4 extremities. PSYCHIATRIC: Sedated, intubated. - Labs CBC & Chem 7: 05/25/20 03:40 05/25/20 03:40 Labs: Abnormal Lab Results - Last 24 Hours (Table) 05/24/20 05/24/20 05/24/20 Range/Units 06:30 12:00 18:50 WBC (3.8-10.6) k/uL RBC (3.80-5.40) m/uL Hgb (11.4-16.0) gm/dL Hct (34.0-46.0) % RDW (11.5-15.5) % Neutrophils # (1.3-7.7) k/uL Lymphocytes # (1.0-4.8) k/uL D-Dimer (<0.60) mg/L FEU ABG pH (7.35-7.45) ABG pCO2 (35-45) mmHg ABG pO2 (83-108) mmHg ABG HCO3 (21-25) mmol/L ABG Total CO2 (19-24) mmol/L Sodium (137-145) mmol/L Potassium (3.5-5.1) mmol/L Chloride (98-107) mmol/L Carbon Dioxide (22-30) mmol/L BUN (7-17) mg/dL Creatinine (0.52-1.04) mg/dL Glucose (74-99) mg/dL POC Glucose (mg/dL) 114 H 130 H (75-99) mg/dL Calcium (8.4-10.2) mg/dL Ferritin 646.9 H (10.0-291.0) ng/mL AST (14-36) U/L Lactate Dehydrogenase (313-618) U/L C-Reactive Protein (<10.0) mg/L Albumin (3.5-5.0) g/dL 05/24/20 05/25/20 05/25/20 Range/Units 23:40 03:40 03:40 WBC 23.6 H (3.8-10.6) k/uL RBC 3.13 L (3.80-5.40) m/uL Hgb 9.2 L (11.4-16.0) gm/dL Hct 26.9 L (34.0-46.0) % RDW 17.9 H (11.5-15.5) % Neutrophils # 22.0 H (1.3-7.7) k/uL Lymphocytes # 0.7 L (1.0-4.8) k/uL D-Dimer (<0.60) mg/L FEU ABG pH (7.35-7.45) ABG pCO2 (35-45) mmHg ABG pO2 (83-108) mmHg ABG HCO3 (21-25) mmol/L ABG Total CO2 (19-24) mmol/L Sodium 135 L (137-145) mmol/L Potassium 3.2 L (3.5-5.1) mmol/L Chloride 93 L (98-107) mmol/L Carbon Dioxide 38 H (22-30) mmol/L BUN 26 H (7-17) mg/dL Creatinine 0.51 L (0.52-1.04) mg/dL Glucose 120 H (74-99) mg/dL POC Glucose (mg/dL) 175 H (75-99) mg/dL Calcium 7.8 L (8.4-10.2) mg/dL Ferritin (10.0-291.0) ng/mL AST 55 H (14-36) U/L Lactate Dehydrogenase 1836 H (313-618) U/L C-Reactive Protein 19.7 H (<10.0) mg/L Albumin 2.8 L (3.5-5.0) g/dL 05/25/20 05/25/20 05/25/20 Range/Units 03:40 05:02 05:55 WBC (3.8-10.6) k/uL RBC (3.80-5.40) m/uL Hgb (11.4-16.0) gm/dL Hct (34.0-46.0) % RDW (11.5-15.5) % Neutrophils # (1.3-7.7) k/uL Lymphocytes # (1.0-4.8) k/uL D-Dimer 0.82 H (<0.60) mg/L FEU ABG pH 7.48 H (7.35-7.45) ABG pCO2 51 H (35-45) mmHg ABG pO2 68 L (83-108) mmHg ABG HCO3 38 H (21-25) mmol/L ABG Total CO2 40 H (19-24) mmol/L Sodium (137-145) mmol/L Potassium (3.5-5.1) mmol/L Chloride (98-107) mmol/L Carbon Dioxide (22-30) mmol/L BUN (7-17) mg/dL Creatinine (0.52-1.04) mg/dL Glucose (74-99) mg/dL POC Glucose (mg/dL) 142 H (75-99) mg/dL Calcium (8.4-10.2) mg/dL Ferritin (10.0-291.0) ng/mL AST (14-36) U/L Lactate Dehydrogenase (313-618) U/L C-Reactive Protein (<10.0) mg/L Albumin (3.5-5.0) g/dL Microbiology - Last 24 Hours (Table) 05/21/20 23:58 Gram Stain - Final Sputum Sputum Culture - Final Bing albicans Assessment and Plan Assessment: 1 Acute hypoxic respiratory failure requiring intubation mechanical ventilatory support with acute bilateral viral pneumonia initially with Covid 19 and subsequently the patient was diagnosed having influenza B. The chest x-ray findings are typical of interstitial pneumonia suggestive of bilateral pneumonia secondary to Covid 19 infection. The patient also checked positive for influenza B. 2 Pulmonary embolism, very tiny, subsegmental in the left lower lobe pulmonary artery branch 3 History of breast cancer 4 Hypothyroidism 5 Osteoporosis 6 Chronic anxiety/depression Plan: The patient was seen and evaluated by Dr. Maxwell Chest x-ray, ABGs and labs reviewed Plan for daily interruption of sedation and spontaneous breathing trial We'll trial pressure support of 10, CPAP of 5 Completed Remdesivir, receive convalescent plasma Continued on Lovenox, Solu-Medrol, Pepcid, vitamin C, vitamin D, zinc, melatonin We will continue to follow Critical care time 38 minutes I, the cosigning physician, performed a history & physical examination of the patient. Lungs sounds with bilateral scattered rhonchi, crackles in bilateral posterior bases. Maintaining good O2 saturations in the 90s on the mechanical ventilator at 50% FiO2 and a PEEP of 10. I discussed the assessment and plan of care with my nurse practitioner, Dione Fofana. I attest to the above note as dictated by her. Time with Patient: Greater than 30
[2020-05-25 11:24] LABS: Ferritin 687.9 ng/mL (10.0-291.0)
[2020-05-25 13:18] LABS: Glucose,Whole Blood 120 mg/dL (75-99)
[2020-05-25] MEDS ORDERED: ALBUTEROL HFA INHALER INHALATION PRN (14:14)
[2020-05-25] MEDS: ALBUTEROL HFA INHALER INHALATION SCH ×3 (17:01→23:50)
[2020-05-25 17:25] LABS: Glucose,Whole Blood 138 mg/dL (75-99)
[2020-05-25] MEDS: SODIUM CHLORIDE 0.9% 1,000 ML IV SCH ×2 (19:19)
[2020-05-25] MEDS ORDERED: ANIDULAFUNGIN 200 MG in SODIUM CHLORIDE 0.9% 200 ML IVPB ONE (21:44)
--- NOTE | 2020-05-25 23:12 | PN ---
PROGRESS NOTE DATE OF SERVICE: 05/25/2020 REASON FOR FOLLOWUP: Leukocytosis, likely oropharyngeal candidiasis and thrush. INTERVAL HISTORY: The patient is currently afebrile. The patient is hemodynamically stable. The patient remains to be intubated on the vent. FiO2 is currently stable at 50%. No significant purulent secretions through the ET or any diarrhea reported by nursing staff. PHYSICAL EXAMINATION: Blood pressure 142/66, pulse of 100, temperature 98.4. She is 94% on 50% FiO2. General description is an elderly female lying in bed in no distress. HEENT EXAMINATION: Extensive thrush. LUNGS: Unlabored breathing, decreased intensity of breath sounds. No wheeze. HEART: S1, S2. Regular rate and rhythm. ABDOMEN: Soft, no tenderness. LAB: White count down to 23.6, BUN of 26, creatinine 0.51. Sputum has been Bing. DIAGNOSTIC IMPRESSION AND PLAN: Patient with acute respiratory failure which is multifactorial in this patient who has completed her treatment for influenza as well as COVID-19 with concern for bacterial pneumonia. However, sputum has been negative for any resistant pathogen and has received adequate antibiotic therapy, now with elevated white count and extensive thrush and oropharyngeal candidiasis. We will add Eraxis. Diflucan could not be used because of the propofol and other medications the patient is on and will monitor clinical course closely. MMODL / IJN: [id number] /
[2020-05-26] MEDS: CLEVIDIPINE BUTYRATE 25 MG in EMPTY BAG 1 BAG IV SCH ×4 (00:29→23:12)
[2020-05-26] MEDS: INSULIN ASPART (NovoLOG) 100 UNIT/ML VIAL SQ SCH ×5 (01:28→23:52)
[2020-05-26 01:38] LABS: Glucose,Whole Blood 154 mg/dL (75-99)
[2020-05-26] MEDS: ALBUTEROL HFA INHALER INHALATION SCH ×5 (03:54→20:17)
[2020-05-26 04:38] LABS: Anisocytosis Slight; Basophils # (A) 0.3 k/uL (0-0.2); Basophils % (A) 1 %; Eosinophils # (A) 0.1 k/uL (0-0.7); Eosinophils % (A) 0 %; HCT 24.1 % (34.0-46.0); HGB 8.5 gm/dL (11.4-16.0); Lymphocytes # (A) 0.3 k/uL (1.0-4.8); Lymphocytes % (A) 1 %; MCH 30.3 pg (25.0-35.0); MCHC 35.1 g/dL (31.0-37.0); MCV 86.3 fL (80.0-100.0); Mean Platelet Volume 7.5; Monocytes # (A) 0.8 k/uL (0-1.0); Monocytes % (A) 3 %; Neutrophils # (A) 26.4 k/uL (1.3-7.7); Neutrophils % (A) 95 %; Platelet Count 152 k/uL (150-450); RBC 2.79 m/uL (3.80-5.40); RDW 17.9 % (11.5-15.5); WBC 27.9 k/uL (3.8-10.6)
[2020-05-26 04:58] LABS: D-Dimer 0.64 mg/L FEU (<0.60)
[2020-05-26 05:13] LABS: Poikilocytosis (M) Present
[2020-05-26 05:42] LABS: African American GFR (CKD) >90 (>60 ml/min/1.73 sqM); Anion Gap 2 mmol/L; Blood Urea Nitrogen 24 mg/dL (7-17); C Reactive Protein 17.4 mg/L (<10.0); Calcium 7.9 mg/dL (8.4-10.2); Carbon Dioxide 40 mmol/L (22-30); Chloride 88 mmol/L (98-107); Glucose 141 mg/dL (74-99); LDH 1988 U/L (313-618); Non-African American GFR(CKD) >90 (>60 ml/min/1.73 sqM); Potassium 3.5 mmol/L (3.5-5.1); Sodium 130 mmol/L (137-145)
[2020-05-26 05:48] LABS: ABG Base Excess 17.8 mmol/L; ABG Oxygen Saturation 96.1 % (94-97); ABG PCO2 50 mmHg (35-45); ABG PH 7.52 (7.35-7.45); ABG PO2 81 mmHg (83-108); ABG TCO2 42 mmol/L (19-24); Allen Test Performed? Yes
[2020-05-26] MEDS: POTASSIUM BICARBONATE/CIT AC 20 MEQ TABLET.EFF NG-TUBE SCH ×2 (06:15→07:08)
[2020-05-26 06:45] LABS: Glucose,Whole Blood 110 mg/dL (75-99)
--- NOTE | 2020-05-26 07:46 | XR ---
EXAMINATION TYPE: XR chest 1V portable DATE OF EXAM: 05/26/2020 Comparison: 05/25/2020 Clinical History: 79-year-old female follow-up, ICU management Findings: ET tube tip 3.0 cm from the alanna. NG tube courses below the diaphragm. Right IJ CVC tip in the uppe r right atrium. Heart upper limits of normal in size. Patchy left greater than right bibasilar opacit ies persist. Relative upper lung lucencies. Surgical clips at the right axilla. Nonspecific subcutane ous emphysema at the base of the neck on both sides. Impression: 1. COPD with continued patchy bibasilar areas of atelectasis/infiltrates. 2. Continued subcutaneous emphysema at the bilateral base of the neck. Correlate as to etiology.
[2020-05-26] MEDS ORDERED: ARTIFICIAL TEARS OINTMENT 3.5 GM TUBE BOTH EYES PRN (09:21)
--- NOTE | 2020-05-26 10:21 | P.PN ---
Subjective Progress Note Date: 05/26/20 Principal diagnosis: Acute bilateral viral pneumonia Luiza is a 79-year-old female who was admitted to our hospital 1 week ago for COVID 19, she was treated with steroids and azithromycin, she was discharged home with supplemental oxygen steroids, azithromycin, zinc, vitamin C. She's been compliant with her home medication regimen. She's been wearing her oxygen. She states that despite this she's felt progressively worsened throughout the night and couldn't sleep due to shortness of breath. Patient states that this morning she initially she couldn't get her breath despite wearing her oxygen mask at 4 L. EMS was called. EMS reports that upon their arrival to her home she was ashen nazario diaphoretic with an oxygen saturation of 71%the patient was initially placed on on the percent nonrebreather facemask. Subsequently she was switched to a BiPAP and the current pressures are 10/5 with an FiO2 of 70%. Chest x-ray showed diffuse bilateral pulmonary infiltrates. Repeat coronavirus 19 testing came back negative. Nevertheless the patient 2 positive tests that were done on 06/28/2019 and 05/02/2020 and both of them were positive. Furthermore, the patient checked positive for influenza B.a CAT scan of the chest was done in the emergency department and it showed diffuse bilateral groundglass pulmonary infiltrates left more than right. There was also a tiny subsegmental pulmonaryembolism and the left lower lobe pulmonary artery branch. The patient was started on Lovenox therapeutic dose 1 mg per KG twice a day. Currently she is BiPAP dependent. FiO2 has been drop down to 70%. The patient will be started on treatment COVID 19 pneumonia and influenza. The patient was given empiric antibiotic coverage with a combination of Rocephin and Zithromax. She is quite lethargic and weak. She easily saturates once off the BiPAP. On 05/10/2020 patient seen in follow-up on selective care unit, she remains on BiPAP, FiO2 is at 80%, short of breath, tachypnea, pulse ox is 91%, low-grade fever this morning, with a temp of 100F. No complaints of chest discomfort or palpitations. Still requiring high FiO2. she was started on Remdesivir, Tamiflu for coronavirus and influenza B. Follow-up inflammatory markers have increased, with LDH up to 1763, CRP is relatively stable, down slightly to 55, Legionella urine antigen came back negative. Follow-up coronavirus PCR came back negative, and of note patient tested positive twice on 04/28 2020 and 05/02/2020 for coronavirus. Her chest x-ray on admission showed stable patchy bilateral infiltrates. And her CTA chest showed tiny left lower lobe pulmonary artery pulmonary embolism, and diffuse bilateral left greater than right mixed alveolar groundglass infiltrates reflective of Covid 19 pneumonitis The patient is seen today 05/11/2020 in follow-up on the selective care unit. She is currently resting fairly comfortably in bed. She has been on BiPAP 10/6 at 85% FiO2 alternating with 15 L high flow nasal cannula. Chest x-ray reveals right perihilar and basilar pneumonia with mild interval progression. She is on day #3 of Remdesivir. She is also on Tamiflu. Continued on Lovenox, dexametha sone, vitamin C, vitamin D, zinc, melatonin, Pepcid. The patient is seen today 05/12/2020 in follow-up on the selective care unit. She remains on BiPAP 10/6 and 85% FiO2. She is alert and answering questions appropriately. She is still maintaining O2 saturations in the 90s. Chest x-ray reveals findings consistent with bilateral pneumonia. Arterial blood gases on 85% FiO2 revealed a PaO2 of 71, pCO2 36, pH 7.42. This is day #4 of Remdesivir. She remains on Tamiflu. Initiated on IV Solu-Medrol. Continue vitamin C, vitamin D, Lovenox 60 mg every 12 hours, Pepcid, zinc. 0.9 normal saline at 75 ML's per hour. The patient is seen today 05/25/2020 in follow-up in the intensive care unit. She is currently intubated on the mechanical ventilator with assist-control mode at a rate of 30, tidal volume 350, FiO2 50% and a PEEP of 10. Morning blood gases reveal a P O2 of 60, pCO2 51, pH 7.48. She is sedated on to prevent at 55 mcg/kg/m. She is requiring fentanyl at 0.4 mg/kg per hour. Cleviprex at 3 mg per hour. 0.9 normal saline at 20 ML's per hour. She is being nourished with vital HP at 26 ML's per hour which is goal. She has been receiving daily interruption of sedation and spontaneous breathing trials. She'll be on pressure support of 10 and a CPAP of 5. She has received Remdesivir, convalescent plasma. Continue vitamin C, vitamin D, Lovenox, melatonin, zinc, Pepcid. She remains on IV Solu-Medrol. Antibiotics in the form of Zosyn. Remains on IV diuretics. Chest x-ray continues to show patchy bibasilar densities and groundglass opacities. There is subcutaneous emphysema over the bilateral neck. White count 23.6. Hemoglobin 9.2. D-dimer 0.82. Sodium 135. Potassium 3.2. Creatinine 0.51. LDH 1836. C-reactive protein 19.7. The patient is seen today 05/26/2020 in follow-up in the intensive care unit. She remains intubated on mechanical ventilator with assist-control respiratory rate of 30, tidal volume 350, FiO2 50% and a PEEP of 10. Morning blood gases reveal a P O2 of 81, pCO2 50, pH 7.5. She has a 0.9 normal saline running at 20 ML's per hour. Propofol 50 mcg/kg/m. Fentanyl at 1.4 mg/kg per hour. Cleviprex at 6 mg per hour. She is being nourished with vital HP 20 ML's per hour with a goal of 26. She did have daily interruption of sedation yesterday and was quite tachycardic with heart rate about 100 jumped up to 140. White c ount 27.9. Hemoglobin 8.5. D-dimer 0.64. Sodium 1:30. Potassium 3.5. Creatinine 0.53. LDH 1988. C-reactive protein 17.4. Objective - Vital Signs Vital signs: Vital Signs Temp 98.4 F 05/26/20 04:00 Pulse 103 H 05/26/20 07:00 Resp 30 H 05/26/20 07:00 BP 138/78 05/25/20 19:00 Pulse Ox 95 05/26/20 07:00 Intake & Output 05/25/20 05/26/20 05/26/20 18:59 06:59 18:59 Intake Total 1032.15 923.368 30.166 Output Total 1600 1585 130 Balance -567.85 -661.632 -99.834 Weight 67.2 kg Intake: IV 512 312 26 Piperacillin-Tazobactam 3 200 .375 gm In Sodium Chloride 0.9% 100 ml @ 25 mls/hr IVPB Q8HR NI Rx# :[id number] Pressure Bags 0.9 sodium 72 72 6 chloride Sodium Chloride 0.9% 1, 240 240 20 000 ml @ 20 mls/hr IV . Q24H NI Rx#:[id number] Intake, IV Titration 118.15 261.368 4.166 Amount Clevidipine Butyrate 25 50.0 62.233 4.166 mg In Empty Bag 1 bag @ 1 MG/HR 2 mls/hr IV .Q24H NI Rx#:[id number] propofoL 1,000 mg In 68.15 199.135 Empty Bag 1 bag @ Titrate IV .Q0M NI Rx#: [id number] Tube Feeding 312 260 Other 90 90 Output: Urine 1600 1585 130 Other: Voiding Method Indwelling Catheter Indwelling Catheter ABP, PAP, CO, CI - Last Documented Arterial Blood Pressure 137/77 - Exam GENERAL EXAM: Intubated, sedated, 79-year-old female patient maintaining O2 saturations in the 90s on 50% FiO2 and a PEEP of 10. HEAD: Normocephalic/atraumatic. EYES: Normal reaction of pupils, equal size. Conjunctiva pink, sclera white. NOSE: Clear with pink turbinates. THROAT: Oral endotracheal tube and gastric tube secured in place. No erythema or exudates. NECK: No masses, no JVD, no thyroid enlargement, no adenopathy. CHEST: No chest wall deformity. Symmetrical expansion. LUNGS: Equal air entry with diffuse rhonchi, crackles in the posterior bases. CVS: Regular rate and rhythm, normal S1 and S2, no gallops, no murmurs, no rubs ABDOMEN: Soft, nontender. No hepatosplenomegaly, normal bowel sounds, no guarding or rigidity. EXTREMITIES: No clubbing, no edema, no cyanosis, 2+ pulses and upper and lower extremities. MUSCULOSKELETAL: Muscle strength and tone normal. SPINE: No scoliosis or deformity SKIN: No rashes CENTRAL NERVOUS SYSTEM: Sedated., tone is normal in all 4 extremities. PSYCHIATRIC: Sedated, intubated. - Labs CBC & Chem 7: 05/26/20 04:15 05/26/20 04:15 Labs: Abnormal Lab Results - Last 24 Hours (Table) 05/25/20 05/25/20 05/25/20 Range/Units 03:40 13:16 17:24 WBC (3.8-10.6) k/uL RBC (3.80-5.40) m/uL Hgb (11.4-16.0) gm/dL Hct (34.0-46.0) % RDW (11.5-15.5) % Neutrophils # (1.3-7.7) k/uL Lymphocytes # (1.0-4.8) k/uL Basophils # (0-0.2) k/uL D-Dimer (<0.60) mg/L FEU ABG pH (7.35-7.45) ABG pCO2 (35-45) mmHg ABG pO2 (83-108) mmHg ABG HCO3 (21-25) mmol/L ABG Total CO2 (19-24) mmol/L Sodium (137-145) mmol/L Chloride (98-107) mmol/L Carbon Dioxide (22-30) mmol/L BUN (7-17) mg/dL Glucose (74-99) mg/dL POC Glucose (mg/dL) 120 H 138 H (75-99) mg/dL Calcium (8.4-10.2) mg/dL Ferritin 687.9 H (10.0-291.0) ng/mL Lactate Dehydrogenase (313-618) U/L C-Reactive Protein (<10.0) mg/L 05/26/20 05/26/20 05/26/20 Range/Units 01:26 04:15 04:15 WBC 27.9 H (3.8-10.6) k/uL RBC 2.79 L (3.80-5.40) m/uL Hgb 8.5 L (11.4-16.0) gm/dL Hct 24.1 L (34.0-46.0) % RDW 17.9 H (11.5-15.5) % Neutrophils # 26.4 H (1.3-7.7) k/uL Lymphocytes # 0.3 L (1.0-4.8) k/uL Basophils # 0.3 H (0-0.2) k/uL D-Dimer (<0.60) mg/L FEU ABG pH (7.35-7.45) ABG pCO2 (35-45) mmHg ABG pO2 (83-108) mmHg ABG HCO3 (21-25) mmol/L ABG Total CO2 (19-24) mmol/L Sodium 130 L (137-145) mmol/L Chloride 88 L (98-107) mmol/L Carbon Dioxide 40 H (22-30) mmol/L BUN 24 H (7-17) mg/dL Glucose 141 H (74-99) mg/dL POC Glucose (mg/dL) 154 H (75-99) mg/dL Calcium 7.9 L (8.4-10.2) mg/dL Ferritin (10.0-291.0) ng/mL Lactate Dehydrogenase 1988 H (313-618) U/L C-Reactive Protein 17.4 H (<10.0) mg/L 05/26/20 05/26/20 05/26/20 Range/Units 04:15 05:43 06:33 WBC (3.8-10.6) k/uL RBC (3.80-5.40) m/uL Hgb (11.4-16.0) gm/dL Hct (34.0-46.0) % RDW (11.5-15.5) % Neutrophils # (1.3-7.7) k/uL Lymphocytes # (1.0-4.8) k/uL Basophils # (0-0.2) k/uL D-Dimer 0.64 H (<0.60) mg/L FEU ABG pH 7.52 H (7.35-7.45) ABG pCO2 50 H (35-45) mmHg ABG pO2 81 L (83-108) mmHg ABG HCO3 41 H* (21-25) mmol/L ABG Total CO2 42 H (19-24) mmol/L Sodium (137-145) mmol/L Chloride (98-107) mmol/L Carbon Dioxide (22-30) mmol/L BUN (7-17) mg/dL Glucose (74-99) mg/dL POC Glucose (mg/dL) 110 H (75-99) mg/dL Calcium (8.4-10.2) mg/dL Ferritin (10.0-291.0) ng/mL Lactate Dehydrogenase (313-618) U/L C-Reactive Protein (<10.0) mg/L Assessment and Plan Assessment: 1 Acute hypoxic respiratory failure requiring intubation mechanical ventilatory support with acute bilateral viral pneumonia initially with Covid 19 and subsequently the patient was diagnosed having influenza B. The chest x-ray findings are typical of interstitial pneumonia suggestive of bilateral pneumonia secondary to Covid 19 infection. The patient also checked positive for influenza B. 2 Pulmonary embolism, very tiny, subsegmental in the left lower lobe pulmonary artery branch 3 History of breast cancer 4 Hypothyroidism 5 Osteoporosis 6 Chronic anxiety/depression Plan: The patient was seen and evaluated by Dr. Maxwell Chest x-ray, ABGs and labs reviewed Plan for daily interruption of sedation and spontaneous breathing trial We'll trial pressure support of 10, CPAP of 5 Overall prognosis is quite guarded She is a DO NOT RESUSCITATE/DO NOT INTUBATE CODE STATUS We will continue to follow Critical care time 68 minutes I, the cosigning physician, performed a history & physical examination of the patient. Lungs sounds with bilateral scattered rhonchi, crackles in bilateral posterior bases. Maintaining good O2 saturations in the 90s on the mechanical ventilator at 50% FiO2 and a PEEP of 10. I discussed the assessment and plan of care with my nurse practitioner, Dione Fofana. I attest to the above note as dictated by her. Time with Patient: Greater than 30
[2020-05-26] MEDS: methylPREDNISolone SOD SUCCI 125 MG/2 ML VIAL IV SCH ×2 (10:55→20:03)
[2020-05-26] MEDS: ENOXAPARIN 60 MG/0.6 ML SYRINGE SQ SCH ×2 (10:56→20:03)
[2020-05-26] MEDS: CHLORHEXIDINE GLUCONATE 15 ML CUP MUCOUS MEM SCH ×2 (10:56→20:03)
[2020-05-26] MEDS: PANTOPRAZOLE 40 MG/10 ML VIAL IVP SCH ×2 (10:56→20:03)
[2020-05-26] MEDS: LEVOTHYROXINE IVP 100 MCG/5 ML VIAL IV SCH (10:57)
[2020-05-26] MEDS: FUROSEMIDE 10 MG/ML 4 ML VIAL IV SCH ×2 (10:59→20:03)
[2020-05-26] MEDS: CYANOCOBALAMIN 500 MCG TAB PO SCH (11:00)
[2020-05-26] MEDS: CHOLECALCIFEROL 1,000 UNIT TAB PO SCH (11:00)
[2020-05-26] MEDS: ASCORBIC ACID 500 MG TAB PO SCH ×2 (11:00→20:03)
[2020-05-26] MEDS: SERTRALINE 100 MG TAB PO SCH (11:00)
[2020-05-26] MEDS: ASPIRIN 81 MG PO SCH (11:01)
[2020-05-26] MEDS: LACTULOSE 20 GM/30 ML CUP PO SCH ×2 (11:02→20:03)
[2020-05-26] MEDS: ZINC SULFATE 220 MG CAP PO SCH (11:09)
[2020-05-26 11:22] LABS: Ferritin 724.7 ng/mL (10.0-291.0)
[2020-05-26 11:32] LABS: Glucose,Whole Blood 112 mg/dL (75-99)
--- NOTE | 2020-05-26 13:09 | P.PN ---
Subjective Progress Note Date: 05/26/20 HISTORY OF PRESENT ILLNESS This is a 79-year-old female patient of Dr. Guerrero with past medical history of breast cancer, hypothyroidism, hyperlipidemia, generalized osteoarthritis. She was recently hospitalized May 12 for fever, chills, cough with sputum production with worsening dyspnea was diagnosed with COVID-19 pneumonia. Patient was stabilized and discharged home on May 05 with azithromycin, steroids, home oxygen and vitamin supplements. Patient had significant shortness of breath when she woke up this morning and was wearing oxygen at 4 L. EMS was called and reported that she was ashen nazario, diaphoretic with a pulse ox of 71% upon arrival. Patient was brought into [facility] emergency center and found to be afebrile, heart rate 105, blood pressure 168/89, pulse ox 97% with nonrebreather. She continued tachypneic and tachycardic and patient was placed on BiPAP. Chest x-ray reveals stable patchy bilateral infiltrates. WBC 19.5, hemoglobin 11. Sodium 133, potassium 4.1, CO2 26, BUN 23 and creatinine 0.65. Blood sugar 100. Lactic acid 1.1. LDH 1116, C-reactive protein 63.7. Covid 19 not detected. Influenza B positive. Patient was continued on vitamin supplements, dexamethasone and started on Lovenox, Kati flu, admitted to the cardiac stepdown unit and consult requested with infectious disease and pulmonary medicine. DDimer elevated at 33 and CTA of the chest positive for tiny filling defect left lower lobe pulmonary artery. 05/10: Patient continues to have significant shortness of breath cough and chest tightness. She is on BiPAP and unable to eat or drink. She continues to feel weak and tired. Temperature max 100.0, heart rate 95, blood pressure 125/68, pulse ox 91% on BiPAP with FiO2 of 80. Patient has been seen by pulmonary medicine and started on Remdesivir. The patient's has been contacted via phone and updated regarding patient's current condition and treatment plan. 05/11: Patient is currently on day 3/5 of Remdesivir. Her pulse ox is running about 89% on BiPAP of 85% FiO2. Legionella was negative. Temperature max 101, heart rate 86, blood pressure 150/68. Navarro catheter will be placed as patient is too dyspneic to use bedpan or commode. Repeat blood work reveals WBC 19.4, hemoglobin 10.2. Sodium 136, potassium 3.7, creatinine 0.68. Patient is followed by infectious disease and pulmonary medicine. 05/12: Patient is currently on day 4/5 of Remdesivir. She continues to have significant shortness of breath which is worse from yesterday. She is on 85% FiO2 BiPAP pulse ox a 90%. When she moved over to 15 L, pulse ox dropped down to 78%. She continues complaining of shortness of breath. She has been anxious during the night and Xanax ordered. Patient is unable to take any new oral nutrition at this point. Navarro catheter was placed yesterday. Patient has been afebrile for 24 hour period. Heart rate 104, respiratory rate 26, blood pressure 175/81. Updated pulmonary medicine regarding possible need for intubation. 05/13: Patient's respiratory status did improve yesterday afternoon and she did not require transfer to the intensive care unit. Patient may be slightly better today from yesterday morning but did decline from yesterday afternoon. She is currently pulse ox seen in the 80s with BiPAP of 85% FiO2. She has been off onto 15 L high flow nasal cannula to eat and has been able to take in a small amount of food yesterday and Ensure. She will complete her course of Remdesivir this evening. Tamiflu course will also be completed this evening. Temperature max 100.3 yesterday at noon. Heart rate 91, blood pressure 174/85. Repeat blood work reveals WBC 20.5, hemoglobin 11. Chloride 112, BUN 33 and creatinine 0.61. Blood sugar 146. Alkaline phosphatase 129. 05/14: Yesterday afternoon, patient was transferred to the intensive care unit and is agreeable to short-term intubation if necessary. She has not required vasopressors. Patient has been afebrile. Heart rate 64, blood pressure 132/69, pulse ox 93% on 80% BiPAP. Leukocytosis is down to 12.9, hemoglobin 10. D- dimer isn't improved at 2.83. Creatinine 0.53. Other inflammatory markers have shown improvement with LDH at 1416, C-reactive protein 36.8. Patient has completed course of Remdesivir and Tamiflu. She remains on Lovenox, Solu-Medrol and vitamin supplementations. 05/15: Patient remains in the intensive care unit on BiPAP pulse ox seen 89-90% on 80% FiO2. Repeat chest x-ray reveals stable bilateral patchy infiltrate. She has completed course of Remdesivir and course of Tamiflu. She has been afebrile, heart rate 64, blood pressure 151/79. WBC 14.6, hemoglobin 10.1. Creatinine 0.51. Blood sugar 136. Albumin 2.5. Patient has been without food for greater than 6 days. Discussed nutrition options with Dr. Crowe he will address with rounds today. Physical exam deferred to Dr. Crowe. 05/16: Patient remains in the intensive care unit. She remains on 100% BiPAP pulse oxing 91%. She's been afebrile, heart rate in the low 100s, blood pressure 162/88. Repeat blood work reveals WBC 16.1, hemoglobin 10.8. D-dimer is 2.88. Sodium 135, potassium 3.7, chloride 108, CO2 25, BUN 28 and creatinine 0.47. CRP 37.3. Repeat chest x-ray reveals patchy bilateral lung infiltrates. Patient continues to be followed by [facility] and infectious disease. Patient is eating only about 25% of her meals. She is followed by case management for discharge planning. Patient states that Xanax is not helping and will be changed to lorazepam 0.5 mg IV every 6 hours as needed. 05/17: Patient was intubated last night currently on mechanical ventilation with tidal volume 400, FiO2 100, PEEP of 14. Pulse ox is 90-91%. Chest x-ray this morning reveals mild cardiomegaly and diffuse interstitial opacities mid and lower lungs. Small effusions. Correlate for interstitial pulmonary edema. She has been afebrile, heart rate 76, blood pressure 132/68. Patient has not required vasopressors. Patient is on max propofol. Oral tube feeding to be started today. Repeat lab work reveals WBC 15, hemoglobin 10. Sodium 136, potassium 3.5, chloride 108, CO2 24, BUN 27 and creatinine 0.51. Stool for occult blood positive. 05/18: Patient remains in the intensive care unit with pulse ox in the low 90s, remains intubated and on mechanical ventilation with tidal volume 350, FiO2 65, PEEP 12. She has been afebrile, heart rate 64, blood pressure 105/59. Patient has been starting on tube feedings currently at goal. Repeat lab work reveals Mattie BC 15.9, hemoglobin 10.1. Fibrinogen 504, d-dimer 1.17. Sodium 136, potassium 3.7, chloride 112, CO2 23, BUN 29 and creatinine 0.59. Blood sugars in the low 100s. Ferritin 570. C-reactive protein 27.9. 05/19:patient intubated sedated leukocytosis 20k, p02 67 sbp 123, solumedrol 60 q6 levofed infusion, still requiring pressor support, we will change oral levothyroxine to IV 25 g daily.vo 05/20: Patient is remains in ICU intubated on vent, sedated, still with leukocyt osis 22.9 thousand, chest x-ray shows mild diffuse increased lung markings stable from previous, patient is on Zosyn, sputum culture requested, finished treatment withremdesivir d-dimer is trending down toward with current level of 0.99, creatinine is normal, we'll going to check for TSH value check for immune globulin level, iron levels, for the anemia. albumin levels low at 2.1 on or OG-tube feedings 05/21. Patient remains in ICU, still in mechanical ventilation, followed closely by environmental lawyer, patient still leukocytosis wbcof 23,000, hemoglobin of 8.2, chest x-ray shows bilateral multifocal infiltrates, still on empiric Zosyn for underlying but bacterial pneumonia, however, covid pneumonitis is still difficult to eradicate chest x-ray shows fibrotic change in the lower lung with bilateral multifocal acute infiltrates, no significant change. IgG levels are very low at 378, unsure whether, globulin infusion would be helpful against a convalescent Covid serum would be helpful we will discuss with infectious disease or pulmonary. I discussed these value of hypogammaglobulinemia to Dr. Savage, for which he recommended IV IgG infusion, rather than convalescent serum. Gammagard to be dosed by pharmacy at 0.6 mg/kg of ideal body weight. ICU was notified. May 22: Patient remains in ICU, still with mechanical ventilation, Gammagard should have been infused, afebrile, still receiving OG-tube feedings still with leukocytosis, no new changes, awaiting response of antibiotic, no plans for vent weaning yet environmental lawyer, monitoring very closely 05/23: Patient remained intubated and on mechanical ventilation with FiO2 50 and PEEP of 10. Pulse ox is running about 90%. She has been afebrile, heart rate in the 60s and 70s, blood pressure 162/63. Clevidipine is on hold. Patient has been continued on Zosyn and followed by multiple consultants. 05/24: Repeat chest x-ray reveals suspected interval development of pneumomediastinum. COPD with patchy bilateral infiltrates stable. Patient remains intubated and on mechanical ventilation she is currently on tidal volume 350, FiO2 50 PEEP of 10. She is currently on propofol, Cleviprex and fentanyl drips. She is receiving tube feedings and is at goal. 05/25: Patient remains intubated and on mechanical ventilation with plan to hold sedation today and see how patient responds. Repeat chest x-ray reveals progression of subcutaneous emphysema over the neck bilaterally. Correlate for pneumonia, edema. She has been afebrile, heart rate 72, blood pressure 133/52, pulse ox 97%. Repeat lab work reveals Mattie BC 23.6, hemoglobin 9.2, platelets 180. Sodium 135, potassium 3.2 and has been replaced, chloride 93, CO2 38, BUN 26 creatinine 0.51. Blood sugars running between 100 2875. LDH 1836. C- reactive protein 19.7. Propofol, Cleviprex on hold. Patient is on antibiotics in form of Zosyn and followed by Dr. San. 05/26: Patient remains in the ICU, intubated and on mechanical ventilation with tidal volume 350, FiO2 50 and PEEP of 10. Today she is currently on propofol, fentanyl and Cleviprex drips. She is at goal on tube feedings. Sedation was held yesterday and patient became tachycardic and anxious but was able to follow commands. Repeat blood work reveals Mattie BC 27.9, hemoglobin 8.5. D-dimer 0.64. Sodium 130. Potassium 3.5, creatinine 0.53. LDH 1988. C-reactive protein 17.4. Patient's made her no CODE STATUS yesterday. REVIEW OF SYSTEMS Unable to obtain due to intubation. PHYSICAL EXAMINATION Examination deferred to environmental lawyer due to Covid 19 restrictions. Gen: This is a 79-year-old female. She is resting in bed in no distress, intubated and on mechanical ventilation. HEENT: Head is atraumatic, normocephalic. Oral ET and gastric tube. NEUROLOGICAL: Patient is on sedation. ASSESSMENT AND PLAN 1. Acute on chronic hypoxic respiratory failure secondary to COVID pneumonia, I nfluenza B and small left lower pulmonary embolism. Patient required intubation and mechanical ventilation. Solu-Medrol 60 mg IV every 12 hours, Lovenox 60 mg subcu twice daily, vitamin supplements with vitamin C, vitamin D, zinc, Tamifllu completed. Remdesivir completed. Consults with pulmonary medicine and infectious disease appreciated. 2. 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 San, infectious disease, and based on recommendation, he decided on IV Ig infusion,, guarded at 0.6 mg/kg of IV but ideal body weight, baseline levels igg 378 3. Hypothyroidism. Continue levothyroxine 50 g daily. 3. Severe osteoporosis. Fosamax on hold. 4. Anticoagulation with Lovenox. 5. GI prophylaxis. Pepcid. 6. Recurrent depression. Continue Zoloft 200 mg daily. 7. Situational anxiety. Xanax 0.5 mg twice daily as needed added. 8. History of breast cancer. 9. Stool positive for occult blood. Monitor hemoglobin and patient status closely. 10. Blood loss anemia, iron studies to be done, patient's on full dose anticoagulation with Lovenox, transfusion if hemoglobin is under 7 11. Pneumomediastinum secondary to positive pressure ventilation. CODE STATUS: No code Prognosis guarded. Impression and plan of care have been directed as dictated by the signing physician. Ivone Vizcarra nurse practitioner acting as scribe for signing physician. Objective - Vital Signs Vital signs: Vital Signs Temp 98.4 F 05/26/20 04:00 Pulse 103 H 05/26/20 07:00 Resp 30 H 05/26/20 07:00 BP 138/78 05/25/20 19:00 Pulse Ox 95 05/26/20 07:00 Intake & Output 05/25/20 05/26/20 05/26/20 18:59 06:59 18:59 Intake Total 1032.15 923.368 30.166 Output Total 1600 1585 130 Balance -567.85 -661.632 -99.834 Weight 67.2 kg Intake: IV 512 312 26 Piperacillin-Tazobactam 3 200 .375 gm In Sodium Chloride 0.9% 100 ml @ 25 mls/hr IVPB Q8HR NI Rx# :[id number] Pressure Bags 0.9 sodium 72 72 6 chloride Sodium Chloride 0.9% 1, 240 240 20 000 ml @ 20 mls/hr IV . Q24H NI Rx#:[id number] Intake, IV Titration 118.15 261.368 4.166 Amount Clevidipine Butyrate 25 50.0 62.233 4.166 mg In Empty Bag 1 bag @ 1 MG/HR 2 mls/hr IV .Q24H NI Rx#:[id number] propofoL 1,000 mg In 68.15 199.135 Empty Bag 1 bag @ Titrate IV .Q0M NI Rx#: [id number] Tube Feeding 312 260 Other 90 90 Output: Urine 1600 1585 130 Other: Voiding Method Indwelling Catheter Indwelling Catheter ABP, PAP, CO, CI - Last Documented Arterial Blood Pressure 137/77 - Labs CBC & Chem 7: 05/26/20 04:15 05/26/20 11:30 Labs: Abnormal Lab Results - Last 24 Hours (Table) 05/25/20 05/25/20 05/25/20 Range/Units 03:40 13:16 17:24 WBC (3.8-10.6) k/uL RBC (3.80-5.40) m/uL Hgb (11.4-16.0) gm/dL Hct (34.0-46.0) % RDW (11.5-15.5) % Neutrophils # (1.3-7.7) k/uL Lymphocytes # (1.0-4.8) k/uL Basophils # (0-0.2) k/uL D-Dimer (<0.60) mg/L FEU ABG pH (7.35-7.45) ABG pCO2 (35-45) mmHg ABG pO2 (83-108) mmHg ABG HCO3 (21-25) mmol/L ABG Total CO2 (19-24) mmol/L Sodium (137-145) mmol/L Chloride (98-107) mmol/L Carbon Dioxide (22-30) mmol/L BUN (7-17) mg/dL Glucose (74-99) mg/dL POC Glucose (mg/dL) 120 H 138 H (75-99) mg/dL Calcium (8.4-10.2) mg/dL Ferritin 687.9 H (10.0-291.0) ng/mL Lactate Dehydrogenase (313-618) U/L C-Reactive Protein (<10.0) mg/L 05/26/20 05/26/20 05/26/20 Range/Units 01:26 04:15 04:15 WBC 27.9 H (3.8-10.6) k/uL RBC 2.79 L (3.80-5.40) m/uL Hgb 8.5 L (11.4-16.0) gm/dL Hct 24.1 L (34.0-46.0) % RDW 17.9 H (11.5-15.5) % Neutrophils # 26.4 H (1.3-7.7) k/uL Lymphocytes # 0.3 L (1.0-4.8) k/uL Basophils # 0.3 H (0-0.2) k/uL D-Dimer (<0.60) mg/L FEU ABG pH (7.35-7.45) ABG pCO2 (35-45) mmHg ABG pO2 (83-108) mmHg ABG HCO3 (21-25) mmol/L ABG Total CO2 (19-24) mmol/L Sodium 130 L (137-145) mmol/L Chloride 88 L (98-107) mmol/L Carbon Dioxide 40 H (22-30) mmol/L BUN 24 H (7-17) mg/dL Glucose 141 H (74-99) mg/dL POC Glucose (mg/dL) 154 H (75-99) mg/dL Calcium 7.9 L (8.4-10.2) mg/dL Ferritin (10.0-291.0) ng/mL Lactate Dehydrogenase 1988 H (313-618) U/L C-Reactive Protein 17.4 H (<10.0) mg/L 05/26/20 05/26/20 05/26/20 Range/Units 04:15 05:43 06:33 WBC (3.8-10.6) k/uL RBC (3.80-5.40) m/uL Hgb (11.4-16.0) gm/dL Hct (34.0-46.0) % RDW (11.5-15.5) % Neutrophils # (1.3-7.7) k/uL Lymphocytes # (1.0-4.8) k/uL Basophils # (0-0.2) k/uL D-Dimer 0.64 H (<0.60) mg/L FEU ABG pH 7.52 H (7.35-7.45) ABG pCO2 50 H (35-45) mmHg ABG pO2 81 L (83-108) mmHg ABG HCO3 41 H* (21-25) mmol/L ABG Total CO2 42 H (19-24) mmol/L Sodium (137-145) mmol/L Chloride (98-107) mmol/L Carbon Dioxide (22-30) mmol/L BUN (7-17) mg/dL Glucose (74-99) mg/dL POC Glucose (mg/dL) 110 H (75-99) mg/dL Calcium (8.4-10.2) mg/dL Ferritin (10.0-291.0) ng/mL Lactate Dehydrogenase (313-618) U/L C-Reactive Protein (<10.0) mg/L
--- NOTE | 2020-05-26 16:50 | CDI ---
Documentation Clarification Form Date: 05/26/2020 04:28:58 PM From: Elaine Melchor CCS, CCDS Admit Date: 05/09/2020 06:58:00 AM Patient Name: Luiza Khoury Visit Number: [id number] Discharge Date: ATTENTION: The Clinical Documentation Specialists (CDI) and [facility] Coding Staff appreciate your assistance in clarifying documentation. Please respond to the clarification below the line at the bottom and electronically sign. The CDI & [facility] Coding staff will review the response and follow-up if needed. Please note: Queries are made part of the Legal Health Record. If you have any questions, please contact the author of this message via ITS. Dr. Kyle Hollingsworth: 79 yo female, in ICU on ventilator with Acute on chronic hypoxic respiratory failure secondary to COVID 19 pneumonia, Influenza B and small left lower Pulmonary Embolism, Hypogammaglobulinemia, Iron Deficiency Blood Loss Anemia & Pneumomediastinum secondary to positive pressure ventilation. History/Risk Factors: Breast Cancer, Hyperlipidemia, Osteoarthritis. Former smoker. Clinical Indicators: Patient presented to the ED with SOB, Previously admitted with COVID 19, treated with Steroids, Azithromycin, discharged to home with supplemental O2, steroids, Azithromycin, Zinc & Vit C. Has had progressively worsening SOB despite O2 at 4Lnc. PO 71% per EMS, ashen, nazario, diaphoretic. Admitted with COVID 19 & Hypoxia. The patient's condition worsened, requiring intubation on 05/17, made DNR. 05/09 VS: T 99.2, P 105^-110^, R 18 - 20, BP 168/89, PO 97 15L nrb. 05/10 VS: T 100^, R 24 (SOB), PO 91 BiPAP 05/09 LAB: WBC 19.5^, Neut 18.6^, D Dimer 34.33^, Lactic Acid 1.1. 05/09 COVID Negative 05/09 Influenza A: Negative. 05/09 Influenza B: Positive 05/09 Blood culture negative (final) @ 144 hours 05/21 Sputum culture: Talya albicans (final) RAD: 05/09 CXR: Stable patchy bilateral infiltrates. Treatment 05/09: O2 15L nrb - BiPAP. INH Ventolin, Vit C, it D3, Hexadrol po, Lovenox sq, Orazinc, IV Azithromycin, IV Rocephin, Tamiflu, IV Remdesivir. Subsequently received IV Solumedrol, IV Apresoline, IV Kcl, IV Propofol, IV Lasix, IV Nimbex, IV fluid bolus 1,000 mls @ 999 mls/hr x2 (05/17), IV Zosyn, IV fluid bolus 1,000 mls @ 999 mls/hr x2 (05/18), IV Synthroid, IV Clevidipine and IV Anidulafungin. 05/14: Received Convalescent Plasma infusion 05/21: Received IV Immune Globulin. In your professional opinion, please clarify if these findings signify one of the following conditions, whether the condition is POA, and cause, if known: Sepsis o Severe Sepsis o Septic Shock xx Other, please specify ___COVID 19 Unable to determine Xo Present on Admission: X Yes or No xx Identify the (suspected) organism__COVID 19 Link or clarify if there is associated (due to/with): o Organ failure o Shock (Last Revision: September 2017) MTDD
--- NOTE | 2020-05-26 16:56 | PN ---
PROGRESS NOTE DATE OF SERVICE: 05/26/2020 REASON FOR FOLLOWUP: Oropharyngeal candidiasis, thrush, elevated white count. INTERVAL HISTORY: The patient is currently afebrile. The patient is hemodynamically stable. FiO2 is currently at 50%. No significant purulent secretion through the ET or any diarrhea reported by the nursing staff. PHYSICAL EXAMINATION: Blood pressure 123/64 with a pulse of 103, temperature 98.7. She is 94% on 50% FiO2. General description is an elderly female lying in bed in no distress. RESPIRATORY SYSTEM: Unlabored breathing with decreased breath sounds at the base. No wheeze. HEART: S1, S2. Regular rate and rhythm. ABDOMEN: Soft. No tenderness. LABS: Hemoglobin is 8.5, white count of 27.9. Creatinine 0.53. LDH is elevated at 1988. DIAGNOSTIC IMPRESSION AND PLAN: Patient with acute respiratory failure which is multifactorial in this patient who completed treatment for the COVID as well as influenza with concern for secondary bacterial pneumonia; however, sputum was Bing albicans. Antibiotics were discontinued yesterday. Slight worsening of the white count today; that will be monitored closely. Continue with Eraxis and supportive care. MMODL / IJN: [id number] /
[2020-05-26 17:59] LABS: Glucose,Whole Blood 134 mg/dL (75-99)
[2020-05-26] MEDS: SODIUM CHLORIDE 0.9% 1,000 ML IV SCH (18:04)
[2020-05-26] MEDS: METOPROLOL TARTRATE 25 MG TAB PO SCH (18:49)
[2020-05-26] MEDS: ANIDULAFUNGIN 100 MG in SODIUM CHLORIDE 0.9% 100 ML IVPB SCH (20:03)
[2020-05-26 23:51] LABS: Glucose,Whole Blood 133 mg/dL (75-99)
[2020-05-27] MEDS: fentaNYL (PF) 1,000 MCG in SODIUM CHLORIDE 0.9% 80 ML IV SCH (00:46)
[2020-05-27] MEDS: ALBUTEROL HFA INHALER INHALATION SCH ×7 (01:24→23:46)
[2020-05-27 03:47] LABS: Anisocytosis Slight; Basophils # (A) 0.1 k/uL (0-0.2); Basophils % (A) 1 %; Eosinophils % (A) 0 %; Lymphocytes # (A) 0.3 k/uL (1.0-4.8); Lymphocytes % (A) 2 %; MCH 30.5 pg (25.0-35.0); MCHC 35.2 g/dL (31.0-37.0); MCV 86.6 fL (80.0-100.0); Mean Platelet Volume 7.6; Monocytes # (A) 0.5 k/uL (0-1.0); Monocytes % (A) 3 %; Neutrophils # (A) 17.5 k/uL (1.3-7.7); Neutrophils % (A) 94 %; Platelet Count 132 k/uL (150-450); RBC 2.31 m/uL (3.80-5.40); RDW 18.9 % (11.5-15.5); WBC 18.6 k/uL (3.8-10.6)
[2020-05-27 04:14] LABS: African American GFR (CKD) >90 (>60 ml/min/1.73 sqM); Blood Urea Nitrogen 28 mg/dL (7-17); Calcium 7.8 mg/dL (8.4-10.2); Chloride 86 mmol/L (98-107); Glucose 115 mg/dL (74-99); Non-African American GFR(CKD) 87 (>60 ml/min/1.73 sqM); Potassium 3.9 mmol/L (3.5-5.1); Sodium 127 mmol/L (137-145)
[2020-05-27 04:33] LABS: Anion Gap 2 mmol/L; Carbon Dioxide 39 mmol/L (22-30)
[2020-05-27] MEDS ORDERED: POTASSIUM BICARBONATE/CIT AC 20 MEQ TABLET.EFF NG-TUBE SCH (05:00)
[2020-05-27 05:17] LABS: ABG Base Excess 17.1 mmol/L; ABG PCO2 55 mmHg (35-45); ABG PH 7.48 (7.35-7.45); ABG PO2 162 mmHg (83-108); ABG TCO2 42 mmol/L (19-24); Allen Test Performed? Yes
[2020-05-27 05:45] LABS: Glucose,Whole Blood 116 mg/dL (75-99)
[2020-05-27 05:46] LABS: ABG HCO3 41 mmol/L (21-25)
[2020-05-27] MEDS: INSULIN ASPART (NovoLOG) 100 UNIT/ML VIAL SQ SCH ×3 (06:06→17:00)
--- NOTE | 2020-05-27 06:50 | XR ---
EXAMINATION TYPE: XR chest 1V portable DATE OF EXAM: 05/27/2020 CLINICAL HISTORY: Difficulty breathing progress study. TECHNIQUE: Single AP portable semiupright view of the chest is obtained. COMPARISON: Chest x-ray from one day earlier and older studies. FINDINGS: Stable endotracheal and orogastric tubes. Stable right internal jugular central venous cat heter. Persistent reticular and multifocal opacities bilaterally in the lower lungs. No pneumothorax seen bi laterally. Superior supraclavicular subcutaneous emphysema redemonstrated. Cardiac silhouette size st able and within normal limits. Right axillary surgical clips redemonstrated. Underlying scoliotic cur vature. IMPRESSION: Fibrotic changes in the lower lungs with bilateral multifocal acute bibasilar infiltrate s and/or edema. No significant change from one day earlier.
--- NOTE | 2020-05-27 09:44 | P.PN ---
Subjective Progress Note Date: 05/27/20 Principal diagnosis: Acute bilateral viral pneumonia Luiza is a 79-year-old female who was admitted to our hospital 1 week ago for COVID 19, she was treated with steroids and azithromycin, she was discharged home with supplemental oxygen steroids, azithromycin, zinc, vitamin C. She's been compliant with her home medication regimen. She's been wearing her oxygen. She states that despite this she's felt progressively worsened throughout the night and couldn't sleep due to shortness of breath. Patient states that this morning she initially she couldn't get her breath despite wearing her oxygen mask at 4 L. EMS was called. EMS reports that upon their arrival to her home she was ashen nazario diaphoretic with an oxygen saturation of 71%the patient was initially placed on on the percent nonrebreather facemask. Subsequently she was switched to a BiPAP and the current pressures are 10/5 with an FiO2 of 70%. Chest x-ray showed diffuse bilateral pulmonary infiltrates. Repeat coronavirus 19 testing came back negative. Nevertheless the patient 2 positive tests that were done on 06/28/2019 and 05/02/2020 and both of them were positive. Furthermore, the patient checked positive for influenza B.a CAT scan of the chest was done in the emergency department and it showed diffuse bilateral groundglass pulmonary infiltrates left more than right. There was also a tiny subsegmental pulmonaryembolism and the left lower lobe pulmonary artery branch. The patient was started on Lovenox therapeutic dose 1 mg per KG twice a day. Currently she is BiPAP dependent. FiO2 has been drop down to 70%. The patient will be started on treatment COVID 19 pneumonia and influenza. The patient was given empiric antibiotic coverage with a combination of Rocephin and Zithromax. She is quite lethargic and weak. She easily saturates once off the BiPAP. On 05/10/2020 patient seen in follow-up on selective care unit, she remains on BiPAP, FiO2 is at 80%, short of breath, tachypnea, pulse ox is 91%, low-grade fever this morning, with a temp of 100F. No complaints of chest discomfort or palpitations. Still requiring high FiO2. she was started on Remdesivir, Tamiflu for coronavirus and influenza B. Follow-up inflammatory markers have increased, with LDH up to 1763, CRP is relatively stable, down slightly to 55, Legionella urine antigen came back negative. Follow-up coronavirus PCR came back negative, and of note patient tested positive twice on 04/28 2020 and 05/02/2020 for coronavirus. Her chest x-ray on admission showed stable patchy bilateral infiltrates. And her CTA chest showed tiny left lower lobe pulmonary artery pulmonary embolism, and diffuse bilateral left greater than right mixed alveolar groundglass infiltrates reflective of Covid 19 pneumonitis The patient is seen today 05/11/2020 in follow-up on the selective care unit. She is currently resting fairly comfortably in bed. She has been on BiPAP 10/6 at 85% FiO2 alternating with 15 L high flow nasal cannula. Chest x-ray reveals right perihilar and basilar pneumonia with mild interval progression. She is on day #3 of Remdesivir. She is also on Tamiflu. Continued on Lovenox, dexametha sone, vitamin C, vitamin D, zinc, melatonin, Pepcid. The patient is seen today 05/12/2020 in follow-up on the selective care unit. She remains on BiPAP 10/6 and 85% FiO2. She is alert and answering questions appropriately. She is still maintaining O2 saturations in the 90s. Chest x-ray reveals findings consistent with bilateral pneumonia. Arterial blood gases on 85% FiO2 revealed a PaO2 of 71, pCO2 36, pH 7.42. This is day #4 of Remdesivir. She remains on Tamiflu. Initiated on IV Solu-Medrol. Continue vitamin C, vitamin D, Lovenox 60 mg every 12 hours, Pepcid, zinc. 0.9 normal saline at 75 ML's per hour. The patient is seen today 05/25/2020 in follow-up in the intensive care unit. She is currently intubated on the mechanical ventilator with assist-control mode at a rate of 30, tidal volume 350, FiO2 50% and a PEEP of 10. Morning blood gases reveal a P O2 of 60, pCO2 51, pH 7.48. She is sedated on to prevent at 55 mcg/kg/m. She is requiring fentanyl at 0.4 mg/kg per hour. Cleviprex at 3 mg per hour. 0.9 normal saline at 20 ML's per hour. She is being nourished with vital HP at 26 ML's per hour which is goal. She has been receiving daily interruption of sedation and spontaneous breathing trials. She'll be on pressure support of 10 and a CPAP of 5. She has received Remdesivir, convalescent plasma. Continue vitamin C, vitamin D, Lovenox, melatonin, zinc, Pepcid. She remains on IV Solu-Medrol. Antibiotics in the form of Zosyn. Remains on IV diuretics. Chest x-ray continues to show patchy bibasilar densities and groundglass opacities. There is subcutaneous emphysema over the bilateral neck. White count 23.6. Hemoglobin 9.2. D-dimer 0.82. Sodium 135. Potassium 3.2. Creatinine 0.51. LDH 1836. C-reactive protein 19.7. The patient is seen today 05/26/2020 in follow-up in the intensive care unit. She remains intubated on mechanical ventilator with assist-control respiratory rate of 30, tidal volume 350, FiO2 50% and a PEEP of 10. Morning blood gases reveal a P O2 of 81, pCO2 50, pH 7.5. She has a 0.9 normal saline running at 20 ML's per hour. Propofol 50 mcg/kg/m. Fentanyl at 1.4 mg/kg per hour. Cleviprex at 6 mg per hour. She is being nourished with vital HP 20 ML's per hour with a goal of 26. She did have daily interruption of sedation yesterday and was quite tachycardic with heart rate about 100 jumped up to 140. White c ount 27.9. Hemoglobin 8.5. D-dimer 0.64. Sodium 1:30. Potassium 3.5. Creatinine 0.53. LDH 1988. C-reactive protein 17.4. The patient is seen today 05/27/2020 in follow-up in the intensive care unit. She was admitted back on 05/09/2020. Intubated on 05/16/2020. She remains on the mechanical ventilator current settings assist-control with a rate of 30, tidal volume 350, FiO2 50% and a PEEP of 10. Morning blood gases reveal a P O2 162, pCO2 55, pH 7.4. Currently on propofol 50 mcg/kg/m, fentanyl at 0.4 mg/kg/h, Cleviprex is currently off. 0.9 normal saline at 20 mL per hour. She is being nourished with vital HP at 20 ML's per hour which is goal. She has been receiving daily interruption of sedation and spontaneous breathing trials which she has not tolerated whatsoever. She becomes quite tachypneic, tachycardic. The plan is to trial again today. Chest x-ray continues to show fibrotic changes of the lower lungs with bilateral multifocal acute bibasilar infiltrates/edema. No significant change compared to previous. She has received 1 unit of packed red blood cells this admission. On dose of convalescent plasma. Current hemoglobin 7.0. Platelet count 132,000. White count 18.6. Sodium 127. Potassium 3.9. Creatinine 0.62. Sputum was positive for Bing only. Currently on Anidulafungin, bronchodilators, IV Solu-Medrol. Objective - Vital Signs Vital signs: Vital Signs Temp 97.5 F L 05/27/20 04:00 Pulse 71 05/27/20 07:00 Resp 30 H 05/27/20 07:00 BP 138/78 05/25/20 19:00 Pulse Ox 99 05/27/20 07:00 Intake & Output 05/26/20 05/27/20 05/27/20 18:59 06:59 18:59 Intake Total 388.052 0706.567 Output Total 2009 1130 Balance -1086.729 4.567 Weight 67.2 kg 64.41 kg Intake: IV 312 338 Pressure Bags 0.9 sodium 72 78 chloride Sodium Chloride 0.9% 1, 240 260 000 ml @ 20 mls/hr IV . Q24H NI Rx#:[id number] Intake, IV Titration 235.271 368.567 Amount Clevidipine Butyrate 25 44.967 68.567 mg In Empty Bag 1 bag @ 1 MG/HR 2 mls/hr IV .Q24H NI Rx#:[id number] fentaNYL (PF) 1,000 mcg 100 In Sodium Chloride 0.9% 80 ml @ Per Protocol IV . Q0M NI Rx#:[id number] propofoL 1,000 mg In 190.304 200.000 Empty Bag 1 bag @ Titrate IV .Q0M NI Rx#: [id number] Tube Feeding 286 338 Other 90 90 Output: Urine 20090 Other: Voiding Method Indwelling Catheter Indwelling Catheter ABP, PAP, CO, CI - Last Documented Arterial Blood Pressure 141/53 - Exam GENERAL EXAM: Intubated, sedated, 79-year-old female patient, maintaining O2 saturations in the 90s on 50% FiO2 and a PEEP of 10. HEAD: Normocephalic/atraumatic. EYES: Normal reaction of pupils, equal size. Conjunctiva pink, sclera white. NOSE: Clear with pink turbinates. THROAT: Oral endotracheal tube and gastric tube secured in place. No erythema or exudates. NECK: No masses, no JVD, no thyroid enlargement, no adenopathy. CHEST: No chest wall deformity. Symmetrical expansion. LUNGS: Equal air entry with diffuse rhonchi, crackles in the posterior bases. CVS: Regular rate and rhythm, normal S1 and S2, no gallops, no murmurs, no rubs ABDOMEN: Soft, nontender. No hepatosplenomegaly, normal bowel sounds, no guarding or rigidity. EXTREMITIES: No clubbing, no edema, no cyanosis, 2+ pulses and upper and lower extremities. MUSCULOSKELETAL: Muscle strength and tone normal. SPINE: No scoliosis or deformity SKIN: No rashes CENTRAL NERVOUS SYSTEM: Sedated., tone is normal in all 4 extremities. PSYCHIATRIC: Sedated, intubated. - Labs CBC & Chem 7: 05/27/20 03:20 05/27/20 03:20 Labs: Abnormal Lab Results - Last 24 Hours (Table) 05/26/20 05/26/20 05/26/20 Range/Units 04:15 11:29 17:57 WBC (3.8-10.6) k/uL RBC (3.80-5.40) m/uL Hgb (11.4-16.0) gm/dL Hct (34.0-46.0) % RDW (11.5-15.5) % Plt Count (150-450) k/uL Neutrophils # (1.3-7.7) k/uL Lymphocytes # (1.0-4.8) k/uL ABG pH (7.35-7.45) ABG pCO2 (35-45) mmHg ABG pO2 (83-108) mmHg ABG HCO3 (21-25) mmol/L ABG Total CO2 (19-24) mmol/L ABG O2 Saturation (94-97) % Sodium (137-145) mmol/L Chloride (98-107) mmol/L Carbon Dioxide (22-30) mmol/L BUN (7-17) mg/dL Glucose (74-99) mg/dL POC Glucose (mg/dL) 112 H 134 H (75-99) mg/dL Calcium (8.4-10.2) mg/dL Ferritin 724.7 H (10.0-291.0) ng/mL 05/26/20 05/27/20 05/27/20 Range/Units 23:49 03:20 03:20 WBC 18.6 H (3.8-10.6) k/uL RBC 2.31 L (3.80-5.40) m/uL Hgb 7.0 L D (11.4-16.0) gm/dL Hct 20.0 L (34.0-46.0) % RDW 18.9 H (11.5-15.5) % Plt Count 132 L (150-450) k/uL Neutrophils # 17.5 H (1.3-7.7) k/uL Lymphocytes # 0.3 L (1.0-4.8) k/uL ABG pH (7.35-7.45) ABG pCO2 (35-45) mmHg ABG pO2 (83-108) mmHg ABG HCO3 (21-25) mmol/L ABG Total CO2 (19-24) mmol/L ABG O2 Saturation (94-97) % Sodium 127 L (137-145) mmol/L Chloride 86 L (98-107) mmol/L Carbon Dioxide 39 H (22-30) mmol/L BUN 28 H (7-17) mg/dL Glucose 115 H (74-99) mg/dL POC Glucose (mg/dL) 133 H (75-99) mg/dL Calcium 7.8 L (8.4-10.2) mg/dL Ferritin (10.0-291.0) ng/mL 05/27/20 05/27/20 Range/Units 05:15 05:44 WBC (3.8-10.6) k/uL RBC (3.80-5.40) m/uL Hgb (11.4-16.0) gm/dL Hct (34.0-46.0) % RDW (11.5-15.5) % Plt Count (150-450) k/uL Neutrophils # (1.3-7.7) k/uL Lymphocytes # (1.0-4.8) k/uL ABG pH 7.48 H (7.35-7.45) ABG pCO2 55 H (35-45) mmHg ABG pO2 162 H (83-108) mmHg ABG HCO3 41 H* (21-25) mmol/L ABG Total CO2 42 H (19-24) mmol/L ABG O2 Saturation 100.0 H (94-97) % Sodium (137-145) mmol/L Chloride (98-107) mmol/L Carbon Dioxide (22-30) mmol/L BUN (7-17) mg/dL Glucose (74-99) mg/dL POC Glucose (mg/dL) 116 H (75-99) mg/dL Calcium (8.4-10.2) mg/dL Ferritin (10.0-291.0) ng/mL Assessment and Plan Assessment: 1 Acute hypoxic respiratory failure requiring intubation mechanical ventilatory support with acute bilateral viral pneumonia initially with Covid 19 and subsequently the patient was diagnosed having influenza B. The chest x-ray findings are typical of interstitial pneumonia suggestive of bilateral pneumonia secondary to Covid 19 infection. The patient also checked positive for influenza B. 2 Pulmonary embolism, very tiny, subsegmental in the left lower lobe pulmonary artery branch 3 History of breast cancer 4 Hypothyroidism 5 Osteoporosis 6 Chronic anxiety/depression Plan: The patient was seen and evaluated by Dr. Maxwell Chest x-ray, ABGs and labs reviewed Decrease the PEEP from 10 to 5 today. Plan for daily interruption of sedation and spontaneous breathing trial Overall prognosis is quite guarded She remains a DO NOT RESUSCITATE/DO NOT INTUBATE CODE STATUS We will continue to follow Critical care time 36 minutes I, the cosigning physician, performed a history & physical examination of the patient. Lungs sounds with bilateral scattered rhonchi, crackles in bilateral posterior bases. Maintaining good O2 saturations in the 90s on the mechanical ventilator at 50% FiO2 and a PEEP of 5. I discussed the assessment and plan of care with my nurse practitioner, Dione Fofana. I attest to the above note as dictated by her. Time with Patient: Greater than 30
[2020-05-27] MEDS: ZINC SULFATE 220 MG CAP PO SCH (09:53)
[2020-05-27] MEDS: LACTULOSE 20 GM/30 ML CUP PO SCH ×2 (09:54→19:55)
[2020-05-27] MEDS: methylPREDNISolone SOD SUCCI 125 MG/2 ML VIAL IV SCH ×2 (09:54→19:56)
[2020-05-27] MEDS: PANTOPRAZOLE 40 MG/10 ML VIAL IVP SCH ×2 (09:54→19:55)
[2020-05-27] MEDS: ASPIRIN 81 MG PO SCH (09:54)
[2020-05-27] MEDS: CHOLECALCIFEROL 1,000 UNIT TAB PO SCH (09:54)
[2020-05-27] MEDS: ASCORBIC ACID 500 MG TAB PO SCH ×3 (09:54→20:29)
[2020-05-27] MEDS: CHLORHEXIDINE GLUCONATE 15 ML CUP MUCOUS MEM SCH (09:54)
[2020-05-27] MEDS: SERTRALINE 100 MG TAB PO SCH (09:54)
[2020-05-27] MEDS: CYANOCOBALAMIN 500 MCG TAB PO SCH (09:54)
[2020-05-27] MEDS: LEVOTHYROXINE IVP 100 MCG/5 ML VIAL IV SCH (09:58)
--- NOTE | 2020-05-27 10:58 | P.PN ---
Subjective Progress Note Date: 05/27/20 HISTORY OF PRESENT ILLNESS This is a 79-year-old female patient of Dr. Guerrero with past medical history of breast cancer, hypothyroidism, hyperlipidemia, generalized osteoarthritis. She was recently hospitalized May 12 for fever, chills, cough with sputum production with worsening dyspnea was diagnosed with COVID-19 pneumonia. Patient was stabilized and discharged home on May 05 with azithromycin, steroids, home oxygen and vitamin supplements. Patient had significant shortness of breath when she woke up this morning and was wearing oxygen at 4 L. EMS was called and reported that she was ashen nazario, diaphoretic with a pulse ox of 71% upon arrival. Patient was brought into [facility] emergency center and found to be afebrile, heart rate 105, blood pressure 168/89, pulse ox 97% with nonrebreather. She continued tachypneic and tachycardic and patient was placed on BiPAP. Chest x-ray reveals stable patchy bilateral infiltrates. WBC 19.5, hemoglobin 11. Sodium 133, potassium 4.1, CO2 26, BUN 23 and creatinine 0.65. Blood sugar 100. Lactic acid 1.1. LDH 1116, C-reactive protein 63.7. Covid 19 not detected. Influenza B positive. Patient was continued on vitamin supplements, dexamethasone and started on Lovenox, Kati flu, admitted to the cardiac stepdown unit and consult requested with infectious disease and pulmonary medicine. DDimer elevated at 33 and CTA of the chest positive for tiny filling defect left lower lobe pulmonary artery. 05/10: Patient continues to have significant shortness of breath cough and chest tightness. She is on BiPAP and unable to eat or drink. She continues to feel weak and tired. Temperature max 100.0, heart rate 95, blood pressure 125/68, pulse ox 91% on BiPAP with FiO2 of 80. Patient has been seen by pulmonary medicine and started on Remdesivir. The patient's has been contacted via phone and updated regarding patient's current condition and treatment plan. 05/11: Patient is currently on day 3/5 of Remdesivir. Her pulse ox is running about 89% on BiPAP of 85% FiO2. Legionella was negative. Temperature max 101, heart rate 86, blood pressure 150/68. Navarro catheter will be placed as patient is too dyspneic to use bedpan or commode. Repeat blood work reveals WBC 19.4, hemoglobin 10.2. Sodium 136, potassium 3.7, creatinine 0.68. Patient is followed by infectious disease and pulmonary medicine. 05/12: Patient is currently on day 4/5 of Remdesivir. She continues to have significant shortness of breath which is worse from yesterday. She is on 85% FiO2 BiPAP pulse ox a 90%. When she moved over to 15 L, pulse ox dropped down to 78%. She continues complaining of shortness of breath. She has been anxious during the night and Xanax ordered. Patient is unable to take any new oral nutrition at this point. Navarro catheter was placed yesterday. Patient has been afebrile for 24 hour period. Heart rate 104, respiratory rate 26, blood pressure 175/81. Updated pulmonary medicine regarding possible need for intubation. 05/13: Patient's respiratory status did improve yesterday afternoon and she did not require transfer to the intensive care unit. Patient may be slightly better today from yesterday morning but did decline from yesterday afternoon. She is currently pulse ox seen in the 80s with BiPAP of 85% FiO2. She has been off onto 15 L high flow nasal cannula to eat and has been able to take in a small amount of food yesterday and Ensure. She will complete her course of Remdesivir this evening. Tamiflu course will also be completed this evening. Temperature max 100.3 yesterday at noon. Heart rate 91, blood pressure 174/85. Repeat blood work reveals WBC 20.5, hemoglobin 11. Chloride 112, BUN 33 and creatinine 0.61. Blood sugar 146. Alkaline phosphatase 129. 05/14: Yesterday afternoon, patient was transferred to the intensive care unit and is agreeable to short-term intubation if necessary. She has not required vasopressors. Patient has been afebrile. Heart rate 64, blood pressure 132/69, pulse ox 93% on 80% BiPAP. Leukocytosis is down to 12.9, hemoglobin 10. D- dimer isn't improved at 2.83. Creatinine 0.53. Other inflammatory markers have shown improvement with LDH at 1416, C-reactive protein 36.8. Patient has completed course of Remdesivir and Tamiflu. She remains on Lovenox, Solu-Medrol and vitamin supplementations. 05/15: Patient remains in the intensive care unit on BiPAP pulse ox seen 89-90% on 80% FiO2. Repeat chest x-ray reveals stable bilateral patchy infiltrate. She has completed course of Remdesivir and course of Tamiflu. She has been afebrile, heart rate 64, blood pressure 151/79. WBC 14.6, hemoglobin 10.1. Creatinine 0.51. Blood sugar 136. Albumin 2.5. Patient has been without food for greater than 6 days. Discussed nutrition options with Dr. Crowe he will address with rounds today. Physical exam deferred to Dr. Crowe. 05/16: Patient remains in the intensive care unit. She remains on 100% BiPAP pulse oxing 91%. She's been afebrile, heart rate in the low 100s, blood pressure 162/88. Repeat blood work reveals WBC 16.1, hemoglobin 10.8. D-dimer is 2.88. Sodium 135, potassium 3.7, chloride 108, CO2 25, BUN 28 and creatinine 0.47. CRP 37.3. Repeat chest x-ray reveals patchy bilateral lung infiltrates. Patient continues to be followed by [facility] and infectious disease. Patient is eating only about 25% of her meals. She is followed by case management for discharge planning. Patient states that Xanax is not helping and will be changed to lorazepam 0.5 mg IV every 6 hours as needed. 05/17: Patient was intubated last night currently on mechanical ventilation with tidal volume 400, FiO2 100, PEEP of 14. Pulse ox is 90-91%. Chest x-ray this morning reveals mild cardiomegaly and diffuse interstitial opacities mid and lower lungs. Small effusions. Correlate for interstitial pulmonary edema. She has been afebrile, heart rate 76, blood pressure 132/68. Patient has not required vasopressors. Patient is on max propofol. Oral tube feeding to be started today. Repeat lab work reveals WBC 15, hemoglobin 10. Sodium 136, potassium 3.5, chloride 108, CO2 24, BUN 27 and creatinine 0.51. Stool for occult blood positive. 05/18: Patient remains in the intensive care unit with pulse ox in the low 90s, remains intubated and on mechanical ventilation with tidal volume 350, FiO2 65, PEEP 12. She has been afebrile, heart rate 64, blood pressure 105/59. Patient has been starting on tube feedings currently at goal. Repeat lab work reveals Mattie BC 15.9, hemoglobin 10.1. Fibrinogen 504, d-dimer 1.17. Sodium 136, potassium 3.7, chloride 112, CO2 23, BUN 29 and creatinine 0.59. Blood sugars in the low 100s. Ferritin 570. C-reactive protein 27.9. 05/19:patient intubated sedated leukocytosis 20k, p02 67 sbp 123, solumedrol 60 q6 levofed infusion, still requiring pressor support, we will change oral levothyroxine to IV 25 g daily.vo 05/20: Patient is remains in ICU intubated on vent, sedated, still with leukocyt osis 22.9 thousand, chest x-ray shows mild diffuse increased lung markings stable from previous, patient is on Zosyn, sputum culture requested, finished treatment withremdesivir d-dimer is trending down toward with current level of 0.99, creatinine is normal, we'll going to check for TSH value check for immune globulin level, iron levels, for the anemia. albumin levels low at 2.1 on or OG-tube feedings 05/21. Patient remains in ICU, still in mechanical ventilation, followed closely by chemical librarian, patient still leukocytosis wbcof 23,000, hemoglobin of 8.2, chest x-ray shows bilateral multifocal infiltrates, still on empiric Zosyn for underlying but bacterial pneumonia, however, covid pneumonitis is still difficult to eradicate chest x-ray shows fibrotic change in the lower lung with bilateral multifocal acute infiltrates, no significant change. IgG levels are very low at 378, unsure whether, globulin infusion would be helpful against a convalescent Covid serum would be helpful we will discuss with infectious disease or pulmonary. I discussed these value of hypogammaglobulinemia to Dr. Savage, for which he recommended IV IgG infusion, rather than convalescent serum. Gammagard to be dosed by pharmacy at 0.6 mg/kg of ideal body weight. ICU was notified. May 22: Patient remains in ICU, still with mechanical ventilation, Gammagard should have been infused, afebrile, still receiving OG-tube feedings still with leukocytosis, no new changes, awaiting response of antibiotic, no plans for vent weaning yet chemical librarian, monitoring very closely 05/23: Patient remained intubated and on mechanical ventilation with FiO2 50 and PEEP of 10. Pulse ox is running about 90%. She has been afebrile, heart rate in the 60s and 70s, blood pressure 162/63. Clevidipine is on hold. Patient has been continued on Zosyn and followed by multiple consultants. 05/24: Repeat chest x-ray reveals suspected interval development of pneumomediastinum. COPD with patchy bilateral infiltrates stable. Patient remains intubated and on mechanical ventilation she is currently on tidal volume 350, FiO2 50 PEEP of 10. She is currently on propofol, Cleviprex and fentanyl drips. She is receiving tube feedings and is at goal. 05/25: Patient remains intubated and on mechanical ventilation with plan to hold sedation today and see how patient responds. Repeat chest x-ray reveals progression of subcutaneous emphysema over the neck bilaterally. Correlate for pneumonia, edema. She has been afebrile, heart rate 72, blood pressure 133/52, pulse ox 97%. Repeat lab work reveals Mattie BC 23.6, hemoglobin 9.2, platelets 180. Sodium 135, potassium 3.2 and has been replaced, chloride 93, CO2 38, BUN 26 creatinine 0.51. Blood sugars running between 100 2875. LDH 1836. C- reactive protein 19.7. Propofol, Cleviprex on hold. Patient is on antibiotics in form of Zosyn and followed by Dr. San. 05/26: Patient remains in the ICU, intubated and on mechanical ventilation with tidal volume 350, FiO2 50 and PEEP of 10. Today she is currently on propofol, fentanyl and Cleviprex drips. She is at goal on tube feedings. Sedation was held yesterday and patient became tachycardic and anxious but was able to follow commands. Repeat blood work reveals WBC 27.9, hemoglobin 8.5. D-dimer 0.64. Sodium 130. Potassium 3.5, creatinine 0.53. LDH 1988. C-reactive protein 17.4. Patient's made her no CODE STATUS yesterday. 05/27: Repeat chest x-ray reveals fibrotic changes in the lower lungs with bilateral multifocal acute bibasilar infiltrates and/or edema. No significant changes from one day earlier. Patient remains intubated and on mechanical ventilation with tidal volume 350, FiO2 50% and PEEP of 10. Plan to decrease PEEP to 5 today and hold sedation. Repeat blood work reveals WBC 18.6, hemoglobin 7, platelet count 132. Sodium 127, potassium 3.9, chloride 86, CO2 39, BUN 29 creatinine 0.62. Blood sugar 115. REVIEW OF SYSTEMS Unable to obtain due to intubation. PHYSICAL EXAMINATION Examination deferred to chemical librarian due to Covid 19 restrictions. Gen: This is a 79-year-old female. She is resting in bed in no distress, intubated and on mechanical ventilation. HEENT: Head is atraumatic, normocephalic. Oral ET and gastric tube. NEUROLOGICAL: Patient is on sedation. ASSESSMENT AND PLAN 1. Acute on chronic hypoxic respiratory failure and sepsis (POA) secondary to COVID pneumonia, Influenza B and small left lower pulmonary embolism. Patient required intubation and mechanical ventilation. Solu-Medrol 60 mg IV every 12 hours, Lovenox 60 mg subcu twice daily, vitamin supplements with vitamin C, vitamin D, zinc, Tamifllu completed. Remdesivir completed. Consults with pulmonary medicine and infectious disease appreciated. 2. 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 San, infectious disease, and based on recommendation, he decided on IV Ig infusion,, guarded at 0.6 mg/kg of IV but ideal body weight, baseline levels igg 378 3. Hypothyroidism. Continue levothyroxine 50 g daily. 3. Severe osteoporosis. Fosamax on hold. 4. Anticoagulation with Lovenox. 5. GI prophylaxis. Pepcid. 6. Recurrent depression. Continue Zoloft 200 mg daily. 7. Situational anxiety. Xanax 0.5 mg twice daily as needed added. 8. History of breast cancer. 9. Stool positive for occult blood. Monitor hemoglobin and patient status closely. 10. Blood loss anemia, iron studies to be done, patient's on full dose anticoagulation with Lovenox, transfusion if hemoglobin is under 7 11. Pneumomediastinum secondary to positive pressure ventilation. CODE STATUS: No code Prognosis guarded. Impression and plan of care have been directed as dictated by the signing physician. Ivone Vizcarra nurse practitioner acting as scribe for signing physician. Objective - Vital Signs Vital signs: Vital Signs Temp 97.5 F L 05/27/20 04:00 Pulse 71 05/27/20 07:00 Resp 30 H 05/27/20 07:00 BP 138/78 05/25/20 19:00 Pulse Ox 99 05/27/20 07:00 Intake & Output 05/26/20 05/27/20 05/27/20 18:59 06:59 18:59 Intake Total 123.898 2087.567 Output Total 2009 1130 Balance -1086.729 4.567 Weight 67.2 kg 64.41 kg Intake: IV 312 338 Pressure Bags 0.9 sodium 72 78 chloride Sodium Chloride 0.9% 1, 240 260 000 ml @ 20 mls/hr IV . Q24H NI Rx#:[id number] Intake, IV Titration 235.271 368.567 Amount Clevidipine Butyrate 25 44.967 68.567 mg In Empty Bag 1 bag @ 1 MG/HR 2 mls/hr IV .Q24H NI Rx#:[id number] fentaNYL (PF) 1,000 mcg 100 In Sodium Chloride 0.9% 80 ml @ Per Protocol IV . Q0M NI Rx#:[id number] propofoL 1,000 mg In 190.304 200.000 Empty Bag 1 bag @ Titrate IV .Q0M NI Rx#: [id number] Tube Feeding 286 338 Other 90 90 Output: Urine 20090 Other: Voiding Method Indwelling Catheter Indwelling Catheter ABP, PAP, CO, CI - Last Documented Arterial Blood Pressure 141/53 - Labs CBC & Chem 7: 05/27/20 03:20 05/27/20 03:20 Labs: Abnormal Lab Results - Last 24 Hours (Table) 05/26/20 05/26/20 05/26/20 Range/Units 04:15 11:29 17:57 WBC (3.8-10.6) k/uL RBC (3.80-5.40) m/uL Hgb (11.4-16.0) gm/dL Hct (34.0-46.0) % RDW (11.5-15.5) % Plt Count (150-450) k/uL Neutrophils # (1.3-7.7) k/uL Lymphocytes # (1.0-4.8) k/uL ABG pH (7.35-7.45) ABG pCO2 (35-45) mmHg ABG pO2 (83-108) mmHg ABG HCO3 (21-25) mmol/L ABG Total CO2 (19-24) mmol/L ABG O2 Saturation (94-97) % Sodium (137-145) mmol/L Chloride (98-107) mmol/L Carbon Dioxide (22-30) mmol/L BUN (7-17) mg/dL Glucose (74-99) mg/dL POC Glucose (mg/dL) 112 H 134 H (75-99) mg/dL Calcium (8.4-10.2) mg/dL Ferritin 724.7 H (10.0-291.0) ng/mL 05/26/20 05/27/20 05/27/20 Range/Units 23:49 03:20 03:20 WBC 18.6 H (3.8-10.6) k/uL RBC 2.31 L (3.80-5.40) m/uL Hgb 7.0 L D (11.4-16.0) gm/dL Hct 20.0 L (34.0-46.0) % RDW 18.9 H (11.5-15.5) % Plt Count 132 L (150-450) k/uL Neutrophils # 17.5 H (1.3-7.7) k/uL Lymphocytes # 0.3 L (1.0-4.8) k/uL ABG pH (7.35-7.45) ABG pCO2 (35-45) mmHg ABG pO2 (83-108) mmHg ABG HCO3 (21-25) mmol/L ABG Total CO2 (19-24) mmol/L ABG O2 Saturation (94-97) % Sodium 127 L (137-145) mmol/L Chloride 86 L (98-107) mmol/L Carbon Dioxide 39 H (22-30) mmol/L BUN 28 H (7-17) mg/dL Glucose 115 H (74-99) mg/dL POC Glucose (mg/dL) 133 H (75-99) mg/dL Calcium 7.8 L (8.4-10.2) mg/dL Ferritin (10.0-291.0) ng/mL 05/27/20 05/27/20 Range/Units 05:15 05:44 WBC (3.8-10.6) k/uL RBC (3.80-5.40) m/uL Hgb (11.4-16.0) gm/dL Hct (34.0-46.0) % RDW (11.5-15.5) % Plt Count (150-450) k/uL Neutrophils # (1.3-7.7) k/uL Lymphocytes # (1.0-4.8) k/uL ABG pH 7.48 H (7.35-7.45) ABG pCO2 55 H (35-45) mmHg ABG pO2 162 H (83-108) mmHg ABG HCO3 41 H* (21-25) mmol/L ABG Total CO2 42 H (19-24) mmol/L ABG O2 Saturation 100.0 H (94-97) % Sodium (137-145) mmol/L Chloride (98-107) mmol/L Carbon Dioxide (22-30) mmol/L BUN (7-17) mg/dL Glucose (74-99) mg/dL POC Glucose (mg/dL) 116 H (75-99) mg/dL Calcium (8.4-10.2) mg/dL Ferritin (10.0-291.0) ng/mL
[2020-05-27] MEDS: CLEVIDIPINE BUTYRATE 25 MG in EMPTY BAG 1 BAG IV SCH ×5 (11:05→22:31)
[2020-05-27 12:08] LABS: Glucose,Whole Blood 133 mg/dL (75-99)
[2020-05-27 12:31] LABS: Allen Test Performed? no
[2020-05-27 12:32] LABS: ABG HCO3 39 mmol/L (21-25); ABG PCO2 57 mmHg (35-45); ABG PH 7.45 (7.35-7.45); ABG PO2 77 mmHg (83-108); ABG TCO2 41 mmol/L (19-24)
[2020-05-27 16:46] LABS: Glucose,Whole Blood 146 mg/dL (75-99)
[2020-05-27] MEDS: SODIUM CHLORIDE 0.9% 1,000 ML IV SCH (17:01)
[2020-05-27] MEDS: ENOXAPARIN 60 MG/0.6 ML SYRINGE SQ SCH (19:45)
[2020-05-27] MEDS: FUROSEMIDE 10 MG/ML 4 ML VIAL IV SCH (19:45)
[2020-05-27] MEDS: ANIDULAFUNGIN 100 MG in SODIUM CHLORIDE 0.9% 100 ML IVPB SCH (19:55)
--- NOTE | 2020-05-27 22:47 | PN ---
PROGRESS NOTE DATE OF SERVICE: 05/27/2020 REASON FOR FOLLOWUP: Oropharyngeal candidiasis. INTERVAL HISTORY: The patient has been extubated. She has been breathing comfortably on high-flow oxygen. The patient tried to communicate, was unable to speak or pass on any message. No vomiting or any diarrhea reported by the nursing staff. PHYSICAL EXAMINATION: Blood pressure 138/61 with a pulse of 98, temperature 97.8. She is 99% on 9 L high-flow oxygen. General description is an elderly female up in the bed in no distress. RESPIRATORY SYSTEM: Unlabored breathing with decreased breath sounds at the base. No wheeze. HEART: S1, S2. Regular rate and rhythm. ABDOMEN: Soft. No tenderness. LABS: Hemoglobin is 7, white count down to 18.6. BUN of 28, creatinine 0.62. DIAGNOSTIC IMPRESSION AND PLAN: Patient with elevated white count, multifactorial, possible steroid effect, and a question of oropharyngeal candidiasis in this patient. White count is showing a downward trend. Continue with Eraxis and monitor her clinical course closely. MMODL / IJN: [id number] /
[2020-05-28 00:54] LABS: Glucose,Whole Blood 160 mg/dL (75-99)
[2020-05-28] MEDS: INSULIN ASPART (NovoLOG) 100 UNIT/ML VIAL SQ SCH ×5 (00:55→23:47)
[2020-05-28] MEDS: CLEVIDIPINE BUTYRATE 25 MG in EMPTY BAG 1 BAG IV SCH ×7 (01:00→23:36)
[2020-05-28 03:46] LABS: Anisocytosis Slight; Basophils # (A) 0.2 k/uL (0-0.2); Basophils % (A) 1 %; Eosinophils % (A) 0 %; HCT 22.6 % (34.0-46.0); HGB 8.4 gm/dL (11.4-16.0); Lymphocytes # (A) 0.5 k/uL (1.0-4.8); Lymphocytes % (A) 2 %; MCH 32.3 pg (25.0-35.0); MCV 87.4 fL (80.0-100.0); Mean Platelet Volume 7.6; Monocytes # (A) 0.9 k/uL (0-1.0); Monocytes % (A) 3 %; Neutrophils # (A) 28.7 k/uL (1.3-7.7); Neutrophils % (A) 94 %; Platelet Count 193 k/uL (150-450); RBC 2.59 m/uL (3.80-5.40); RDW 19.6 % (11.5-15.5); WBC 30.4 k/uL (3.8-10.6)
[2020-05-28 04:08] LABS: African American GFR (CKD) >90 (>60 ml/min/1.73 sqM); Anion Gap 1 mmol/L; Blood Urea Nitrogen 29 mg/dL (7-17); Calcium 8.3 mg/dL (8.4-10.2); Carbon Dioxide 40 mmol/L (22-30); Chloride 89 mmol/L (98-107); Glucose 115 mg/dL (74-99); Magnesium 2.4 mg/dL (1.6-2.3); Non-African American GFR(CKD) >90 (>60 ml/min/1.73 sqM); Phosphorus 3.4 mg/dL (2.5-4.5); Potassium 3.6 mmol/L (3.5-5.1); Sodium 130 mmol/L (137-145)
[2020-05-28] MEDS ORDERED: POTASSIUM CHLORIDE 20 MEQ in WATER FOR INJECTION 1 100ML.BAG IVPB STA ×2 (04:18→19:28)
--- NOTE | 2020-05-28 07:36 | XR ---
EXAMINATION TYPE: XR chest 1V portable DATE OF EXAM: 05/28/2020 Comparison: 05/27/2020 Clinical History: 79-year-old female ICU management Findings: Redemonstrated is subcutaneous emphysema at the base of the neck on both sides. Right IJ CVC tip in t he lower right atrium. Surgical clips right axilla. Heart upper limits of normal in size. Upper lungs remain relatively clear. There is worsening left greater than right bibasilar airspace opacity. Impression: 1. Worsening left greater than right bibasilar airspace disease. Correlate for infectious or aspirati on pneumonitis versus atypical pulmonary edema. 2. Subcutaneous emphysema to base of the neck on both sides redemonstrated.
[2020-05-28] MEDS: ALBUTEROL HFA INHALER INHALATION SCH ×4 (08:40→21:05)
[2020-05-28] MEDS: ZINC SULFATE 220 MG CAP PO SCH (08:55)
[2020-05-28] MEDS: ASPIRIN 81 MG PO SCH (08:55)
[2020-05-28] MEDS: CHOLECALCIFEROL 1,000 UNIT TAB PO SCH (08:55)
[2020-05-28] MEDS: SERTRALINE 100 MG TAB PO SCH (08:55)
[2020-05-28] MEDS: ASCORBIC ACID 500 MG TAB PO SCH ×2 (08:55→19:36)
[2020-05-28] MEDS: LACTULOSE 20 GM/30 ML CUP PO SCH ×2 (08:56→19:35)
[2020-05-28] MEDS: FUROSEMIDE 10 MG/ML 4 ML VIAL IV SCH (08:56)
[2020-05-28] MEDS: ENOXAPARIN 40 MG/0.4 ML SYRINGE SQ SCH (08:56)
[2020-05-28] MEDS: CYANOCOBALAMIN 500 MCG TAB PO SCH (08:56)
[2020-05-28] MEDS: methylPREDNISolone SOD SUCCI 125 MG/2 ML VIAL IV SCH ×2 (08:57→19:36)
[2020-05-28] MEDS: LEVOTHYROXINE IVP 100 MCG/5 ML VIAL IV SCH (08:57)
[2020-05-28] MEDS: PANTOPRAZOLE 40 MG/10 ML VIAL IVP SCH ×2 (08:58→19:36)
[2020-05-28] MEDS: amLODIPine 10 MG TAB PO SCH (10:35)
--- NOTE | 2020-05-28 10:53 | PN ---
PROGRESS NOTE PULMONARY/CRITICAL CARE PROGRESS NOTE: DATE OF SERVICE: May 28, 2020 HISTORY: This is a 79-year-old female who was admitted back on May 09. The patient has a history of acute hypoxemic respiratory failure. The patient was successfully extubated yesterday. The patient is doing reasonably well. She is on 10 L high flow. She is on Cleviprex at 8 mg an hour and saline at 20 mL an hour. The patient was initially admitted back on May 09 and intubated on May 16. Currently, the patient is a NO CODE patient. I did have a long discussion with the last night. He said that she would not want to be on life support again. We are going to add some amlodipine orally for blood pressure control. Hopefully, we can wean off the Cleviprex. Other than that, things are relatively stable. The patient does have a history of pulmonary embolism, left lower lobe, breast cancer, hypothyroidism, osteoporosis, and chronic anxiety with depression. PHYSICAL EXAMINATION: VITAL SIGNS: Current vital signs are reviewed. Temperature is 98.1. Heart rate 97, respiratory rate 12, blood pressure 137/60, saturations are 99% on 10 L high flow. GENERAL: Appears in no acute distress. HEENT: Examination is grossly unremarkable. Nasal cannula in place. NECK: Supple. Full range of motion. No adenopathy. Neck veins are flat. CARDIOVASCULAR: Examination reveals a regular rhythm and rate. Heart rate 97 beats per minute. S1, S2 normal. Heart sounds are distant. LUNGS: A few scattered coarse rhonchi. Breath sounds equal. No wheezes or crackles. ABDOMEN: Soft. No bowel sounds. EXTREMITIES are intact. Mild edema. SKIN: Without rash. NEUROLOGIC exam: Appears to be normal. LABS: Reviewed. White count 30.4, hemoglobin 8.4, hematocrit 22.6, platelet count is 193,000. Sodium 130, potassium 3.6, chloride 89, CO2 40, anion gap is 1. BUN and creatinine were 29 and 0.51. Microbiology is negative save for some Bing albicans in the sputum from May 21. Chest x-ray from the shows left greater than right bibasilar airspace disease. There is also evidence of some subcutaneous emphysema to the base of the neck on both sides. CURRENT MEDICATIONS: Reviewed. The patient is on Tylenol, albuterol inhaler, amlodipine, Eraxis, Artificial Tears, vitamin C, aspirin, vitamin D3, Cleviprex, clonidine, vitamin B12, Lovenox, Lasix, hydralazine, Motrin, insulin, lactulose, levothyroxine, melatonin, Solu-Medrol, Narcan, Protonix, potassium replacement, Zoloft, and zinc. ASSESSMENT: 1. Acute hypoxemic respiratory failure secondary to COVID-19 pneumonitis, requiring intubation on May 16, admission on April and successful extubation on May 27. 2. History of influenza B infection, resolved. 3. Pulmonary embolism, left lower lobe. 4. History of breast cancer. 5. Hypothyroidism. 6. Osteoporosis. 7. Chronic anxiety/depression. PLAN: The patient was extubated yesterday. I had a talk with the , Perry, who stated that the patient would not want to be reintubated and he is in agreement with that. The patient was started on amlodipine 10 mg for blood pressure support. We will see if we cannot wean off the Cleviprex. Additional recommendations and suggestions are forthcoming. Unnecessary medications will be discontinued. The patient remains on 10 L high flow. That should be able to be weaned down. No additional recommendations are made. Prognosis is guarded. We will continue to follow. MMODL / IJN: [id number] /
--- NOTE | 2020-05-28 11:55 | P.PN ---
Subjective Progress Note Date: 05/28/20 HISTORY OF PRESENT ILLNESS This is a 79-year-old female patient of Dr. Guerrero with past medical history of breast cancer, hypothyroidism, hyperlipidemia, generalized osteoarthritis. She was recently hospitalized May 12 for fever, chills, cough with sputum production with worsening dyspnea was diagnosed with COVID-19 pneumonia. Patient was stabilized and discharged home on May 05 with azithromycin, steroids, home oxygen and vitamin supplements. Patient had significant shortness of breath when she woke up this morning and was wearing oxygen at 4 L. EMS was called and reported that she was ashen nazario, diaphoretic with a pulse ox of 71% upon arrival. Patient was brought into [facility] emergency center and found to be afebrile, heart rate 105, blood pressure 168/89, pulse ox 97% with nonrebreather. She continued tachypneic and tachycardic and patient was placed on BiPAP. Chest x-ray reveals stable patchy bilateral infiltrates. WBC 19.5, hemoglobin 11. Sodium 133, potassium 4.1, CO2 26, BUN 23 and creatinine 0.65. Blood sugar 100. Lactic acid 1.1. LDH 1116, C-reactive protein 63.7. Covid 19 not detected. Influenza B positive. Patient was continued on vitamin supplements, dexamethasone and started on Lovenox, Kati flu, admitted to the cardiac stepdown unit and consult requested with infectious disease and pulmonary medicine. DDimer elevated at 33 and CTA of the chest positive for tiny filling defect left lower lobe pulmonary artery. 05/10: Patient continues to have significant shortness of breath cough and chest tightness. She is on BiPAP and unable to eat or drink. She continues to feel weak and tired. Temperature max 100.0, heart rate 95, blood pressure 125/68, pulse ox 91% on BiPAP with FiO2 of 80. Patient has been seen by pulmonary medicine and started on Remdesivir. The patient's has been contacted via phone and updated regarding patient's current condition and treatment plan. 05/11: Patient is currently on day 3/5 of Remdesivir. Her pulse ox is running about 89% on BiPAP of 85% FiO2. Legionella was negative. Temperature max 101, heart rate 86, blood pressure 150/68. Navarro catheter will be placed as patient is too dyspneic to use bedpan or commode. Repeat blood work reveals WBC 19.4, hemoglobin 10.2. Sodium 136, potassium 3.7, creatinine 0.68. Patient is followed by infectious disease and pulmonary medicine. 05/12: Patient is currently on day 4/5 of Remdesivir. She continues to have significant shortness of breath which is worse from yesterday. She is on 85% FiO2 BiPAP pulse ox a 90%. When she moved over to 15 L, pulse ox dropped down to 78%. She continues complaining of shortness of breath. She has been anxious during the night and Xanax ordered. Patient is unable to take any new oral nutrition at this point. Navarro catheter was placed yesterday. Patient has been afebrile for 24 hour period. Heart rate 104, respiratory rate 26, blood pressure 175/81. Updated pulmonary medicine regarding possible need for intubation. 05/13: Patient's respiratory status did improve yesterday afternoon and she did not require transfer to the intensive care unit. Patient may be slightly better today from yesterday morning but did decline from yesterday afternoon. She is currently pulse ox seen in the 80s with BiPAP of 85% FiO2. She has been off onto 15 L high flow nasal cannula to eat and has been able to take in a small amount of food yesterday and Ensure. She will complete her course of Remdesivir this evening. Tamiflu course will also be completed this evening. Temperature max 100.3 yesterday at noon. Heart rate 91, blood pressure 174/85. Repeat blood work reveals WBC 20.5, hemoglobin 11. Chloride 112, BUN 33 and creatinine 0.61. Blood sugar 146. Alkaline phosphatase 129. 05/14: Yesterday afternoon, patient was transferred to the intensive care unit and is agreeable to short-term intubation if necessary. She has not required vasopressors. Patient has been afebrile. Heart rate 64, blood pressure 132/69, pulse ox 93% on 80% BiPAP. Leukocytosis is down to 12.9, hemoglobin 10. D- dimer isn't improved at 2.83. Creatinine 0.53. Other inflammatory markers have shown improvement with LDH at 1416, C-reactive protein 36.8. Patient has completed course of Remdesivir and Tamiflu. She remains on Lovenox, Solu-Medrol and vitamin supplementations. 05/15: Patient remains in the intensive care unit on BiPAP pulse ox seen 89-90% on 80% FiO2. Repeat chest x-ray reveals stable bilateral patchy infiltrate. She has completed course of Remdesivir and course of Tamiflu. She has been afebrile, heart rate 64, blood pressure 151/79. WBC 14.6, hemoglobin 10.1. Creatinine 0.51. Blood sugar 136. Albumin 2.5. Patient has been without food for greater than 6 days. Discussed nutrition options with Dr. Crowe he will address with rounds today. Physical exam deferred to Dr. Crowe. 05/16: Patient remains in the intensive care unit. She remains on 100% BiPAP pulse oxing 91%. She's been afebrile, heart rate in the low 100s, blood pressure 162/88. Repeat blood work reveals WBC 16.1, hemoglobin 10.8. D-dimer is 2.88. Sodium 135, potassium 3.7, chloride 108, CO2 25, BUN 28 and creatinine 0.47. CRP 37.3. Repeat chest x-ray reveals patchy bilateral lung infiltrates. Patient continues to be followed by [facility] and infectious disease. Patient is eating only about 25% of her meals. She is followed by case management for discharge planning. Patient states that Xanax is not helping and will be changed to lorazepam 0.5 mg IV every 6 hours as needed. 05/17: Patient was intubated last night currently on mechanical ventilation with tidal volume 400, FiO2 100, PEEP of 14. Pulse ox is 90-91%. Chest x-ray this morning reveals mild cardiomegaly and diffuse interstitial opacities mid and lower lungs. Small effusions. Correlate for interstitial pulmonary edema. She has been afebrile, heart rate 76, blood pressure 132/68. Patient has not required vasopressors. Patient is on max propofol. Oral tube feeding to be started today. Repeat lab work reveals WBC 15, hemoglobin 10. Sodium 136, potassium 3.5, chloride 108, CO2 24, BUN 27 and creatinine 0.51. Stool for occult blood positive. 05/18: Patient remains in the intensive care unit with pulse ox in the low 90s, remains intubated and on mechanical ventilation with tidal volume 350, FiO2 65, PEEP 12. She has been afebrile, heart rate 64, blood pressure 105/59. Patient has been starting on tube feedings currently at goal. Repeat lab work reveals Mattie BC 15.9, hemoglobin 10.1. Fibrinogen 504, d-dimer 1.17. Sodium 136, potassium 3.7, chloride 112, CO2 23, BUN 29 and creatinine 0.59. Blood sugars in the low 100s. Ferritin 570. C-reactive protein 27.9. 05/19:patient intubated sedated leukocytosis 20k, p02 67 sbp 123, solumedrol 60 q6 levofed infusion, still requiring pressor support, we will change oral levothyroxine to IV 25 g daily.vo 05/20: Patient is remains in ICU intubated on vent, sedated, still with leukocyt osis 22.9 thousand, chest x-ray shows mild diffuse increased lung markings stable from previous, patient is on Zosyn, sputum culture requested, finished treatment withremdesivir d-dimer is trending down toward with current level of 0.99, creatinine is normal, we'll going to check for TSH value check for immune globulin level, iron levels, for the anemia. albumin levels low at 2.1 on or OG-tube feedings 05/21. Patient remains in ICU, still in mechanical ventilation, followed closely by core inserter, patient still leukocytosis wbcof 23,000, hemoglobin of 8.2, chest x-ray shows bilateral multifocal infiltrates, still on empiric Zosyn for underlying but bacterial pneumonia, however, covid pneumonitis is still difficult to eradicate chest x-ray shows fibrotic change in the lower lung with bilateral multifocal acute infiltrates, no significant change. IgG levels are very low at 378, unsure whether, globulin infusion would be helpful against a convalescent Covid serum would be helpful we will discuss with infectious disease or pulmonary. I discussed these value of hypogammaglobulinemia to Dr. Savage, for which he recommended IV IgG infusion, rather than convalescent serum. Gammagard to be dosed by pharmacy at 0.6 mg/kg of ideal body weight. ICU was notified. May 22: Patient remains in ICU, still with mechanical ventilation, Gammagard should have been infused, afebrile, still receiving OG-tube feedings still with leukocytosis, no new changes, awaiting response of antibiotic, no plans for vent weaning yet core inserter, monitoring very closely 05/23: Patient remained intubated and on mechanical ventilation with FiO2 50 and PEEP of 10. Pulse ox is running about 90%. She has been afebrile, heart rate in the 60s and 70s, blood pressure 162/63. Clevidipine is on hold. Patient has been continued on Zosyn and followed by multiple consultants. 05/24: Repeat chest x-ray reveals suspected interval development of pneumomediastinum. COPD with patchy bilateral infiltrates stable. Patient remains intubated and on mechanical ventilation she is currently on tidal volume 350, FiO2 50 PEEP of 10. She is currently on propofol, Cleviprex and fentanyl drips. She is receiving tube feedings and is at goal. 05/25: Patient remains intubated and on mechanical ventilation with plan to hold sedation today and see how patient responds. Repeat chest x-ray reveals progression of subcutaneous emphysema over the neck bilaterally. Correlate for pneumonia, edema. She has been afebrile, heart rate 72, blood pressure 133/52, pulse ox 97%. Repeat lab work reveals Mattie BC 23.6, hemoglobin 9.2, platelets 180. Sodium 135, potassium 3.2 and has been replaced, chloride 93, CO2 38, BUN 26 creatinine 0.51. Blood sugars running between 100 2875. LDH 1836. C- reactive protein 19.7. Propofol, Cleviprex on hold. Patient is on antibiotics in form of Zosyn and followed by Dr. San. 05/26: Patient remains in the ICU, intubated and on mechanical ventilation with tidal volume 350, FiO2 50 and PEEP of 10. Today she is currently on propofol, fentanyl and Cleviprex drips. She is at goal on tube feedings. Sedation was held yesterday and patient became tachycardic and anxious but was able to follow commands. Repeat blood work reveals WBC 27.9, hemoglobin 8.5. D-dimer 0.64. Sodium 130. Potassium 3.5, creatinine 0.53. LDH 1988. C-reactive protein 17.4. Patient's made her no CODE STATUS yesterday. 05/27: Repeat chest x-ray reveals fibrotic changes in the lower lungs with bilateral multifocal acute bibasilar infiltrates and/or edema. No significant changes from one day earlier. Patient remains intubated and on mechanical ventilation with tidal volume 350, FiO2 50% and PEEP of 10. Plan to decrease PEEP to 5 today and hold sedation. Repeat blood work reveals WBC 18.6, hemoglobin 7, platelet count 132. Sodium 127, potassium 3.9, chloride 86, CO2 39, BUN 29 creatinine 0.62. Blood sugar 115. 05/28: Patient was successfully extubated yesterday. She is currently on 10 L high flow nasal cannula with pulse ox of 97%. Patient has been afebrile, heart rate 103, blood pressure 133/72. Repeat blood work reveals Mattie BC 30.4, hemoglobin 8.4. Sodium 130, potassium 3.6, chloride 89, CO2 40, BUN 29, creatinine 0.51. Blood sugars running between 115-160. Dr. jones started the patient on Eraxis. No antibiotics in place. She is on Solu-Medrol 60 mg IV every 12 hours, Lovenox 40 mg daily and supplements. Patient is still on Cleviprex drip. REVIEW OF SYSTEMS Constitutional: No fever, no chills, no night sweats. Reports weakness, reports fatigue reports lethargy. Reports daytime sleepiness. EENT: No headache. No nasal drainage or congestion. No epistaxis. No sore throat. Lungs: Reports shortness of breath, reports cough, no sputum production. No wheezing. Cardiovascular: No chest pain, reports lower extremity edema. No palpitations. No paroxysmal nocturnal dyspnea. No orthopnea. No lightheadedness or dizziness. No syncopal episodes. Abdominal: No abdominal pain. No nausea, vomiting. No diarrhea. No constipation. No bloody or tarry stools. Reports loss of appetite. Genitourinary: No dysuria, increased frequency, urgency. No urinary retention. +Navarro Musculoskeletal: No myalgias. Significant muscle weakness, significant gait dysfunction. Integumentary: No wounds, no lesions. No rash or pruritus. Neurologic: No aphasia. No facial droop. No change in mentation. No head injury. No headache. No paralysis. No paresthesia. Psychiatric: Known depression. Known anxiety. Endocrine: Reported abnormal blood sugars. PHYSICAL EXAMINATION Gen: This is a 79-year-old female. She is resting in ICU bed in no acute distress, on nasal cannula. HEENT: Head is atraumatic, normocephalic. Pupils equal, round. Sclerae is anicteric. NECK: Supple. No JVD. No lymphadenopathy. No thyromegaly. LUNGS: Bilateral crackles with decreased. No wheezing. No intercostal retractions. HEART: Regular rate and rhythm. No murmur. ABDOMEN: Soft. Bowel sounds are present. No masses. No tenderness. EXTREMITIES: Trace bilat pedal edema. No calf tenderness. Dorsalis pedis +2 bilaterally. NEUROLOGICAL: Patient is awake, alert and oriented x3. Significant generalized weakness. ASSESSMENT AND PLAN 1. Acute on chronic hypoxic respiratory failure and sepsis (POA) secondary to COVID pneumonia, Influenza B and small left lower pulmonary embolism. Patient required intubation and mechanical ventilation. Solu-Medrol 60 mg IV every 12 h ours, Lovenox 60 mg subcu twice daily, vitamin supplements with vitamin C, vitamin D, zinc, Tamifllu completed. Remdesivir completed. Consults with pulmonary medicine and infectious disease appreciated. 2. 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 San, infectious disease, and based on recommendation, he decided on IV Ig infusion,, guarded at 0.6 mg/kg of IV but ideal body weight, baseline levels igg 378 3. Hypothyroidism. Continue levothyroxine 50 g daily. 3. Severe osteoporosis. Fosamax on hold. 4. Anticoagulation with Lovenox. 5. GI prophylaxis. Pepcid. 6. Recurrent depression. Continue Zoloft 200 mg daily. 7. Situational anxiety. Xanax 0.5 mg twice daily as needed added. 8. History of breast cancer. 9. Stool positive for occult blood. Monitor hemoglobin and patient status closely. 10. Blood loss anemia, iron studies to be done, patient's on full dose anticoagulation with Lovenox, transfusion if hemoglobin is under 7 11. Pneumomediastinum secondary to positive pressure ventilation. CODE STATUS: No code Prognosis guarded. Impression and plan of care have been directed as dictated by the signing ph ysician. Ivone Vizcarra nurse practitioner acting as scribe for signing physician. Objective - Vital Signs Vital signs: Vital Signs Temp 98.1 F 05/28/20 04:00 Pulse 97 05/28/20 07:00 Resp 12 05/28/20 07:00 BP 138/78 05/25/20 19:00 Pulse Ox 99 05/28/20 08:40 Intake & Output 05/27/20 05/28/2020 18:59 06:59 18:59 Intake Total 574.789 558.666 75.333 Output Total 1230 1095 145 Balance -655.211 -536.334 -69.667 Weight 64.41 kg 60.7 kg Intake: IV 286 312 26 Pressure Bags 0.9 sodium 66 72 6 chloride Sodium Chloride 0.9% 1, 220 240 20 000 ml @ 20 mls/hr IV . Q24H NI Rx#:[id number] Intake, IV Titration 184.789 186.666 49.333 Amount Clevidipine Butyrate 25 92.0 186.666 49.333 mg In Empty Bag 1 bag @ 1 MG/HR 2 mls/hr IV .Q24H NI Rx#:[id number] fentaNYL (PF) 1,000 mcg 23.548 In Sodium Chloride 0.9% 80 ml @ Per Protocol IV . Q0M NI Rx#:[id number] propofoL 1,000 mg In 69.241 Empty Bag 1 bag @ Titrate IV .Q0M NI Rx#: [id number] Oral 60 Tube Feeding 104 Output: Urine 1230 1095 145 Other: Voiding Method Indwelling Catheter Indwelling Catheter ABP, PAP, CO, CI - Last Documented Arterial Blood Pressure 137/60 - Labs CBC & Chem 7: 05/28/20 03:30 05/28/20 03:30 Labs: Abnormal Lab Results - Last 24 Hours (Table) 05/27/20 05/27/20 05/27/20 Range/Units 12:06 12:24 16:43 WBC (3.8-10.6) k/uL RBC (3.80-5.40) m/uL Hgb (11.4-16.0) gm/dL Hct (34.0-46.0) % RDW (11.5-15.5) % Neutrophils # (1.3-7.7) k/uL Lymphocytes # (1.0-4.8) k/uL ABG pCO2 57 H (35-45) mmHg ABG pO2 77 L (83-108) mmHg ABG HCO3 39 H (21-25) mmol/L ABG Total CO2 41 H (19-24) mmol/L Sodium (137-145) mmol/L Chloride (98-107) mmol/L Carbon Dioxide (22-30) mmol/L BUN (7-17) mg/dL Creatinine (0.52-1.04) mg/dL Glucose (74-99) mg/dL POC Glucose (mg/dL) 133 H 146 H (75-99) mg/dL Calcium (8.4-10.2) mg/dL Magnesium (1.6-2.3) mg/dL 05/28/20 05/28/20 05/28/20 Range/Units 00:53 03:30 03:30 WBC 30.4 H (3.8-10.6) k/uL RBC 2.59 L (3.80-5.40) m/uL Hgb 8.4 L (11.4-16.0) gm/dL Hct 22.6 L (34.0-46.0) % RDW 19.6 H (11.5-15.5) % Neutrophils # 28.7 H (1.3-7.7) k/uL Lymphocytes # 0.5 L (1.0-4.8) k/uL ABG pCO2 (35-45) mmHg ABG pO2 (83-108) mmHg ABG HCO3 (21-25) mmol/L ABG Total CO2 (19-24) mmol/L Sodium 130 L (137-145) mmol/L Chloride 89 L (98-107) mmol/L Carbon Dioxide 40 H (22-30) mmol/L BUN 29 H (7-17) mg/dL Creatinine 0.51 L (0.52-1.04) mg/dL Glucose 115 H (74-99) mg/dL POC Glucose (mg/dL) 160 H (75-99) mg/dL Calcium 8.3 L (8.4-10.2) mg/dL Magnesium 2.4 H (1.6-2.3) mg/dL
[2020-05-28 12:35] LABS: Glucose,Whole Blood 166 mg/dL (75-99)
[2020-05-28 18:08] LABS: Glucose,Whole Blood 123 mg/dL (75-99)
[2020-05-28] MEDS: SODIUM CHLORIDE 0.9% 1,000 ML IV SCH (18:09)
[2020-05-28] MEDS: ANIDULAFUNGIN 100 MG in SODIUM CHLORIDE 0.9% 100 ML IVPB SCH (19:36)
--- NOTE | 2020-05-28 22:02 | PN ---
PROGRESS NOTE DATE OF SERVICE: 05/28/2020 REASON FOR FOLLOW UP: Oropharyngeal candidiasis and lymphocytosis. INTERVAL HISTORY: Patient is currently afebrile. The patient is breathing comfortably. Denies having chest pain. The patient is hard to communicate though. No vomiting or diarrhea has been reported. PHYSICAL EXAMINATION: Blood pressure is 114/66, pulse of 113. Temperature 98.1. She is 97% on 8 L nasal cannula. General description is an elderly female lying in bed in no distress. Respiratory system: Unlabored breathing, decreased intensity of breath sounds. Heart S1, S2. Regular rate and rhythm. Abdomen soft. No tenderness. LABS: Hemoglobin 8.1, white count 30.4, BUN of 29, creatinine 0.51. DIAGNOSTIC IMPRESSION AND PLAN: Patient with leukocytosis which is multifactorial, possible steroid effect, question of oropharyngeal candidiasis did show worsening of the white count in the last 24 hours. We will repeat inflammatory markers and procalcitonin tomorrow and continue supportive care. MMODL / IJN: [id number] /
[2020-05-28 23:43] LABS: Glucose,Whole Blood 163 mg/dL (75-99)
[2020-05-29] MEDS: CLEVIDIPINE BUTYRATE 25 MG in EMPTY BAG 1 BAG IV SCH ×2 (02:27→06:36)
[2020-05-29 04:28] LABS: Anisocytosis Moderate; HCT 22.3 % (34.0-46.0); HGB 8.1 gm/dL (11.4-16.0); Hypochromasia Slight; MCH 32.5 pg (25.0-35.0); MCHC 36.1 g/dL (31.0-37.0); Macrocytosis Slight; Mean Platelet Volume 7.7; Platelet Count 216 k/uL (150-450); RBC 2.48 m/uL (3.80-5.40); RDW 21.2 % (11.5-15.5)
[2020-05-29 04:50] LABS: ALT 37 U/L (4-34); AST 68 U/L (14-36); African American GFR (CKD) >90 (>60 ml/min/1.73 sqM); Albumin 2.9 g/dL (3.5-5.0); Alkaline Phosphatase 133 U/L (38-126); Anion Gap 1 mmol/L; Blood Urea Nitrogen 28 mg/dL (7-17); Carbon Dioxide 36 mmol/L (22-30); Chloride 93 mmol/L (98-107); Glucose 103 mg/dL (74-99); Non-African American GFR(CKD) >90 (>60 ml/min/1.73 sqM); Potassium 3.7 mmol/L (3.5-5.1); Sodium 130 mmol/L (137-145); Total Bilirubin 0.8 mg/dL (0.2-1.3)
[2020-05-29] MEDS: INSULIN ASPART (NovoLOG) 100 UNIT/ML VIAL SQ SCH ×3 (05:14→19:40)
[2020-05-29] MEDS ORDERED: POTASSIUM CHLORIDE 20 MEQ in WATER FOR INJECTION 1 100ML.BAG IVPB STA (05:15)
[2020-05-29 05:28] LABS: Myelocytes % 2 %; Neutrophils % (M) 92 %; Nucleated Red Blood Cells 2 /100 WBC (0-0); Total Cells Counted 200
[2020-05-29 05:29] LABS: Lymphocytes # (M) 1.54 k/uL (1.0-4.8); Myelocytes # (M) 0.51 k/uL (0); Neutrophils # (M) 23.55 k/uL (1.3-7.7); Polychromasia Present; WBC 25.6 k/uL (3.8-10.6)
--- NOTE | 2020-05-29 07:57 | XR ---
EXAMINATION TYPE: XR chest 1V portable DATE OF EXAM: 05/29/2020 Comparison: 05/28/2020 Clinical History: 79-year-old female ICU management Findings: Right IJ CVC tip in the right atrium. Subcutaneous emphysema at the base of the neck on both sides mi nimally improved. Surgical clips right axilla. Heart remains borderline in size. Bibasilar airspace o pacity, left greater than right persists, minimally improved. Impression: Persistent bibasilar airspace disease, left greater than right, stable to minimally improved.
[2020-05-29] MEDS: ALBUTEROL HFA INHALER INHALATION SCH ×5 (08:16→20:59)
[2020-05-29] MEDS: PANTOPRAZOLE 40 MG/10 ML VIAL IVP SCH ×2 (08:26→21:53)
[2020-05-29] MEDS: LACTULOSE 20 GM/30 ML CUP PO SCH ×2 (08:26→21:40)
[2020-05-29] MEDS: LEVOTHYROXINE IVP 100 MCG/5 ML VIAL IV SCH (08:26)
[2020-05-29] MEDS: methylPREDNISolone SOD SUCCI 125 MG/2 ML VIAL IV SCH ×2 (08:26→21:53)
[2020-05-29] MEDS: FUROSEMIDE 10 MG/ML 4 ML VIAL IV SCH (08:26)
[2020-05-29] MEDS: SERTRALINE 100 MG TAB PO SCH (08:27)
[2020-05-29] MEDS: ASPIRIN 81 MG PO SCH (08:27)
[2020-05-29] MEDS: ASCORBIC ACID 500 MG TAB PO SCH ×2 (08:27→21:39)
[2020-05-29] MEDS: CHOLECALCIFEROL 1,000 UNIT TAB PO SCH (08:27)
[2020-05-29] MEDS: CYANOCOBALAMIN 500 MCG TAB PO SCH (08:27)
[2020-05-29] MEDS: ENOXAPARIN 40 MG/0.4 ML SYRINGE SQ SCH (08:27)
[2020-05-29] MEDS: ZINC SULFATE 220 MG CAP PO SCH (08:28)
[2020-05-29] MEDS: amLODIPine 10 MG TAB PO SCH (08:28)
[2020-05-29] MEDS ORDERED: amLODIPine 10 MG TAB PO SCH (09:00)
--- NOTE | 2020-05-29 10:23 | P.PN ---
Subjective Progress Note Date: 05/29/20 HISTORY OF PRESENT ILLNESS This is a 79-year-old female patient of Dr. Guerrero with past medical history of breast cancer, hypothyroidism, hyperlipidemia, generalized osteoarthritis. She was recently hospitalized May 12 for fever, chills, cough with sputum production with worsening dyspnea was diagnosed with COVID-19 pneumonia. Patient was stabilized and discharged home on May 05 with azithromycin, steroids, home oxygen and vitamin supplements. Patient had significant shortness of breath when she woke up this morning and was wearing oxygen at 4 L. EMS was called and reported that she was ashen nazario, diaphoretic with a pulse ox of 71% upon arrival. Patient was brought into [facility] emergency center and found to be afebrile, heart rate 105, blood pressure 168/89, pulse ox 97% with nonrebreather. She continued tachypneic and tachycardic and patient was placed on BiPAP. Chest x-ray reveals stable patchy bilateral infiltrates. WBC 19.5, hemoglobin 11. Sodium 133, potassium 4.1, CO2 26, BUN 23 and creatinine 0.65. Blood sugar 100. Lactic acid 1.1. LDH 1116, C-reactive protein 63.7. Covid 19 not detected. Influenza B positive. Patient was continued on vitamin supplements, dexamethasone and started on Lovenox, Kati flu, admitted to the cardiac stepdown unit and consult requested with infectious disease and pulmonary medicine. DDimer elevated at 33 and CTA of the chest positive for tiny filling defect left lower lobe pulmonary artery. 05/10: Patient continues to have significant shortness of breath cough and chest tightness. She is on BiPAP and unable to eat or drink. She continues to feel weak and tired. Temperature max 100.0, heart rate 95, blood pressure 125/68, pulse ox 91% on BiPAP with FiO2 of 80. Patient has been seen by pulmonary medicine and started on Remdesivir. The patient's has been contacted via phone and updated regarding patient's current condition and treatment plan. 05/11: Patient is currently on day 3/5 of Remdesivir. Her pulse ox is running about 89% on BiPAP of 85% FiO2. Legionella was negative. Temperature max 101, heart rate 86, blood pressure 150/68. Navarro catheter will be placed as patient is too dyspneic to use bedpan or commode. Repeat blood work reveals WBC 19.4, hemoglobin 10.2. Sodium 136, potassium 3.7, creatinine 0.68. Patient is followed by infectious disease and pulmonary medicine. 05/12: Patient is currently on day 4/5 of Remdesivir. She continues to have significant shortness of breath which is worse from yesterday. She is on 85% FiO2 BiPAP pulse ox a 90%. When she moved over to 15 L, pulse ox dropped down to 78%. She continues complaining of shortness of breath. She has been anxious during the night and Xanax ordered. Patient is unable to take any new oral nutrition at this point. Navarro catheter was placed yesterday. Patient has been afebrile for 24 hour period. Heart rate 104, respiratory rate 26, blood pressure 175/81. Updated pulmonary medicine regarding possible need for intubation. 05/13: Patient's respiratory status did improve yesterday afternoon and she did not require transfer to the intensive care unit. Patient may be slightly better today from yesterday morning but did decline from yesterday afternoon. She is currently pulse ox seen in the 80s with BiPAP of 85% FiO2. She has been off onto 15 L high flow nasal cannula to eat and has been able to take in a small amount of food yesterday and Ensure. She will complete her course of Remdesivir this evening. Tamiflu course will also be completed this evening. Temperature max 100.3 yesterday at noon. Heart rate 91, blood pressure 174/85. Repeat blood work reveals WBC 20.5, hemoglobin 11. Chloride 112, BUN 33 and creatinine 0.61. Blood sugar 146. Alkaline phosphatase 129. 05/14: Yesterday afternoon, patient was transferred to the intensive care unit and is agreeable to short-term intubation if necessary. She has not required vasopressors. Patient has been afebrile. Heart rate 64, blood pressure 132/69, pulse ox 93% on 80% BiPAP. Leukocytosis is down to 12.9, hemoglobin 10. D- dimer isn't improved at 2.83. Creatinine 0.53. Other inflammatory markers have shown improvement with LDH at 1416, C-reactive protein 36.8. Patient has completed course of Remdesivir and Tamiflu. She remains on Lovenox, Solu-Medrol and vitamin supplementations. 05/15: Patient remains in the intensive care unit on BiPAP pulse ox seen 89-90% on 80% FiO2. Repeat chest x-ray reveals stable bilateral patchy infiltrate. She has completed course of Remdesivir and course of Tamiflu. She has been afebrile, heart rate 64, blood pressure 151/79. WBC 14.6, hemoglobin 10.1. Creatinine 0.51. Blood sugar 136. Albumin 2.5. Patient has been without food for greater than 6 days. Discussed nutrition options with Dr. Crowe he will address with rounds today. Physical exam deferred to Dr. Crowe. 05/16: Patient remains in the intensive care unit. She remains on 100% BiPAP pulse oxing 91%. She's been afebrile, heart rate in the low 100s, blood pressure 162/88. Repeat blood work reveals WBC 16.1, hemoglobin 10.8. D-dimer is 2.88. Sodium 135, potassium 3.7, chloride 108, CO2 25, BUN 28 and creatinine 0.47. CRP 37.3. Repeat chest x-ray reveals patchy bilateral lung infiltrates. Patient continues to be followed by [facility] and infectious disease. Patient is eating only about 25% of her meals. She is followed by case management for discharge planning. Patient states that Xanax is not helping and will be changed to lorazepam 0.5 mg IV every 6 hours as needed. 05/17: Patient was intubated last night currently on mechanical ventilation with tidal volume 400, FiO2 100, PEEP of 14. Pulse ox is 90-91%. Chest x-ray this morning reveals mild cardiomegaly and diffuse interstitial opacities mid and lower lungs. Small effusions. Correlate for interstitial pulmonary edema. She has been afebrile, heart rate 76, blood pressure 132/68. Patient has not required vasopressors. Patient is on max propofol. Oral tube feeding to be started today. Repeat lab work reveals WBC 15, hemoglobin 10. Sodium 136, potassium 3.5, chloride 108, CO2 24, BUN 27 and creatinine 0.51. Stool for occult blood positive. 05/18: Patient remains in the intensive care unit with pulse ox in the low 90s, remains intubated and on mechanical ventilation with tidal volume 350, FiO2 65, PEEP 12. She has been afebrile, heart rate 64, blood pressure 105/59. Patient has been starting on tube feedings currently at goal. Repeat lab work reveals Mattie BC 15.9, hemoglobin 10.1. Fibrinogen 504, d-dimer 1.17. Sodium 136, potassium 3.7, chloride 112, CO2 23, BUN 29 and creatinine 0.59. Blood sugars in the low 100s. Ferritin 570. C-reactive protein 27.9. 05/19:patient intubated sedated leukocytosis 20k, p02 67 sbp 123, solumedrol 60 q6 levofed infusion, still requiring pressor support, we will change oral levothyroxine to IV 25 g daily.vo 05/20: Patient is remains in ICU intubated on vent, sedated, still with leukocyt osis 22.9 thousand, chest x-ray shows mild diffuse increased lung markings stable from previous, patient is on Zosyn, sputum culture requested, finished treatment withremdesivir d-dimer is trending down toward with current level of 0.99, creatinine is normal, we'll going to check for TSH value check for immune globulin level, iron levels, for the anemia. albumin levels low at 2.1 on or OG-tube feedings 05/21. Patient remains in ICU, still in mechanical ventilation, followed closely by [facility], patient still leukocytosis wbcof 23,000, hemoglobin of 8.2, chest x-ray shows bilateral multifocal infiltrates, still on empiric Zosyn for underlying but bacterial pneumonia, however, covid pneumonitis is still difficult to eradicate chest x-ray shows fibrotic change in the lower lung with bilateral multifocal acute infiltrates, no significant change. IgG levels are very low at 378, unsure whether, globulin infusion would be helpful against a convalescent Covid serum would be helpful we will discuss with infectious disease or pulmonary. I discussed these value of hypogammaglobulinemia to Dr. Savage, for which he recommended IV IgG infusion, rather than convalescent serum. Gammagard to be dosed by pharmacy at 0.6 mg/kg of ideal body weight. ICU was notified. May 22: Patient remains in ICU, still with mechanical ventilation, Gammagard should have been infused, afebrile, still receiving OG-tube feedings still with leukocytosis, no new changes, awaiting response of antibiotic, no plans for vent weaning yet [facility] nursing [facility], monitoring very closely 05/23: Patient remained intubated and on mechanical ventilation with FiO2 50 and PEEP of 10. Pulse ox is running about 90%. She has been afebrile, heart rate in the 60s and 70s, blood pressure 162/63. Clevidipine is on hold. Patient has been continued on Zosyn and followed by multiple consultants. 05/24: Repeat chest x-ray reveals suspected interval development of pneumomediastinum. COPD with patchy bilateral infiltrates stable. Patient remains intubated and on mechanical ventilation she is currently on tidal volume 350, FiO2 50 PEEP of 10. She is currently on propofol, Cleviprex and fentanyl drips. She is receiving tube feedings and is at goal. 05/25: Patient remains intubated and on mechanical ventilation with plan to hold sedation today and see how patient responds. Repeat chest x-ray reveals progression of subcutaneous emphysema over the neck bilaterally. Correlate for pneumonia, edema. She has been afebrile, heart rate 72, blood pressure 133/52, pulse ox 97%. Repeat lab work reveals Mattie BC 23.6, hemoglobin 9.2, platelets 180. Sodium 135, potassium 3.2 and has been replaced, chloride 93, CO2 38, BUN 26 creatinine 0.51. Blood sugars running between 100 2875. LDH 1836. C- reactive protein 19.7. Propofol, Cleviprex on hold. Patient is on antibiotics in form of Zosyn and followed by Dr. San. 05/26: Patient remains in the ICU, intubated and on mechanical ventilation with tidal volume 350, FiO2 50 and PEEP of 10. Today she is currently on propofol, fentanyl and Cleviprex drips. She is at goal on tube feedings. Sedation was held yesterday and patient became tachycardic and anxious but was able to follow commands. Repeat blood work reveals WBC 27.9, hemoglobin 8.5. D-dimer 0.64. Sodium 130. Potassium 3.5, creatinine 0.53. LDH 1988. C-reactive protein 17.4. Patient's made her no CODE STATUS yesterday. 05/27: Repeat chest x-ray reveals fibrotic changes in the lower lungs with bilateral multifocal acute bibasilar infiltrates and/or edema. No significant changes from one day earlier. Patient remains intubated and on mechanical ventilation with tidal volume 350, FiO2 50% and PEEP of 10. Plan to decrease PEEP to 5 today and hold sedation. Repeat blood work reveals WBC 18.6, hemoglobin 7, platelet count 132. Sodium 127, potassium 3.9, chloride 86, CO2 39, BUN 29 creatinine 0.62. Blood sugar 115. 05/28: Patient was successfully extubated yesterday. She is currently on 10 L high flow nasal cannula with pulse ox of 97%. Patient has been afebrile, heart rate 103, blood pressure 133/72. Repeat blood work reveals Mattie BC 30.4, hemoglobin 8.4. Sodium 130, potassium 3.6, chloride 89, CO2 40, BUN 29, creatinine 0.51. Blood sugars running between 115-160. Dr. jones started the patient on Eraxis. No antibiotics in place. She is on Solu-Medrol 60 mg IV every 12 hours, Lovenox 40 mg daily and supplements. Patient is still on Cleviprex drip. 05/29: The patient did a video call with her family and it was determined that she wanted to go home and she wanted to go home with hospice. Patient's nurses put in a referral to hospice. Patient is currently being weaned off Cleviprex drip. Patient has been afebrile, heart rate 108, blood pressure 135/60, pulse ox 90% on 6 L nasal cannula. Repeat blood work reveals Mattie BC 25.6, hemoglobin 8.1. Sodium 130, potassium 3.7, chloride 93, CO2 36, BUN 20 and creatinine 0.5. Total bilirubin 0.8, AST 68, ALT 37, alkaline phosphatase 133. C-reactive protein 16.4. Call placed to case consultant regarding making arrangements for hospice. She will follow up with the patient. REVIEW OF SYSTEMS Constitutional: No fever, no chills. Reports weakness, reports fatigue reports lethargy. Reports daytime sleepiness. EENT: No headache. No nasal drainage or congestion. No epistaxis. No sore throat. Lungs: Reports shortness of breath, reports cough, no sputum production. No wheezing. Cardiovascular: No chest pain, reports lower extremity edema. No palpitations. No paroxysmal nocturnal dyspnea. No orthopnea. No lightheadedness or dizziness. No syncopal episodes. Abdominal: No abdominal pain. No nausea, vomiting. No diarrhea. No constipation. No bloody or tarry stools. Reports loss of appetite. Genitourinary: No dysuria, increased frequency, urgency. No urinary retention. +Navarro Musculoskeletal: No myalgias. Significant muscle weakness, significant gait dysfunction. Integumentary: No wounds, no lesions. No rash or pruritus. Neurologic: No aphasia. No facial droop. No change in mentation. No head injury. No headache. No paralysis. No paresthesia. Psychiatric: Known depression. Known anxiety. Endocrine: Reported abnormal blood sugars. PHYSICAL EXAMINATION Gen: This is a 79-year-old female. She is resting in ICU bed in no acute distress, on nasal cannula. HEENT: Head is atraumatic, normocephalic. Pupils equal, round. Sclerae is anicteric. NECK: Supple. No JVD. No lymphadenopathy. No thyromegaly. LUNGS: Bilateral crackles with decreased. No wheezing. No intercostal retractions. HEART: Regular rate and rhythm. No murmur. ABDOMEN: Soft. Bowel sounds are present. No masses. No tenderness. EXTREMITIES: Trace bilat pedal edema. No calf tenderness. Dorsalis pedis +2 bilaterally. NEUROLOGICAL: Patient is awake, alert and oriented x3. Significant generalized weakness. ASSESSMENT AND PLAN 1. Acute on chronic hypoxic respiratory failure and sepsis (POA) secondary to COVID pneumonia, Influenza B and small left lower pulmonary embolism. Patient required intubation and mechanical ventilation, status post extubation. Solu- Medrol 60 mg IV every 12 hours, Lovenox 40 mg subcu daily, vitamin supplements with vitamin C, vitamin D, zinc, Tamifllu completed. Remdesivir completed. Consults with pulmonary medicine and infectious disease appreciated. 2. 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 San, infectious disease, status post IV Ig infusion. 3. Hypothyroidism. Continue levothyroxine 50 g daily. 3. Severe osteoporosis. Fosamax on hold. 4. Anticoagulation with Lovenox. 5. GI prophylaxis. Pepcid. 6. Recurrent depression. Continue Zoloft 200 mg daily. 7. Situational anxiety. Xanax 0.5 mg twice daily as needed added. 8. History of breast cancer. 9. Stool positive for occult blood. Monitor hemoglobin and patient status closely. 10. Possible acute blood loss anemia from acute, status post transfusion of 11. Pneumomediastinum secondary to positive pressure ventilation. CODE STATUS: No code Prognosis guarded. Impression and plan of care have been directed as dictated by the signing physician. Ivone Vizcarra nurse practitioner acting as scribe for signing physician. Objective - Vital Signs Vital signs: Vital Signs Temp 97.6 F 05/29/20 04:00 Pulse 108 H 05/29/20 07:00 Resp 19 05/29/20 07:00 BP 138/78 05/25/20 19:00 Pulse Ox 99 05/29/20 08:17 Intake & Output 05/28/20 05/29/20 05/29/20 18:59 06:59 18:59 Intake Total 570.400 488.7 Output Total 1760 1375 Balance -1189.600 -886.3 Weight 61.235 kg Intake: IV 279 299 Pressure Bags 0.9 sodium 39 39 chloride Sodium Chloride 0.9% 1, 240 260 000 ml @ 20 mls/hr IV . Q24H NI Rx#:[id number] Intake, IV Titration 191.400 139.7 Amount Clevidipine Butyrate 25 191.400 139.7 mg In Empty Bag 1 bag @ 1 MG/HR 2 mls/hr IV .Q24H NI Rx#:[id number] Oral 100 50 Output: Urine 1760 1375 Other: Voiding Method Indwelling Catheter Indwelling Catheter ABP, PAP, CO, CI - Last Documented Arterial Blood Pressure 135/60 - Labs CBC & Chem 7: 05/29/20 04:12 05/29/20 04:12 Labs: Abnormal Lab Results - Last 24 Hours (Table) 05/28/20 05/28/20 05/28/20 Range/Units 12:33 18:07 23:41 WBC (3.8-10.6) k/uL RBC (3.80-5.40) m/uL Hgb (11.4-16.0) gm/dL Hct (34.0-46.0) % RDW (11.5-15.5) % Neutrophils # (Manual) (1.3-7.7) k/uL Myelocytes # (Manual) (0) k/uL Nucleated RBCs (0-0) /100 WBC Sodium (137-145) mmol/L Chloride (98-107) mmol/L Carbon Dioxide (22-30) mmol/L BUN (7-17) mg/dL Creatinine (0.52-1.04) mg/dL Glucose (74-99) mg/dL POC Glucose (mg/dL) 166 H 123 H 163 H (75-99) mg/dL Calcium (8.4-10.2) mg/dL AST (14-36) U/L ALT (4-34) U/L Alkaline Phosphatase (38-126) U/L C-Reactive Protein (<10.0) mg/L Total Protein (6.3-8.2) g/dL Albumin (3.5-5.0) g/dL 05/29/20 05/29/20 05/29/20 Range/Units 04:12 04:12 04:12 WBC 25.6 H (3.8-10.6) k/uL RBC 2.48 L (3.80-5.40) m/uL Hgb 8.1 L (11.4-16.0) gm/dL Hct 22.3 L (34.0-46.0) % RDW 21.2 H (11.5-15.5) % Neutrophils # (Manual) 23.55 H (1.3-7.7) k/uL Myelocytes # (Manual) 0.51 H (0) k/uL Nucleated RBCs 2 H (0-0) /100 WBC Sodium 130 L (137-145) mmol/L Chloride 93 L (98-107) mmol/L Carbon Dioxide 36 H (22-30) mmol/L BUN 28 H (7-17) mg/dL Creatinine 0.50 L (0.52-1.04) mg/dL Glucose 103 H (74-99) mg/dL POC Glucose (mg/dL) (75-99) mg/dL Calcium 8.0 L (8.4-10.2) mg/dL AST 68 H (14-36) U/L ALT 37 H (4-34) U/L Alkaline Phosphatase 133 H (38-126) U/L C-Reactive Protein 16.4 H (<10.0) mg/L Total Protein 6.0 L (6.3-8.2) g/dL Albumin 2.9 L (3.5-5.0) g/dL
--- NOTE | 2020-05-29 10:33 | P.DS ---
Providers Date of admission: 05/09/20 06:58 Expected date of discharge: 05/29/20 Attending physician: Kyle Hollingsworth Consults: 05/09/20 06:58 Consult Physician Urgent Consulting Provider: Mitchel Maxwell Consult Reason/Comments: COVID, worsening Do you want consulting provider notified?: Yes, Notify in am 05/09/20 08:57 Consult Physician Routine Consulting Provider: Parvin San Consult Reason/Comments: covid Do you want consulting provider notified?: Yes [facility]: HISTORY OF PRESENT ILLNESS This is a 79-year-old female patient of Dr. Guerrero with past medical history of breast cancer, hypothyroidism, hyperlipidemia, generalized osteoarthritis. She was recently hospitalized May 12 for fever, chills, cough with sputum production with worsening dyspnea was diagnosed with COVID-19 pneumonia. Patient was stabilized and discharged home on May 05 with azithromycin, steroids, home oxygen and vitamin supplements. Patient had significant shortness of breath when she woke up this morning and was wearing oxygen at 4 L. EMS was called and reported that she was ashen nazario, diaphoretic with a pulse ox of 71% upon arrival. Patient was brought into [facility] emergency center and found to be afebrile, heart rate 105, blood pressure 168/89, pulse ox 97% with nonrebreather. She continued tachypneic and tachycardic and patient was placed on BiPAP. Chest x-ray reveals stable patchy bilateral infiltrates. WBC 19.5, hemoglobin 11. Sodium 133, potassium 4.1, CO2 26, BUN 23 and creatinine 0.65. Blood sugar 100. Lactic acid 1.1. LDH 1116, C-reactive protein 63.7. Covid 19 not detected. Influenza B positive. Patient was continued on vitamin supplements, dexamethasone and started on Lovenox, Tamiflu, admitted to the cardiac stepdown unit and consult requested with infectious disease and pulmonary medicine. DDimer elevated at 33 and CTA of the chest positive for tiny filling defect left lower lobe pulmonary artery. 05/10: Patient continues to have significant shortness of breath cough and chest tightness. She is on BiPAP and unable to eat or drink. She continues to feel weak and tired. Temperature max 100.0, heart rate 95, blood pressure 125/68, pulse ox 91% on BiPAP with FiO2 of 80. Patient has been seen by pulmonary medicine and started on Remdesivir. The patient's has been contacted via phone and updated regarding patient's current condition and treatment plan. 05/11: Patient is currently on day 3/5 of Remdesivir. Her pulse ox is running about 89% on BiPAP of 85% FiO2. Legionella was negative. Temperature max 101, heart rate 86, blood pressure 150/68. Navarro catheter will be placed as patient is too dyspneic to use bedpan or commode. Repeat blood work reveals WBC 19.4, hemoglobin 10.2. Sodium 136, potassium 3.7, creatinine 0.68. Patient is followed by infectious disease and pulmonary medicine. 05/12: Patient is currently on day 4/5 of Remdesivir. She continues to have significant shortness of breath which is worse from yesterday. She is on 85% FiO2 BiPAP pulse ox a 90%. When she moved over to 15 L, pulse ox dropped down to 78%. She continues complaining of shortness of breath. She has been anxious during the night and Xanax ordered. Patient is unable to take any new oral nutrition at this point. Navarro catheter was placed yesterday. Patient has been afebrile for 24 hour period. Heart rate 104, respiratory rate 26, blood pressure 175/81. Updated pulmonary medicine regarding possible need for intubation. 05/13: Patient's respiratory status did improve yesterday afternoon and she did not require transfer to the intensive care unit. Patient may be slightly better today from yesterday morning but did decline from yesterday afternoon. She is currently pulse ox seen in the 80s with BiPAP of 85% FiO2. She has been off onto 15 L high flow nasal cannula to eat and has been able to take in a small amount of food yesterday and Ensure. She will complete her course of Remdesivir this evening. Tamiflu course will also be completed this evening. Temperature max 100.3 yesterday at noon. Heart rate 91, blood pressure 174/85. Repeat blood work reveals WBC 20.5, hemoglobin 11. Chloride 112, BUN 33 and creatinine 0.61. Blood sugar 146. Alkaline phosphatase 129. 05/14: Yesterday afternoon, patient was transferred to the intensive care unit and is agreeable to short-term intubation if necessary. She has not required vasopressors. Patient has been afebrile. Heart rate 64, blood pressure 132/69, pulse ox 93% on 80% BiPAP. Leukocytosis is down to 12.9, hemoglobin 10. D-di brady isn't improved at 2.83. Creatinine 0.53. Other inflammatory markers have shown improvement with LDH at 1416, C-reactive protein 36.8. Patient has completed course of Remdesivir and Tamiflu. She remains on Lovenox, Solu-Medrol and vitamin supplementations. 05/15: Patient remains in the intensive care unit on BiPAP pulse ox seen 89-90% on 80% FiO2. Repeat chest x-ray reveals stable bilateral patchy infiltrate. She has completed course of Remdesivir and course of Tamiflu. She has been afebrile, heart rate 64, blood pressure 151/79. WBC 14.6, hemoglobin 10.1. Creatinine 0.51. Blood sugar 136. Albumin 2.5. Patient has been without food for greater than 6 days. Discussed nutrition options with Dr. Crowe he will address with rounds today. Physical exam deferred to Dr. Crowe. 05/16: Patient remains in the intensive care unit. She remains on 100% BiPAP pulse oxing 91%. She's been afebrile, heart rate in the low 100s, blood pressure 162/88. Repeat blood work reveals WBC 16.1, hemoglobin 10.8. D-dimer is 2.88. Sodium 135, potassium 3.7, chloride 108, CO2 25, BUN 28 and creatinine 0.47. CRP 37.3. Repeat chest x-ray reveals patchy bilateral lung infiltrates. Patient continues to be followed by [facility] and infectious disease. Patient is eating only about 25% of her meals. She is followed by case management for discharge planning. Patient states that Xanax is not helping and will be changed to lorazepam 0.5 mg IV every 6 hours as needed. 05/17: Patient was intubated last night currently on mechanical ventilation with tidal volume 400, FiO2 100, PEEP of 14. Pulse ox is 90-91%. Chest x-ray this morning reveals mild cardiomegaly and diffuse interstitial opacities mid and lower lungs. Small effusions. Correlate for interstitial pulmonary edema. She has been afebrile, heart rate 76, blood pressure 132/68. Patient has not required vasopressors. Patient is on max propofol. Oral tube feeding to be started today. Repeat lab work reveals WBC 15, hemoglobin 10. Sodium 136, potassium 3.5, chloride 108, CO2 24, BUN 27 and creatinine 0.51. Stool for occult blood positive. 05/18: Patient remains in the intensive care unit with pulse ox in the low 90s, remains intubated and on mechanical ventilation with tidal volume 350, FiO2 65, PEEP 12. She has been afebrile, heart rate 64, blood pressure 105/59. Patient has been starting on tube feedings currently at goal. Repeat lab work reveals Mattie BC 15.9, hemoglobin 10.1. Fibrinogen 504, d-dimer 1.17. Sodium 136, potassium 3.7, chloride 112, CO2 23, BUN 29 and creatinine 0.59. Blood sugars in the low 100s. Ferritin 570. C-reactive protein 27.9. 05/19:patient intubated sedated leukocytosis 20k, p02 67 sbp 123, solumedrol 60 q6 levofed infusion, still requiring pressor support, we will change oral levothyroxine to IV 25 g daily.vo 05/20: Patient is remains in ICU intubated on vent, sedated, still with leukocytosis 22.9 thousand, chest x-ray shows mild diffuse increased lung markings stable from previous, patient is on Zosyn, sputum culture requested, finished treatment withremdesivir d-dimer is trending down toward with current level of 0.99, creatinine is normal, we'll going to check for TSH value check for immune globulin level, iron levels, for the anemia. albumin levels low at 2.1 on or OG-tube feedings 05/21. Patient remains in ICU, still in mechanical ventilation, followed closely by loan originator, patient still leukocytosis wbcof 23,000, hemoglobin of 8.2, chest x-ray shows bilateral multifocal infiltrates, still on empiric Zosyn for underlying but bacterial pneumonia, however, covid pneumonitis is still difficult to eradicate chest x-ray shows fibrotic change in the lower lung with bilateral multifocal acute infiltrates, no significant change. IgG levels are very low at 378, unsure whether, globulin infusion would be helpful against a convalescent Covid serum would be helpful we will discuss with infectious disease or pulmonary. I discussed these value of hypogammaglobulinemia to Dr. Savage, for which he recommended IV IgG infusion, rather than convalescent serum. Gammagard to be dosed by pharmacy at 0.6 mg/kg of ideal body weight. ICU was notified. May 22: Patient remains in ICU, still with mechanical ventilation, Gammagard should have been infused, afebrile, still receiving OG-tube feedings still with leukocytosis, no new changes, awaiting response of antibiotic, no plans for vent weaning yet loan originator, monitoring very closely 05/23: Patient remained intubated and on mechanical ventilation with FiO2 50 and PEEP of 10. Pulse ox is running about 90%. She has been afebrile, heart rate in the 60s and 70s, blood pressure 162/63. Clevidipine is on hold. Patient has been continued on Zosyn and followed by multiple consultants. 05/24: Repeat chest x-ray reveals suspected interval development of pneumomediastinum. COPD with patchy bilateral infiltrates stable. Patient remains intubated and on mechanical ventilation she is currently on tidal volume 350, FiO2 50 PEEP of 10. She is currently on propofol, Cleviprex and fentanyl drips. She is receiving tube feedings and is at goal. 05/25: Patient remains intubated and on mechanical ventilation with plan to hold sedation today and see how patient responds. Repeat chest x-ray reveals progression of subcutaneous emphysema over the neck bilaterally. Correlate for pneumonia, edema. She has been afebrile, heart rate 72, blood pressure 133/52, pulse ox 97%. Repeat lab work reveals Mattie BC 23.6, hemoglobin 9.2, platelets 180. Sodium 135, potassium 3.2 and has been replaced, chloride 93, CO2 38, BUN 26 creatinine 0.51. Blood sugars running between 100 2875. LDH 1836. C- reactive protein 19.7. Propofol, Cleviprex on hold. Patient is on antibiotics in form of Zosyn and followed by Dr. San. 05/26: Patient remains in the ICU, intubated and on mechanical ventilation with tidal volume 350, FiO2 50 and PEEP of 10. Today she is currently on propofol, fentanyl and Cleviprex drips. She is at goal on tube feedings. Sedation was held yesterday and patient became tachycardic and anxious but was able to follow commands. Repeat blood work reveals WBC 27.9, hemoglobin 8.5. D-dimer 0.64. Sodium 130. Potassium 3.5, creatinine 0.53. LDH 1988. C-reactive protein 17.4. Patient's made her no CODE STATUS yesterday. 05/27: Repeat chest x-ray reveals fibrotic changes in the lower lungs with bilateral multifocal acute bibasilar infiltrates and/or edema. No significant changes from one day earlier. Patient remains intubated and on mechanical ventilation with tidal volume 350, FiO2 50% and PEEP of 10. Plan to decrease PEEP to 5 today and hold sedation. Repeat blood work reveals WBC 18.6, hemoglobin 7, platelet count 132. Sodium 127, potassium 3.9, chloride 86, CO2 39, BUN 29 creatinine 0.62. Blood sugar 115. 05/28: Patient was successfully extubated yesterday. She is currently on 10 L high flow nasal cannula with pulse ox of 97%. Patient has been afebrile, heart rate 103, blood pressure 133/72. Repeat blood work reveals Mattie BC 30.4, hemoglobin 8.4. Sodium 130, potassium 3.6, chloride 89, CO2 40, BUN 29, cre atinine 0.51. Blood sugars running between 115-160. Dr. jones started the patient on Eraxis. No antibiotics in place. She is on Solu-Medrol 60 mg IV every 12 hours, Lovenox 40 mg daily and supplements. Patient is still on Cleviprex drip. 05/29: The patient did a video call with her family and it was determined that she wanted to go home and she wanted to go home with hospice. Patient's nurses put in a referral to hospice. Patient is currently being weaned off Cleviprex drip. Patient has been afebrile, heart rate 108, blood pressure 135/60, pulse ox 90% on 6 L nasal cannula. Repeat blood work reveals Mattie BC 25.6, hemoglobin 8.1. Sodium 130, potassium 3.7, chloride 93, CO2 36, BUN 20 and creatinine 0.5. Total bilirubin 0.8, AST 68, ALT 37, alkaline phosphatase 133. C-reactive protein 16.4. Call placed to case resolution specialist regarding making arrangements for hospice. She will follow up with the patient. ASSESSMENT AND PLAN 1. Acute on chronic hypoxic respiratory failure and sepsis (POA) secondary to COVID pneumonia, Influenza B and small left lower pulmonary embolism. 2. Hypogammaglobulinemia, most likely secondary to overwhelming infection, s tatus post IV Ig infusion. 3. Hypothyroidism. 4. Severe osteoporosis. 5. Anticoagulation with Lovenox. 6. Recurrent depression. 7. Situational anxiety. 8. History of breast cancer. 9. Possible acute blood loss anemia from acute GI bleeding not ruled out, status post transfusion of 1 unit of packed RBCs 10. Pneumomediastinum secondary to positive pressure ventilation. Discharge plan: Home with hospice Impression and plan of care have been directed as dictated by the signing physician. Ivone Vizcarra nurse practitioner acting as scribe for signing physician. Patient Condition at Discharge: Stable Plan - Discharge Summary New Discharge Prescriptions: New cloNIDine HCL [Catapres] 0.2 mg PO TID PRN #90 tab PRN Reason: Blood Pressure - High Lactulose [Cephulac] 30 gm PO BID #1 bottle Furosemide [Lasix] 40 mg PO DAILY #30 tablet amLODIPine [Norvasc] 10 mg PO DAILY #30 tab predniSONE 0 mg PO DIRECTED #30 tab Pantoprazole Sodium [Protonix] 40 mg PO DAILY #30 tablet. Continue Sertraline [Zoloft] 200 mg PO DAILY clonazePAM [KlonoPIN] 1.5 mg PO HS Levothyroxine Sodium [Synthroid] 50 mcg PO DAILY Albuterol Inhaler [Ventolin Hfa Inhaler] 2 puff INHALATION RT-QID PRN #1 inhaler PRN Reason: Shortness Of Breath Dexamethasone [Decadron] 6 mg PO DAILY #5 tablet Discontinued Glucosam/Angelo-Msm1/C/Sanjiv/Bosw [Glucosamine-Chondroitin Tablet] 1 tab PO DAILY Alendronate Sodium [Fosamax] 70 mg PO WE guaiFENesin [Mucinex] 600 mg PO Q12HR #14 tablet.er Cyanocobalamin (Vitamin B-12) [Vitamin B-12] 1,000 mcg PO DAILY Aspirin EC [Ecotrin Low Dose] 81 mg PO DAILY Zinc Sulfate [Orazinc] 220 mg PO DAILY cap Ascorbic Acid [Vitamin C] 500 mg PO BID tab Cholecalciferol [Vitamin D3 (25 Mcg = 1000 Iu)] 2,000 unit PO DAILY tab Discharge Medication List Levothyroxine Sodium [Synthroid] 50 mcg PO DAILY 01/21/17 [History] Sertraline [Zoloft] 200 mg PO DAILY 01/21/17 [History] clonazePAM [KlonoPIN] 1.5 mg PO HS 01/21/17 [History] Albuterol Inhaler [Ventolin Hfa Inhaler] 2 puff INHALATION RT-QID PRN #1 inhaler 04/28/20 [Rx] Dexamethasone [Decadron] 6 mg PO DAILY #5 tablet 05/05/20 [Rx] Furosemide [Lasix] 40 mg PO DAILY #30 tablet 05/29/20 [Rx] Lactulose [Cephulac] 30 gm PO BID #1 bottle 05/29/20 [Rx] Pantoprazole Sodium [Protonix] 40 mg PO DAILY #30 tablet.dr 05/29/20 [Rx] amLODIPine [Norvasc] 10 mg PO DAILY #30 tab 05/29/20 [Rx] cloNIDine HCL [Catapres] 0.2 mg PO TID PRN #90 tab 05/29/20 [Rx] predniSONE 0 mg PO DIRECTED #30 tab 05/29/20 [Rx] Follow up Appointment(s)/Referral(s): Ramo Guerrero DO [Primary Care Provider] - As Needed Discharge Disposition: HOME WITH HOSPICE
[2020-05-29] MEDS ORDERED: ALPRAZolam 0.25 MG TAB PO PRN (11:19)
[2020-05-29] MEDS: hydrALAZINE HCL 20 MG/ML 1 ML VIAL IVP PRN ×2 (11:22→17:45)
[2020-05-29] MEDS: LORazepam 2 MG/ML INJ IV SCH (11:56)
[2020-05-29 12:28] LABS: ABG HCO3 41 mmol/L (21-25)
[2020-05-29 14:11] LABS: Glucose,Whole Blood 154 mg/dL (75-99)
--- NOTE | 2020-05-29 15:39 | PN ---
PROGRESS NOTE PULMONARY/CRITICAL CARE PROGRESS NOTE: DATE OF SERVICE: May 29, 2020 This is a 79-year-old female who was admitted back on May 09. She has a history of acute hypoxemic respiratory failure. The patient was successfully extubated from mechanical ventilation two days ago, on the . Currently, she is doing reasonably well. She is on 8 L high flow. She is on Cleviprex 6 mg an hour and saline at 20 mL an hour. Apparently there was some consideration of hospice. Apparently the family has not made that decision as yet. The patient was admitted with a diagnosis of hypoxemic respiratory failure secondary to COVID-19 pneumonia. She was intubated on May 16 and extubated finally on May 27. All-in-all, she is doing reasonably well. PHYSICAL EXAMINATION: VITAL SIGNS: Current vital signs include a temperature which is 97.6, heart rate which is 125, respiratory rate which is 24, blood pressure 155/76, and saturations are 98% on 8 L high-flow oxygen. She appears mildly tachypneic and dyspneic. HEENT: Examination is grossly unremarkable. Nasal cannula noted. NECK: Supple, full range of motion. No adenopathy. Neck veins are flat. CARDIOVASCULAR: Examination reveals regular rhythm and rate. Heart rate 125 beats per minute. S1, S2 normal. LUNGS: Reveal diffuse coarse rhonchi. No wheezes. A few scattered crackles. ABDOMEN: Soft. EXTREMITIES are intact. No cyanosis, clubbing, or edema. SKIN: Without rash. NEUROLOGIC: Examination is nonfocal. LABS: Reviewed. White count 25.6, hemoglobin 8.1, hematocrit 22.3, platelet count 316,000. Sodium 130, potassium 3.7, chloride 93, CO2 36, anion gap is 1. BUN and creatinine were 28 and 0.5. Bilirubin 0.8, calcium 8.0, AST 68, ALT 37. Procalcitonin 0.19. Microbiology is essentially negative only being positive for Bing albicans in the sputum on May 21. A chest x-ray today shows persistent bilateral mostly basilar airspace disease, left greater than right. CURRENT MEDICATIONS: Reviewed. The patient is on Tylenol, albuterol inhaler, amlodipine, Eraxis, Artificial Tears, ascorbic acid, aspirin, vitamin D3, Cleviprex, clonidine, vitamin B12, Lovenox, Lasix, hydralazine, Motrin, insulin, lactulose, levothyroxine, Ativan, melatonin, Solu- Medrol, Narcan, Protonix, potassium replacement, Zoloft, saline nasal rinse, and zinc. ASSESSMENT: 1. Acute hypoxemic respiratory failure secondary to COVID-19 pneumonitis, requiring intubation on May 16 and successful extubation on May 27, 2020. 2. History of influenza B infection, resolved. 3. Pulmonary embolism, left lower lobe. 4. History of breast cancer. 5. Hypothyroidism. 6. Osteoporosis. 7. Chronic anxiety and depression. PLAN: Apparently the family and the patient are planning to go hospice. This was a new decision recently. We will continue to follow. We will support the patient fully. The patient's unnecessary medications can be discontinued. Additional recommendations and suggestions are forthcoming. Hospice consult was placed. Will continue to follow. Prognosis is guarded. CARLYLE / CHELSEY: [id number] /
[2020-05-29] MEDS: SODIUM CHLORIDE 0.9% 1,000 ML IV SCH (18:59)
[2020-05-29 19:12] LABS: Glucose,Whole Blood 136 mg/dL (75-99)
--- NOTE | 2020-05-29 20:30 | PN ---
PROGRESS NOTE DATE OF SERVICE: 05/29/2020 REASON FOR FOLLOW UP: 1. Oropharyngeal candidiasis. 2. Question of pneumonia. INTERVAL HISTORY: Patient is currently afebrile. Patient is hemodynamically stable, not on pressor support. She received a dose of Ativan this evening and was slightly sleepy, lethargic. Unable to provide any history. No vomiting or diarrhea per the nursing staff. PHYSICAL EXAMINATION: Blood pressure 120/76, pulse of 90, temperature 98. She is 95% on high-flow oxygen. General description is an elderly female lying in bed in no distress. Respiratory: Unlabored breathing, decreased breath sounds at the bases. Heart S1, S2. Regular rate and rhythm. Abdomen soft, nontender. . Extremities: No edema of the feet. LABS: Hemoglobin 8.1, white count is 25.6. BUN of 28, creatinine 0.50. Elevated CRP of 16.4. DIAGNOSTIC IMPRESSION AND PLAN: Patient with acute respiratory failure which is likely multifactorial. This patient did have a component of influenza and COVID that has been treated and complaint of pneumonia now with severe oropharyngeal candidiasis and currently covered with Eraxis. White count shows a downward trend. Possible plan for hospice tomorrow per the nursing staff. Hence will hold on adding any further treatment or workup at this point. MMODL / IJN: [id number] /
[2020-05-29] MEDS: ANIDULAFUNGIN 100 MG in SODIUM CHLORIDE 0.9% 100 ML IVPB SCH (21:53)
[2020-05-30 00:10] LABS: Glucose,Whole Blood 141 mg/dL (75-99)
[2020-05-30] MEDS: LORazepam 2 MG/ML INJ IV SCH ×2 (00:16→09:22)
[2020-05-30] MEDS: INSULIN ASPART (NovoLOG) 100 UNIT/ML VIAL SQ SCH ×2 (00:20→06:16)
[2020-05-30 05:39] VITALS: PULSE 119
[2020-05-30 05:41] LABS: Glucose,Whole Blood 111 mg/dL (75-99)
[2020-05-30] MEDS: ALBUTEROL HFA INHALER INHALATION SCH (08:16)
[2020-05-30] MEDS: FUROSEMIDE 10 MG/ML 4 ML VIAL IV SCH (09:32)
[2020-05-30] MEDS: ENOXAPARIN 40 MG/0.4 ML SYRINGE SQ SCH (09:35)
[2020-05-30] MEDS: ASPIRIN 81 MG PO SCH (09:35)
[2020-05-30] MEDS: LEVOTHYROXINE IVP 100 MCG/5 ML VIAL IV SCH (09:35)
[2020-05-30] MEDS: CYANOCOBALAMIN 500 MCG TAB PO SCH (09:35)
[2020-05-30] MEDS: CHOLECALCIFEROL 1,000 UNIT TAB PO SCH (09:35)
[2020-05-30] MEDS: ASCORBIC ACID 500 MG TAB PO SCH (09:35)
[2020-05-30] MEDS: amLODIPine 10 MG TAB PO SCH (09:35)
[2020-05-30] MEDS: LACTULOSE 20 GM/30 ML CUP PO SCH (09:35)
[2020-05-30] MEDS: methylPREDNISolone SOD SUCCI 125 MG/2 ML VIAL IV SCH (09:40)
[2020-05-30] MEDS: PANTOPRAZOLE 40 MG/10 ML VIAL IVP SCH (09:40)
[2020-05-30] MEDS: ZINC SULFATE 220 MG CAP PO SCH (09:40)
[2020-05-30] MEDS: SERTRALINE 100 MG TAB PO SCH (09:40)
[2020-05-30 09:55] VITALS: BMI 25.2
[2020-05-30 10:05] VITALS: BP 143/83; RESP 18; TEMP 96.9
--- NOTE | 2020-05-30 11:25 | P.PN ---
Subjective Progress Note Date: 05/29/20 HISTORY OF PRESENT ILLNESS This is a 79-year-old female patient of Dr. Guerrero with past medical history of breast cancer, hypothyroidism, hyperlipidemia, generalized osteoarthritis. She was recently hospitalized May 12 for fever, chills, cough with sputum production with worsening dyspnea was diagnosed with COVID-19 pneumonia. Patient was stabilized and discharged home on May 05 with azithromycin, steroids, home oxygen and vitamin supplements. Patient had significant shortness of breath when she woke up this morning and was wearing oxygen at 4 L. EMS was called and reported that she was ashen nazario, diaphoretic with a pulse ox of 71% upon arrival. Patient was brought into [facility] emergency center and found to be afebrile, heart rate 105, blood pressure 168/89, pulse ox 97% with nonrebreather. She continued tachypneic and tachycardic and patient was placed on BiPAP. Chest x-ray reveals stable patchy bilateral infiltrates. WBC 19.5, hemoglobin 11. Sodium 133, potassium 4.1, CO2 26, BUN 23 and creatinine 0.65. Blood sugar 100. Lactic acid 1.1. LDH 1116, C-reactive protein 63.7. Covid 19 not detected. Influenza B positive. Patient was continued on vitamin supplements, dexamethasone and started on Lovenox, Kati flu, admitted to the cardiac stepdown unit and consult requested with infectious disease and pulmonary medicine. DDimer elevated at 33 and CTA of the chest positive for tiny filling defect left lower lobe pulmonary artery. 05/10: Patient continues to have significant shortness of breath cough and chest tightness. She is on BiPAP and unable to eat or drink. She continues to feel weak and tired. Temperature max 100.0, heart rate 95, blood pressure 125/68, pulse ox 91% on BiPAP with FiO2 of 80. Patient has been seen by pulmonary medicine and started on Remdesivir. The patient's has been contacted via phone and updated regarding patient's current condition and treatment plan. 05/11: Patient is currently on day 3/5 of Remdesivir. Her pulse ox is running about 89% on BiPAP of 85% FiO2. Legionella was negative. Temperature max 101, heart rate 86, blood pressure 150/68. Navarro catheter will be placed as patient is too dyspneic to use bedpan or commode. Repeat blood work reveals WBC 19.4, hemoglobin 10.2. Sodium 136, potassium 3.7, creatinine 0.68. Patient is followed by infectious disease and pulmonary medicine. 05/12: Patient is currently on day 4/5 of Remdesivir. She continues to have significant shortness of breath which is worse from yesterday. She is on 85% FiO2 BiPAP pulse ox a 90%. When she moved over to 15 L, pulse ox dropped down to 78%. She continues complaining of shortness of breath. She has been anxious during the night and Xanax ordered. Patient is unable to take any new oral nutrition at this point. Navarro catheter was placed yesterday. Patient has been afebrile for 24 hour period. Heart rate 104, respiratory rate 26, blood pressure 175/81. Updated pulmonary medicine regarding possible need for intubation. 05/13: Patient's respiratory status did improve yesterday afternoon and she did not require transfer to the intensive care unit. Patient may be slightly better today from yesterday morning but did decline from yesterday afternoon. She is currently pulse ox seen in the 80s with BiPAP of 85% FiO2. She has been off onto 15 L high flow nasal cannula to eat and has been able to take in a small amount of food yesterday and Ensure. She will complete her course of Remdesivir this evening. Tamiflu course will also be completed this evening. Temperature max 100.3 yesterday at noon. Heart rate 91, blood pressure 174/85. Repeat blood work reveals WBC 20.5, hemoglobin 11. Chloride 112, BUN 33 and creatinine 0.61. Blood sugar 146. Alkaline phosphatase 129. 05/14: Yesterday afternoon, patient was transferred to the intensive care unit and is agreeable to short-term intubation if necessary. She has not required vasopressors. Patient has been afebrile. Heart rate 64, blood pressure 132/69, pulse ox 93% on 80% BiPAP. Leukocytosis is down to 12.9, hemoglobin 10. D- dimer isn't improved at 2.83. Creatinine 0.53. Other inflammatory markers have shown improvement with LDH at 1416, C-reactive protein 36.8. Patient has completed course of Remdesivir and Tamiflu. She remains on Lovenox, Solu-Medrol and vitamin supplementations. 05/15: Patient remains in the intensive care unit on BiPAP pulse ox seen 89-90% on 80% FiO2. Repeat chest x-ray reveals stable bilateral patchy infiltrate. She has completed course of Remdesivir and course of Tamiflu. She has been afebrile, heart rate 64, blood pressure 151/79. WBC 14.6, hemoglobin 10.1. Creatinine 0.51. Blood sugar 136. Albumin 2.5. Patient has been without food for greater than 6 days. Discussed nutrition options with Dr. Crowe he will address with rounds today. Physical exam deferred to Dr. Crowe. 05/16: Patient remains in the intensive care unit. She remains on 100% BiPAP pulse oxing 91%. She's been afebrile, heart rate in the low 100s, blood pressure 162/88. Repeat blood work reveals WBC 16.1, hemoglobin 10.8. D-dimer is 2.88. Sodium 135, potassium 3.7, chloride 108, CO2 25, BUN 28 and creatinine 0.47. CRP 37.3. Repeat chest x-ray reveals patchy bilateral lung infiltrates. Patient continues to be followed by [facility] and infectious disease. Patient is eating only about 25% of her meals. She is followed by case management for discharge planning. Patient states that Xanax is not helping and will be changed to lorazepam 0.5 mg IV every 6 hours as needed. 05/17: Patient was intubated last night currently on mechanical ventilation with tidal volume 400, FiO2 100, PEEP of 14. Pulse ox is 90-91%. Chest x-ray this morning reveals mild cardiomegaly and diffuse interstitial opacities mid and lower lungs. Small effusions. Correlate for interstitial pulmonary edema. She has been afebrile, heart rate 76, blood pressure 132/68. Patient has not required vasopressors. Patient is on max propofol. Oral tube feeding to be started today. Repeat lab work reveals WBC 15, hemoglobin 10. Sodium 136, potassium 3.5, chloride 108, CO2 24, BUN 27 and creatinine 0.51. Stool for occult blood positive. 05/18: Patient remains in the intensive care unit with pulse ox in the low 90s, remains intubated and on mechanical ventilation with tidal volume 350, FiO2 65, PEEP 12. She has been afebrile, heart rate 64, blood pressure 105/59. Patient has been starting on tube feedings currently at goal. Repeat lab work reveals Mattie BC 15.9, hemoglobin 10.1. Fibrinogen 504, d-dimer 1.17. Sodium 136, potassium 3.7, chloride 112, CO2 23, BUN 29 and creatinine 0.59. Blood sugars in the low 100s. Ferritin 570. C-reactive protein 27.9. 05/19:patient intubated sedated leukocytosis 20k, p02 67 sbp 123, solumedrol 60 q6 levofed infusion, still requiring pressor support, we will change oral levothyroxine to IV 25 g daily.vo 05/20: Patient is remains in ICU intubated on vent, sedated, still with leukocyt osis 22.9 thousand, chest x-ray shows mild diffuse increased lung markings stable from previous, patient is on Zosyn, sputum culture requested, finished treatment withremdesivir d-dimer is trending down toward with current level of 0.99, creatinine is normal, we'll going to check for TSH value check for immune globulin level, iron levels, for the anemia. albumin levels low at 2.1 on or OG-tube feedings 05/21. Patient remains in ICU, still in mechanical ventilation, followed closely by freight hustler, patient still leukocytosis wbcof 23,000, hemoglobin of 8.2, chest x-ray shows bilateral multifocal infiltrates, still on empiric Zosyn for underlying but bacterial pneumonia, however, covid pneumonitis is still difficult to eradicate chest x-ray shows fibrotic change in the lower lung with bilateral multifocal acute infiltrates, no significant change. IgG levels are very low at 378, unsure whether, globulin infusion would be helpful against a convalescent Covid serum would be helpful we will discuss with infectious disease or pulmonary. I discussed these value of hypogammaglobulinemia to Dr. Savage, for which he recommended IV IgG infusion, rather than convalescent serum. Gammagard to be dosed by pharmacy at 0.6 mg/kg of ideal body weight. ICU was notified. May 22: Patient remains in ICU, still with mechanical ventilation, Gammagard should have been infused, afebrile, still receiving OG-tube feedings still with leukocytosis, no new changes, awaiting response of antibiotic, no plans for vent weaning yet freight hustler, monitoring very closely 05/23: Patient remained intubated and on mechanical ventilation with FiO2 50 and PEEP of 10. Pulse ox is running about 90%. She has been afebrile, heart rate in the 60s and 70s, blood pressure 162/63. Clevidipine is on hold. Patient has been continued on Zosyn and followed by multiple consultants. 05/24: Repeat chest x-ray reveals suspected interval development of pneumomediastinum. COPD with patchy bilateral infiltrates stable. Patient remains intubated and on mechanical ventilation she is currently on tidal volume 350, FiO2 50 PEEP of 10. She is currently on propofol, Cleviprex and fentanyl drips. She is receiving tube feedings and is at goal. 05/25: Patient remains intubated and on mechanical ventilation with plan to hold sedation today and see how patient responds. Repeat chest x-ray reveals progression of subcutaneous emphysema over the neck bilaterally. Correlate for pneumonia, edema. She has been afebrile, heart rate 72, blood pressure 133/52, pulse ox 97%. Repeat lab work reveals Mattie BC 23.6, hemoglobin 9.2, platelets 180. Sodium 135, potassium 3.2 and has been replaced, chloride 93, CO2 38, BUN 26 creatinine 0.51. Blood sugars running between 100 2875. LDH 1836. C- reactive protein 19.7. Propofol, Cleviprex on hold. Patient is on antibiotics in form of Zosyn and followed by Dr. San. 05/26: Patient remains in the ICU, intubated and on mechanical ventilation with tidal volume 350, FiO2 50 and PEEP of 10. Today she is currently on propofol, fentanyl and Cleviprex drips. She is at goal on tube feedings. Sedation was held yesterday and patient became tachycardic and anxious but was able to follow commands. Repeat blood work reveals WBC 27.9, hemoglobin 8.5. D-dimer 0.64. Sodium 130. Potassium 3.5, creatinine 0.53. LDH 1988. C-reactive protein 17.4. Patient's made her no CODE STATUS yesterday. 05/27: Repeat chest x-ray reveals fibrotic changes in the lower lungs with bilateral multifocal acute bibasilar infiltrates and/or edema. No significant changes from one day earlier. Patient remains intubated and on mechanical ventilation with tidal volume 350, FiO2 50% and PEEP of 10. Plan to decrease PEEP to 5 today and hold sedation. Repeat blood work reveals WBC 18.6, hemoglobin 7, platelet count 132. Sodium 127, potassium 3.9, chloride 86, CO2 39, BUN 29 creatinine 0.62. Blood sugar 115. 05/28: Patient was successfully extubated yesterday. She is currently on 10 L high flow nasal cannula with pulse ox of 97%. Patient has been afebrile, heart rate 103, blood pressure 133/72. Repeat blood work reveals Mattie BC 30.4, hemoglobin 8.4. Sodium 130, potassium 3.6, chloride 89, CO2 40, BUN 29, creatinine 0.51. Blood sugars running between 115-160. Dr. jones started the patient on Eraxis. No antibiotics in place. She is on Solu-Medrol 60 mg IV every 12 hours, Lovenox 40 mg daily and supplements. Patient is still on Cleviprex drip. 05/29: The patient did a video call with her family and it was determined that she wanted to go home and she wanted to go home with hospice. Patient's nurses put in a referral to hospice. Patient is currently being weaned off Cleviprex drip. Patient has been afebrile, heart rate 108, blood pressure 135/60, pulse ox 90% on 6 L nasal cannula. Repeat blood work reveals Mattie BC 25.6, hemoglobin 8.1. Sodium 130, potassium 3.7, chloride 93, CO2 36, BUN 20 and creatinine 0.5. Total bilirubin 0.8, AST 68, ALT 37, alkaline phosphatase 133. C-reactive protein 16.4. Call placed to rn field case manager regarding making arrangements for hospice. She will follow up with the patient. REVIEW OF SYSTEMS Constitutional: No fever, no chills. Reports weakness, reports fatigue reports lethargy. Reports daytime sleepiness. EENT: No headache. No nasal drainage or congestion. No epistaxis. No sore throat. Lungs: Reports shortness of breath, reports cough, no sputum production. No wheezing. Cardiovascular: No chest pain, reports lower extremity edema. No palpitations. No paroxysmal nocturnal dyspnea. No orthopnea. No lightheadedness or dizziness. No syncopal episodes. Abdominal: No abdominal pain. No nausea, vomiting. No diarrhea. No constipation. No bloody or tarry stools. Reports loss of appetite. Genitourinary: No dysuria, increased frequency, urgency. No urinary retention. +Navarro Musculoskeletal: No myalgias. Significant muscle weakness, significant gait dysfunction. Integumentary: No wounds, no lesions. No rash or pruritus. Neurologic: No aphasia. No facial droop. No change in mentation. No head injury. No headache. No paralysis. No paresthesia. Psychiatric: Known depression. Known anxiety. Endocrine: Reported abnormal blood sugars. PHYSICAL EXAMINATION Gen: This is a 79-year-old female. She is resting in ICU bed in no acute distress, on nasal cannula. HEENT: Head is atraumatic, normocephalic. Pupils equal, round. Sclerae is anicteric. NECK: Supple. No JVD. No lymphadenopathy. No thyromegaly. LUNGS: Bilateral crackles with decreased. No wheezing. No intercostal retractions. HEART: Regular rate and rhythm. No murmur. ABDOMEN: Soft. Bowel sounds are present. No masses. No tenderness. EXTREMITIES: Trace bilat pedal edema. No calf tenderness. Dorsalis pedis +2 bilaterally. NEUROLOGICAL: Patient is awake, alert and oriented x3. Significant generalized weakness. ASSESSMENT AND PLAN 1. Acute on chronic hypoxic respiratory failure and sepsis (POA) secondary to COVID pneumonia, Influenza B and small left lower pulmonary embolism. Patient required intubation and mechanical ventilation, status post extubation. Solu- Medrol 60 mg IV every 12 hours, Lovenox 40 mg subcu daily, vitamin supplements with vitamin C, vitamin D, zinc, Tamifllu completed. Remdesivir completed. Consults with pulmonary medicine and infectious disease appreciated. 2. 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 San, infectious disease, status post IV Ig infusion. 3. Hypothyroidism. Continue levothyroxine 50 g daily. 3. Severe osteoporosis. Fosamax on hold. 4. Anticoagulation with Lovenox. 5. GI prophylaxis. Pepcid. 6. Recurrent depression. Continue Zoloft 200 mg daily. 7. Situational anxiety. Xanax 0.5 mg twice daily as needed added. 8. History of breast cancer. 9. Stool positive for occult blood. Monitor hemoglobin and patient status closely. 10. Possible acute blood loss anemia from acute, status post transfusion of 11. Pneumomediastinum secondary to positive pressure ventilation. CODE STATUS: No code Discharge plan: Home with hospice once arrangements are completed Impression and plan of care have been directed as dictated by the signing physician. Ivone Vizcarra nurse practitioner acting as scribe for signing physician. Objective - Vital Signs Vital signs: Vital Signs Temp 97.6 F 05/30/20 05:37 Pulse 119 H 05/30/20 05:37 Resp 20 05/30/20 05:37 BP 158/91 05/30/20 05:37 Pulse Ox 99 05/30/20 05:37 Intake & Output 05/29/20 05/30/20 05/30/20 18:59 06:59 18:59 Intake Total 220.8 160 Output Total 920 Balance -699.2 160 Weight 60.5 kg Intake: IV 184 160 Pressure Bags 0.9 sodium 24 chloride Sodium Chloride 0.9% 1, 160 160 000 ml @ 20 mls/hr IV . Q24H NI Rx#:[id number] Intake, IV Titration 36.8 Amount Clevidipine Butyrate 25 36.8 mg In Empty Bag 1 bag @ 1 MG/HR 2 mls/hr IV .Q24H NI Rx#:[id number] Output: Urine 920 Other: Voiding Method Indwelling Catheter Indwelling Catheter ABP, PAP, CO, CI - Last Documented Arterial Blood Pressure 141/67 - Labs CBC & Chem 7: 05/29/20 04:12 05/29/20 04:12 Labs: Abnormal Lab Results - Last 24 Hours (Table) 05/26/20 05/29/20 05/29/20 Range/Units 05:43 04:12 14:10 ABG HCO3 41 H* (21-25) mmol/L POC Glucose (mg/dL) 154 H (75-99) mg/dL Procalcitonin 0.19 H (0.02-0.09) ng/mL 05/29/20 05/30/20 05/30/20 Range/Units 19:10 00:08 05:40 ABG HCO3 (21-25) mmol/L POC Glucose (mg/dL) 136 H 141 H 111 H (75-99) mg/dL Procalcitonin (0.02-0.09) ng/mL
== END 2020-05-30 11:30 | disposition hospice, home (50) | DRG 207 ==
LOC: EC 05:48 → 3SCARD 06:58 → 2SICU 05-13 13:35 → 4SSUR 05-29 19:37
PROVIDERS: ADMIT Internal Medicine Geriatric Medicine; ATTEND Internal Medicine Geriatric Medicine
PROC: 5A09557 Assistance with Respiratory Ventilation, Greater than 96 Consecutive Hours, Continuous Positive Airway Pressure (ICD-10-PCS; 2020-05-09)
PROC: XW033E5 Introduction of Remdesivir Anti-infective into Peripheral Vein, Percutaneous Approach, New Technology Group 5 (ICD-10-PCS; 2020-05-10)
PROC: XW13325 Transfusion of Convalescent Plasma (Nonautologous) into Peripheral Vein, Percutaneous Approach, New Technology Group 5 (ICD-10-PCS; 2020-05-14)
PROC: 5A1955Z Respiratory Ventilation, Greater than 96 Consecutive Hours (ICD-10-PCS; principal; 2020-05-17)
PROC: 0BH17EZ Insertion of Endotracheal Airway into Trachea, Via Natural or Artificial Opening (ICD-10-PCS; principal; 2020-05-17)
PROC: 02H633Z Insertion of Infusion Device into Right Atrium, Percutaneous Approach (ICD-10-PCS; 2020-05-17)
PROC: 03HC33Z Insertion of Infusion Device into Left Radial Artery, Percutaneous Approach (ICD-10-PCS; 2020-05-17)
PROC: 3E033XZ Introduction of Vasopressor into Peripheral Vein, Percutaneous Approach (ICD-10-PCS; 2020-05-18)
PROC: 30233S1 Transfusion of Nonautologous Globulin into Peripheral Vein, Percutaneous Approach (ICD-10-PCS; 2020-05-21)
PROC: 30243N1 Transfusion of Nonautologous Red Blood Cells into Central Vein, Percutaneous Approach (ICD-10-PCS; 2020-05-23)
DX: U07.1 COVID-19 (principal); J10.08 Influenza due to other identified influenza virus with other specified pneumonia; I26.93 Single subsegmental thrombotic pulmonary embolism without acute cor pulmonale; J12.89 Other viral pneumonia; J15.9 Unspecified bacterial pneumonia; J80 Acute respiratory distress syndrome; B37.0 Candidal stomatitis; B37.89 Other sites of candidiasis; D62 Acute posthemorrhagic anemia; D80.1 Nonfamilial hypogammaglobulinemia; E87.4 Mixed disorder of acid-base balance; F33.9 Major depressive disorder, recurrent, unspecified; J98.2 Interstitial emphysema; J44.9 Chronic obstructive pulmonary disease, unspecified; Z66 Do not resuscitate; E03.9 Hypothyroidism, unspecified; E78.5 Hyperlipidemia, unspecified; F41.8 Other specified anxiety disorders; I10 Essential (primary) hypertension; M15.9 Polyosteoarthritis, unspecified; M81.0 Age-related osteoporosis without current pathological fracture; T38.0X5A Adverse effect of glucocorticoids and synthetic analogues, initial encounter; R19.7 Diarrhea, unspecified; R45.1 Restlessness and agitation; D72.829 Elevated white blood cell count, unspecified; Z79.82 Long term (current) use of aspirin; Z79.83 Long term (current) use of bisphosphonates; Z79.890 Hormone replacement therapy; Z79.899 Other long term (current) drug therapy; Z85.3 Personal history of malignant neoplasm of breast; Z87.891 Personal history of nicotine dependence; Z90.710 Acquired absence of both cervix and uterus; Z90.89 Acquired absence of other organs; Z87.898 Personal history of other specified conditions; Z98.890 Other specified postprocedural states; Z98.42 Cataract extraction status, left eye; Z98.41 Cataract extraction status, right eye; Z80.9 Family history of malignant neoplasm, unspecified
CPT/HCPCS: 36415; 36600; 71045; 71275; 80048; 80053; 81001; 82271; 82550; 82553; 82728; 82784; 82785; 82805; 83540; 83550; 83605; 83615; 83625; 83735; 84100; 84132; 84145; 84443; 85025; 85027; 85379; 85384; 85610; 85730; 86140; 86850; 86900; 86901; 86920; 87040; 87070; 87205; 87449; 87502; 87635; 93005; 94002; 94003; 94640; 94660; 94760; 96365; 96367; 96372; 99285